=== PATIENT | female | born 1960 | race Caucasian/White ===

== ENCOUNTER 2018-10-13 16:02 | Emergency (ER) | payer BC ==
--- OUTSIDE RECORDS SUMMARY | 2018-10-13 16:06 | XMS REPORT | Continuity of Care Document ---
:1960 Author Organization Interface Problems Problem Status Onset Classification Date Comments Source Date Reported MALIGNANT NEOPLASM Active [facility] OF LEFT FEMALE [facility]19 [place] BREAST LEFT BREAST CANCER Active 018 [facility] LUNG MASS Active 018 [facility] BREAST CANCER Active 018 [facility] C50.212 Active 018 [facility] UNK Active [facility] [place]18 [place] I D, MARTINEZ Active [facility] BREAST/POSS TISSUE 018 [place] EXPANDERS RE DX: Active C50.212=MALIGNANT 018 [place] NEOPLASM OF UPPER- Malignant neoplasm 09/12/[address] 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 Medical aneurysm Group,[facility] Cerebral infarct Active Problem 09/24/2018 [facility] [place] CVA - Resolved Problem 09/24/2018 [facility] accident [facility] Group Hypothyroidism Resolved Problem 09/24/2018 Medical Group, [facility] [place] Labial cyst Active Problem 09/24/2018 [facility] Lupus Active Problem 09/24/2018 [facility] Breast cancer Resolved Problem 09/24/2018 Medical Group, [place] Memory loss Active Problem 12/25/2017 [facility] Lobular carcinoma 09/12/2018 [place] in situ of right breast 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 unspecified malignant neoplasm of axilla and upper limb lymph nodes Benign neoplasm of 09/12/[address] [facility] right breast Benign neoplasm of 09/12/[address] [facility] left breast Unspecified benign 09/12/[address] [facility] mammary dysplasia of right breast Unspecified benign 09/12/[address] [facility] mammary dysplasia of left breast Diffuse cystic 09/12/[address] [facility] mastopathy of right breast Diffuse cystic 09/12/[address] 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 Lupus Active Problem 09/12/2018 [facility] Ortiz,[facility] 272.4 Active [facility] OCL CRTD ART WO Active [facility] MALIG NEOPLASM OF [facility] QUADRANT O MALIG NEOPLASM OF Active [facility] QUADRANT O Medications Medication Details Route Status Patient Ordering Order Source Instructions Provider Date gabapentin 600 MG 600 mg=1 tab, Active Medical Oral Tablet PO, TID, 0 2018 Group Refill(s) anastrozole 1 mg, PO, Active Medical Daily, 0 2018 Group Refill(s) ceFAZolin + 1 gm, Route: No Longer Medical Sodium Chloride IVPB, ONCE, Active 2017 [facility] 0.9% IV 100 mL Start date: 03/27/18 7:30:00 CDT, Stop date: 03/27/18 7:30:00 CDTNotes: (Same As: Allan Tejada) MEDICATION WASTE Product Size: 1000 mg Product Wasted: ___ mg Ondansetron 4 MG 4 mg=1 tab, PO, Active Oral Tablet Q8H, PRN 2017 [place] [Zofran] Nausea/vomiting , # 6 tab, 0 Refill(s), Pharmacy: [facility] [id number] Minocycline 100 mg, 2 cap, Inactive Route: PO, Drug 2017 [place] form: CAP, [id number], Dosing Weight 74.091, kg, Start date: 02/23/18 13:00:00 CDT, Duration: 30 day, Stop date: 03/25/18 1:00:00 CDTNotes: (Same as:Minocin) No milk/antacids/i mike. Prednisone 10 mg, 1 tab, Inactive Route: PO, Drug 2017 [place] form: TAB, Daily, Dosing Weight 66.08, kg, Start date: 02/23/18 9:00:00 CDT, Duration: 30 day, Stop date: 03/24/18 9:00:00 CDTNotes: (Same as: PredniSONE) Take with food. duloxetine 60 mg, 2 cap, Inactive Route: PO, Drug 2017 [place] form: DRC, Daily, Dosing Weight 66.08, kg, Start date: 02/23/18 9:00:00 CDT, Duration: 30 day, Stop date: 03/24/18 9:00:00 CDTNotes: (Same as: Cymbalta) (Do Not Crush) Thyroxine 125 microgram, Inactive 1 tab, Route: 2018 [place] PO, Drug form: TAB, Daily, Dosing Weight 66.08, kg, Start date: 02/23/18 9:00:00 CDT, Duration: 30 day, Stop date: 03/24/18 9:00:00 CDTNotes: Take 1 hour before or 2 hours after meal; Enteral feeds may interefere with the absorption of this medication. (Same as:Levothroid) atorvastatin 40 mg, 1 tab, No Longer Route: PO, Drug Active 2017 [place] form: TAB, Bedtime, Dosing Weight 66.08, kg, Start date: 02/22/18 21:00:00 CDT, Duration: 30 day, Stop date: 03/23/18 21:00:00 CDTNotes: (Same as: Lipitor) Docusate Sodium 100 mg, 1 cap, No Longer 100 MG Oral Route: PO, Drug Active 2017 [place] Capsule form: CAP, BID, Dosing Weight 66.08, kg, Start date: 02/22/18 17:00:00 CDT, Duration: 30 day, Stop date: 03/24/18 9:00:00 CDTNotes: (Same as: Colace) (Do Not Crush) Naloxone 0.1 mg, 0.25 Inactive mL, Route: 2017 [place] SUB-Q, Drug form: INJ, Q6H, Dosing Weight 66.08, kg, PRN Itching, Start date: 02/22/18 12:35:00 CDT, Duration: 30 day, Stop date: 03/24/18 12:34:00 CDTNotes: Same as Narcan 72 HR Scopolamine 1 patch, Route: Inactive 0.0139 MG/HR TOP, Drug Form: 2017 [place] Transdermal Patch ERFILM, Dosing Weight 66.08, kg, ONCE, Apply behind ear. Avoid use in elderly., Start date: 02/22/18 12:35:00 CDT, Stop date: 02/22/18 12:35:00 CDTNotes: Change patch every 72 hours (Same as: Transderm-Scop) Promethazine 6.25 mg, 0.25 Inactive mL, Route: 2017 [place] IVPB, ONCE, Dosing Weight 66.08, kg, PRN Nausea & Vomiting, Start date: 02/22/18 12:35:00 CDTNotes: . (Same as: Phenergan) Ondansetron 4 mg, 2 mL, Inactive Route: IVP, 2017 [place] Drug form: INJ, ONCE, Dosing Weight 66.08, kg, PRN Nausea & Vomiting, Start date: 02/22/18 12:35:00 CDTNotes: (Same as: Zofran) MEDICATION WASTE Product Size: 4 mg Product Wasted: ___ mg Diphenhydramine 12.5 mg, 0.25 Inactive mL, Route: IVP2017 [place] Drug form: INJ, Q6H, Dosing Weight 66.08, kg, PRN Itching, Start date: 02/22/18 12:35:00 CDT, Duration: 30 day, Stop date: 03/24/18 12:34:00 CDTNotes: (Same as: Benadryl) Meperidine 12.5 mg, 0.25 Inactive mL, Route: IVP, 2017 [place] Drug form: INJ, Q30Min, Dosing Weight 66.08, kg, PRN Other -See Comment, For shivering, Start date: 02/22/18 12:35:00 CDT, Duration: 2 doses or times, Stop date: Limited # of timesNotes: (Same As: Demerol) Albuterol 0.83 2.49 mg, 3 mL, Inactive MG/ML Inhalant Route: NEB, 2017 [place] Solution Drug form: SOLN, Q20Min, Dosing Weight 66.08, kg, PRN Wheezing, Priority: STAT, Start date: 02/22/18 12:35:00 CDT, Duration: 30 day, Stop date: 03/24/18 12:34:00 CDTNotes: SEE RT DOCUMENTATION (Same as: Proventil) Fentanyl 50 microgram, Inactive Route: IVP, 2017 [place] Q5Min, Dosing Weight 66.08, kg, PRN Pain Score 7-10, Priority: Routine, Start date: 02/22/18 12:35:00 CDT, Duration: 2 doses or times, Stop date: Limited # of times Flumazenil 0.2 mg, 2 mL, Inactive Route: IVP2017 [place] Drug form: INJ, PRN, Dosing Weight 66.08, kg, PRN Benzodiazepine Reversal, Initial dose, Start date: 02/22/18 12:35:00 CDT, Duration: 30 day, Stop date: 03/24/18 12:34:00 CDTNotes: (Same as: Romazicon) Oxycodone 10 mg, 2 tab, Inactive Route: PO, Drug 2018 [place] form: TAB, Q4H, Dosing Weight 66.08, kg, PRN Pain Score 7-10, Start date: 02/22/18 12:35:00 CDT, Duration: 30 day, Stop date: 03/24/18 12:34:00 CDTNotes: (Same as: Roxicodone) Hydromorphone 0.5 mg, 0.5 mL, Inactive Route: IVP, 2017 [place] Drug form: INJ, Q5Min, Dosing Weight 66.08, kg, PRN Pain Score 7-10, Start date: 02/22/18 12:35:00 CDT, Duration: 4 doses or times, Stop date: Limited # of timesNotes: Same as: Dilaudid Acetaminophen 1,000 mg, Inactive Route: IVPB, 2017 [place] Drug form: INJ, ONCE, Dosing Weight 66.08, kg, PRN Pain Score 1-3, Start date: 02/22/18 12:35:00 CDT neostigmine Route: IV, Drug Inactive (ANES) form: INJ, 2017 [place] ONCE, Stop date: 02/22/18 12:14:00 CDT glycopyrrolate Route: IV, Drug Inactive (ANES) form: INJ, 2017 [place] ONCE, Stop date: 02/22/18 12:14:00 CDT phenylephrine Route: IV, Drug Inactive (ANES) form: INJ, 2017 [place] ONCE, Stop date: 02/22/18 9:34:00 CDT Naloxone 0.04 mg, 0.1 No Longer mL, Route: IVP, Active 2017 [place] Drug form: INJ, Q2MIN, Dosing Weight 66.08, kg, PRN Narcotic Reversal, Start date: 02/22/18 9:30:00 CDT, Duration: 30 day, Stop date: 03/24/18 9:29:00 CDTNotes: Same as Narcan Morphine 30 mg, 30 mL, No Longer Route: IV, HYDROPONICS GROWER Active 2017 [place] Dose: 1 mg, HYDROPONICS GROWER Lockout: 6 minutes, Continuous Basal Rate: 0 mg, 4 Hour Limit (In MG): 30, Drug Form: INJ, Continuous, Start date: 02/22/18 9:30:00 CDT, Duration: 30 day, Stop date: 03/24/18 9:29:00 CDTNotes: Dose: Delay: Basal rate: 4hr limit: (Same as:Sharonda) Diphenhydramine 25 mg, 1 tab, No Longer Route: PO, Drug Active 2018 [place] form: TAB, Bedtime, Dosing Weight 66.08, kg, PRN Insomnia, Start date: 02/22/18 9:30:00 CDT, Duration: 30 day, Stop date: 03/24/18 9:29:00 CDT Acetaminophen 325 1 tab, Route: No Longer MG / Hydrocodone PO, Drug Form: Active 2018 [place] Bitartrate 10 MG TAB, Dosing Oral Tablet Weight 66.08, kg, Q4H, PRN Pain Score 4-6, Start date: 02/22/18 9:30:00 CDT, Duration: 30 day, Stop date: 03/24/18 9:29:00 CDTNotes: Do not exceed 4gm/day of acetaminophen. (Same as: [place] 325/10) Acetaminophen 325 1 tab, Route: No Longer MG / Hydrocodone PO, Drug Form: Active 2018 [place] Bitartrate 5 MG TAB, Dosing Oral Tablet Weight 66.08, kg, Q4H, PRN Pain Score 4-6, Start date: 02/22/18 9:30:00 CDT, Duration: 30 day, Stop date: 03/24/18 9:29:00 CDTNotes: (Same as: [place] 325/5) Do not exceed 4gm/day of acetaminophen. Ondansetron 4 mg, 2 mL, No Longer Route: IVP, Active 2018 [place] Drug form: INJ, Q6H, Dosing Weight 66.08, kg, PRN Nausea & Vomiting, Start date: 02/22/18 9:30:00 CDT, Duration: 30 day, Stop date: 03/24/18 9:29:00 CDTNotes: (Same as: Gabriela) MEDICATION WASTE Product Size: 4 mg Product Wasted: ___ mg Acetaminophen 650 mg, 2 tab, No Longer 08/16/ MH Route: PO, Drug Active 2017 [place] form: TAB, Q4H, Dosing Weight 66.08, kg, PRN Pain 1-3/Temp > 100.4 F, Start date: 02/22/18 9:30:00 CDT, Duration: 30 day, Stop date: 03/24/18 9:29:00 CDTNotes: Do not exceed 4 gm/day. (Same as: Tylenol) Calcium Chloride 1,000 mL, Rate: No Longer 0.0014 MEQ/ML / 50 ml/hr, Active 2017 [place] Potassium Infuse over: 20 Chloride 0.004 hr, Route: IV, MEQ/ML / Sodium Dosing Weight Chloride 0.103 66.08 kg, Total MEQ/ML / Sodium Volume: 1,000, Lactate 0.028 Start date: MEQ/ML Injectable 02/22/18 Solution 9:30:00 CDT, Duration: 30 day, Stop date: 03/24/18 9:29:00 CDT, 1.71, m2 Dilaudid (ANES) Route: IV, Drug Inactive form: INJ, 2017 [place] ONCE, Stop date: 02/22/18 9:09:00 CDT metoclopramide Route: IV, Drug Inactive (ANES) form: INJ, 2017 [place] ONCE, Stop date: 02/22/18 8:59:00 CDT dexamethasone Route: IV, Drug Inactive (ANES) form: INJ, 2017 [place] ONCE, Stop date: 02/22/18 8:59:00 CDT ePHEDrine (ANES) Route: IV, Drug Inactive form: INJ, 2017 [place] ONCE, Stop date: 02/22/18 8:59:00 CDT lidocaine (ANES) Route: IV, Drug Inactive form: INJ, 2017 [place] ONCE, Stop date: 02/22/18 8:54:00 CDT ceFAZolin (ANES) Route: IV, Drug Inactive form: INJ, 2017 [place] ONCE, Stop date: 02/22/18 8:54:00 CDT propofol (ANES) Route: IV, Drug Inactive 08/16/ MH form: INJ, 2017 [place] ONCE, Stop date: 02/22/18 8:54:00 CDT ondansetron Route: IV, Drug Inactive (ANES) form: INJ, 2017 [place] ONCE, Stop date: 02/22/18 8:54:00 CDT succinylcholine Route: IV, Drug Inactive (ANES) form: INJ, 2017 [place] ONCE, Stop date: 02/22/18 8:54:00 CDT fentaNYL (ANES) Route: IV, Drug Inactive form: INJ, 2017 [place] ONCE, Stop date: 02/22/18 8:54:00 CDT rocuronium (ANES) Route: IV, Drug Inactive form: INJ, 2017 [place] ONCE, Stop date: 02/22/18 8:54:00 CDT midazolam (ANES) Route: IV, Drug Inactive form: SOLN, 2017 [place] ONCE, Stop date: 02/22/18 8:14:00 CDT Lactated Ringers Route: IV, Inactive Injection IV Total Volume: 2017 [place] (ANES) 1000 mL 1,000, Start date: 02/22/18 7:40:00 CDT, Stop date: 02/22/18 8:40:00 CDT Cefazolin 2 gm, 100 mL, No Longer Route: IVPB, Active 2017 [place] Drug form: INJ, ONCALL, Dosing Weight 66.08, kg, Start date: 02/22/18 7:00:00 CDT, Duration: 1 doses or times, ABX Indication: Surgical ProphylaxisNote s: Same as: Ancef Pepcid 20 mg, Route: Inactive IVP, ONCE, 2017 [place] Dosing Weight 66.08, kg, Start date: 02/22/18 6:54:00 CDT, Stop date: 02/22/18 6:54:00 CDT Zofran 4 mg, Route: Inactive IVP, ONCE, 2017 [place] Dosing Weight 66.08, kg, Start date: 02/22/18 6:54:00 CDT, Stop date: 02/22/18 6:54:00 CDT Calcium Chloride 1,000 mL, Rate: Inactive 0.0014 MEQ/ML / 25 ml/hr, 2017 [place] Potassium Infuse over: 40 Chloride 0.004 hr, Route: IV, MEQ/ML / Sodium Dosing Weight Chloride 0.103 66.08 kg, Total MEQ/ML / Sodium Volume: 1,000, Lactate 0.028 Start date: MEQ/ML Injectable 02/22/18 Solution 6:19:00 CDT, Duration: 30 day, Stop date: 03/24/18 6:18:00 CDT, 1.71, m2 predniSONE 10 mg 10 mg=1 tab, Active oral tablet PO, Daily, 0 2017 [place] Refill(s) Zolpidem tartrate 10 mg=1 tab, Active 10 MG Oral Tablet PO, Bedtime, 0 2017 [place] [Ambien] Refill(s) DULoxetine 60 mg 60 mg=1 cap, Active Medical oral delayed PO, Daily, # 30 2018 [facility] release capsule cap, 0 Refill(s) Omnipaque 300 100 mL, Route: Inactive IV, Drug Form: 2017 [place] SOLN, ONCE, Start date: 11/01/17 12:55:00 CDT, Stop date: 11/01/17 12:55:00 CDTNotes: (Same as:Omnipaque 300). WASTE: F/P - Black; E - Municipal Trash Bin Allergies, Adverse Reactions, Alerts Substance Category Reaction Severity Reaction Status Date Comments Source type Reported Immunizations Immunization Date Given Site Status Last Updated Comments Source Results Order Name Results Value Reference Date Interpretation Comments Source Range Chest Chest 1view Clinical Indication: Absent of breath sounds - Status post lung 05/10 1view DX - [facility] Comparison: 05/07/2014 Read by: Bipin Gunderson MD Dictated Date/time: 05/10/18 12:31 FINDINGS: Single AP view of the chest is submitted for interpretation. Electronically Signed by: Bipin Gunderson MD 12:40 FINAL REPORT Increased density throughout the right apex likely represents a small amount of pulmonary hemorrhage status post left apical lung biopsy. There is no visible pneumothorax. There is mild pulmonary vascular congestion with mild subsegmental atelectasis in the left lung base. There is no visible pneumothorax. Cardiomediastinal contours are stable. No gross bony normalities are identified. IMPRESSION: 1. Small amount of parenchymal hemorrhage in left apex status post left lung biopsy. There is no visible pneumothorax. 2. Mild pulmonary vascular congestion status post mild subsegmental atelectasis in the left lung base. SL: GABI Biopsy Biopsy Patient Name: DANIELA VENTURA 05/10 - lung/chest lung/chest - [facility] : 1960; Age: 57 years Female MR: [id number] Read by: Lamont Moreau MD Dictated Date/time: 05/10/18 14:12 Electronically Signed by: Lamont Moreau MD 05/10/18 14:22 FINAL REPORT PROCEDURE: 1. CT-guided lung biopsy of a left apical nodule 2. Moderate sedation CLINICAL INFORMATION: PET negative left apical nodule, history of breast cancer COMPARISON: PET/CT on 04/24/2018 CONSENT: The procedure, risks, benefits and alternatives were discussed with the patient and written informed consent was obtained. A "time out" was performed per protocol prior to the procedure. 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 The patient was continuously monitored by a nurse using automated blood pressure , electrocardiogram, and pulse oximetry. [facility] sedation [facility] is permanently stored in the hospital information system. The personal supervised moderate sedation time was 25 minutes. Medications administered: Versed 3 mg IV and Fentanyl 150 mcg IV. The patient was placed in a prone position on the CT table. Preprocedure CT again demonstrated the left apical 1 cm nodule. The left posterior chest wall was prepped and draped with sterile technique and the skin was anesthetized with 1% lidocaine. Under CT guidance, a 17-gauge introducer needle was advanced into the left apical nodule. Subsequently, 5 core biopsies (18-gauge, 2 cm) were obtained of this lesion using a coaxial technique. The needles were removed and sterile dressing applied. Postprocedure imaging demonstrated a small to moderate amount of postbiopsy hemorrhage surrounding the left apical nodule. No significant pneumothorax or hemothorax. Following the procedure, patient exp erienced significant hemoptysis as well as oxygen desaturation. After placing the patient on a nonrebreather and moving the patient into a sitting position, the desaturation and hemoptysis were alleviat ed. Given the degree of hemoptysis, Dr. Givens was consulted who observed the patient in the recovery room. Patient will be subsequently admitted for observation under Dr. Givens. IMPRESSION: Successful CT-guided lung biopsy of the left apical nodule. SL: [id number] PET CT PET CT Patient Name: DANIELA VENTURA 04/24 - Breast CA Breast CA /2017 - [facility] initial initial : 1960; Age: 57 years Female staging staging MR: [id number] Read by: Roger Jenkins MD Dictated Date/time: 04/25/18 11:17 Electronically Signed by: Roger Jenkins MD 04/25/18 11:51 FINAL REPORT Study: PET CT Breast CA initial staging 04/24/2018 9:15 AM CDT Clinical Indication: - C50.212 Malignant neoplasm of upper-inner quadrant of left female breast COMPARISON: CAT scan March 30, [address] TECHNIQUE: Positron emission tomography imaging is performed 45 minutes after intravenous administration of 14.3 mCi of F-18 labeled FDG, from the skull base to the mid thigh region. PET images were reviewed in th e axial, coronal and sagittal orthogonal projections. Non-contrast enhanced CT imaging was for performed for attenuation correction, localization and limited diagnostic purposes. INJECTION SITE: Right antecubital Serum glucose: 97 mg/dL. Dose: The total exam DLP is 457 mGy-cm. FINDINGS: NECK: There are no foci of abnormal metabolic activity. CHEST: Left AP window lymph node, image 62 measures SUV 3.9, 13-14 mm in short axis dimension, similar to the prior exam. There is bilateral axillary adenopathy spanning images 47 through 66. SUV measur es up to 3.8 on the right and 3.2 on the left. These vary in size differences, for example, on the right measuring up to 18 mm versus 20 mm, 15 mm versus 13 mm. On the left these measure 13 mm versus 14 mm. Left upper lobe pulmonary nodule, image 43 measures 10-11 mm, SUV 1.2 similar to the prior CAT scan. Bilateral mastectomy change with generalized uptake in both surgical sites, SUV measuring up to 4.8 on the left and 3.4 on the right. ABDOMEN: There are no foci of abnormal metabolic activity. Hepatomegaly. PELVIS: There are no foci of abnormal metabolic activity. BONES: There are no foci of abnormal metabolic activity. Physiologic F-18 labeled FDG distribution is noted in the brain, heart, liver, spleen, gastrointestinal and genitourinary tracts. IMPRESSION: 1. Bilateral axillary adenopathy with uptake as described above. Overall size comparisons appear similar as differences in size may be related to slice selection artifact. 2. Left AP window lymph node appears similar in size to the prior exam. 3. Left upper lobe nodule appears similar in size the prior exam. 4. Bilateral mastectomy change with generalized uptake likely postsurgical in nature. This can be assessed on follow-up imaging. 5. Hepatomegaly. FDG PET is known to show little to no uptake in malignant disease with low metabolic activity including bronchoalveolar carcinoma (renamed adenocarcinoma in situ, minimally invasive adenocarcinoma) or c arcinoid. There are studies showing malignant pleural mesothelioma with SUV values ranging from less than 1 to greater than 12 depending on metabolic activity of the tumor. SL: [id number] Bone scan Bone scan Clinical Indication: - Malignant neoplasm of upper- inner quadrant of left female breast. 03/30 - [facility] - [facility] Comparison: None. Read by: Jamie Aguiar MD Dictated Date/time: 03/31/18 15:54 Electronically Signed by: Jamie Aguiar MD 03/31/18 15:56 FINAL REPORT TECHNIQUE: Total body bone scan is performed using 26.94 mCi of technetium 99m-MDP, which was administered intravenously. Whole body delayed images are obtained in the anterior and posterior projections after 3 hours delay. Small field of view frontal projection images of the head and neck, chest, abdomen and pelvis were then obtained. FINDINGS: There is expected distribution of the radiotracer to the skeleton. No abnormal foci of radiotracer activity to suggest metastatic disease or fracture. Unremarkable appearing skull, spine, ribs, pelvis and visualized extremities. Normal soft tissue and renal activity is noted. Normal bladder activity is seen. IMPRESSION: 1. No abnormal foci of radiotracer activity to suggest metastatic disease. 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 Sagittal and coronal reformatted images were prepared. IV CONTRAST: 100cc Omnipaque 300 DOSE: CT imaging performed at this location utilizes radiation dose optimization techniques which include one or more of the followin) Automated exposure control; 2) Adjustment of the mA and/or kV according to patient size; 3) Use of iterative reconstruction techniques. Dose DLP: 740 mGy-cm FINDINGS: CT CHEST WITH CONTRAST: LUNGS: 1.1 cm spiculated left upper lobe nodule (series 3 image 18) round atelectasis in the left posterior lower lobe. Subsegmental atelectasis in the right lower lobe AIRWAY: Clear central tracheobronchial tree. HEART: Normal size heart. THORACIC AORTA: Normal caliber without aneurysm or dissection. Proximal left vertebral artery stent. PULMONARY ARTERIES: No evidence of central pulmonary embolus. MEDIASTINUM AND RUDY: No hilar or mediastinal lymphadenopathy. Bulky right and prominent left axillary lymph nodes, which appear increased in size compared to the July 2013 study. Correlation with biopsy can be performed, if not previously done. Nonspecific 1.3 cm left mediastinal AP window lymph node (series 3 image 43 ). SOFT TISSUES: No suspicious soft tissue lesion or abnormality. OSSEOUS STRUCTURES: No fracture, dislocation, or suspicious focal osseous lesion. CT ABDOMEN WITH CONTRAST: BOWEL: Normal nonobstructed bowel gas pattern. APPENDIX: Normal appendix without inflammatory change. STOMACH: Normal for degree of distention. PERITONEUM AND MESENTERY: Free Air: No evidence of pneumoperitoneum. Free Fluid: No evidence of significant free fluid, loculated fluid, peripherally enhancing abscess, or hemorrhage. Mesenteric and peritoneal fat: Normal without focal lesion or inflammation. LYMPH NODES: No lymphadenopathy or mass. VASCULAR: Abdominal Aorta: Normal caliber abdominal aorta without aneurysm or dissection. IVC: Normal caliber nonenhanced. ABDOMINAL ORGANS: Liver: Normal size and morphology without discrete lesion. Gallbladder: Normal appearing gallbladder without calcified gallstones, gallbladder wall thickening, or pericholecystic inflammation. Biliary Tree: Normal without dilatation. Kidneys: Normal size and morphology without discrete lesion or hydronephrosis. Adrenal Glands: Normal size and morphology without discrete lesion. Pancreas: Normal size and morphology without discrete lesion. Spleen: Normal size and morphology without discrete lesion. PELVIC ORGANS: Urinary bladder: Normal nonenhanced appropriate for degree of distention. Reproductive organs: No organomegaly or mass lesions. 1.3 cm hypodense left pelvic lesion may present an ovarian cyst (series 3 image 158) SOFT TISSUES: Postoperative changes from recent left mastectomy with subcutaneous air and a left chest wall drain in place. OSSEOUS STRUCTURES: Mild spinal degenerative change without fracture, dislocation, or focal osseous lesion. Vertebral hemangioma at L4. IMPRESSION: 1. 1.1 cm left apical nodule, new since the August 06, 2013 CT.Metastatic disease is not excluded, and follow-up is recommended. 2. Bulky right and prominent left axillary lymph nodes, which appear increased in size compared to the July 2013 study. Correlation with biopsy can be performed, if not previously done. 3. Nonspecific 1.3 cm left mediastinal AP window lymph node (series 3 image 43). 4. Subcentimeter left para-aortic lymph node is not significantly changed since prior exam, favored to be reactive. 5. Expected postoperative changes from recent left mastectomy. SL: [id number] Henlawson Henlawson . Patient Name: DANIELA VENTURA 02/21 - [facility] Node Node /2018 - [place] injection injection : 1960; Age: 57 years Female [facility] MR: [id number] Read by: Roger Jenkins MD Dictated Date/time: 02/21/18 21:42 Electronically Signed by: Roger Jenkins MD 02/22/18 07:36 FINAL REPORT Study: [place] Node injection KRYSTYNA 02/21/2018 9:37 AM CDT Clinical Indication: - LEFT breast ILC, history of vulvar carcinoma 2015. COMPARISON: None TECHNIQUE: The patient was cleaned and prepped in the usual manner. 4.95 mCi of Tc 99m filtered sulfur colloid was administered in the subareolar location of the left breast. The patient tolerated procedure well. The patient's left breast will be massaged per protocol by the nuclear unit operator prior to sending the patient for surgery. IMPRESSION: Injection performed without incident. No immediate complications. SL: [facility] CHEM PANEL eGFR 96 12/19 Result Comment: The eGFR is calculated using the CKD-EPI formula. In most young, healthy individuals the eGFR will be >90 mL/ min/1.73m2. The eGFR declines with age. An eGFR of 60-89 may be normal in mL/min/1.73 /2017 some populations, particularly the elderly, for whom the CKD-EPI formula has not been extensively validated. Use of the eGFR is not recommended in the following populations: [place] [address] Individuals with unstable creatinine concentrations, including patients and those with serious co-morbid conditions. Patients with extremes in muscle mass or diet. The data above are obtained from the National Kidney Disease Education Program (NKDEP) which additionally recommends that when the eGFR is used in patients with extremes of body mass index for purposes of drug dosing, the eGFR should be multiplied by the estimated BMI. CHEM PANEL POC 0.7 mg/dL 0.5 - 1.4 12/19 Creatinine /2017 [facility] Breast Breast w/wo Patient Name: DANIELA VENTURA 12/19 - w/wo contrast - [facility] contrast bilat MRI : 1960; Age: 57 years y/o Female bilat MRI MR: [id number] Read by: Shelly Alba MD Dictated Date/time: 12/19/17 10:43 Electronically Signed by: Shelly Alba MD 12/19/17 14:07 FINAL REPORT Study: Breast w/wo contrast bilat MRI 12/19/2017 9:51 AM CDT Ordering Physician: Suzy Coto DO Clinical Indication: 57-year-old female with known lupus, prior vulvar carcinoma and recently diagnosed left breast 10:00 invasive lobular cancer and LCIS. Preoperative evaluation.; - C50.212 Maligna nt neoplasm of upper-inner quadrant of left female breast' Comparison: No prior breast MRI; most recent mammogram with left breast ultrasound biopsy November 21, 2017, additional mammogram and ultrasounds are reviewed from November 15, 2017 through December 13, 2005 BILATERAL BREAST MAGNETIC RESONANCE IMAGING WITHOUT AND WITH CONTRAST TECHNIQUE: Bilateral breast MRI was performed on a 1.5 Gosia magnet with a dedicated breast coil. Sagittal, axial, and axial subtraction imaging of the contrast enhanced dynamic images was performed. 14 ccs of Multihance contrast was administered during the postinfusion portion of the exam. Post processing images include postcontrast subtraction, maximum intensity projection, and reconstructed multipl jarod images. Exam was performed for evaluation of the breasts only. Although the field of view includes portions of the chest, thoracic spine, and superior aspect of the abdomen, this exam is not diagno stic for those areas as it is not protocoled as such. These areas are limited by technical artifacts and cardiac motion. Times signal intensity curves were also analyzed using a [employer] workstation vers [employer] [id number]. All measurements provided below are in the anterior- posterior X width X craniocaudal format. Postmenopausal patient FINDINGS: Right breast: Moderate background enhancement is present. Numerous enhancing foci and masses are present severely limiting the exam. At approximately 5-6:00 2.5 cm deep to the nipple is an enhancing 6 m m mass (image 26 series 10). There is an additional 1.2 cm cluster of enhancing masses in the central-12:00 breast 6 cm deep to the nipple (image 54 series 10). These aforementioned masses are the most suspicious/largest in the right breast. These likely correspond with prior masses on older ultrasound exams. Numerous enlarged axillary nodes are redemonstrated most compatible with known history of lup us. This limits evaluation for potentially malignant/metastatic nodes. No internal mammary chain adenopathy. The skin and nipple-areolar complex appear unremarkable. Left breast: Moderate background enhancement is present. Numerous enhancing foci and masses are present severely limiting the exam. Corresponding with the biopsy proven malignancy is an irregular spicul ated mass with adjacent nonmasslike enhancement at 10:00 7 cm deep to the nipple measuring at least 2.6 x 1.8 x 2.7 cm (image 64 through 69, series 10). There is associated biopsy clip artifact. An guerline tional suspicious area of nonmass-like enhancement measuring at least 1.5 cm in dimension is noted in the anterior depth at 9-10:00 3 cm (image 43 through 45, series 10), deep to the nipple. This has si milar kinetics to the biopsy-proven malignancy. Several other subcentimeter indeterminate masses are present throughout the left breast which may correspond with the previously demonstrated masses on pr ior ultrasound. Numerous enlarged axillary nodes are redemonstrated most compatible with known history of lupus. This limits evaluation for potentially malignant/metastatic nodes. No internal mammary ch ain adenopathy. The skin and nipple-areolar complex appear unremarkable. IMPRESSION: Numerous enhancing foci and masses are present in both breasts which severely limits the exam. Redemonstration of the known biopsy-proven left breast invasive lobular cancer at 10:00 7 cm deep to the nipple measuring at least 2.7 cm in maximum dimension. Additional suspicious areas of enhancement in the anterior medial left breast at 9-10:00 as detailed above with similar appearance to the biopsy- proven malignancy. If breast conservation is pursued, ult rasound with possible biopsy is recommended. MRI guided biopsy may be warranted if no ultrasound correlate is identified. Additional left breast masses as detailed above. A few of these could correspond with previously demonstrated ultrasound masses. If breast conservation is desired, correlation with left breast ultrasoun d with comparison to prior exams and this MRI exam is recommended. Right breast masses as detailed above. These may correspond with prior right breast masses on older ultrasound exams. If breast conservation is desired , breast ultrasound with correlation to prior ultra sound exams and this MRI is recommended. If there is an appreciable change in size/appearance or new lesions are identified, biopsy would be warranted. Please note, with the patient's biopsy results of invasive lobular cancer/ LCIS and the numerous enhancing foci/masses in both breasts as detailed above, this limits optimal exam evaluation/sensitiv ity. This should be discussed further with the patient by her surgeon and/ or oncologist. Enlarged bilateral axillary nodes in keeping with patient's known history of chronic lupus. Above findings were discussed with the referring physician over the phone at approximately 1345 hours on the day of the exam. ACR BI-RADS CATEGORY 4 - SUSPICIOUS ABNORMALITY. Additional workup for bilateral breast masses/enhancement is recommended as detailed above, if breast conservation is desired. SL: 13 SL: [id number] Thank you for allowing [facility] to participate in the care of your patient. Breast Breast 11/21 - Mammo Diag Mammo Diag /2017 - [facility] UNI incl UNI incl CAD MA CAD MA Read by: Vivien Greenwood MD Dictated Date/time: 11/21/17 13:50 UNILATERAL LEFT DIGITAL DIAGNOSTIC MAMMOGRAM WITH CAD: 11/21/2017 Electronically Signed by: Vivien Greenwood MD 11/21/17 13 :50 FINAL REPORT CLINICAL: /Clip Pics. Current study was evaluated with a Computer Aided Detection (CAD) system. COMPARISON:Comparison is made to exams dated: 11/15/2017 mammogram, 2017 mammogram, 01/30/2015 mammogram, and 12/11/2013 mammogram - [facility]. TECHNIQUE: Mammographic views were obtained using digital acquisition. [employer] Version 1.3 was utilized for computer aided detection. FINDINGS: Post biopsy mammogram demonstrates the ribbon clip within the spiculated mass at the left 10 o'clock. IMPRESSION: POST PROCEDURE MAMMOGRAM FOR MARKER PLACEMENT RECOMMENDATION: Post biopsy clip placement as above. This exam was interpreted at [id number] for [facility]. Vivien Greenwood M.D. ap/:11/21/2017 13:50:46 Pressure Welder(s): Brii Sims, [facility] Mammogram BI-RADS: Post-procedure mammogram for marker placement Breast BX Breast BX 11/21 - Uni w Clip Uni w Clip /2017 - [facility] Primary Primary Side US Side US Read by: Vivien Greenwood MD Dictated Date/time: 11/24/17 09:30 ULTRASOUND GUIDED BIOPSY LEFT BREAST WITH MARKING DEVICE INSERTED AND POST DIGITAL MAMMOGRAPHIC IMAGIN11/21/2017 Electronically Signed by: Vivien Greenwood MD 11/24/17 09:30 FINAL REPORT CLINICAL: /Breast Mass. Correlation is made to exams dated: 11/21/2017 mammogram, 11/15/2017 ultrasound, and 11/15/2017 mammogram - [facility]. An ultrasound guided biopsy using real-time ultrasound was performed for the 1 cm irregular shaped mass located in the left breast at 10 o'clock posterior depth 6 cm from the nipple. This was desc ribed on the previous ultrasound report. The skin was prepped in the usual manner. Local anesthetic was administered to the access site. A skin marcelino was made in the breast. The abnormality was appro ached from the medial aspect. A 14 gauge biopsy needle was placed adjacent to the abnormality through an introducer device under ultrasound guidance. Once the needle was documented to be in the correc t location, three specimens were obtained using a BARD biopsy device. A ribbon clip was inserted into the biopsy cavity. A sterile dressing was applied to the access site. Post procedure digital mamm ographic imaging demonstrates the clip at the targeted area. The specimens were sent to the laboratory for pathological analysis. IMPRESSION: ULTRASOUND GUIDED BIOPSY MALIGNANT RECOMMENDATION:Ultrasound guided biopsy of the 1 cm mass in the left breast at 10 o'clock posterior depth 6 cm from the nipple was successful with no apparent post procedure complications. Pathology indicates: " - INVASIVE LOBULAR CARCINOMA, NUCLEAR GRADE 1. - LOBULAR CARCINOMA IN SITU. - Microcalcifications present." Pathology results are malignant and concordant with imaging findings. A surgical evaluation, a surgical excision, and a chemo oncology consultation are recommended. Preoperative breast MRI may also be considered due to dense breasts. A message was left with Dr. Nelson's office on 11/24/17. This exam was interpreted at [id number] for [facility]. Vivien Greenwood M.D. ap/:11/24/2017 09:30:22 Pressure Welder(s): Meka Vila, [facility] letter sent: Surgical Consult Post Bx Breast Breast 11/15 - Complete Complete /2017 - [facility] US Read by: Shelly Alba MD Dictated Date/time: 11/15/17 09:38 COMPLETE ULTRASOUND OF LEFT BREAST AND AXILLA: 11/15/2017 Electronically Signed by: Shelly Alba MD 11/15/17 09 :38 FINAL REPORT CLINICAL: /Mass abnormal mammogram, mammographic nodule/density. COMPARISON:Comparison is made to exams dated: 11/15/2017 mammogram, 2017 mammogram, 01/30/2015 mammogram, 12/11/2013 mammogram, 10/08/2010 mammogram, and 10/28/2008 ultrasound - [facility]. TECHNIQUE: Color flow and real-time ultrasound of the left breast four quadrants and axilla regions were performed. Serrano scale images of the real- time examination were reviewed. All 4 quadrants, the r etroareolar region and axilla are evaluated in this exam. FINDINGS: There is a stable small benign oval shaped hypoechoic mass with a circumscribed margin with posterior enhancement left breast at 11 o'clock that correlates with mammography (stable on mammogram ove r 2 years). There also are large benign appearing lymph nodes in the left axilla that are not significantly changed and correlate with mammography. There is a 1 cm irregular solid mass with an indistinct margin in the left breast at 10 o'clock posterior depth 6 cm from the nipple. This irregular solid mass is hypoechoic with posterior acousti c shadowing. This correlates with mammography findings. Color flow imaging demonstrates that there is no vascularity present. IMPRESSION: HIGHLY SUGGESTIVE OF MALIGNANCY The 1 cm irregular solid mass in the left breast is highly suggestive of malignancy. An ultrasound guided biopsy is recommended. Enlarged left axillary nodes most compatible with known history of lupus. This limits evaluation for potential metastatic disease. Surgical consult may be necessary depending upon the above biopsy results. The physician's office was notified. The results were reviewed with the patient. SUMMARY: The patient scheduled her procedure prior to leaving the [facility]. The physician's office was notified at 0930 hours on the day of the exam of the above findings and recommendations. An order for this procedure will need to be provided by the referring physician. As the patient is on anti-coagulation medication, this should be discontinued prior to the biopsy with the referring physician's approval. This exam was interpreted at [id number] for [facility]. Shelly Alba M.D. jt/:11/15/2017 09:38:11 Pressure Welder(s): Rosie Fine [facility] letter sent: BI-RADS 4/5 Ultrasound BI-RADS: 5 Highly suggestive of malignancy Breast Breast 11/15 - Mammo Diag Mammo Diag /2017 - [facility] UNI w ed UNI w ed incl CAD incl CAD CARLA AGUIRRE Read by: Shelly Alba MD Dictated Date/time: 11/15/17 09:38 UNILATERAL LEFT DIGITAL DIAGNOSTIC MAMMOGRAM 3D/2D WITH CAD: 11/15/2017 Electronically Signed by: Shelly Alba MD 09:38 FINAL REPORT CLINICAL: /Call Back abnormal mammogram, mammographic nodule/density. Current study was evaluated with a Computer Aided Detection (CAD) system. COMPARISON:Comparison is made to exams dated: 11/01/2017 mammogram, 2014 mammogram, 12/11/2013 mammogram, 10/08/2010 mammogram, and 10/03/2008 mammogram - [facility]. TECHNIQUE: Digital Breast Tomosynthesis was performed and utilized for Interpretation. [employer] Version 1.3 was utilized for computer aided detection. FINDINGS: The tissue of left breast is heterogeneously dense, which could obscure detection of small masses. Bilateral axillary lymphadenopathy is unchanged compatible with provided clinical history of lupus. There is a new irregular high density focal asymmetry with a spiculated margin in the left breast at 11 o'clock posterior depth. This correlates with the prior exam. No other significant masses or calcifications are seen in the breast. IMPRESSION: INCOMPLETE: NEEDS ADDITIONAL IMAGING EVALUATION RECOMMENDATION:The new irregular high density focal asymmetry in the left breast is indeterminate. An ultrasound is recommended. The results were reviewed with the patient. This exam was interpreted at [id number] for [facility]. SUMMARY: Ultrasound will be performed at this time; please see dedicated separate report. Shelly mcknight/augusto:11/15/2017 09:38:53 Pressure Welder(s): Brii Sims, [facility] Mammogram BI-RADS: 0 Indeterminate CHEM PANEL eGFR 102 11/01 Result Comment: The eGFR is calculated using the CKD-EPI formula. In most young, healthy individuals the eGFR will be >90 mL/ min/1.73m2. The eGFR declines with age. An eGFR of 60-89 may be normal in mL/min/1.73 /2017 some populations, particularly the elderly, for whom the CKD-EPI formula has not been extensively validated. Use of the eGFR is not recommended in the following populations: [place] [address] Individuals with unstable creatinine concentrations, including patients and those with serious co-morbid conditions. Patients with extremes in muscle mass or diet. The data above are obtained from the National Kidney Disease Education Program (NKDEP) which additionally recommends that when the eGFR is used in patients with extremes of body mass index for purposes of drug dosing, the eGFR should be multiplied by the estimated BMI. CHEM PANEL POC 0.6 mg/dL 0.5 - 1.4 11/01 Creatinine [facility] Breast Breast 11/01 - Mammo Scrn Mammo Scrn - [facility] MARTINEZ w ed MARTINEZ w ed incl CAD incl CAD MA MA Read by: Shelly Alba MD Dictated Date/time: 11/01/17 14:04 BILATERAL DIGITAL SCREENING MAMMOGRAM 3D/2D WITH CAD: 11/01/2017 Electronically Signed by: Shelly Alba MD 11/01/17 14 :04 FINAL REPORT CLINICAL: /Routine. Current study was evaluated with a Computer Aided Detection (CAD) system. COMPARISON:Comparison is made with mammogram(s) dated 01/30/15 - 02/23/07. TECHNIQUE: Digital Breast Tomosynthesis was performed and utilized for Interpretation. [employer] Version 1.3 was utilized for computer aided detection. FINDINGS: The tissue of both breasts is heterogeneously dense, which could obscure detection of small masses. Bilateral axillary lymphadenopathy is unchanged compatible with provided clinical history of lupus. There is a benign calcification in the right breast. There is a new irregular focal asymmetry in the left breast at 11 o'clock posterior depth. No other significant masses, calcifications, or other findings are seen in either breast. IMPRESSION: INCOMPLETE: NEEDS ADDITIONAL IMAGING EVALUATION RECOMMENDATION:The new irregular focal asymmetry in the left breast is indeterminate. Left diagnostic mammogram with ultrasound is recommended (spot compression and lateral views). This exam was interpreted at [id number] for [facility]. Shelly Alba M.D. jt/penrad:11/01/2017 14:04:20 Pressure Welder(s): Brii Sims, [facility] letter sent: BI-RADS 0 Mammogram BI-RADS: 0 Indeterminate Abdomen/Pe Abdomen/Pel Clinical Indication: R leg pain, Carcinoma in situ of vulva. 11/01 - lvis w IV vis w IV /2017 - [facility] contrast contrast CT Comparison: None. CT Read by: Jerson Rosales MD Dictated Date/time: 11/01/17 16:47 Electronically Signed by: Jerson Rosales MD 11/01/17 16:56 FINAL REPORT TECHNIQUE: Helical imaging was performed from diaphragm through the symphysis with multiplanar reformations obtained. IV CONTRAST: 100 cc Omnipaque. GI CONTRAST: YES CT Radiation Dose: QRY=676 mGy-cm FINDINGS: LOWER CHEST: There is mild bronchiectasis in this opacity in the right middle lobe. Correlate clinically for infection. Consider nonemergent chest imaging.. LIVER: There is mild hepatic steatosis. GALLBLADDER: Unremarkable. INTRAHEPATIC BILE DUCT AND EXTRAHEPATIC BILE DUCT: Unremarkable. PANCREAS: Unremarkable. SPLEEN: Unremarkable. ADRENALS: Unremarkable. KIDNEYS AND URETERS: There is a punctate left renal stone. Kidneys enhance symmetrically. No significant hydronephrosis.. STOMACH: Unremarkable. BOWEL: The small bowel loops in the abdomen and pelvis appear unremarkable. The colonic loops in the abdomen and pelvis appear unremarkable. APPENDIX: Within normal limits. PERITONEUM AND RETROPERITONEUM: No ascites or free air The aorta is calcified and atherosclerotic. LYMPH NODES: There is a nonenlarged retroperitoneal lymph node in the left periaortic regions. This lymph node is normal in size. However, there is mild surrounding stranding. While this is nonenlarged, surrounding stranding to as possible inflammation. Consider short interval follow-up. PELVIS: No pelvic mass. BLADDER: Unremarkable. OSSEOUS STRUCTURES: No acute abnormality seen. SOFT TISSUES: Unremarkable. IMPRESSION: 1. Punctate left renal stone. 2. Nonenlarged, left para-aortic lymph node. However, this lymph node has mild surrounding inflammation. This is nonspecific, and consider short-term interval follow-up to ensure stability. 3. Mild hepatic steatosis. 4. Mild bronchiectasis and airspace opacity in the right middle lobe, possibly relating to prior infection. Correlate clinically, consider nonemergent chest imaging. Given clinical history is of vulvar carcinoma, consider contrast enhanced pelvic MRI for better evaluation. SL: [id number] Digital Digital - DIGITAL MAMMO SCREENING MARTINEZ AGUIRRE 01/30 - Mammo Mammo /2014 - [facility] Screening Screening BILATERAL DIGITAL SCREENING MAMMOGRAM WITH CAD: 2014 Martinez Henriquez MA CLINICAL: Other Screening Mammogram. Read by: Shelly Alba MD Dictated Date/time: 02/02/15 08:22 Electronically Signed by: Shelly Alba MD 02/02/15 08:22 FINAL REPORT Current study was evaluated with a Computer Aided Detection (CAD) system. Comparison is made to exams dated: 12/11/2013 mammogram, 10/08/2010 mammogram , 10/03/2008 mammogram and 02/23/2007 mammogram - [facility]. The tissue of both breasts is heterogeneously dense, which could obscure detection of small masses. Bilateral axillary lymphadenopathy is unchanged compatible with provided clinical history of lupus. There are benign calcifications in both breasts. There also is a benign density in the left breast. No significant masses, calcifications, or other findings are seen in either breast. There has been no significant interval change. IMPRESSION: BENIGN There is no mammographic evidence of malignancy. A 1 year screening mammogram is recommended. Shelly mcknight/penrad:02/02/2015 08:22:07 Pressure Welder: Audrey Olivera, [facility] This exam was dictated and interpreted by [id number] for [facility]. letter sent: Normal exam Mammogram BI-RADS: 2 Benign Angiogram Angiogram PROCEDURE: DIAGNOSTIC CEREBRAL ANGIOGRAM 08/26 - [facility] /2014 - Medical artery artery This report was dictated by a [employer] Manager/ Fellow. I have personally reviewed the images as Center bilateral bilateral well as the Resident's interpretation and agree with the findings. VR VR DATE: Aug 26, 2014 08:56:16 AM Read by: [id number] -Avis, KAVITHA [id number] Resident: [id number] -KAVITHA Albarran [phone] Dictated Date/time: 08/27/14 13:27 Electronically Signed by: Javier Jimenez MD 09/01/14 16:18 FINAL REPORT HISTORY: The patient is a 54-year-old female that initially presented on with an acute basilar artery stroke. At that time she underwent a mechanical thrombectomy of the basilar artery and rig ht posterior cerebral artery. 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 She has made a very f avorable recovery since the procedure one year ago. 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 CLINICAL INDICATION: A catheter cerebral angiogram is now indicated to characterize the patency of the previously deployed stent within the left vertebral artery subclavian junction assessing for its pa tency, adequate flow to the cerebrum, and future risk of stroke with associated severe neurologic deficit or . CONSENT: The benefits and risks of the procedure were described to the patient in detail. Risks include but are not limited to the following: , stroke, renal dysfunction, radiation injury, femoral artery occlusion, femoral artery hemorrhage, and contrast allergy. The the patient understood all the risks of the procedure and gave written consent to proceed. ATTENDING PHYSICIAN: Neurosurgery attending Dr. Thad Jimenez was present throughout the procedure and was immediately available for interpretation of the radiologic images. ADDITIONAL OPERATORS: Neurosurgery fellow Dr. Rickie Alabrran. SEDATION/PAIN CONTROL: Moderate sedation with intravenous fentanyl and Versed was administered by a dedicated nurse under the direct supervision of the attending neurosurgeon with continuous monitoring of vital signs. PROCEDURES PERFORMED: 1. Right femoral artery catheterization. 2. Right internal carotid artery selective catheterization followed by 2-D and 3-D angiogram runs. 3. Right subclavian artery catheterization followed by 2-D cerebral angiogram runs. 4. Left common carotid artery selective catheterization followed by 2-D angiogram runs. 5. Left subclavian artery selective catheterization followed by 2-D and 3- D angiogram runs. PROCEDURE IN DETAIL: The patient was brought into neuro-interventional suite and placed in the supine position. The patient was then prepped and draped in sterile fashion. The right femoral artery was accessed using single wall micropuncture technique and a 5 Jordanian sheath was placed. A 5 Jordanian Vert catheter was coaxially advanced with a 0.035 Terumo Glidewire through the sheath into aorta arch to s elect the following arteries by using roadmap technique: Right internal carotid artery, right subclavian artery, left common carotid artery, a left subclavian artery. Two-dimensional and selective 3-D cerebral angiogram runs were performed. 3-D angiographic images were processed on an independent workstation, and volume-rendered three-dimensional images were produced and evaluated. After review of th e angiography data, the catheter was withdrawn. A right femoral artery angiogram was performed and the catheter was removed. The right femoral artery sheath was removed and the arteriotomy was closed us ing [address] Jordanian [address] reporter closure device. Post procedure neurological examination was at the patient's baseline. The patient was was then transferred to the interventional holding area for post procedure care. CONTRAST: Omnipaque 300 total 180 cc. RADIATION DOSE: Cumulative Air KERMA Frontal: 485.70 mGy Cumulative Air KERMA Lateral: 176.75 mGy FLUOROSCOPY TIME: 5.3 minutes COMPLICATIONS: FINDINGS: 1. Right internal carotid artery: Right internal carotid artery injection images robust opacification right internal carotid, right middle cerebral artery , and right NG tube artery distributions. There is partial desiccation the contralateral left and tissue artery dissipation through patent anterior communicating artery. 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 There is no evidence of arteriovenous malformation or arteriovenous fistula present. The Kepley phase is homogeneous with no filling deficits. The cortica l veins and dural sinuses opacify normally in the venous phase. 2. Right subclavian artery: Right axillary artery injection demonstrates robust opacification of the right subclavian artery, right thyrocervical trunk, right internal thoracic artery, and right costove rtebral trunk. 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 The right vertebral artery reconstitutes from collateral circulation from the right ascending cervical artery at the C1 le tabby. Cranial views of the right subclavian artery injection demonstrates opacification of the distal right vertebral artery and right posterior inferior cerebellar artery. There is no evidence of aneury sm, arteriovenous malformation, or arteriovenous fistula present the 3. Left common carotid artery: Cranial views of a left common carotid artery run demonstrates robust opacification of the left occipital artery, left internal maxillary, left superficial temporal artery , left internal carotid artery, left middle cerebral artery, and left anterior to artery distributions. Vessel contours are smooth without irregularities, without evidence of focal stenosis or vessel di ssection. There is no evidence of aneurysm, arteriovenous malformation, or arteriovenous fistula present. The Kepley phase is homogeneous without filling deficits. The portal veins and dural sinuses pacify normally in the venous phase. 4. Left subclavian artery: Left subclavian artery injection demonstrates robust opacification of the left subclavian artery and left vertebral artery. The stent previously deployed within the a left kailee tebral artery subclavian artery junction remains fully patent. Cranial views of the left subclavian artery injection demonstrates robust opacification left vertebral artery, left posterior inferior cere bellar artery, the basilar artery, the bilateral superior cerebellar arteries, and the bilateral posterior cerebral arteries. Vessel contours are smooth without irregularities. There is no evidence of a neurysm, arteriovenous malformation, or arteriovenous fistula present. The capillary phase is homogeneous with no filling deficits. The cortical veins and dural sinuses opacify normally in the venous ph ase. This subclavian artery just distal to the vertebral artery origin shows a stable 65% stenosis compared to previous angiogram. No significant flow delay in distal subclavian artery. IMPRESSION: 1. 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 2. The stent previously deployed in the left vertebral artery-subclavian artery junction remains fully patent with robust flow to the left vertebral artery. Left subclavian artery distal to the vertebral artery show stable 65% stenosis. Carotid Carotid EXAM: US EXTRACRANIAL ARTERIAL DOPPLER 07/18 - OPID artery - [place] Doppler Doppler bilat US bilat US DATE: 07/18/2014. Read by: Henry Wiley MD Dictated Date/time: 07/18/14 12:16 Electronically Signed by: Henry Wiley MD 07/18/14 12:20 FINAL REPORT INDICATION: Carotid stenosis. ADDITIONAL INFORMATION: History of stent placement. COMPARISON: None. TECHNIQUE: Multiplanar grayscale, color Doppler and spectral Doppler images of the carotid and vertebral arteries were obtained. FINDINGS: Clinically known carotid stents are not visualized on this examination and may be more distal in position. Moderate atheromatous plaque is seen in both carotid bulbs and proximal internal carotid arteries. There are no elevated velocities or abnormal ratios to suggest hemodynamically significant stenosis. The ICA/CCA ratio on the right is 0.7 and on the left is 1.1, which are within normal limits. Both external carotid arteries and vertebral arteries are patent with antegrade flow. IMPRESSION: 1. Moderate atheromatous plaque involving both carotid bulbs and proximal internal carotid arteries with no evidence for hemodynamically significant stenosis. 2. Clinically known carotid stents are not visualized within the field-of- view of this examination. LIPIDS LDL 117 mg/dL <=99 mg/dL 06/12 ( [facility] ) LIPIDS VLDL 19 06/12 [facility] LIPIDS Trig 93 mg/dL <=149 06/12 mg/dL [facility] LIPIDS Chol 218 mg/dL <=199 06/12 mg/dL [facility] LIPIDS HDL 82 mg/dL >=61 mg/dL 06/12 [facility] LIPIDS CHD Risk 2.66 3.90 - 06/12 5.80 /2013 [facility] Vital Signs Vital Sign Value Date Comments Source Weight 63.807 08/22/2018 [facility] Temperature Oral (F) 98.3 F 08/22/2018 [facility] Systolic (mm Hg) 136 08/22/2018 [facility] Diastolic (mm Hg) 75 08/22/2018 [facility] Heart Rate 82 08/22/2018 [facility] Weight 64.602 03/07/2018 [facility] BMI Calculated 26.91 03/07/2018 [facility] Temperature Oral (F) 97.7 F 03/07/2018 [facility] Height 154.94 cm 03/07/2018 [facility] Heart Rate 91 03/07/2018 [facility] Systolic (mm Hg) 144 03/07/2018 [facility] Diastolic (mm Hg) 69 03/07/2018 [facility] Respitory Rate 17 02/23/[address] [facility] Temperature Oral (F) 98.8 F 02/23/[address] [facility] Heart Rate 99 02/23/[address] [facility] Systolic (mm Hg) 119 02/23/[address] [facility] Diastolic (mm Hg) 67 02/23/[address] [facility] Respitory Rate 16 02/23/[address] [facility] Systolic (mm Hg) 112 02/23/[address] [facility] Diastolic (mm Hg) 67 02/23/[address] [facility] Temperature Oral (F) 97.9 F 02/23/[address] [facility] Heart Rate 93 02/23/[address] [facility] Respitory Rate 17 02/23/[address] [facility] Systolic (mm Hg) 119 02/23/[address] [facility] Diastolic (mm Hg) 70 02/23/[address] [facility] Heart Rate 94 02/23/[address] [facility] Temperature Oral (F) 98.1 F 02/23/[address] [facility] BMI Calculated 30.86 02/22/[address] [facility] Height 154.94 cm 02/22/[address] [facility] Weight 74.091 02/22/[address] [facility] BMI Calculated 27.53 02/14/[address] [facility] Weight 66.08 02/14/[address] [facility] Height 154.94 cm 02/14/[address] [facility] BMI Calculated 27.15 12/22/2017 [facility] Weight 65.17 12/22/2017 [facility] Height 154.94 cm 12/22/2017 [facility] Systolic (mm Hg) 100 12/22/2017 [facility] Diastolic (mm Hg) 69 12/22/2017 [facility] Temperature Oral (F) 98.2 F 12/22/2017 [facility] Heart Rate 84 12/22/2017 [facility] Encounters Location Location Encounter Encounter Reason Attending ADM DC Status Source Details Type Number For Provider Date Date Visit [facility] Outpatient [id number] Alexus 06/12 06/13 Angel Leija [facility] Outpt Diag [id number] Javier Jimenez 07/18 07/19 [facility] Outpatient [id number] Adam 01/30 01/31 [facility] [place] 5 Omar /2014 [facility] Outpatient [id number] SILAS KRELL 08/03 [facility] [id number] SILAS KRELL 08/15 [facility] [place] [facility] [id number] SILAS KRELL 08/31 [facility] [id number] Herb 11/01 11/02 [facility] [place] 1 Omar [facility] Outpatient [id number] Herb 11/15 11/16 [facility] 2 Omar [facility] Outpatient [id number] Herb 11/21 11/22 [facility] [place] 3 Omar [facility] Outpatient [id number] SILAS KRELL 11/30 Active [facility] Outpatient [id number] Suzy 12/19 12/20 [facility] 4 [facility] Outpatient [id number] RA 12/22 [facility] 0 [facility] Outpatient [id number] Ra 12/22 12/23 MH General 0 Medical Surgery [facility] Outpatient [id number] UMAÑA LE 02/22 Active [facility] [place] Outpatient [id number] RA 02/22 [facility] 2 [facility] Multi Outpatient [id number] Ra 02/22 02/23 MH Specialty 2 [facility] Outpatient [id number] Ra 02/22 02/23 MH General 1 Medical Surgery [facility] Observation [id number] Ra 02/22 02/23 [facility] 5 [facility] Outpatient [id number] RA 03/07 [facility] [id number] Ra 03/07 03/08 [facility] Specialty 3 Medical [facility] Outpatient [id number] RA 08/22 Active [facility] 5 Angel [facility] Outpatient [id number] Ra 08/22 08/23 General 5 Medical Surgery [facility] [place] Outpatient [id number] RA 08/31 [facility] 4 Angel [facility] Ambulatory [id number] Ra 08/31 08/31 General Pre-Reg 4 Medical Surgery [facility] Outpatient [id number] RA 02/19 Active [facility] 6 [facility] Procedures Procedure Code Date Perfomer Comments Source Bilateral [id number] 02/22/2018 Medical mastectomy Group Bilateral [id number] 02/22/2018 [place] mastectomy Cerebral [id number] 08/06/2013 [facility] angiogram Cerebral [id number] 08/06/2013 Medical angiogram Group Cerebral [id number] 08/06/[address] [facility] angiogram section [id number] [place] [employer] [id number] [facility] section [id number] Medical Group Evacuation of [id number] Medical hematoma Group Excision of skin [id number] Medical lesion Group Excision of vulva [id number] Medical [facility] section [id number] [place] Evacuation of [id number] [place] hematoma Excision of skin [id number] [place] lesion Excision of vulva [id number] [facility]
--- OUTSIDE RECORDS SUMMARY | 2018-10-13 16:07 | XMS REPORT | Summary of Care ---
:1960 Author Organization [facility] Address [address] [place], [place] [address]- Encounter HQ Rayantr_dickson(FIN) [id number] Date(s): 11/01/17 - 11/01/17 [facility] [address] [place] [address]- [phone] Discharge Disposition: Home or Self Care Attending Physician: Herb Burroughs MD Referring Physician: Herb Burroughs MD Vital Signs No data available for this section Problem List Condition Effective Dates Status Health Status Informant Memory loss(Confirmed) Active Cerebral arterial Resolved aneurysm(Confirmed) Cerebral infarct(Confirmed) Active CVA - Cerebrovascular Resolved accident(Confirmed) Disorder of carotid artery1 07/01/14 Active Hypothyroidism(Confirmed) Active Labial cyst(Confirmed) Active Lupus(Confirmed) Active 1Data migrated from [facility] on 03/03/15. Allergies, Adverse Reactions, Alerts Substance Reaction Severity Status NKDA Active Medications Omnipaque 300 100 mL, Route: IV, Drug Form: SOLN, ONCE, Start date: 11/01/17 12:55:00 CDT, Stop date: 11/01/17 12:55:00 CDT Notes: (Same as:Omnipaque 300).WASTE: F/P - Black; E - Municipal Trash Bin Start Date: 11/01/17 Stop Date: 11/01/17 Status: Completed Results CHEM PANEL Most recent to oldest [Reference Range]: 1 eGFR 102 mL/min/1.73m2 1 *NA* (11/01/17 12:22 PM) POC Creatinine [0.5-1.4 mg/dL] 0.6 mg/dL (11/01/17 12:22 PM) 1Result Comment: The eGFR is calculated using the CKD-EPI formula. In most young , healthy individualsthe eGFR will be >90 mL/min/1.73m2. The eGFR declines with age. An eGFR of 60-89 may be normal insome populations, particularly the elderly, for whom the CKD-EPI formula has not been extensively validated. Use of the eGFR is not recommended in the following populations: Individuals with unstable creatinine concentrations, including patients and those with serious co-morbid conditions. Patients with extremes in muscle mass or diet. The data above are obtained from the National Kidney Disease Education Program ( NKDEP) which additionally recommends that when the eGFR is used in patients with extremes of body mass index for purposesof drug dosing, the eGFR should be multiplied by the estimated BMI. Immunizations No data available for this section Procedures Procedure Date Related Diagnosis Body Site Status Cerebral angiogram 08/06/13 Completed section Completed section Completed Ccna Completed Social History Social History Type Response Substance Abuse Previous Treatment: None. IV drug use: No. Drug use interferes with work/home: No. Ready to change: No. Household substance abuse concerns: No. Cessation Education Provided: No. Exercise Exercise frequency: 3-4 times/week. Exercise type: Walking. Alcohol Current, Type Beer. Frequency: 3-5 times per week. Alcohol use interferes with work or home: No. Drinks more than intended: No. Others hurt by drinking: No. Ready to change: Yes. Household alcohol concerns: No. Smoking Status Former smoker; Type: Cigarettes; Exposure to Tobacco Smoke Unable to obtain; Cigarette Smoking Last 365 Days No; Reg Smoking Cessation Counseling No entered on: 08/31/17 Assessment and Plan No data available for this section
--- OUTSIDE RECORDS SUMMARY | 2018-10-13 16:07 | XMS REPORT | Summary of Care ---
:1960 Author Organization [facility] Address [address] [place], [place] [address]- Encounter HQ Rayantr_dickson(FIN) [id number] Date(s): 01/30/15 - 01/30/15 [facility] [address] [place] [address]- Discharge Disposition: Home Attending Physician: Adam Nelson MD Referring Physician: Adam Nelson MD Vital Signs No data available for this section Problem List Condition Effective Dates Status Health Status Informant CVA - Cerebrovascular Resolved accident(Confirmed) Labial cyst(Confirmed) Active Lupus(Confirmed) Active Allergies, Adverse Reactions, Alerts Substance Reaction Severity Status NKDA Active Medications No data available for this section Results No data available for this section Immunizations No data available for this section Procedures Procedure Date Related Diagnosis Body Site Cerebral angiogram 08/06/[address] Transcriber Social History Social History Type Response Substance [...] Yes. Household alcohol concerns: No. Smoking Status Current every day smoker; Type: Cigarettes; Tobacco use per day : 1; Started at age: 18.0; Previous treatment: None; Ready to change: Yes; Concerns about tobacco use in household: No; Exposed at work; Cigarette Smoking Last 365 Days Yes; Reg Smoking Cessation Counseling Yes Assessment and Plan No data available for this section
--- OUTSIDE RECORDS SUMMARY | 2018-10-13 16:07 | XMS REPORT | Summary of Care ---
:1960 Author Organization [facility] [place] Address [address] [facility] [place] [address]- Encounter HQ Sven(JESSICA) [id number] Date(s): 02/22/18 - 02/22/18 [facility] General Surgery [facility] [address] [facility], [address] [place] [address]- [phone] Discharge Disposition: Home or Self Care Attending Physician: Ra Serrano MD Vital Signs No data available for this section Problem List Condition Effective Dates Status Health Status Informant Early stage skin cancer(Confirmed) Resolved Cerebral arterial Resolved aneurysm(Confirmed) Cerebral infarct(Confirmed) Active CVA - Cerebrovascular Resolved accident(Confirmed) Disorder of carotid artery1 07/01/14 Active Hypothyroidism(Confirmed) Resolved Hypothyroidism(Confirmed) Active Labial cyst(Confirmed) Active Lupus(Confirmed) Active Breast cancer(Confirmed) Resolved 1Data migrated from [facility] on 03/03/15. Allergies, Adverse Reactions, Alerts Substance Reaction Severity Status NKDA Active Medications No data available for this section Results No data available for this section Immunizations No data available for this section Procedures Procedure Date Related Diagnosis Body Site Status Bilateral mastectomy 02/22/18 Completed Cerebral angiogram 08/06/13 Completed section Completed section Completed Evacuation of hematoma Completed Excision of skin lesion Completed Excision of vulva Completed Social History Social History Type Response Substance Abuse Use: None. Exercise Exercise frequency: 3-4 times/week.1 Employment/School Status: Employed. 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 Highest education level: High school. Operates hazardous equipment: No. Alcohol Past, Type Beer. Frequency: 3-5 times per week. Alcohol use interferes with work or home: No. Drinks more than intended: No. Others hurt by drinking: No. Ready to change: Yes. Household alcohol concerns: No. Smoking Status Former smoker; Type: Cigarettes; Ready to change: No; Concerns about tobacco use in household: No; Exposure to Tobacco Smoke Unable to obtain; Cigarette Smoking Last 365 Days No; Reg Smoking Cessation Counseling No entered on: 08/22/18 1used to be able to walk 3 miles a day. Has not been able to walk without becoming short of breath for over 6 months Assessment and Plan No data available for this section
--- OUTSIDE RECORDS SUMMARY | 2018-10-13 16:07 | XMS REPORT | Summary of Care ---
:1960 Author Encounter [place] Mach[place](JESSIAC) [id number] Date(s): 06/12/14 - 06/12/14 [facility] [address] Discharge Disposition: Home Physician Attending: Alexus Alejo MD Reason for Visit 272.4 Problem List Condition Effective Dates Status Health Status Informant CVA - Cerebrovascular Resolved accident(Confirmed) Labial cyst(Confirmed) Active Lupus(Confirmed) Active Allergies, Adverse Reactions, Alerts Substance Reaction Severity Status NKDA Active Medications No data available for this section Results LIPIDS Most recent to oldest [Reference Range]: 1 CHD Risk [3.90-5.80] 2.66 *LOW* (06/12/14 1:44 PM) Chol [<=199 mg/dL] 218 mg/dL *HI* (06/12/14 1:44 PM) Trig [<=149 mg/dL] 93 mg/dL (06/12/14 1:44 PM) HDL [>=61 mg/dL] 82 mg/dL (06/12/14 1:44 PM) LDL (Calculated) [<=99 mg/dL] 117 mg/dL *HI* (06/12/14 1:44 PM) VLDL 19 *NA* (06/12/14 1:44 PM) Medications Administered During Your Visit No data available for this section Immunizations No data available for this section Social History Social History Type Response Substance Abuse Previous treatment: None, IV drug use: No, Has drug use interfered with your work or home life? No, Ready to change: No, Concerns about substance abuse in household: No, Drug Cessation Education Provided No Exercise Times per week: 3-4 times/week, Exercise type: Walking Alcohol Use: Current, Type: Beer, Frequency: 3-5 times per week, Has alcohol use interfered with work or home life? No, Do you ever drink more than intended? No, Has anyone been hurt or at risk by your drinking? No, Ready to change: Yes, Concerns about alcohol use in household: No Smoking Status Current every day smoker, Type: Cigarettes, Previous treatment: None, Ready to change: Yes, Concerns about tobacco use in household: No, Exposed at work, Cigarette Smoking Last 365 Days Yes, Reg Smoking Cessation Counseling Yes
--- OUTSIDE RECORDS SUMMARY | 2018-10-13 16:07 | XMS REPORT | Summary of Care ---
:1960 Author Organization [facility] Address [id number] [place] [address], [address] [place] [address]- Encounter [facility] Branden_dickson(JESSICA) [id number] Date(s): 08/31/18 - 08/31/18 [facility] General Surgery [facility] [address] [facility], [address] [place] [address]- [phone] Attending Physician: Ra Serrano MD Vital Signs No data available for this section Problem List Condition Effective Dates Status Health Status Informant Early stage skin cancer(Confirmed) Resolved Cerebral arterial Resolved aneurysm(Confirmed) Cerebral infarct(Confirmed) Active CVA - Cerebrovascular Resolved accident(Confirmed) Disorder of carotid artery1 07/01/14 Active Hypothyroidism(Confirmed) Resolved Hypothyroidism(Confirmed) Active Labial cyst(Confirmed) Active Lupus(Confirmed) Active Breast cancer(Confirmed) Resolved 1Data migrated from [facility] on 03/03/15. Allergies, Adverse Reactions, Alerts Substance Reaction Severity Status NKDA Active Medications ceFAZolin + Sodium Chloride 0.9% IV 100 mL 1 gm, Route: IVPB, ONCE, Start date: 03/27/18 7:30:00 CDT, Stop date: 03/27/18 7 :30:00 CDT Notes: (Same As: Allan Tejada) MEDICATION WASTE Product Size: 1000 mgProduct Wasted: ___ mg Start Date: 03/27/18 Stop Date: 03/28/18 Status: Completed Results No data available for this section [...]
--- OUTSIDE RECORDS SUMMARY | 2018-10-13 16:07 | XMS REPORT | Summary of Care ---
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) - Benign neoplasm of right breast (Final) - Benign neoplasm of left breast (Final) - Unspecified benign mammary dysplasia of right breast (Final) - Unspecified benign mammary dysplasia of left breast (Final) - Diffuse cystic mastopathy of right breast (Final) - Diffuse cystic mastopathy of left breast (Final) - Fibroadenosis of right breast (Final) - Fibroadenosis of left breast (Final) - Discharge Disposition: Home or Self Care Attending Physician: Ra Serrano MD Admitting Physician: Ra Serrano MD Referring Physician: Ra Serrano MD Vital Signs Most recent to oldest 1 2 3 [Reference Range]: Height 154.94 cm 154.94 cm (02/22/18 3:13 PM) (02/14/18 9:39 AM) Temperature Oral [96.4-99.1 98.8 DegF 97.9 DegF 98.1 DegF DegF] (02/23/18 12:02 PM) (02/23/18 7:44 AM) (02/23/18 4:00 AM) Blood Pressure [90-140/60-90 119/67 mmHg 112/67 mmHg 119/70 mmHg mmHg] (02/23/18 12:02 PM) (02/23/18 7:44 AM) (02/23/18 4:00 AM) Respiratory Rate [14-20 17 BRMIN 16 BRMIN 17 BRMIN BRMIN] (02/23/18 12:02 PM) (02/23/18 10:39 AM) (02/23/18 7:44 AM) Peripheral Pulse Rate [60-100 99 bpm 93 bpm 94 bpm bpm] (02/23/18 12:02 PM) (02/23/18 7:44 AM) (02/23/18 4:00 AM) Weight 74.091 kg 66.08 kg (02/22/18 3:13 PM) (02/14/18 9:39 AM) Body Mass Index 30.86 m2 27.53 m2 (02/22/18 3:13 PM) (02/14/18 9:39 AM) Problem List Condition Effective Dates Status Health Status Informant Early stage skin cancer(Confirmed) Resolved Cerebral arterial Resolved aneurysm(Confirmed) Cerebral infarct(Confirmed) Active CVA - Cerebrovascular Resolved accident(Confirmed) Disorder of carotid artery1 07/01/14 Active Hypothyroidism(Confirmed) Resolved Hypothyroidism(Confirmed) Active Labial cyst(Confirmed) Active Lupus(Confirmed) Active Breast cancer(Confirmed) Resolved 1Data migrated from [facility] on 03/03/15. Allergies, Adverse Reactions, Alerts Substance Reaction Severity Status NKDA Active Medications acetaminophen 650 mg, 2 tab, Route: PO, Drug form: TAB, Q4H, Dosing Weight 66.08, kg, PRN Pain 1-3/Temp > 100.4F, Start date: 02/22/18 9:30:00 CDT, Duration: 30 day, Stop date: 03/24/18 9:29:00 CDT Notes: Do not exceed 4 gm/day. (Same as: Tylenol) Start Date: 02/22/18 Stop Date: 02/23/18 Status: Discontinuedacetaminophen-hydrocodone 325 mg-10 mg oral tablet 1 tab, Route: PO, Drug Form: TAB, Dosing Weight 66.08, kg, Q4H, PRN Pain Score 4 -6, Start date: 02/22/18 9:30:00 CDT, Duration: 30 day, Stop date: 03/24/18 9:29 :00 CDT Notes: Do not exceed 4gm/day of acetaminophen. (Same as: Henderson 325/10) Start Date: 02/22/18 Stop Date: 02/23/18 Status: Discontinuedacetaminophen-hydrocodone 325 mg-5 mg oral tablet 1 tab, Route: PO, Drug Form: TAB, Dosing Weight 66.08, kg, Q4H, PRN Pain Score 4 -6, Start date: 02/22/18 9:30:00 CDT, Duration: 30 day, Stop date: 03/24/18 9:29 :00 CDT Notes: (Same as: Henderson 325/5) Do not exceed 4gm/day of acetaminophen. Start Date: 02/22/18 Stop Date: 02/23/18 Status: DiscontinuedAmbien 10 mg oral tablet 10 mg=1 tab, PO, Bedtime, 0 Refill(s) Start Date: 02/14/18 Status: OrderedANES acetaminophen 1,000 mg, Route: IVPB, Drug form: INJ, ONCE, Dosing Weight 66.08, kg, PRN Pain Score 1-3, Start date: 02/22/18 12:35:00 CDT Start Date: 02/22/18 Stop Date: 02/22/18 Status: CompletedANES albuterol 0.083% inhalation solution 2.49 mg, 3 mL, Route: NEB, Drug form: SOLN, Q20Min, Dosing Weight 66.08, kg, PRN Wheezing, Priority:STAT, Start date: 02/22/18 12:35:00 CDT, Duration: 30 day , Stop date: 03/24/18 12:34:00 CDT Notes: SEE RT DOCUMENTATION (Same as: Proventil) Start Date: 02/22/18 Stop Date: 02/22/18 Status: DiscontinuedANES diphenhydrAMINE 12.5 mg, 0.25 mL, Route: IVP, Drug form: INJ, Q6H, Dosing Weight 66.08, kg, PRN Itching, Start date:02/22/18 12:35:00 CDT, Duration: 30 day, Stop date: 12:34:00 CDT Notes: (Same as: Benadryl) Start Date: 02/22/18 Stop Date: 02/22/18 Status: DiscontinuedANES fentaNYL 50 microgram, Route: IVP, Q5Min, Dosing Weight 66.08, kg, PRN Pain Score 7-10, Priority: Routine, Start date: 02/22/18 12:35:00 CDT, Duration: 2 doses or times , Stop date: Limited # of times Start Date: 02/22/18 Stop Date: 02/22/18 Status: CompletedANES fentaNYL 25 microgram, 0.5 mL, Route: IVP, Drug form: INJ, Q5Min, Dosing Weight 66.08, kg , PRN Pain Score 4-6, Priority: Routine, Start date: 02/22/18 12:35:00 CDT, Duration: 4 doses or times, Stop date: Limited # of times Notes: (Same as: Sublimaze) Preservative free. Start Date: 02/22/18 Stop Date: 02/22/18 Status: DiscontinuedANES flumazenil 0.2 mg, 2 mL, Route: IVP, Drug form: INJ, PRN, Dosing Weight 66.08, kg, PRN Benzodiazepine Reversal,Initial dose, Start date: 02/22/18 12:35:00 CDT, Duration: 30 day, Stop date: 03/24/18 12:34:00 CDT Notes: (Same as: Romazicon) Start Date: 02/22/18 Stop Date: 02/22/18 Status: DiscontinuedANES HYDROmorphone 0.5 mg, 0.5 mL, Route: IVP, Drug form: INJ, Q5Min, Dosing Weight 66.08, kg, PRN Pain Score 7-10, Start date: 02/22/18 12:35:00 CDT, Duration: 4 doses or times, Stop date: Limited # of times Notes: Same as: Dilaudid Start Date: 02/22/18 Stop Date: 02/22/18 Status: DiscontinuedANES meperidine 12.5 mg, 0.25 mL, Route: IVP, Drug form: INJ, Q30Min, Dosing Weight 66.08, kg, PRN Other -See Comment, For shivering, Start date: 02/22/18 12:35:00 CDT, Duration: 2 doses or times, Stop date: Limited #of times Notes: (Same As: Demerol) Start Date: 02/22/18 Stop Date: 02/22/18 Status: DiscontinuedANES naloxone 0.1 mg, 0.25 mL, Route: SUB-Q, Drug form: INJ, Q6H, Dosing Weight 66.08, kg, PRN Itching, Start date: 02/22/18 12:35:00 CDT, Duration: 30 day, Stop date: 12:34:00 CDT Notes: Same as Narcan Start Date: 02/22/18 Stop Date: 02/22/18 Status: DiscontinuedANES naloxone 0.4 mg, 1 mL, Route: IVP, Drug form: INJ, Q2MIN, Dosing Weight 66.08, kg, PRN Narcotic Reversal, Start date: 02/22/18 12:35:00 CDT, Duration: 8 doses or times , Stop date: Limited # of times Notes: Same as Narcan Start Date: 02/22/18 Stop Date: 02/22/18 Status: DiscontinuedANES ondansetron 4 mg, 2 mL, Route: IVP, Drug form: INJ, ONCE, Dosing Weight 66.08, kg, PRN Nausea & Vomiting, Start date: 02/22/18 12:35:00 CDT Notes: (Same as: Gabriela) MEDICATION WASTE Product Size: 4 mgProduct Wasted: ___ mg Start Date: 02/22/18 Stop Date: 02/22/18 Status: DiscontinuedANES oxyCODONE 10 mg, 2 tab, Route: PO, Drug form: TAB, Q4H, Dosing Weight 66.08, kg, PRN Pain Score 7-10, Start date: 02/22/18 12:35:00 CDT, Duration: 30 day, Stop date: 12:34:00 CDT Notes: (Same as: Roxicodone) Start Date: 02/22/18 Stop Date: 02/22/18 Status: DiscontinuedANES oxyCODONE 10 mg, 10 mL, Route: NG, Drug form: LIQ, Q4H, Dosing Weight 66.08, kg, PRN Pain Score 7-10, Start date: 02/22/18 12:35:00 CDT, Duration: 30 day, Stop date: 12:34:00 CDT Notes: (Same as: 'Roxicodone) Start Date: 02/22/18 Stop Date: 02/22/18 Status: DiscontinuedANES oxyCODONE 5 mg, 1 tab, Route: PO, Drug form: TAB, Q4H, Dosing Weight 66.08, kg, PRN Pain Score 4-6, Start date: 02/22/18 12:35:00 CDT, Duration: 30 day, Stop date: 03/24 12:34:00 CDT Notes: (Same as: Roxicodone) Start Date: 02/22/18 Stop Date: 02/22/18 Status: DiscontinuedANES oxyCODONE 5 mg, 5 mL, Route: NG, Drug form: LIQ, Q4H, Dosing Weight 66.08, kg, PRN Pain Score 4-6, Start date:02/22/18 12:35:00 CDT, Duration: 30 day, Stop date: 12:34:00 CDT Notes: (Same as: 'Roxicodone) Start Date: 02/22/18 Stop Date: 02/22/18 Status: DiscontinuedANES promethazine + Sodium Chloride 0.9% IV 50 mL 6.25 mg, 0.25 mL, Route: IVPB, ONCE, Dosing Weight 66.08, kg, PRN Nausea & Vomiting, Start date:02/22/18 12:35:00 CDT Notes: . (Same as: Phenergan) Start Date: 02/22/18 Stop Date: 02/22/18 Status: DiscontinuedANES scopolamine 1.5 mg transdermal film 1 patch, Route: TOP, Drug Form: ERFILM, Dosing Weight 66.08, kg, ONCE, Apply behind ear. Avoid use in elderly., Start date: 02/22/18 12:35:00 CDT, Stop date : 02/22/18 12:35:00 CDT Notes: Change patch every 72 hours (Same as: Transderm-Scop) Start Date: 02/22/18 Stop Date: 02/22/18 Status: Discontinuedatorvastatin 40 mg, 1 tab, Route: PO, Drug form: TAB, Bedtime, Dosing Weight 66.08, kg, Start date: 02/22/18 21:00:00 CDT, Duration: 30 day, Stop date: 03/23/18 21:00: 00 CDT Notes: (Same as: Lipitor) Start Date: 02/22/18 Stop Date: 02/23/18 Status: DiscontinuedceFAZolin 2 gm, 100 mL, Route: IVPB, Drug form: INJ, ONCALL, Dosing Weight 66.08, kg, Start date: 02/22/18 7:00:00 CDT, Duration: 1 doses or times, ABX Indication: Surgical Prophylaxis Notes: Same as: Ancef Start Date: 02/22/18 Stop Date: 02/23/18 Status: DiscontinuedceFAZolin (ANES) Route: IV, Drug form: INJ, ONCE, Stop date: 02/22/18 8:54:00 CDT Start Date: 02/22/18 Stop Date: 02/22/18 Status: Completeddexamethasone (ANES) Route: IV, Drug form: INJ, ONCE, Stop date: 02/22/18 8:59:00 CDT Start Date: 02/22/18 Stop Date: 02/22/18 Status: CompletedDilaudid (ANES) Route: IV, Drug form: INJ, ONCE, Stop date: 02/22/18 9:09:00 CDT Start Date: 02/22/18 Stop Date: 02/22/18 Status: CompleteddiphenhydrAMINE 25 mg, 1 tab, Route: PO, Drug form: TAB, Bedtime, Dosing Weight 66.08, kg, PRN Insomnia, Start date:02/22/18 9:30:00 CDT, Duration: 30 day, Stop date: 9:29:00 CDT Start Date: 02/22/18 Stop Date: 02/23/18 Status: Discontinueddocusate sodium 100 mg oral capsule 100 mg, 1 cap, Route: PO, Drug form: CAP, BID, Dosing Weight 66.08, kg, Start date: 02/22/18 17:00:00 CDT, Duration: 30 day, Stop date: 03/24/18 9:00:00 CDT Notes: (Same as: Colace) (Do Not Crush) Start Date: 02/22/18 Stop Date: 02/23/18 Status: DiscontinuedDULoxetine 60 mg, 2 cap, Route: PO, Drug form: DRC, Daily, Dosing Weight 66.08, kg, Start date: 02/23/18 9:00:00 CDT, Duration: 30 day, Stop date: 03/24/18 9:00:00 CDT Notes: (Same as: Cymbalta) (Do Not Crush) Start Date: 02/23/18 Stop Date: 02/23/18 Status: DiscontinuedePHEDrine (ANES) Route: IV, Drug form: INJ, ONCE, Stop date: 02/22/18 8:59:00 CDT Start Date: 02/22/18 Stop Date: 02/22/18 Status: CompletedfentaNYL (ANES) Route: IV, Drug form: INJ, ONCE, Stop date: 02/22/18 8:54:00 CDT Start Date: 02/22/18 Stop Date: 02/22/18 Status: Completedglycopyrrolate (ANES) Route: IV, Drug form: INJ, ONCE, Stop date: 02/22/18 12:14:00 CDT Start Date: 02/22/18 Stop Date: 02/22/18 Status: CompletedLactated Ringers Injection IV (ANES) 1000 mL Route: IV, Total Volume: 1,000, Start date: 02/22/18 7:40:00 CDT, Stop date: 8:40:00 CDT Start Date: 02/22/18 Stop Date: 02/22/18 Status: CompletedLactated Ringers Injection IV 1,000 mL 1,000 mL, Rate: 50 ml/hr, Infuse over: 20 hr, Route: IV, Dosing Weight 66.08 kg , Total Volume: 1,000, Start date: 02/22/18 9:30:00 CDT, Duration: 30 day, Stop date: 03/24/18 9:29:00 CDT, 1.71, m2 Start Date: 02/22/18 Stop Date: 02/23/18 Status: DiscontinuedLactated Ringers Injection IV 1,000 mL 1,000 mL, Rate: 25 ml/hr, Infuse over: 40 hr, Route: IV, Dosing Weight 66.08 kg , Total Volume: 1,000, Start date: 02/22/18 6:19:00 CDT, Duration: 30 day, Stop date: 03/24/18 6:18:00 CDT, 1.71, m2 Start Date: 02/22/18 Stop Date: 02/22/18 Status: Discontinuedlevothyroxine 125 microgram, 1 tab, Route: PO, Drug form: TAB, Daily, Dosing Weight 66.08, kg , Start date: 02/23/18 9:00:00 CDT, Duration: 30 day, Stop date: 03/24/18 9:00: 00 CDT Notes: Take 1 hour before or 2 hours after meal; Enteral feeds may interefere with the absorption ofthis medication. (Same as:Levothroid) Start Date: 02/23/18 Stop Date: 02/23/18 Status: Discontinuedlidocaine (ANES) Route: IV, Drug form: INJ, ONCE, Stop date: 02/22/18 8:54:00 CDT Start Date: 02/22/18 Stop Date: 02/22/18 Status: Completedmetoclopramide (ANES) Route: IV, Drug form: INJ, ONCE, Stop date: 02/22/18 8:59:00 CDT Start Date: 02/22/18 Stop Date: 02/22/18 Status: Completedmidazolam (ANES) Route: IV, Drug form: SOLN, ONCE, Stop date: 02/22/18 8:14:00 CDT Start Date: 02/22/18 Stop Date: 02/22/18 Status: Completedminocycline 100 mg, 2 cap, Route: PO, Drug form: CAP, [id number], Dosing Weight 74.091, kg, Start date: 02/23/18 13:00:00 CDT, Duration: 30 day, Stop date: 03/25/18 1:00: 00 CDT Notes: (Same as:Minocin) No milk/antacids/iron. Start Date: 02/23/18 Stop Date: 02/23/18 Status: Discontinuedmorphine 1 mg/ml [employer] (30 mg/30 mL) INJ Syringe 30 mg 30 mg, 30 mL, Route: IV, [employer] Dose: 1 mg, [employer] Lockout: 6 minutes, Continuous Basal Rate: 0 mg, 4 Hour Limit (In MG): 30, Drug Form: INJ, Continuous, Start date: 02/22/18 9:30:00 CDT, Duration: 30 day, Stop date: 03/24/18 9:29:00 CDT Notes: Dose: Delay: Basal rate: 4hr limit:( Same as:Cha-Ject) Start Date: 02/22/18 Stop Date: 02/23/18 Status: Discontinuednaloxone 0.04 mg, 0.1 mL, Route: IVP, Drug form: INJ, Q2MIN, Dosing Weight 66.08, kg, PRN Narcotic Reversal, Start date: 02/22/18 9:30:00 CDT, Duration: 30 day, Stop date: 03/24/18 9:29:00 CDT Notes: Same as Narcan Start Date: 02/22/18 Stop Date: 02/23/18 Status: Discontinuedneostigmine (ANES) Route: IV, Drug form: INJ, ONCE, Stop date: 02/22/18 12:14:00 CDT Start Date: 02/22/18 Stop Date: 02/22/18 Status: Completedondansetron 4 mg, 2 mL, Route: IVP, Drug form: INJ, Q6H, Dosing Weight 66.08, kg, PRN Nausea & Vomiting, Start date: 02/22/18 9:30:00 CDT, Duration: 30 day, Stop date: 03/24/18 9:29:00 CDT Notes: (Same as: Gabriela) MEDICATION WASTE Product Size: 4 mgProduct Wasted: ___ mg Start Date: 02/22/18 Stop Date: 02/23/18 Status: Discontinuedondansetron (ANES) Route: IV, Drug form: INJ, ONCE, Stop date: 02/22/18 8:54:00 CDT Start Date: 02/22/18 Stop Date: 02/22/18 Status: CompletedPepcid 20 mg, Route: IVP, ONCE, Dosing Weight 66.08, kg, Start date: 02/22/18 6:54:00 CDT, Stop date: 02/22/18 6:54:00 CDT Start Date: 02/22/18 Stop Date: 02/22/18 Status: Completedphenylephrine (ANES) Route: IV, Drug form: INJ, ONCE, Stop date: 02/22/18 9:34:00 CDT Start Date: 02/22/18 Stop Date: 02/22/18 Status: CompletedpredniSONE 10 mg, 1 tab, Route: PO, Drug form: TAB, Daily, Dosing Weight 66.08, kg, Start date: 02/23/18 9:00:00 CDT, Duration: 30 day, Stop date: 03/24/18 9:00:00 CDT Notes: (Same as: PredniSONE) Take with food. Start Date: 02/23/18 Stop Date: 02/23/18 Status: DiscontinuedpredniSONE 10 mg oral tablet 10 mg=1 tab, PO, Daily, 0 Refill(s) Start Date: 02/14/18 Status: Orderedpropofol (ANES) Route: IV, Drug form: INJ, ONCE, Stop date: 02/22/18 8:54:00 CDT Start Date: 02/22/18 Stop Date: 02/22/18 Status: Completedrocuronium (ANES) Route: IV, Drug form: INJ, ONCE, Stop date: 02/22/18 8:54:00 CDT Start Date: 02/22/18 Stop Date: 02/22/18 Status: Completedsuccinylcholine (ANES) Route: IV, Drug form: INJ, ONCE, Stop date: 02/22/18 8:54:00 CDT Start Date: 02/22/18 Stop Date: 02/22/18 Status: CompletedZofran 4 mg, Route: IVP, ONCE, Dosing Weight 66.08, kg, Start date: 02/22/18 6:54:00 CDT, Stop date: 02/22/18 6:54:00 CDT Start Date: 02/22/18 Stop Date: 02/22/18 Status: CompletedZofran 4 mg oral tablet 4 mg=1 tab, PO, Q8H, PRN Nausea/vomiting, # 6 tab, 0 Refill(s), Pharmacy: [facility] [id number] Start Date: 02/23/18 Stop Date: 02/28/18 Status: Ordered Results No data available for this section [...] for over 6 months Assessment and Plan Extracted from: Title: Clinical Document Author: Ra Serrano MD Date: 02/23/18 Gen Surg PN pt doing OK. pain seems well-controlled. rosette diet. no n/v. no f/c. on exam: nad dssg c/d/i GIULIA bulbs with small volume ss fluid Vitals and Temp: Vitals Tmp(F) Pulse BP RR SpO2 FIO2 02/23 12:02 98.8 99 119/67 17 93 --- 02/23 10:39 ---- --- ----- 16 96 21% 02/23 10:33 ---- --- ----- -- 92 21% 02/23 09:12 ---- --- ----- -- 96 28% 02/23 07:44 97.9 93 112/67 17 98 --- 24 Hr Tmax: 98.9F (37.17c) at 02/22 13:59 Vital Signs are the last 5 in the past 48 hours. Plan: d/c home today f/u with Plastics as directed f/u with me in 1-2 weeks to review surg path Extracted from: Title: Clinical Document Author: Ghanshyam Hermosillo MD Date: 02/22/18 OPERATIVE REPORT PATIENT: Bri Alvarenga MEDICAL RECORD: [id number] HOSPITAL: [facility] DATE OF PROCEDURE: 02/22/2018 PREOPERATIVE DIAGNOSIS: Left breast cancer. Acquired absence of bilateral breasts and nipples. POSTOPERATIVE DIAGNOSIS: Same TITLE OF THE OPERATION: 1) Immediate reconstruction of left breast with placement of tissue customer service representative teller 2) Implantation of biologic mesh for support in breast reconstruction, left 3) Immediate reconstruction of right breast with placement of tissue customer service representative teller 4) Implantation of biologic mesh for support in breast reconstruction, right 5) Spy Angiography of mastectomy flaps to assess for perfusion / viability of skin envelope SURGEON: Gahnshyam Hermosillo MD LUNCHROOM MONITOR: JUAN Queen ANESTHESIA: General EBL: <100 mL DRAINS: 15F GIULIA x4 SPECIMEN: None IMPLANTS: Dermacell 8x16, thin, microperforated Sientra AlloX2 FH15E expanders. Fpbrs=553ov. Pbzu=512wt COMPLICATIONS: None DISPOSITION: PACU INDICATIONS: 57 year old woman with left breast cancer planning left mastectomy with SLNB as well as right CPM. She has significant history of CVA 4 years ago without residual deficits, as well as chronic Lupus on steroid therapy. She also has PMH of smoking, which she has quit since her CVA. I discussed breast reconstruction options with her, but recommended staged customer service representative teller-implant reconstruction given her con siderable comorbidities. We discussed the risks/benefits/alternatives and pt expressed understanding. DETAILS OF PROCEDURE: I identified and marked the patient in the preoperative holding area. She then proceeded to surgery for the bilateral mastectomy. Preoperative antibiotics were given and redosed appropriately. SCDs and lu catheter were in place. I began after the general surgery team completed the mastectomies. I performed the same techiniques for both breasts. I painted the skin and wound edges with a lap sponge soaked in betadine and plac ed fresh drapes around the surgical site. We had separate instruments and changed out our bovie pencil and suction. I then began by examining the wound and ensuring hemostasis. The mastectomy flaps a ppeared to have consistent thickness, and no evidence of thermal law or holes. I identified the lateral border of the pectoralis major and incised the fascia laterally. I then identified the areolar plane between the pec major and minor. A pocket was then created with bovie diss ection, extending superiorly to the level of the clavicle and medially to the level of the sternal origins. Anomalous costal origins were disinserted, but the sternal origins were not dissected. Next I secured the lateral border of the breast back to the lateral chest with 2-0 PDS sutures. After this I tacked down the IMF back into place with 2-0 PDS. The inferior border of the Dermacell mesh was sutured in placed along the IMF. I ensured hemostasis and irrigated the pocket with triple antibiotic solution. Next I inserted two 15F drains into each breast above the pectoralis/ADM. The tissue expanders were prepared in standard fashion. The package was opened just prior to using the implant, and the implant was soaked in the antibiotic solution. I accessed the port and evacuated the air from the customer service representative teller. I filled it with 100mL of saline and then removed any residual air. The customer service representative teller was then inserted into the pocket, ensuring it was seated as medially and inferiorly as pos sible. It was then secured at its medial and lateral tabs with interrupted 2- 0 PDS suture. I then closed the superior border of the ADM over the customer service representative teller, suturing it to the free edge of the pectoralis major. The skin-sparing incision was then closed in a horizontal, linear fashion with 3-0 vicryl interrupted, buried sutures in the deep dermis. The skin was closed with 4-0 monocryl running subcuticular sutu re, and then dressed with dermabond. I accessed the port percutaneously and then filled the right customer service representative teller to a total of 400cc and the left to 450cc. This took out some of the slack in the skin envelope without placing excessive pressure. I utilized the Spy Phi for intra-operative angio assessment of the mastectomy flaps. This was performed in usual fashion with indocyanine green intra- vascular injection with immediate interpretation by myself. I performed the Spy technique once before customer service representative teller placement and again after inflating the customer service representative teller. The right mastectomy flaps demonstrated excellent perfusion in both examinations. The lef t mastectomy flap had an area cephalad that was ~3x1cm of questionable viability. This was debrided sharply prior to skin closure noted above. After inflating the customer service representative teller I confirmed that the skin edge remained perfused. We then placed fluffed kerlix over the breast and wrapped her chest circumferentially with a 6" africa wrap. I performed the same technique on both breasts. All counts were correct. The patient tolerated the procedure well. She was extubated and transferred to PACU in stable condition. I was present and scrubbed in for my entire portion of the procedure. Extracted from: Title: PreOp H&P Update Author: Ra Serrano MD Date: 02/22/18 Chief Complaint Consult for left breast cancer History of Present Illness Patient presents my office today with a biopsy-proven cancer of the left breast. This was found on routine screening mammography . She has not been compliant with annual screening mammograms; her last mammogram was probably 2014, which was reported to be normal. She did not have any palpable masses or lesions. No skin changes. No nipple discharge. She has no history of abnormal mammograms. No history of breast biopsies. No history of breast surgeries. She has never had chest radiation and has never been on hormone replacement t herapy. She has had 2 children, at the ages of 28 and 29. She is a non-smoker. She is a personal history of vulvar cancer which was treated with surgery alone back in 2013 or 2014 as well as basal cell skin cancer of the anterior chest. She has a family history of a mother with pancreas cancer at a late age, father with liver cancer, and a brother who smoked who had throat cancer. No diabetes. She has a personal history of a blood clot that caused a stroke which was treated with clot removal and stenting. She is on Plavix but tells me she has stopped it in the past for surgeries or procedures. She h as lupus and takes chronic prednisone which fluctuates between 5 mg and 10 mg a day. This condition also causes diffuse lymphadenopathy and has for some time. Review of Systems Constitutional Symptoms: no fever, no weight loss, no weight gain, no fatigue, no malaise, no insomnia Eyes: no blurred vision, no loss of vision Ears, Nose, Mouth, Throat: no dysphagia, no sore throat, no rhinorrhea Cardiovascular: no chest pain, no SOB, exercise tolerated, no palpitations, no leg swelling Respiratory: no cough, no sputum, no SOB Gastrointestinal: no nausea, no vomitting, no constipation, no diarrhea, no GI bleeding, no abdominal pain, no reflux Genitourinary: no dysuria, no frequency, no urgency, no incontinence Musculoskeletal: no arthralgia, no myalgia Integumentary: no rash, no new lesions Neurological: no weakness, no headache, no seizure, no numbness Psychiatric: no anxiety, no depression Endocrine: no polyuria, no polydipsia, no cold or heat intolerance, no palpitations Hematologic/Lymphatic: no bleeding, no bruising, + diffuse lymphadenopathy Physical Exam Vitals & Measurements HT: 154.94 cm HT Collection: Stated WT: 65.17 kg WT Collection: Measured BP: 100/69 HR(Peripheral): 84 bpm T(O): 98.2 DegF BP Site: Left arm BP Collection: Electronic BP Collection Position: Sitting BP Cuff Size: regular Activity When BP Taken: Quiet BMI: 27.15 m2 BSA: 1.6748 m2 General Appearance: Well appearing, well developed , well nourished, well hydrated, good color, and in no acute distress Head: Normocephalic atraumatic Eyes: no scleral icterus, extraocular movements intact, no erythema Ears: Normal external shape, normal position Nose: Nares patent and no discharge Mouth: Clear, moist mucous membranes Breasts: Both breasts are roughly symmetric. Homogenous fatty consistency throughout. Overlying the sternum there is a scar from the patient's previous basal cell skin cancer excision. Right -normal ove rlying skin, no nipple discharge, no obvious discrete palpable masses or lesions, there is noted prominent of multiple right axillary lymph nodes which is likely a consequence of lupus. Left -no normal overlying skin, no nipple discharge, no obvious discrete palpable masses or lesions, core needle biopsy wound is seen in the upper inner quadrant, multiple prominent left axillary lymph nodes as on the right likely secondary to lupus with no severely enlarged, fixed, or matted nodes. Lungs: symmetric chest expansion, non-labored Heart: Regular rate and regular rhythm Abdomen: Flat, non-distended Musculoskeletal: Moves all 4 extremities, stable gait. Extremities: Symmetric, full range of movement, warm, no cyanosis/clubbing/ edema Neurologic: Alert/appropriate, normal strength, clear speech, aao x 3. Skin: No obvious lesions no rash. No jaundice. Psych: Mood congruent affect, responds appropriately to questions. Assessment/ Plan 1. Malignant neoplasm of upper-inner quadrant of left female breast, multifocal clinical Stage IB: T2 N0 M0 Left breast, Lobular carcinoma with LCIS, G1, 3 cm, multifocal, ER/MA pos, Her2 neg I had a long discussion with the patient regarding multidisciplinary treatment of breast cancer. I also discussed the results of her recent MRI, and I am the first provider to review these results with her since the study was done. I provided some reassurance to the patient that she appears at present to have a relatively low stage cancer that is hormone receptor positive and will therefore be very tr eatable and should result in a very good long-term outcome. However there are some complications to her surgical care demonstrated on the MRI. First I told her that the concerning malignant mass is quit e a bit larger on the MRI than initially it initially appeared on mammogram and ultrasound. Second and now appears as though her disease is multifocal with another area highly suspicious for malignancy that is separate but within the same quadrant. I discussed breast conserving therapy versus mastectomy. I told her that I was concerned that breast conserving therapy is possibly not the best option for her. An adequate resection for the purposes of negative margins would involve removal of a very large segment of breast tissue to get both of these lesions, which given her breast volume is almost cert ain to result in cosmetic deformity. I told her I would therefore leaning towards mastectomy. I discussed breast reconstruction, both immediate and delayed. I do not think her chronic use of low-dose st eroids would be a contraindication to plastic surgical reconstruction, and the patient does not have any other obvious contraindications. I also discussed contralateral prophylactic mastectomy on the [facility]. The patient has a number of MRI abnormalities on that side as well, it is noted in the report these would seem to correspond to prior right breast masses on older ultrasound exams, so they may be l ikely to be benign. I told her that CPM is acceptable management strategy for the right breast, and that if she elected not to undergo CPM she would need to continue careful surveillance screening and m onitoring of the right breast. The patient expressed disappointment and the extent of surgery that was being recommended. She seemed to me extremely hesitant to consent to CPM. In the end however I prov ided her with the names of a few nearby plastic surgeons for her seen in consultation prior to scheduling mastectomy and sentinel lymph node biopsy. Ordered: Clinic Referral - External, 12/22/17 9:53:00 CDT Plastic Surgery, Malignant neoplasm of upper-inner quadrant of left female breast, multifocal [id number] Office/Outpatient Visit New, 12/22/17 9:53:00 CDT, 24 hr Problem List/Past Medical History Cerebral infarct Disorder of carotid artery Hypothyroidism Labial cyst Lupus Memory loss Historical Cerebral arterial aneurysm CVA - Cerebrovascular accident Vulvar cancer, s/p surgical excision Basal cell skin cancer, anterior chest, s/p excision Procedure/Surgical History Cerebral angiogram: 08/06/13 section section Evacuation of hematoma Medications aspirin 81 mg tablet, enteric coated, 81 mg, 1 tab, PO, Daily, 3 refills, Not taking atorvastatin 40 mg oral tablet, 40 mg, 1 tab, PO, Bedtime Benlysta 120 mg intravenous injection, IV, q4wk DULoxetine 60 mg oral delayed release capsule, 60 mg, 1 cap, PO, Daily levothyroxine 125 mcg (0.125 mg) oral tablet, 1 tab, PO, Daily Plaquenil Sulfate 200 mg oral tablet, 400 mg, 2 tab, PO, Daily, Not taking Plavix 75 mg oral tablet, 75 mg, 1 tab, PO, Daily zolpidem 10 mg oral tablet, 10 mg, 1 tab, PO, Bedtime, PRN Allergies NKDA Social History Alcohol Current, Type Beer. Frequency: 3-5 times per week. Alcohol use interferes with work or home: No. Drinks more than intended: No. Others hurt by drinking: No. Ready to change: Yes. Household alcohol concerns: No. Exercise Exercise frequency: 3-4 times/week. Exercise type: Walking. Substance Abuse Use: None. Previous Treatment: None. IV drug use: No. Drug use interferes with work/home: No. Ready to change: No. Household substance abuse concerns: No. Cessation Education Provided: No. Tobacco Use: Former smoker. Tobacco smoke exposure: None. Did the Patient Smoke Cigarettes Anytime During the Last 365 Days? No. Cessation Counseling Provided? No. Use: Former smoker. Type: Cigarettes. Tobacco smoke exposure: Unable to obtain. Did the Patient Smoke Cigarettes Anytime During the Last 365 Days? No. Cessation Counseling Provided? No. Family History A lcoholism..: Father. Liver cancer.: Father. Pancreatic cancer: Mother. Throat cancer.: Brother. Lab Results [facility] eGFR: 96 mL/min/1.73m2 (12/19/17 CDT) POC Creatinine: 0.7 mg/dL (12/19/17 CDT) Diagnosis Left breast at 10:00, needle core biopsy: - INVASIVE LOBULAR CARCINOMA, NUCLEAR GRADE 1. - LOBULAR CARCINOMA IN SITU. - Microcalcifications present. - Estrogen receptor positive, progesterone receptor positive, HER2 negative by paraffin section immunohistochemistry (see predictive markers and biomarker reporting template). Diagnostic Results Radiology Report Patient Name: BRI ALVARENGA : 1960; Age: 57 years y/o Female MR: [id number] Study: Breast w/wo contrast bilat MRI 12/19/2017 9:51 AM CDT Ordering Physician: Suzy Coto DO Clinical Indication: 57-year-old female with known lupus, prior vulvar carcinoma and recently diagnosed left breast 10:00 invasive lobular cancer and LCIS. Preoperative evaluation.; - C50.212 Malignant neoplasm of upper-inner quadrant [...] intensity curves were also analyzed using a Room[employer] workstation vers InterValve [id number]. All measurements provided below are in the [...] at 9-10:00 3 cm (image 43 through 45 , series 10), deep to the nipple. This [...] detailed above with similar appearance to the biopsy-proven malignancy. If breast conservation is pursued, ult [...] older ultrasound exams. If breast conservation is desired, breast ultrasound with correlation to prior ultra sound exams and this MRI is recommended. If there is an appreciable change in size/appearance or new lesions are identified, biopsy would be warranted. Please note, with the patient's biopsy results of invasive lobular cancer/LCIS and the numerous enhancing foci/masses in both breasts as detailed above, this limits optimal exam evaluation/sensitivity. This should be discussed further with the patient by her surgeon and/or oncologist. Enlarged bilateral axillary nodes in keeping with patient's known history of chronic lupus. Above findings were discussed with the referring physician over the phone at approximately 1345 hours on the day of the exam. ACR BI-RADS CATEGORY 4 - SUSPICIOUS ABNORMALITY. Additional workup for bilateral breast masses/enhancement is recommended as detailed above, if breast conservation is desired. Breast Mammo Scrn SHRUTHI w de incl CAD MA BILATERAL DIGITAL SCREENING MAMMOGRAM 3D/2D WITH CAD: 11/01/2017 CLINICAL: /Routine. Current study was evaluated with a Computer Aided Detection (CAD) system. COMPARISON:Comparison is made with mammogram(s) dated 01/30/15 - 02/23/07. TECHNIQUE: Digital Breast Tomosynthesis was performed and utilized for Interpretation. [employer] Version 1.3 was utilized for computer aided [...] lateral views). This exam was interpreted at [id number] for [facility]. Breast Complete Uni US/L COMPLETE ULTRASOUND OF LEFT BREAST AND AXILLA: 11/15/2017 CLINICAL: /Mass abnormal mammogram, mammographic nodule/density. COMPARISON:Comparison is made to exams dated: 11/15/2017 mammogram, 11/01/2017 mammogram, 01/30/2015 mammogram, 12/11/2013 mammogram, 10/08/2010 mammogram, and 10/28 ultrasound - [facility]. TECHNIQUE: Color flow and real-time ultrasound of the left breast four quadrants and axilla regions were performed. Serrano scale images of the real-time examination were reviewed. All 4 quadrants, the ret roareolar region and axilla are evaluated in this exam. FINDINGS: There is a stable small benign oval shaped hypoechoic mass with a circumscribed margin with posterior enhancement left breast at 11 o'clock that correlates with mammography (stable on mammogram over 2 y ears). There also are large benign appearing lymph nodes in the left axilla that are not significantly changed and correlate with mammography. There is a 1 cm irregular solid mass with an indistinct margin in the left breast at 10 o'clock posterior depth 6 cm from the nipple. This irregular solid mass is hypoechoic with posterior acoustic shad owing. This correlates with mammography findings. Color flow [...] scheduled [facility] The physician's office was notified at 0930 hours on the day of the exam of the above findings and latrice mmendations. An order for this procedure will need to be provided by the referring physician. As the patient is on anti-coagulation medication, this should be discontinued prior to the biopsy with the referring physician's approval. This exam was interpreted at [id number] for [facility]. Shelly mcknight/:11/15/2017 09:38:11 Test Rack Operator(s): Rosie Fine, [facility] letter sent: BI-RADS 4/5 Ultrasound BI-RADS: 5 Highly suggestive of malignancy
--- OUTSIDE RECORDS SUMMARY | 2018-10-13 16:07 | XMS REPORT | Summary of Care ---
:[address] [facility] Address [address] [place] [address]- Encounter HQ Branden_dickson(FIN) [id number] Date(s): 02/22/18 - 02/22/18 [facility] [address] [address]- [phone] Discharge Disposition: Home or Self Care Attending [...] Active Breast cancer(Confirmed) Resolved 1Data migrated from [employer] on 03/03/15. Allergies, Adverse Reactions, Alerts Substance [...]
--- OUTSIDE RECORDS SUMMARY | 2018-10-13 16:07 | XMS REPORT | Summary of Care ---
:1960 Author Encounter [place] Machuca(JESSICA) [id number] Date(s): 07/18/14 - 07/18/[address] [facility] Outpatient Imaging [address] Discharge Disposition: Home Physician Attending: Javier Jimenez MD Reason for Visit 433.10 - OCL CRTD ART WO Problem List Condition Effective Dates Status Health Status Informant CVA - Cerebrovascular Resolved accident(Confirmed) Labial cyst(Confirmed) Active Lupus(Confirmed) Active Allergies, Adverse Reactions, Alerts Substance Reaction Severity Status NKDA Active Medications No data available for this section Medications Administered During Your Visit No data [...]
--- OUTSIDE RECORDS SUMMARY | 2018-10-13 16:08 | XMS REPORT | Summary of Care ---
:1960 [address] [facility] Address [address] [place], [place] [address]- Encounter HQ Branden_dickson(FIN) [id number] Date(s): 11/21/17 - 11/21/[address] [facility] [address] [place] [address]- [phone] Discharge Disposition: Home or Self Care Attending [...] cyst(Confirmed) Active Lupus(Confirmed) Active 1Data migrated from [facility] on 03/03/15. 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
--- OUTSIDE RECORDS SUMMARY | 2018-10-13 16:08 | XMS REPORT | Summary of Care ---
:1960 Author Organization [facility] Address [address] [place], [place] [address]- Encounter HQ Sven(JESSICA) [id number] Date(s): 12/19/17 - 12/19/17 [facility] [address] [place] [address]- [phone] Discharge Disposition: Home or Self Care Attending Physician: Suzy Coto DO Referring Physician: Suzy Coto DO Vital Signs No data available for this section Problem List Condition Effective Dates Status Health Status Informant Memory loss(Confirmed) Active Cerebral arterial Resolved aneurysm(Confirmed) Cerebral infarct(Confirmed) Active CVA - Cerebrovascular Resolved accident(Confirmed) Disorder of carotid artery1 07/01/14 Active Hypothyroidism(Confirmed) Active Labial cyst(Confirmed) Active Lupus(Confirmed) Active 1Data migrated from [employer] on 03/03/15. 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
--- OUTSIDE RECORDS SUMMARY | 2018-10-13 16:08 | XMS REPORT | Summary of Care ---
:1960 Author Organization [facility] [place] Address [address] [place], [place] [address]- Encounter HQ Encntr_alieboni(FIN) [id number] Date(s): 11/15/17 - 11/15/17 [facility] [place] [address] [place] [address]- [phone] Discharge Disposition: Home or Self Care Attending [...] cyst(Confirmed) Active Lupus(Confirmed) Active 1Data migrated from [facility] on 03/03/15. 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
--- OUTSIDE RECORDS SUMMARY | 2018-10-13 16:08 | XMS REPORT | Summary of Care ---
:1960 Author Organization [facility] General Surgery [place] Address [address] [place] [address]- Encounter HQ Sven(JESSICA) [id number] Date(s): 08/22/18 - 08/22/18 [facility] General Surgery [place] [address] [place] [address]- [phone] Discharge Disposition: Home or Self Care Attending Physician: Ra Serrano MD Vital Signs Most recent to oldest [Reference Range]: 1 Temperature Oral [96.4-99.1 DegF] 98.3 DegF (08/22/18 1:28 PM) Blood Pressure [90-140/60-90 mmHg] 136/75 mmHg (08/22/18 1:28 PM) Peripheral Pulse Rate [60-100 bpm] 82 bpm (08/22/18 1:28 PM) Weight 63.807 kg (08/22/18 1:28 PM) Problem List Condition Effective Dates Status Health Status Informant Early stage skin cancer(Confirmed) Resolved Cerebral arterial Resolved aneurysm(Confirmed) Cerebral infarct(Confirmed) Active CVA - Cerebrovascular Resolved accident(Confirmed) Disorder of carotid artery1 07/01/14 Active Hypothyroidism(Confirmed) Resolved Hypothyroidism(Confirmed) Active Labial cyst(Confirmed) Active Lupus(Confirmed) Active Breast cancer(Confirmed) Resolved 1Data migrated from [employer] on 03/03/15. Allergies, Adverse Reactions, Alerts Substance Reaction Severity Status NKDA Active Medications anastrozole 1 mg, PO, Daily, 0 Refill(s) Start Date: 08/22/18 Status: Orderedgabapentin 600 mg oral tablet 600 mg=1 tab, PO, TID, 0 Refill(s) Start Date: 08/22/18 Status: Ordered Results No data available for [...]
--- OUTSIDE RECORDS SUMMARY | 2018-10-13 16:08 | XMS REPORT | Summary of Care ---
:1960 Author Organization [facility] Address [address] [place] [address]- Encounter HQ Branden_dickson(FIN) [id number] Date(s): 03/07/18 - 03/07/18 [facility] [address] [place] [address]- [phone] Discharge Disposition: Home or Self Care Attending Physician: Ra Serrano MD Vital Signs Most recent to oldest [Reference Range]: 1 Height 154.94 cm (03/07/18 3:27 PM) Temperature Oral [96.4-99.1 DegF] 97.7 DegF (03/07/18 3:27 PM) Blood Pressure [90-140/60-90 mmHg] 144/69 mmHg *HI* (03/07/18 3:27 PM) Peripheral Pulse Rate [60-100 bpm] 91 bpm (03/07/18 3:27 PM) Weight 64.602 kg (03/07/18 3:27 PM) Body Mass Index 26.91 m2 (03/07/18 3:27 PM) Problem List Condition Effective Dates Status Health Status Informant Early stage skin cancer(Confirmed) Resolved Cerebral arterial Resolved aneurysm(Confirmed) Cerebral infarct(Confirmed) Active CVA - Cerebrovascular Resolved accident(Confirmed) Disorder of carotid artery1 07/01/14 Active Hypothyroidism(Confirmed) Resolved Hypothyroidism(Confirmed) Active Labial cyst(Confirmed) Active Lupus(Confirmed) Active Breast cancer(Confirmed) Resolved 1Data migrated from [employer] on 03/03/15. Allergies, Adverse Reactions, Alerts Substance Reaction Severity Status NKDA Active Medications No Known Medications Results No data available for this section [...]
--- OUTSIDE RECORDS SUMMARY | 2018-10-13 16:08 | XMS REPORT | Summary of Care ---
:1960 Author Organization [facility] Address [address] [place], [place] [address]- Encounter HQ Encntr_alieboni(FIN) [id number] Date(s): 11/15/17 - 11/15/17 [facility] [address] [place] [address]- Discharge Disposition: Home or Self Care Attending [...] Active Lupus(Confirmed) Active 1Data migrated from [facility] on 03/03/15. 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
--- OUTSIDE RECORDS SUMMARY | 2018-10-13 16:08 | XMS REPORT | Summary of Care ---
:1960 Author Organization [facility] General Surgery [facility] Address [address] [place] [address], [facility] [address] [place] [address]- Encounter HQ Sven(JESSICA) [id number] Date(s): 12/22/17 - 12/22/17 [facility] General Surgery [facility] [address] [place] [address], [address] [address] [phone] Discharge Disposition: Home or Self Care Attending Physician: Ra Serrano MD Vital Signs Most recent to oldest [Reference Range]: 1 Height 154.94 cm (12/22/17 9:00 AM) Temperature Oral [96.4-99.1 DegF] 98.2 DegF (12/22/17 9:00 AM) Blood Pressure [90-140/60-90 mmHg] 100/69 mmHg (12/22/17 9:00 AM) Peripheral Pulse Rate [60-100 bpm] 84 bpm (12/22/17 9:00 AM) Weight 65.17 kg (12/22/17 9:00 AM) Body Mass Index 27.15 m2 (12/22/17 9:00 AM) Problem List Condition Effective Dates Status Health Status Informant Memory loss(Confirmed) Active Cerebral arterial Resolved aneurysm(Confirmed) Cerebral infarct(Confirmed) Active CVA - Cerebrovascular Resolved accident(Confirmed) Disorder of carotid artery1 07/01/14 Active Hypothyroidism(Confirmed) Active Labial cyst(Confirmed) Active Lupus(Confirmed) Active 1Data migrated from [facility] on 03/03/15. Allergies, Adverse Reactions, Alerts Substance Reaction Severity Status NKDA Active Medications DULoxetine 60 mg oral delayed release capsule 60 mg=1 cap, PO, Daily, # 30 cap, 0 Refill(s) Start Date: 12/22/17 Status: Ordered Results No data available for this section Immunizations No data available for this section Procedures Procedure Date Related Diagnosis Body Site Status Cerebral angiogram 08/06/13 Completed section Completed section Completed Evacuation of hematoma Completed Social History Social History Type Response Substance Abuse Use: None. Exercise Exercise frequency: 3-4 times/week. Exercise type: Walking. Alcohol Current, Type Beer. Frequency: 3-5 times per week. Alcohol use interferes with work or home: No. Drinks more than intended: No. Others hurt by drinking: No. Ready to change: Yes. Household alcohol concerns: No. Smoking Status Former smoker; Exposure to Tobacco Smoke None; Cigarette Smoking Last 365 Days No; Reg Smoking Cessation Counseling No1 entered on: 12/22/17 1Quit smoking 2014 Assessment and Plan No data available for this section
--- NOTE | 2018-10-13 16:23 | RAD REPORT ---
EXAM DESCRIPTION: CT - Ct Stroke Brain Wo Cont - 10/13/2018 4:15 pm CLINICAL HISTORY: Stroke-like symptoms, dizziness, history of CVA CLINICAL HISTORY: None. TECHNIQUE: Axial 5 millimeter thick images of the head were obtained without IV contrast. All CT scans are performed using dose optimization technique as appropriate and may include automated exposure control or mA/KV adjustment according to patient size. FINDINGS: No intracranial hemorrhage, mass, or cerebral edema. No acute infarction identifiable. No extra-axial fluid collections. Serrano matter-white matter differentiation is preserved. Ventricles are normal. There are some scattered areas of minimal chronic ischemic change. Subtle diminished attenua tion in the posterior limb left internal capsule is seen possibly old CVA sequela. Acute infarction i n this region would not be suspected without right extremity focal deficits. Visualized portions of the mastoid air cells, paranasal sinuses, and orbits are unremarkable. Findings telephoned to the referring clinician 1619 hours IMPRESSION: No intracranial hemorrhage or mass. No acute cortical based infarction. Minimal scattered diminished attenuation in the white matter and the posterior limb left internal cap manuel. Left internal capsule nonhemorrhagic CVA would not be suspected without focal right extremity d eficits. Chronic ischemic changes can mask nonhemorrhagic acute infarction. MR brain followup can be obtained if there is ongoing concern for acute ischemia.
[2018-10-13 16:32] LABS: Absolute Lymphocytes (CBC) 0.4 K/uL (0.7-4.9); Absolute Monocytes 0.3 K/uL (0.1-1.3); Absolute Neutrophil 1.5 K/uL (1.8-8.0); Basophils % 0.4 % (0-1.3); Eosinophils % 0.6 % (0-4.4); Hematocrit 30.5 % (36.0-45.0); Lymphocytes % 18.7 % (15.3-44.8); MPV 8.5 fL (7.6-11.3); Monocytes % 13.4 % (3.3-12.3); RBC Red Blood Cell Count 3.27 M/uL (3.86-4.86)
[2018-10-13 16:34] LABS: Protime INR 0.91
[2018-10-13 16:44] LABS: Potassium 3.8 mmol/L (3.5-5.1)
--- NOTE | 2018-10-13 17:46 | RAD REPORT ---
EXAM DESCRIPTION: RAD - Chest Single View - 10/13/2018 5:08 pm CLINICAL HISTORY: Weakness, dizziness, shortness of breath COMPARISON: None. TECHNIQUE: AP portable chest image was obtained 1647 hours . FINDINGS: No focal lung parenchymal process. Interstitial markings are mildly prominent. This is fav ored to be baseline. Heart and vasculature are normal. No measurable pleural effusion and no pneumoth orax. No acute bony abnormality seen. No acute aortic findings suspected. IMPRESSION: No acute cardiopulmonary process.
[2018-10-13 18:29] LABS: Blood Morphology Comment NOT SEEN (NOT SEEN); Platelet Estimate ADEQ
--- NOTE | 2018-10-13 18:30 | ER ---
Nurse's Notes [facility] Name: Bri Alvarenga Age: 58 yrs Sex: Female : 1960 Arrival Date: 10/13/2018 Time: 16:03 Bed 5 Private MD: Diagnosis: Dizziness and giddiness Presentation: 10/13 16:11 Presenting complaint: states: Was sitting in passenger seat in car driving and la1 suddenly stated to "Oh my god, the car is spinning, something is wrong" and has been shaking since then, onset of symptoms was 1555. Transition of care: patient was not received from another setting of care. Onset of symptoms was October 13, 2018 at 15:55. Risk Assessment: Do you want to hurt yourself or someone else? Patient reports no desire to harm self or others. Initial Sepsis Screen: Does the patient meet any 2 criteria? No. Patient's initial sepsis screen is negative. Does the patient have a suspected source of infection? No. Patient's initial sepsis screen is negative. Care prior to arrival: None. 16:11 Method Of Arrival: Wheelchair la1 16:11 Acuity: HANNAH 2 la1 Historical: - Allergies: 16:13 No Known Allergies; la1 - Home Meds: 16:30 Plavix 75 mg Oral tab 1 tab once daily [Active]; prednisone 10 mg Oral tab once daily sv [Active]; levothyroxine 100 mcg tab 1 tab once daily [Active]; atorvastatin 40 mg oral tab nightly [Active]; anastrozole 1 mg oral tab 1 tab once daily [Active]; gabapentin 600 mg oral tab nightly [Active]; Ambien 10 mg Oral tab nightly [Active]; duloxetine 60 mg oral cpDR 1 cap twice a day [Active]; - PMHx: 16:13 Lupus; CVA; la1 - PSHx: 16:30 double mastectomy; sv - Immunization history:: Adult Immunizations up to date. - Social history:: Smoking status: Patient/guardian denies using tobacco. - Ebola Screening: : No symptoms or risks identified at this time. Screenin:10 VAN Screening: Arm Drift: Patient shows no arm weakness. Patient is VAN negative. la1 16:27 Abuse screen: Denies threats or abuse. Denies injuries from another. Nutritional sv screening: No deficits noted. Tuberculosis screening: No symptoms or risk factors identified. Fall Risk None identified. 16:48 Patient has been NPO before screening. The patient is alert, able to follow commands. sv The patient does not exhibit slurred or garbled speech The patient is not exhibiting difficulty speaking. The patient does not exhibit difficulty understanding words. The patient is able to swallow own secretions with no drooling or need for suction. Patient tolerated one teaspoon of water. No drooling, immediate coughing, gurgling, or clearing of the throat was noted. The patient tolerated 90mL of water. No drooling, immediate coughing, gurgling, or clearing of the throat was noted. The patient passed the bedside swallow screening. Oral medications may be given as ordered. Contact Physician for further diet orders. Provider notified of bedside swallow screening results: Christiano Dickinson ROLL OVER PRESS OPERATOR. Assessment: 16:10 Reassessment: Pt in CT with RN at this time. la1 16:17 Reassessment: Pt back in exam room, ERP at bedside performing assessment. la1 16:17 General: Appears in no apparent distress. uncomfortable, well groomed, well developed, sv Behavior is cooperative, appropriate for age, anxious. Pain: Denies pain. Neuro: Level of Consciousness is awake, alert, obeys commands, Oriented to person, place, time, situation, Railroad Detective are equal bilaterally Moves all extremities. Speech is normal, Facial symmetry appears normal, Facial symmetry: tongue is midline, Denies dizziness, Stated it started to get better once they pulled into the ER.. Cardiovascular: Patient's skin is warm and dry. Pulses are 3+ in right radial artery and left radial artery Rhythm is sinus rhythm Chest pain is denied. Respiratory: Airway is patent Respiratory effort is even, unlabored, Respiratory pattern is regular, symmetrical. Derm: Skin is pink, warm \\T\\ dry. 18:10 Reassessment: Patient appears in no apparent distress at this time. No changes from sv previously documented assessment. Patient and/or family updated on plan of care and expected duration. Pain level reassessed. Patient is alert, oriented x 3, equal unlabored respirations, skin warm/dry/pink. Vital Signs: 16:18 BP 172 / 88; Pulse 101; Resp 18; Pulse Ox 98% on R/A; Weight 63.5 kg; Height 5 ft. 7 la1 in. (170.18 cm); 16:27 BP 144 / 71; Pulse 86; Resp 24; Pulse Ox 99% on R/A; sv 16:48 BP 138 / 73; Pulse 86 MON; Resp 22; Pulse Ox 95% on R/A; sv 17:38 BP 134 / 78; Pulse 88; Resp 20; Pulse Ox 97% ; sv 18:10 BP 140 / 72; Pulse 87; Resp 17; Pulse Ox 98% ; sv 19:10 BP 147 / 79; Pulse 84; Resp 16; Pulse Ox 100% on R/A; Pain 0/10; ak1 16:18 Body Mass Index 21.93 (63.50 kg, 170.18 cm) la1 16:48 Sinus Rhythm sv NIH Stroke Scale Scores: 16:22 NIHSS Score: 0 sv 16:30 NIHSS Score: 0 pm1 ED Course: 16:03 Patient arrived in ED. as 16:11 Christiano Dickinson NP is PHCP. pm1 16:11 Renny Baker MD is Attending Physician. pm1 16:12 Triage completed. la1 16:15 CT Stroke Brain w/o Contrast In Process Unspecified. EDMS 16:17 Patient has correct armband on for positive identification. Bed in low position. Call sv light in reach. Side rails up X2. Adult w/ patient. staffing rn on. Pulse ox on. NIBP on. Door closed. Warm blanket given. Head of bed elevated. 16:19 Arm band placed on left wrist. la1 16:20 Initial lab(s) drawn, by de, sent to lab. Inserted saline lock: 20 gauge in right sv antecubital area, using aseptic technique. Blood collected. Flushed right antecubital with 5 ml normal saline. 16:26 Audrey Brown, RN is Primary Nurse. sv 16:33 Awaiting lab results, Awaiting radiology results. sv 16:48 EKG done, by ED staff, reviewed by Christiano Dickinson NP. sv 17:08 Stroke CXR 1 View In Process Unspecified. EDMS 19:10 No provider procedures requiring assistance completed. IV discontinued, intact, ak1 bleeding controlled, No redness/swelling at site. Pressure dressing applied. Administered Medications: No medications were administered Point of Care Testing: Blood Glucose: 16:21 Blood Glucose: 80 mg/dL; sv Ranges: Outcome: 18:29 Discharge ordered by MD. pm1 19:10 Discharged to home ambulatory, with family. ak1 19:10 Condition: good 19:10 Discharge instructions given to patient, family, Instructed on discharge instructions, follow up and referral plans. Demonstrated understanding of instructions, follow-up care. 19:13 Patient left the ED. ak1 NIH Stroke Scale - NIH Stroke Score Date: 10/13/2018 Time: 16:22 Total Score = 0 1a. Level of Consciousness (LOC) - 0(Alert) 1b. Level of Consciousness (LOC) (Year \\T\\ Age) - 0(Both) 1c. LOC Commands (Open \\T\\ Closes Eyes/Slater Apprentice) - 0(Both) 2. Best Gaze (Lateral Gaze Paresis) - 0(Normal) 3. Visual Field Loss - 0(No visual loss) 4. Facial Palsy - 0(Normal) 5a. Left Arm: Motor (10-second hold) - 0(No drift) 5b. Right Arm: Motor (10-second hold) - 0(No drift) 6a. Left Leg: Motor (5-second hold - always test supine) - 0(No drift) 6b. Right Leg: Motor (5-second hold - always test supine) - 0(No drift) 7. Limb Ataxia (finger/nose \\T\\ heel/dangelo - test with eyes open) - 0(Absent) 8. Sensory Loss (pinprick arms/legs/face) - 0(Normal) 9. Best Language: Aphasia (description/naming/reading) - 0(No aphasia) 10. Dysarthria (speech clarity - read or repeat words) - 0(Normal) 11. Extinction and Inattention (visual/tactile/auditory/spatial/personal) - 0(No abnormality) Initials: sv NIH Stroke Scale - NIH Stroke Score Date: 10/13/2018 Time: 16:30 Total Score = 0 1a. Level of Consciousness (LOC) - 0(Alert) 1b. Level of Consciousness (LOC) (Year \\T\\ Age) - 0(Both) 1c. LOC Commands (Open \\T\\ Closes Eyes/Slater Apprentice) - 0(Both) 2. Best Gaze (Lateral Gaze Paresis) - 0(Normal) 3. Visual Field Loss - 0(No visual loss) 4. Facial Palsy - 0(Normal) 5a. Left Arm: Motor (10-second hold) - 0(No drift) 5b. Right Arm: Motor (10-second hold) - 0(No drift) 6a. Left Leg: Motor (5-second hold - always test supine) - 0(No drift) 6b. Right Leg: Motor (5-second hold - always test supine) - 0(No drift) 7. Limb Ataxia (finger/nose \\T\\ heel/dangelo - test with eyes open) - 0(Absent) 8. Sensory Loss (pinprick arms/legs/face) - 0(Normal) 9. Best Language: Aphasia (description/naming/reading) - 0(No aphasia) 10. Dysarthria (speech clarity - read or repeat words) - 0(Normal) 11. Extinction and Inattention (visual/tactile/auditory/spatial/personal) - 0(No abnormality) Initials: pm1 Signatures: Dispatcher [employer] EDMS Audrey Brown RN RN sv Martinez, Amelia as Attema, Lee, RN RN la1 Katie Bingham RN RN ak1 Christiano Dickinson, ROLL OVER PRESS OPERATOR ROLL OVER PRESS OPERATOR pm1 Corrections: (The following items were deleted from the chart) 16:30 16:13 PSHx: Mastectomy; la1 sv 18:32 16:49 CBC Smear Scan drawn and sent. EDMS
--- NOTE | 2018-10-13 18:30 | EDPHYS ---
Physician Documentation [facility] Name: Bri Alvarenga Age: 58 yrs Sex: Female : 1960 Arrival Date: 10/13/2018 Time: 16:03 Bed 5 Private MD: ED Physician Renny Baker HPI: 10/13 16:30 This 58 yrs old Female presents to ER via Wheelchair with complaints of pm1 Dizziness. 16:30 The patient presents with sense of spinning. Onset: The symptoms/episode began/occurred pm1 at 15:50. Context: occurred in car while texting on phone, just prior to the episode the patient experienced no apparent symptoms. Modifying factors: The symptoms are alleviated by nothing, the symptoms are aggravated by nothing. Associated signs and symptoms: Pertinent negatives: abdominal pain, blurred vision, chest pain, confusion, diaphoresis, focal weakness, headache, nausea, near-syncope, numbness, palpitations, seizure, shortness of breath, tingling, vomiting. Severity of symptoms: in the emergency department the symptoms have resolved during triage. Patient's baseline: Neuro: alert and fully oriented, Motor: no deficits, Ambulation: walks without assistance, Speech: normal, The patient has a previous history of CVA, 3 years ago. The patient has not experienced similar symptoms in the past. The patient has not recently seen a physician. Historical: - Allergies: 16:13 No Known Allergies; la1 - Home Meds: 16:30 Plavix 75 mg Oral tab 1 tab once daily [Active]; prednisone 10 mg Oral tab once daily sv [Active]; levothyroxine 100 mcg tab 1 tab once daily [Active]; atorvastatin 40 mg oral tab nightly [Active]; anastrozole 1 mg oral tab 1 tab once daily [Active]; gabapentin 600 mg oral tab nightly [Active]; Ambien 10 mg Oral tab nightly [Active]; duloxetine 60 mg oral cpDR 1 cap twice a day [Active]; - PMHx: 16:13 Lupus; CVA; la1 - PSHx: 16:30 double mastectomy; sv - Immunization history:: Adult Immunizations up to date. - Social history:: Smoking status: Patient/guardian denies using tobacco. - Ebola Screening: : No symptoms or risks identified at this time. ROS: 16:30 Constitutional: Negative for fever, chills, and weight loss, Eyes: Negative for injury, pm1 pain, redness, and discharge, ENT: Negative for injury, pain, and discharge, Neck: Negative for injury, pain, and swelling, Cardiovascular: Negative for chest pain, palpitations, and edema, Respiratory: Negative for shortness of breath, cough, wheezing, and pleuritic chest pain, Abdomen/GI: Negative for abdominal pain, nausea, vomiting, diarrhea, and constipation, Back: Negative for injury and pain, : Negative for injury, bleeding, discharge, and swelling, MS/Extremity: Negative for injury and deformity, Skin: Negative for injury, rash, and discoloration. 16:30 Neuro: Positive for dizziness, Negative for altered mental status, gait disturbance, headache, numbness, seizure activity, speech changes, tingling, weakness. Exam: 16:30 Constitutional: This is a well developed, well nourished patient who is awake, alert, pm1 and in no acute distress. Head/Face: Normocephalic, atraumatic. Eyes: Pupils equal round and reactive to light, extra-ocular motions intact. Lids and lashes normal. Conjunctiva and sclera are non-icteric and not injected. Cornea within normal limits. Periorbital areas with no swelling, redness, or edema. ENT: Nares patent. No nasal discharge, no septal abnormalities noted. Tympanic membranes are normal and external auditory canals are clear. Oropharynx with no redness, swelling, or masses, exudates, or evidence of obstruction, uvula midline. Mucous membranes moist. Neck: Trachea midline, no thyromegaly or masses palpated, and no cervical lymphadenopathy. Supple, full range of motion without nuchal rigidity, or vertebral point tenderness. No Meningismus. Chest/axilla: Normal chest wall appearance and motion. Nontender with no deformity. No lesions are appreciated. Cardiovascular: Regular rate and rhythm with a normal S1 and S2. No gallops, murmurs, or rubs. Normal PMI, no JVD. No pulse deficits. Respiratory: Lungs have equal breath sounds bilaterally, clear to auscultation and percussion. No rales, rhonchi or wheezes noted. No increased work of breathing, no retractions or nasal flaring. Abdomen/GI: Soft, non-tender, with normal bowel sounds. No distension or tympany. No guarding or rebound. No evidence of tenderness throughout. Back: No spinal tenderness. No costovertebral tenderness. Full range of motion. Skin: Warm, dry with normal turgor. Normal color with no rashes, no lesions, and no evidence of cellulitis. MS/ Extremity: Pulses equal, no cyanosis. Neurovascular intact. Full, normal range of motion. 16:30 Neuro: Orientation: is normal, Mentation: is normal, Cranial nerves: CN II- XII are normal as tested, Cerebellar function: normal finger to nose testing, Motor: is normal, moves all fours, strength is normal, strength is 5/5 in all extremities, Sensation: is normal, no obvious gross deficits. Vital Signs: 16:18 BP 172 / 88; Pulse 101; Resp 18; Pulse Ox 98% on R/A; Weight 63.5 kg; Height 5 ft. 7 la1 in. (170.18 cm); 16:27 BP 144 / 71; Pulse 86; Resp 24; Pulse Ox 99% on R/A; sv 16:48 BP 138 / 73; Pulse 86 MON; Resp 22; Pulse Ox 95% on R/A; sv 17:38 BP 134 / 78; Pulse 88; Resp 20; Pulse Ox 97% ; sv 18:10 BP 140 / 72; Pulse 87; Resp 17; Pulse Ox 98% ; sv 19:10 BP 147 / 79; Pulse 84; Resp 16; Pulse Ox 100% on R/A; Pain 0/10; ak1 16:18 Body Mass Index 21.93 (63.50 kg, 170.18 cm) la1 16:48 Sinus Rhythm sv NIH Stroke Scale Scores: 16:22 NIHSS Score: 0 sv 16:30 NIHSS Score: 0 pm1 MDM: 16:11 Patient medically screened. pm1 18:21 Data reviewed: vital signs. Data interpreted: Pulse oximetry: on room air is 98 %. pm1 Interpretation: normal. 18:22 Counseling: I had a detailed discussion with the patient and/or guardian regarding: the pm1 historical points, exam findings, and any diagnostic results supporting the discharge/admit diagnosis, lab results, radiology results. 10/13 16:15 Order name: Basic Metabolic Panel; Complete Time: 16:47 pm1 10/13 16:15 Order name: CBC with Diff; Complete Time: 18:34 pm1 10/13 16:15 Order name: Protime (+inr); Complete Time: 16:43 pm1 10/13 16:15 Order name: Ptt, Activated; Complete Time: 16:43 pm1 10/13 18:32 Order name: Manual Differential; Complete Time: 18:34 EDMS 10/13 16:11 Order name: CT Stroke Brain w/o Contrast; Complete Time: 16:29 la1 10/13 16:15 Order name: Stroke CXR 1 View; Complete Time: 17:57 pm1 10/13 16:15 Order name: EKG; Complete Time: 16:15 pm1 10/13 16:15 Order name: Accucheck; Complete Time: 16:33 pm1 10/13 16:15 Order name: Cardiac monitoring; Complete Time: 16:34 pm1 10/13 16:15 Order name: EKG - Nurse/Tech; Complete Time: 16:49 pm1 10/13 16:15 Order name: IV Saline Lock; Complete Time: 16:34 pm1 10/13 18:55 Order name: Glucose, Ancillary Testing; Complete Time: 22:26 EDMS 10/13 16:15 Order name: Labs collected and sent; Complete Time: 16:34 pm1 10/13 16:15 Order name: NPO; Complete Time: 16:34 pm1 10/13 16:15 Order name: O2 Per Protocol; Complete Time: 16:34 pm1 10/13 16:15 Order name: O2 Sat Monitoring; Complete Time: 16:34 pm1 10/13 16:15 Order name: Stroke Swallow Screen; Complete Time: 16:49 pm1 Administered Medications: No medications were administered Point of Care Testing: Blood Glucose: 16:21 Blood Glucose: 80 mg/dL; sv Ranges: Critical Glucose Levels:Adult <50 mg/dl or >400 mg/dl <40 mg/dl or >180 mg/dl Disposition: 10/13/18 18:29 Discharged to Home. Impression: Dizziness and giddiness. - Condition is Stable. - Discharge Instructions: Dizziness. - Medication Reconciliation Form, Thank You Letter, Antibiotic Education, Prescription Opioid Use form. - Follow up: Emergency Department; When: As needed; Reason: Worsening of condition. Follow up: Private Physician; When: 2 - 3 days; Reason: Recheck today's complaints, Continuance of care, Re-evaluation by your physician. - Problem is new. - Symptoms have improved. NIH Stroke Scale - NIH Stroke Score Date: 10/13/2018 Time: 16:22 Total Score = 0 1a. Level of Consciousness (LOC) - 0(Alert) 1b. Level of Consciousness (LOC) (Year \T\ Age) - 0(Both) 1c. LOC Commands (Open \T\ Closes Eyes/Jewelry Sales Associate) - 0(Both) 2. Best Gaze (Lateral Gaze Paresis) - 0(Normal) 3. Visual Field Loss - 0(No visual loss) 4. Facial Palsy - 0(Normal) 5a. Left Arm: Motor (10-second hold) - 0(No drift) 5b. Right Arm: Motor (10-second hold) - 0(No drift) 6a. Left Leg: Motor (5-second hold - always test supine) - 0(No drift) 6b. Right Leg: Motor (5-second hold - always test supine) - 0(No drift) 7. Limb Ataxia (finger/nose \T\ heel/dangelo - test with eyes open) - 0(Absent) 8. Sensory Loss (pinprick arms/legs/face) - 0(Normal) 9. Best Language: Aphasia (description/naming/reading) - 0(No aphasia) 10. Dysarthria (speech clarity - read or repeat words) - 0(Normal) 11. Extinction and Inattention (visual/tactile/auditory/spatial/personal) - 0(No abnormality) Initials: NIH Stroke Scale - NIH Stroke Score Date: 10/13/2018 Time: 16:30 Total Score = 0 1a. Level of Consciousness (LOC) - 0(Alert) 1b. Level of Consciousness (LOC) (Year \T\ Age) - 0(Both) 1c. LOC Commands (Open \T\ Closes Eyes/Jewelry Sales Associate) - 0(Both) 2. Best Gaze (Lateral Gaze Paresis) - 0(Normal) 3. Visual Field Loss - 0(No visual loss) 4. Facial Palsy - 0(Normal) 5a. Left Arm: Motor (10-second hold) - 0(No drift) 5b. Right Arm: Motor (10-second hold) - 0(No drift) 6a. Left Leg: Motor (5-second hold - always test supine) - 0(No drift) 6b. Right Leg: Motor (5-second hold - always test supine) - 0(No drift) 7. Limb Ataxia (finger/nose \T\ heel/dangelo - test with eyes open) - 0(Absent) 8. Sensory Loss (pinprick arms/legs/face) - 0(Normal) 9. Best Language: Aphasia (description/naming/reading) - 0(No aphasia) 10. Dysarthria (speech clarity - read or repeat words) - 0(Normal) 11. Extinction and Inattention (visual/tactile/auditory/spatial/personal) - 0(No abnormality) Initials: pm1 Addendum: 10/15/2018 07:48 Co-signature as Attending Physician, Renny Baker MD I agree with the [facility] assessment and plan of care. Signatures: Dispatcher [employer] EDCO Audrey Brown, RN Renny Mckee MD MD cha Attema, Lee RN RN la1 Katie Bingham RN RN ak1 Christiano Dickinson, RICHMOND TALENT ACQUISITION DIRECTOR pm1 Corrections: (The following items were deleted from the chart) 10/13 16:30 16:13 PSHx: Mastectomy; la1 sv 18:32 16:36 CBC Smear Scan ordered. EDCO EDCO 19:13 18:29 10/13/2018 18:29 Discharged to Home. Impression: Dizziness and giddiness. ak1 Condition is Stable. Forms are Medication Reconciliation Form, Thank You Letter, Antibiotic Education, Prescription Opioid Use. Follow up: Emergency Department; When: As needed; Reason: Worsening of condition. Follow up: Private Physician; When: 2 - 3 days; Reason: Recheck today's complaints, Continuance of care, Re-evaluation by your physician. Problem is new. Symptoms have improved. pm1
--- NOTE | 2018-10-16 11:31 | EKG ---
Test Date: 2018-10-13 Test Time: 16:42:53 Movie Operator: SWG MEASUREMENT RESULTS: Intervals: Rate: 83 OH: 128 QRSD: 118 QT: 398 QTc: 467 Kinsey: P: 47 OH: 128 QRS: 16 T: 22 INTERPRETIVE STATEMENTS: Normal sinus rhythm Possible Left atrial enlargement Right bundle branch block Abnormal ECG No previous ECG available for comparison Electronically Signed On 10-14-18 10:49:22 CDT by Jamie Santiago
== END 2018-10-13 19:13 | disposition home or self-care (01) ==
LOC: ER 16:02
DX: R42 Dizziness and giddiness (principal); Z86.73 Personal history of transient ischemic attack (TIA), and cerebral infarction without residual deficits; Z79.01 Long term (current) use of anticoagulants
CPT/HCPCS: 36415; 70450; 71045; 80048; 82962; 85025; 85610; 85730; 93005; 99284

== ENCOUNTER 2019-01-29 08:30 | Emergency (ER) | payer BC ==
--- OUTSIDE RECORDS SUMMARY | 2019-01-29 08:38 | XMS REPORT | Continuity of Care Document ---
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/18/19 [facility] VERTREBRA ARTERY [address] [place] [address] STROKE, [place] STROKE Active 07/18/[address] [facility] CVA - Resolved Problem 02/02/2015 BREANNA Cerebrovascular Angel, accident [place] Labial cyst Active Problem 02/02/2015 BRYSON Ortiz,[facility] Lupus Active Problem 02/02/2015 BRYSON Ortiz,[facility] OCL CRTD ART WO Active [facility] 272.4 Active [facility] Medications No Data Provided for This Section Allergies, Adverse Reactions, Alerts No Known Medication Allergies Immunizations No Data Provided for This Section Results Order Results Value Reference Date Interpretation Comments Source Name Range LIPIDS LDL 117 <=99 mg/dL (Calculate 014 [place] d) LIPIDS VLDL [address] LIPIDS Trig 93 <=149 mg/dL [address] LIPIDS Chol 218 <=199 mg/dL [address] LIPIDS HDL 82 >=61 mg/dL [address] LIPIDS CHD Risk 2.66 3.90 - 5.[address] Pathology Reports No Data Provided for This Section Diagnostic Reports Report Value Date Source Digital Mammo - DIGITAL MAMMO SCREENING SHRUTHI MA 01/30/2015 [facility] Screening Shruthi MA BILATERAL DIGITAL SCREENING MAMMOGRAM WITH CAD: 01/30/2015 CLINICAL: Other Screening Mammogram. Current study was evaluated with a Computer Aided Detection (CAD) system. Comparison is made to exams dated: 12/11/2013 mammogram, 10/08/2010 mammogram, mammogram and 02/23/2007 mammogram - [facility]. The tissue of both breasts is heterogeneously [...] 1 year screening mammogram is recommended. Shelly mcknight/augusto:02/02/2015 08:22:07 Organ Builder: Audrey Olivera, [facility] This exam was dictated and interpreted by [id number] for [facility] Breast [place]. 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 At [...] images. ADDITIONAL OPERATORS: Neurosurgery fellow Dr. Rickie Albarran. SEDATION/PAIN CONTROL: Moderate sedation with intravenous fentanyl [...] followed by 2-D and 3-D angiogram runs. PROCEDURE IN DETAIL: The patient was brought into neuro-interventional suite and placed in the supine position. The patient was then prepped and draped in sterile fashion. The right femoral artery was accessed using single wall micropuncture technique and a 5 [place] sheath was placed. A 5 [place] Vert catheter was coaxially advanced with a [...] were produced and evaluated. After review of e angiography data, the catheter was withdrawn. A right femoral artery angiogram was performed and the catheter was removed. The right femoral artery sheath was removed and the arteriotomy was closed us ing 5 [place] Mynx law reporter closure device. Post procedure neurological examination [...] the basilar artery, the bilateral superior cerebellar arteries , and the bilateral posterior cerebral arteries. Vessel [...] vertebral artery show stable 65% stenosis. Carotid artery EXAM: US EXTRACRANIAL ARTERIAL DOPPLER 07/18/2014 BRYSON Ortiz Doppler bilat DATE: 07/18/2014. INDICATION: Carotid stenosis. ADDITIONAL INFORMATION: History of [...] within the field-of- view of this examination. Consultation Notes No Data Provided for This Section Discharge Summaries No Data Provided for This Section History and Physicals No Data Provided for This Section Vital Signs No Data Provided for This Section Encounters Location Location Encounter Encounter Reason Attending ADM DC Status Source Details Type Number For Provider Date Date Visit [facility] Outpatient [id number] Alexus 06/12 06/13 [facility] 8 [facility] Outpt Diag [id number] Javier Jimenez 07/18 07/19 [facility] [place] [facility] Outpatient [id number] Adam 01/30 01/31 [facility] 5 [facility] Outpatient [id number] SILAS KRELL 08/03 [facility] Outpatient [id number] SILAS KRELL 08/15 [facility] [place] [facility] Outpatient [id number] SILAS KRELL 08/31 [facility] [place] Outpatient [id number] SILAS KRELL 11/30 [facility] [place] [facility] Procedures Procedure Code Date Perfomer Comments Source Cerebral [id number] 08/06/2013 [facility] angiogram section [id number] [facility] [employer] [id number] [facility] Assessment and Plan No Data Provided for This Section Plan of Care No Data Provided for This Section Social History Social History Date Source Social History TypeResponse 08/09/2013 [facility] Substance Abuse Previous Treatment: None. IV drug use: No. Drug use interferes with work/home : No. Ready to change: No. Household substance abuse concerns: No. Cessation Education Provided: No. Exercise Exercise frequency: 3-4 times/week. Exercise type: Walking. Alcohol Current, Type Beer. Frequency: 3-5 times per week. Alcohol use interferes with work or home: No. Drinks more than intended: No. Others hurt by drinking : No. Ready to change: Yes. Household alcohol concerns: No. Smoking Status Current every day smoker; Type: Cigarettes; Tobacco use per day: 1; Started at age: 18.0; Previous treatment: None; Ready to change: Yes; Concerns about tobacco use in household: No; Exposed at work; Ci garette Smoking Last 365 Days Yes; Reg Smoking Cessation Counseling Yes Social History TypeResponse 08/09/2013 BRYSON Ortiz Substance Abuse Previous treatment: None, IV drug [...] Do you ever drink more than intended? No , Has anyone been hurt or at risk by your drinking ? No, Ready to change: Yes, Concerns about alcohol use in household: No Smoking Status Current every day smoker, Type: Cigarettes, Previous treatment: None, Ready to change: Yes, Concerns about tobacco use in household: No, Exposed at work, Cigarette Smoking Last 365 Days Yes, Reg Smoking Cessation Counseling Yes Family History No Data Provided for This Section Advance Directives No Data Provided for This Section Functional Status No Data Provided for This Section
[2019-01-29 09:13] LABS: Absolute Lymphocytes (CBC) 0.2 K/uL (0.7-4.9); Basophils % 0.4 % (0-1.3); Hematocrit 32.9 % (36.0-45.0); Lymphocytes % 2.7 % (15.3-44.8); MPV 8.1 fL (7.6-11.3); RBC Red Blood Cell Count 3.46 M/uL (3.86-4.86)
[2019-01-29] MEDS ORDERED: METOPROLOL TARTRATE 5 MG/5 ML INJ IV ONE (09:14)
[2019-01-29] MEDS ORDERED: NA CHLORIDE 0.9% 1,000 ML ONE (09:14)
[2019-01-29 09:26] LABS: Protime INR 0.83
[2019-01-29 09:50] LABS: Magnesium 1.8 mg/dL (1.8-2.4); Potassium 3.6 mmol/L (3.5-5.1); Troponin (Emerg Dept Use Only) 0.04 ng/mL (0.0-0.045)
--- NOTE | 2019-01-29 10:04 | RAD REPORT ---
EXAM DESCRIPTION: RAD - Chest Pa And Lat (2 Views) - 01/29/2019 9:51 am CLINICAL HISTORY: HTN Chest pain. COMPARISON: Chest Single View dated 10/13/2018 FINDINGS: The lungs are clear. The heart is mildly to moderately enlarged in size. No displaced frac tures.
[2019-01-29 10:19] LABS: Blood Morphology Comment NOT SEEN (NOT SEEN); Platelet Estimate ADEQ
--- NOTE | 2019-01-29 10:30 | RAD REPORT ---
EXAM DESCRIPTION: US - Extrem Venous W Compress Martinez - 01/29/2019 10:19 am CLINICAL HISTORY: SWELLING Bilateral leg edema and swelling. COMPARISON: No comparisons TECHNIQUE: Real-time sonographic interrogation of the left and right lower extremity deep venous sys tems was performed. FINDINGS: Normal compressibility, flow augmentation, phasic flow and spontaneous flow is identified in both the left and right lower extremity deep venous systems. IMPRESSION: No sonographic evidence of left or right lower extremity deep venous thrombosis.
[2019-01-29] MEDS ORDERED: LISINOPRIL 10 MG TAB ONE (11:06)
[2019-01-29 11:07] LABS: Thyroid Stimulating Hormone 5.95 uIU/mL (0.360-3.740)
--- NOTE | 2019-01-29 11:35 | ER ---
Nurse's Notes [facility] Name: Bri Alvarenga Age: 58 yrs Sex: Female : 1960 Arrival Date: 01/29/2019 Time: 08:32 Bed 19 Private MD: Rickie Erickson T Diagnosis: Essential (primary) hypertension Presentation: 01/29 08:46 Presenting complaint: Patient states: Went to PCP this morning, was told that her blood ss pressure was high, 210/115 and that the physician would not be in for another hour, therefore was directed to come be seen in the ER. Transition of care: patient was not received from another setting of care. Onset of symptoms is unknown. Risk Assessment: Do you want to hurt yourself or someone else? Patient reports no desire to harm self or others. Initial Sepsis Screen: Does the patient meet any 2 criteria? HR > 90 bpm. Does the patient have a suspected source of infection? No. Patient's initial sepsis screen is negative. Care prior to arrival: None. 08:46 Method Of Arrival: Ambulatory ss 08:46 Acuity: HANNAH 3 ss Historical: - Allergies: 08:50 No Known Allergies; ss - Home Meds: 08:50 duloxetine 60 mg Oral cpDR 1 cap twice a day [Active]; gabapentin 600 mg Oral tab ss nightly [Active]; prednisone 10 mg Oral tab once daily [Active]; zolpidem 10 mg Oral tab 1 tab once at bedtime [Active]; - PMHx: 08:50 CVA; Lupus; vaginal CA; ss - PSHx: 08:50 double mastectomy; ss - Immunization history:: Adult Immunizations unknown. - Social history:: Smoking status: Patient/guardian denies using tobacco. - Ebola Screening: : Patient denies exposure to infectious person Patient denies travel to an Ebola-affected area in the 21 days before illness onset. Screenin:51 Abuse screen: Denies threats or abuse. Denies injuries from another. Nutritional ss screening: No deficits noted. Tuberculosis screening: Never had TB. Fall Risk None identified. Assessment: 08:51 General: Appears comfortable, Behavior is cooperative, quiet, Denies fever, feeling ss ill, fatigue, chills. Pain: Complains of pain in headache in entire Pain currently is 5 out of 10 on a pain scale. Quality of pain is described as aching, Pain began " a few months ago" Is intermittent. Neuro: Level of Consciousness is awake, alert, obeys commands, Oriented to person, place, time, situation, Gait is steady, Speech is normal, Pupils are PERRLA. Cardiovascular: Capillary refill < 3 seconds is brisk in bilateral fingers. Respiratory: Airway is patent Respiratory effort is even, unlabored, Respiratory pattern is regular, symmetrical. Respiratory: Breath sounds are clear bilaterally. Denies shortness of breath pain with respiration, pain with cough, pain with movement, Parent/caregiver reports the patient having Family member reports that patient has had a cough lately, "like a cold.". GI: Abdomen is non-distended, Patient currently denies abdominal pain, diarrhea, nausea, vomiting. : No signs and/or symptoms were reported regarding the genitourinary system. Denies burning with urination, urinary frequency. EENT: Oral mucosa is moist. Throat is clear. Derm: Skin is intact, is healthy with good turgor, Skin is dry, Skin is pink, warm \\T\\ dry. normal. Musculoskeletal: Circulation, motion, and sensation intact. Range of motion: intact in all extremities, Swelling absent. 11:36 Reassessment: Patient appears in no apparent distress at this time. Pain: Complains of ae4 pain in head and back of head. Vital Signs: 08:45 BP 200 / 93; Pulse 96; Resp 16; Temp 98.4(TE); Pulse Ox 97% on R/A; Weight 63.5 kg; ss Height 5 ft. 0 in. (152.40 cm); Pain 5/10; 08:54 BP 201 / 107; Pulse 95; Pulse Ox 96% on R/A; ss 09:12 BP 197 / 101; Pulse 79; mh5 09:20 BP 200 / 96; Pulse 76; mh5 09:27 BP 191 / 98; Pulse 72; mh5 10:16 BP 190 / 96; Pulse 73; Resp 24; Pulse Ox 96% on R/A; ae4 11:07 BP 196 / 111; Pulse 68; Resp 22; Temp 98.5(TE); Pulse Ox 97% on R/A; mh5 11:36 BP 203 / 104; Pulse 73; Resp 17; Pulse Ox 97% on R/A; ae4 08:45 Body Mass Index 27.34 (63.50 kg, 152.40 cm) Demarcus Coma Score: 09:02 Eye Response: spontaneous(4). Verbal Response: oriented(5). Motor Response: obeys snw commands(6). Total: 15. NIH Stroke Scale Scores: 09:02 NIHSS Score: 0 snw ED Course: 08:32 Patient arrived in ED. dl4 08:32 Rickie Erickson MD is Private Physician. dl4 08:40 Cj Mclaughlin FNP-C is [facility]. snw 08:40 Henrique Garza MD is Attending Physician. snw 08:45 Verna Marti, YORDY is Primary Nurse. ss 08:45 Arm band placed on right wrist. ss 08:48 Triage completed. ss 08:51 Patient has correct armband on for positive identification. Bed in low position. Call ss light in reach. Side rails up X 1. Adult w/ patient. panel monitor on. Pulse ox on. NIBP on. 08:59 Initial lab(s) drawn, by me, sent to lab. Inserted saline lock: 20 gauge in right [facility] antecubital area, using aseptic technique. Blood collected. 08:59 Ptt, Activated Sent. 5 08:59 PT-INR Sent. 5 08:59 BNP Sent. 5 08:59 Troponin (emerg Dept Use Only) Sent. 5 08:59 Magnesium Sent. 5 09:00 Chem 7 Sent. 5 09:00 CBC with Diff Sent. 5 09:05 Radiology exam delayed due to NEED HTN MED[place]IT[place] BEFORE CXR PER CJ. mh1 09:51 X-ray completed. Patient tolerated procedure well. Patient moved to radiology via [facility] stretcher. Patient taken to ultrasound. via stretcher. 09:53 Chest Pa And Lat (2 Views) XRAY In Process Unspecified. EDMS 10:17 Patient moved back from ultrasound. ae4 10:23 US Extremity Venous W Compression Martinez In Process Unspecified. EDMS 11:34 Rickie Erickson MD is Referral Physician. snw 11:49 Echocardiogram with doppler done by nuclear reactor technician. tc 11:55 No provider procedures requiring assistance completed. IV discontinued, intact, ae4 bleeding controlled, No redness/swelling at site. Pressure dressing applied. Administered Medications: 09:07 Drug: NS 0.9% 1000 ml Route: IV; Rate: 75 ml/hr; Site: right antecubital; ss 11:58 Follow up: IV Status: Order to discontinue infusion ae4 09:08 Drug: Metoprolol 5 mg Route: IVP; Site: right antecubital; ss 09:14 Drug: Metoprolol 5 mg Route: IVP; Site: right antecubital; ss 09:22 Drug: Metoprolol 5 mg Route: IVP; Site: right antecubital; ss 10:17 Follow up: Response: Blood pressure is lowered; 190/96 ae4 10:52 Drug: Lisinopril 10 mg Route: PO; ae4 11:57 Follow up: Response: Blood pressure is unchanged ae4 Intake: Outcome: 11:34 Discharge ordered by MD. snw 11:55 Discharged to home ambulatory, with significant other. ae4 11:55 Condition: stable 11:55 Discharge instructions given to patient, significant other, Instructed on discharge instructions, follow up and referral plans. medication usage, Demonstrated understanding of instructions, follow-up care, Prescriptions given X 1. 11:56 Patient left the ED. ae4 NIH Stroke Scale - NIH Stroke Score Date: 01/29/2019 Time: 09:02 Total Score = 0 1a. Level of Consciousness (LOC) - 0(Alert) 1b. Level of Consciousness (LOC) (Year \\T\\ Age) - 0(Both) 1c. LOC Commands (Open \\T\\ Closes Eyes/Wood Heel Cementer) - 0(Both) 2. Best Gaze (Lateral Gaze Paresis) - 0(Normal) 3. Visual Field Loss - 0(No visual loss) 4. Facial Palsy - 0(Normal) 5a. Left Arm: Motor (10-second hold) - 0(No drift) 5b. Right Arm: Motor (10-second hold) - 0(No drift) 6a. Left Leg: Motor (5-second hold - always test supine) - 0(No drift) 6b. Right Leg: Motor (5-second hold - always test supine) - 0(No drift) 7. Limb Ataxia (finger/nose \\T\\ heel/dangelo - test with eyes open) - 0(Absent) 8. Sensory Loss (pinprick arms/legs/face) - 0(Normal) 9. Best Language: Aphasia (description/naming/reading) - 0(No aphasia) 10. Dysarthria (speech clarity - read or repeat words) - 0(Normal) 11. Extinction and Inattention (visual/tactile/auditory/spatial/personal) - 0(No abnormality) Initials: snw Signatures: Dispatcher [employer] EDMS Cj Mclaughlin, SALT PLANT OPERATOR-C SALT PLANT OPERATOR-Csnw Breann Mason mh1 Verna Marti, RN RN ss Barbara Lin, sewer pipe layer EKG [facility] Latonia Jeong 5 Rickie Rdz 4 Stephon James RN RN ae4 Corrections: (The following items were deleted from the chart) 11:10 11:07 BP 196 / 111; Pulse 68bpm; Resp 22bpm; Pulse Ox 97% RA; 5 5
--- NOTE | 2019-01-29 11:35 | EDPHYS ---
Physician Documentation [facility] Name: Bri Alvarenga Age: 58 yrs Sex: Female : 1960 Arrival Date: 01/29/2019 Time: 08:32 Bed 19 Private MD: Rickie Erickson T ED Physician Henrique Garza HPI: 01/29 09:05 This 58 yrs old Female presents to ER via Ambulatory with complaints of High snw Blood Pressure. 09:05 The patient has elevated blood pressure and discovered this at home, with a home snw device. Onset: The symptoms/episode began/occurred 1 week(s) ago, and became persistent. Associated signs and symptoms: Pertinent positives: headache, lightheadedness. Severity of symptoms: At its worst the blood pressure was 201 mm Hg. The patient has not experienced similar symptoms in the past. The patient has been recently seen by a physician: the patient's primary care provider, Dr. 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 Supervisor Lump Room just had pt on steroids treating Lupus flare up. Historical: - Allergies: 08:50 No Known Allergies; ss - Home Meds: 08:50 duloxetine 60 mg Oral cpDR 1 cap twice a day [Active]; gabapentin 600 mg Oral tab ss nightly [Active]; prednisone 10 mg Oral tab once daily [Active]; zolpidem 10 mg Oral tab 1 tab once at bedtime [Active]; - PMHx: 08:50 CVA; Lupus; vaginal CA; ss - PSHx: 08:50 double mastectomy; ss - Immunization history:: Adult Immunizations unknown. - Social history:: Smoking status: Patient/guardian denies using tobacco. - Ebola Screening: : Patient denies exposure to infectious person Patient denies travel to an Ebola-affected area in the 21 days before illness onset. ROS: 09:05 Constitutional: Negative for fever, chills, and weight loss, Eyes: Negative for injury, snw pain, redness, and discharge, ENT: Negative for injury, pain, and discharge, Neck: Negative for injury, pain, and swelling, Cardiovascular: Negative for chest pain, palpitations, and edema, Respiratory: Negative for shortness of breath, cough, wheezing, and pleuritic chest pain, Abdomen/GI: Negative for abdominal pain, nausea, vomiting, diarrhea, and constipation, Back: Negative for injury and pain, : Negative for injury, bleeding, discharge, and swelling, MS/Extremity: Negative for injury and deformity, Skin: Negative for injury, rash, and discoloration. 09:05 Neuro: Positive for headache, of the scalp. Exam: 09:02 Head/Face: Normocephalic, atraumatic. Eyes: Pupils equal round and reactive to light, snw extra-ocular motions intact. Lids and lashes normal. Conjunctiva and sclera are non-icteric and not injected. Cornea within normal limits. Periorbital areas with no swelling, redness, or edema. ENT: Nares patent. No nasal discharge, no septal abnormalities noted. Tympanic membranes are normal and external auditory canals are clear. Oropharynx with no redness, swelling, or masses, exudates, or evidence of obstruction, uvula midline. Mucous membranes moist. Neck: Trachea midline, no thyromegaly or masses palpated, and no cervical lymphadenopathy. Supple, full range of motion without nuchal rigidity, or vertebral point tenderness. No Meningismus. Chest/axilla: Normal chest wall appearance and motion. Nontender with no deformity. No lesions are appreciated. 09:02 Back: No spinal tenderness. No costovertebral tenderness. Full range of motion. Skin: Warm, dry with normal turgor. Normal color with no rashes, no lesions, and no evidence of cellulitis. MS/ Extremity: Pulses equal, no cyanosis. Neurovascular intact. Full, normal range of motion. 09:02 Constitutional: The patient appears alert, anxious, uncomfortable. 09:02 Cardiovascular: Rate: tachycardic, Rhythm: regular, Pulses: no pulse deficits are appreciated, Heart sounds: normal, Edema: pt and family state bilateral lower ext edema last week. 09:02 Respiratory: Exam negative for 09:02 Abdomen/GI: Exam negative for 09:02 Neuro: Orientation: is normal, Mentation: is normal, Memory: is normal, hard of hearing. 09:02 Psych: Behavior/mood is anxious. Vital Signs: 08:45 BP 200 / 93; Pulse 96; Resp 16; Temp 98.4(TE); Pulse Ox 97% on R/A; Weight 63.5 kg; ss Height 5 ft. 0 in. (152.40 cm); Pain 5/10; 08:54 BP 201 / 107; Pulse 95; Pulse Ox 96% on R/A; ss 09:12 BP 197 / 101; Pulse 79; mh5 09:20 BP 200 / 96; Pulse 76; mh5 09:27 BP 191 / 98; Pulse 72; mh5 10:16 BP 190 / 96; Pulse 73; Resp 24; Pulse Ox 96% on R/A; ae4 11:07 BP 196 / 111; Pulse 68; Resp 22; Temp 98.5(TE); Pulse Ox 97% on R/A; mh5 11:36 BP 203 / 104; Pulse 73; Resp 17; Pulse Ox 97% on R/A; ae4 08:45 Body Mass Index 27.34 (63.50 kg, 152.40 cm) ss NIH Stroke Scale Scores: 09:02 NIHSS Score: 0 snw Demarcus Coma Score: 09:02 Eye Response: spontaneous(4). Verbal Response: oriented(5). Motor Response: obeys snw commands(6). Total: 15. MDM: 08:54 Patient medically screened. snw 11:40 Data reviewed: vital signs, nurses notes. Data interpreted: Pulse oximetry: on room air snw is 97 %. Interpretation: normal. Counseling: I had a detailed discussion with the patient and/or guardian regarding: the historical points, exam findings, and any diagnostic results supporting the discharge/admit diagnosis, the presence of at least one elevated blood pressure reading (>120/80) during this emergency department visit, lab results, radiology results, the need for outpatient follow up, to return to the emergency department if symptoms worsen or persist or if there are any questions or concerns that arise at home. Special discussion: I have referred the patient to see his PCP for further evaluation of high blood pressure. Based on the history and exam findings, there is no indication for further emergent testing or inpatient evaluation. I discussed with the patient/guardian the need to see the primary care provider for further evaluation of the symptoms. 01/29 08:50 Order name: CBC with Diff; Complete Time: 10:23 snw 01/29 08:50 Order name: Chem 7; Complete Time: 11:30 snw 01/29 08:50 Order name: Magnesium; Complete Time: 11:30 snw 01/29 08:50 Order name: Troponin (emerg Dept Use Only); Complete Time: 11:30 snw 01/29 08:50 Order name: BNP; Complete Time: 11:30 snw 01/29 08:50 Order name: PT-INR; Complete Time: 09:41 snw 01/29 08:50 Order name: Chest Pa And Lat (2 Views) XRAY; Complete Time: 10:07 snw 01/29 08:50 Order name: Ptt, Activated; Complete Time: 09:41 snw 01/29 10:21 Order name: Manual Differential; Complete Time: 10:23 EDMS 01/29 10:38 Order name: Urine Microscopic Only snw 01/29 10:42 Order name: Add On-Lab 01/29 10:45 Order name: Thyroid Stimulating Hormone; Complete Time: 11:30 EDMS 01/29 11:11 Order name: T4 Free; Complete Time: 11:30 EDMS 01/29 11:34 Order name: Urine Dipstick--Ancillary (enter results) 01/29 08:50 Order name: US Extremity Venous W Compression Martinez; Complete Time: 10:33 snw 01/29 09:57 Order name: Echo w/ Doppler [facility] 01/29 10:16 Order name: EKG; Complete Time: 10:17 snw 01/29 10:16 Order name: EKG - Nurse/Tech; Complete Time: 10:39 snw 01/29 10:38 Order name: Urine Dipstick-Ancillary (obtain specimen); Complete Time: 11:12 snw Administered Medications: 09:07 Drug: NS 0.9% 1000 ml Route: IV; Rate: 75 ml/hr; Site: right antecubital; ss 11:58 Follow up: IV Status: Order to discontinue infusion ae4 09:08 Drug: Metoprolol 5 mg Route: IVP; Site: right antecubital; ss 09:14 Drug: Metoprolol 5 mg Route: IVP; Site: right antecubital; ss 09:22 Drug: Metoprolol 5 mg Route: IVP; Site: right antecubital; ss 10:17 Follow up: Response: Blood pressure is lowered; 190/96 ae4 10:52 Drug: Lisinopril 10 mg Route: PO; ae4 11:57 Follow up: Response: Blood pressure is unchanged ae4 Disposition: 13:19 Co-signature as Attending Physician, Henrique Garza MD I agree with the assessment and kdr plan of care. Disposition: 01/29/19 11:34 Discharged to Home. Impression: Essential (primary) hypertension. - Condition is Stable. - Discharge Instructions: Hypertension, Hypothyroidism, Proteinuria, How to Take Your Blood Pressure, [id number], DASH Eating Plan, Rehydration, Adult, Managing Your Hypertension, Form - Blood Pressure Record Sheet. - Prescriptions for Lisinopril 10 mg Oral Tablet - take 1 tablet by ORAL route once daily; 20 tablet. - Medication Reconciliation Form, Thank You Letter, Antibiotic Education, Prescription Opioid Use form. - Follow up: Rickie Erickson MD; When: 2 - 3 days; Reason: Recheck today's complaints, Continuance of care, Re-evaluation by your physician. Follow up: Emergency Department; When: As needed; Reason: Worsening of condition. NIH Stroke Scale - NIH Stroke Score Date: 01/29/2019 Time: 09:02 Total Score = 0 1a. Level of Consciousness (LOC) - 0(Alert) 1b. Level of Consciousness (LOC) (Year \T\ Age) - 0(Both) 1c. LOC Commands (Open \T\ Closes Eyes/Strategic Partnership Representative) - 0(Both) 2. Best Gaze (Lateral Gaze Paresis) - 0(Normal) 3. Visual Field Loss - 0(No visual loss) 4. Facial Palsy - 0(Normal) 5a. Left Arm: Motor (10-second hold) - 0(No drift) 5b. Right Arm: Motor (10-second hold) - 0(No drift) 6a. Left Leg: Motor (5-second hold - always test supine) - 0(No drift) 6b. Right Leg: Motor (5-second hold - always test supine) - 0(No drift) 7. Limb Ataxia (finger/nose \T\ heel/dangelo - test with eyes open) - 0(Absent) 8. Sensory Loss (pinprick arms/legs/face) - 0(Normal) 9. Best Language: Aphasia (description/naming/reading) - 0(No aphasia) 10. Dysarthria (speech clarity - read or repeat words) - 0(Normal) 11. Extinction and Inattention (visual/tactile/auditory/spatial/personal) - 0(No abnormality) Initials: snw Signatures: Dispatcher [employer] EDMS Henrique Garza MD MD [facility] Stephanie Mclaughlin, BOOK REVIEWER-C BOOK REVIEWER-Csnw Verna Marti, YORDY RN ss Stephon James RN RN ae4 Corrections: (The following items were deleted from the chart) 11:56 11:34 01/29/2019 11:34 Discharged to Home. Impression: Essential (primary) ae4 hypertension. Condition is Stable. Forms are Medication Reconciliation Form, Thank You Letter, Antibiotic Education, Prescription Opioid Use. Follow up: Rickie Erickson; When: 2 - 3 days; Reason: Recheck today's complaints, Continuance of care, Re-evaluation by your physician. Follow up: Emergency Department; When: As needed; Reason: Worsening of condition. snw
--- NOTE | 2019-01-29 11:36 | ECHO ---
HEIGHT: 5 ft 0 in WEIGHT: 140 lb oz DATE OF STUDY: 01/29/[address]: Stephanie Mclaughlin CAGE CLERK-BC 2-DIMENSIONAL: YES M.MODE: YES DOPPLER: YES COLOR FLOW: YES TDS: NO PORTABLE: YES DEFINITY: NO BUBBLE STUDY: NO DIAGNOSIS: HYPERTENSION, TACHYCARDIA CARDIAC HISTORY: CATHERIZATION: NO SURGERY: NO PROSTHETIC VALVE: NO PACEMAKER: NO MEASUREMENTS (cm) DIASTOLIC (NORMALS) SYSTOLIC (NORMALS) IVSd 1.4 (0.6-1.2) LA Diam 3.5 (1.9-4.0) LVEF 78% LVIDd 4.1 (3.5-5.7) LVIDs 2.2 (2.0-3.5) %FS 47% LVPWd 1.4 (0.6-1.2) Ao Diam 3.0 (2.0-3.7) 2 DIMENSIONAL ASSESSMENT: RIGHT ATRIUM: NORMAL LEFT ATRIUM: NORMAL RIGHT VENTRICLE: NORMAL LEFT VENTRICLE: NORMAL TRICUSPID VALVE: NORMAL MITRAL VALVE: NORMAL PULMONIC VALVE: NORMAL AORTIC VALVE: NORMAL PERICARDIAL EFFUSION: NONE AORTIC ROOT: NORMAL LEFT VENTRICULAR WALL MOTION: NORMAL DOPPLER/COLOR FLOW: MILD TRICUSPID REGURGITATION. TRACE MITRAL REGURGITATION. COMMENTS: NORMAL LEFT VENTRICULAR SIZE AND FUNCTION. MILD TRICUSPID REGURGITATION. TRACE MITRAL REGURGITATION. NO WALL MOTION ABNORMALITY. NO MITRAL VALVE PROLAPSE. NO EFFUSION. TECHNOLOGIST: Ada BARBOSA
[2019-01-29 12:16] LABS: Urine Bacteria <20 /HPF (<20); Urine Culture Reflex Order NOT NEEDED
[2019-01-29 12:16] LABS: Urine Blood 2+ (NEG); Urine Glucose NEGATIVE (NEG); Urine Protein 3+ (NEG); Urine Specific Gravity 1.025 (1.005-1.030)
[2019-01-29 12:22] VITALS: TEMP 98.5; O2SAT 97
[2019-01-29 12:24] VITALS: BP 203/104
--- NOTE | 2019-01-30 10:42 | EKG ---
Test Date: 2019-01-29 Test Time: 10:33:00 [employer] Technician: LINDY MEASUREMENT RESULTS: Intervals: Rate: 76 MN: 120 QRSD: 114 QT: 420 QTc: 472 [place]: P: 41 MN: 120 QRS: 14 T: 14 INTERPRETIVE STATEMENTS: Normal sinus rhythm Possible Left atrial enlargement Incomplete right bundle branch block Borderline ECG Compared to ECG 10/13/2018 16:42:53 Incomplete right bundle-branch block now present Right bundle-branch block no longer present Electronically Signed On 01-30-19 10:41:37 CDT by Jamie Santiago
== END 2019-01-29 11:56 | disposition home or self-care (01) ==
LOC: ER 08:30
DX: I10 Essential (primary) hypertension (principal); Z85.89 Personal history of malignant neoplasm of other organs and systems; Z86.73 Personal history of transient ischemic attack (TIA), and cerebral infarction without residual deficits; Z90.13 Acquired absence of bilateral breasts and nipples
CPT/HCPCS: 36415; 71046; 80048; 81003; 81015; 83735; 83880; 84439; 84443; 84484; 85025; 85610; 85730; 93005; 93306; 93970; 96361; 96374; 99285; J7030

== ENCOUNTER 2019-01-29 18:10 | Observation (INO) | payer BC ==
--- OUTSIDE RECORDS SUMMARY | 2019-01-29 18:13 | XMS REPORT | Continuity of Care Document ---
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/19 [facility] VERTREBRA ARTERY [address] [place] [address] STROKE, [place] STROKE Active 07/18/[address] [facility] CVA - Resolved Problem 02/02/2015 [facility] Cerebrovascular Angel, accident [facility] Labial cyst Active Problem [facility]/02[facility] Problem 02/02/2015 [facility] OCL CRTD ART WO Active [facility] 272.4 Active [facility] Medications No Data Provided for This Section Allergies, Adverse Reactions, Alerts No Known Medication Allergies Immunizations No Data Provided for This Section Results Order Results Value Reference Date Interpretation Comments Source Name Range LIPIDS LDL 117 <=99 mg/dL (Calculate 014 [facility] d) LIPIDS VLDL [address] LIPIDS Trig 93 <=149 mg/dL [address] LIPIDS Chol 218 <=199 mg/dL [address] LIPIDS HDL 82 >=61 mg/dL [address] LIPIDS CHD Risk 2.66 3.90 - 5.[address] Pathology Reports No Data Provided for This Section Diagnostic Reports Report Value Date Source Digital Mammo - DIGITAL MAMMO SCREENING SHRUTHI MA 01/30/2015 [facility] Screening Shruthi MA BILATERAL DIGITAL SCREENING MAMMOGRAM WITH CAD: 01/30/2015 CLINICAL: Other Screening Mammogram. Current study was evaluated with a Computer Aided Detection (CAD) system. Comparison is made to exams dated: 12/11/2013 mammogram, 10/08/2010 mammogram, mammogram and 02/23/2007 mammogram - [facility]. The tissue of both breasts is [...] screening mammogram is recommended. Shelly mcknight/augusto:02/02/2015 08:22:07 Acid Operator: Audrey Olivera, [facility] This exam was dictated and interpreted by [id number] for [facility] Breast [place]. letter sent: Normal exam Mammogram BI-RADS: 2 Benign Angiogram cervical PROCEDURE: DIAGNOSTIC CEREBRAL ANGIOGRAM 08/26/2014 [facility] DATE: Aug 26, 2014 08:56:16 AM [...] single wall micropuncture technique and a 5 Bruneian sheath was placed. A 5 Bruneian Vert catheter was coaxially advanced with a [...] the arteriotomy was closed us ing 5 Bruneian Mynx lap grinder closure device. Post procedure neurological examination was [...] ARTERIAL DOPPLER 07/18/2014 [facility] Ortiz Doppler bilat US DATE: 07/18/2014. INDICATION: Carotid stenosis. ADDITIONAL INFORMATION: [...] Type Number For Provider Date Date Visit [facility]patient [id number] Alexus 06/12 06/13 [facility] 8 [facility] Outpt Diag [id number] Javier Jimenez 07/18 07/19 [facility] Outpatient [id number] Adam 01/30 01/31 [facility] 5 Omar [facility] Outpatient [id number] SILAS KRELL 08/03 [facility] Outpatient [id number] SILAS KRELL 08/15 [facility] Outpatient [id number] SILAS KRELL 08/31 [facility] Outpatient [id number] SILAS KRELL 11/30 [facility] Procedures Procedure Code Date Perfomer Comments Source Cerebral [id number] 08/06/2013 [facility] angiogram section [id number] [facility] Credit Reporting Clerk [id number] [facility] Assessment and Plan No Data Provided for This Section Plan of Care No Data Provided for This Section Social History Social History Date Source Social History TypeResponse 08/09/2013 [facility] Substance Abuse Previous Treatment: None. IV [...]
--- NOTE | 2019-01-29 19:38 | RAD REPORT ---
EXAM DESCRIPTION: CT - Head Brain Wo Cont - 01/29/2019 7:28 pm CLINICAL HISTORY: Headache, weakness, dizziness, hypertension, history of CVA COMPARISON: CT head October 2018 TECHNIQUE: Axial 5 mm thick images of the head were obtained without IV contrast. All CT scans are performed using dose optimization technique as appropriate and may include automated exposure control or mA/KV adjustment according to patient size. FINDINGS: No intracranial hemorrhage, mass, edema or shift of mid-line structures. No acute infarcti on changes seen. No abnormal extra-axial fluid collections. Ventricles are normal. Mastoid air cells and visualized portions of the paranasal sinuses are clear. No acute bony findings. No significant change comparison. IMPRESSION: Negative non-contrast CT head examination.
[2019-01-29] MEDS ORDERED: MORPHINE 2 MG/ML SYR ONE (19:51)
[2019-01-29] MEDS ORDERED: ONDANSETRON 4 MG/2 ML VIAL ONE (19:52)
[2019-01-29 19:55] LABS: Absolute Lymphocytes (CBC) 0.6 K/uL (0.7-4.9); Basophils % 0.5 % (0-1.3); Hematocrit 36.2 % (36.0-45.0); Lymphocytes % 8.5 % (15.3-44.8); MPV 8.4 fL (7.6-11.3); RBC Red Blood Cell Count 3.78 M/uL (3.86-4.86)
[2019-01-29 19:59] LABS: Protime INR 0.86
[2019-01-29] MEDS ORDERED: LABETALOL HCL 100 MG/20 ML ONE (20:17)
[2019-01-29] MEDS ORDERED: NA CHLORIDE 0.9% 100 ML IV ONE ×2 (20:18→20:38)
[2019-01-29 20:24] LABS: Blood Morphology Comment NOT SEEN (NOT SEEN); Platelet Estimate ADEQ; Urine White Blood Cell Casts OK
[2019-01-29 20:25] LABS: ALT/SGPT 18 U/L (12-78); AST/SGOT 25 U/L (15-37); Albumin 2.2 g/dL (3.4-5.0); Alkaline Phosphatase 70 U/L (45-117); BUN Blood Urea Nitrogen 24 mg/dL (7-18); Bicarbonate 29 mmol/L (21-32); Bilirubin Direct < 0.1 mg/dL (0-0.2); Bilirubin Total 0.2 mg/dL (0.2-1.0); Glucose Level 91 mg/dL (74-106); Magnesium 1.9 mg/dL (1.8-2.4); NT PRO-BNP 8890 pg/mL (<125); Protein, Total 6.8 g/dL (6.4-8.2); Sodium Level 143 mmol/L (136-145); Troponin (Emerg Dept Use Only) 0.02 ng/mL (0.0-0.045)
[2019-01-29] MEDS ORDERED: LABETALOL HCL 100 MG TAB ONE (20:39)
[2019-01-29] MEDS ORDERED: LABETALOL 20 MG/4ML SYRINGE IV ONE (20:40)
[2019-01-29 21:05] LABS: Urine Blood 2+ (NEG); Urine Glucose NEGATIVE (NEG); Urine Protein 3+ (NEG); Urine Specific Gravity 1.025 (1.005-1.030)
--- NOTE | 2019-01-29 21:36 | ER ---
Nurse's Notes [facility] Name: Bri Alvarenga Age: 58 yrs Sex: Female : 1960 Arrival Date: 01/29/2019 Time: 18:13 Bed 26 Private MD: Diagnosis: Essential (primary) hypertension;Headache;Lupus erythematosus;Weakness;Proteinuria Presentation: 01/29 18:46 Presenting complaint: Patient states: High blood pressure that has not improved since aj visit to this ER this morning. Patient appear anxious in triage. Transition of care: patient was not received from another setting of care. Onset of symptoms was January 29, 2019. Risk Assessment: Do you want to hurt yourself or someone else? Patient reports no desire to harm self or others. Initial Sepsis Screen: Does the patient meet any 2 criteria? No. Patient's initial sepsis screen is negative. Does the patient have a suspected source of infection? No. Patient's initial sepsis screen is negative. Care prior to arrival: None. 18:46 Method Of Arrival: Ambulatory 18:46 Acuity: HANNAH 2 Triage Assessment: 18:48 General: Appears in no apparent distress. uncomfortable, Behavior is calm, cooperative, aj appropriate for age. Pain: Complains of pain in face and scalp. Neuro: Level of Consciousness is awake, alert, obeys commands, Oriented to person, place, time, situation, Appropriate for age. Neuro: Reports headache. Respiratory: Airway is patent Respiratory effort is even, unlabored, Respiratory pattern is regular, symmetrical. Derm: Skin is intact, is healthy with good turgor, Skin is pink, warm \T\ dry. normal. Historical: - Allergies: 18:48 No Known Allergies; aj - Home Meds: 18:48 Ambien 10 mg Oral tab nightly [Active]; anastrozole 1 mg Oral tab 1 tab once daily aj [Active]; atorvastatin 40 mg Oral tab nightly [Active]; duloxetine 60 mg Oral cpDR 1 cap twice a day [Active]; gabapentin 600 mg Oral tab nightly [Active]; levothyroxine 100 mcg tab 1 tab once daily [Active]; Plavix 75 mg Oral tab 1 tab once daily [Active]; prednisone 20 mg oral tab [Active]; 21:46 zolpidem 10 mg Oral tab 1 tab once at bedtime [Active]; mg2 - PMHx: 18:48 CVA; Lupus; vaginal CA; aj - PSHx: 18:48 double mastectomy; aj - Immunization history:: Adult Immunizations up to date. - Social history:: Smoking status: Patient/guardian denies using tobacco. - Ebola Screening: : Patient negative for fever greater than or equal to 101.5 degrees Fahrenheit, and additional compatible Ebola Virus Disease symptoms Patient denies exposure to infectious person Patient denies travel to an Ebola-affected area in the 21 days before illness onset No symptoms or risks identified at this time. Screenin:39 Abuse screen: Denies threats or abuse. Denies injuries from another. Nutritional mg2 screening: No deficits noted. Tuberculosis screening: No symptoms or risk factors identified. Fall Risk IV access (20 points). Vital Signs: 18:48 BP 217 / 100; Pulse 81; Resp 17; Temp 98.6; Pulse Ox 97% on R/A; Weight 63.5 kg; Height aj 5 ft. 0 in. (152.40 cm); 20:39 Pulse 76; Resp 18; Pulse Ox 98% on R/A; mg2 21:39 BP 184 / 88; Pulse 82; Resp 18; Pulse Ox 98% on R/A; mg2 22:00 BP 193 / 86; Pulse 76; Resp 17; Pulse Ox 97% on R/A; rv 22:30 BP 177 / 77; Pulse 77; Resp 17; Temp 98.3; Pulse Ox 98% on R/A; rv 18:48 Body Mass Index 27.34 (63.50 kg, 152.40 cm) ED Course: 18:13 Patient arrived in ED. as 18:47 Triage completed. aj 18:48 Arm band placed on left wrist. Patient placed in an exam room. aj 18:54 Dilip Bruno, YORDY is Primary Nurse. rv 18:56 Renny Baker MD is Attending Physician. gladys 19:[address] via wheelchair. nj 19:28 CT completed. Patient tolerated procedure well. Patient moved back from CT. nj 19:31 CT Head Brain wo Cont In Process Unspecified. EDMS 20:40 Patient has correct armband on for positive identification. mg2 20:40 No provider procedures requiring assistance completed. Inserted saline lock: 22 gauge mg2 in left antecubital area, using aseptic technique. Blood collected. 21:31 Prezas, Job, DO is Hospitalizing Provider. gladys 22:27 Basic Metabolic Panel Sent. rv 22:31 Patient admitted, IV remains in place. rv Administered Medications: 19:45 Drug: NS 0.9% 1000 ml Route: IV; Rate: 125 ml/hr; Site: left antecubital; rv 22:30 Follow up: IV Status: Completed infusion rv 19:45 Drug: morphine 2 mg Route: IVP; Site: left antecubital; rv 22:29 Follow up: Response: No adverse reaction; Marked relief of symptoms; Pain is decreased rv 19:45 Drug: Zofran 4 mg Route: IVP; Site: left antecubital; rv 22:28 Follow up: Response: No adverse reaction; Nausea is decreased rv 19:55 Drug: Trandate 10 mg Route: IVP; Site: left antecubital; rv 22:29 Follow up: Response: Blood pressure is lowered rv 20:15 Drug: Trandate 10 mg Route: IVP; Site: left antecubital; rv 22:29 Follow up: Response: Blood pressure is lowered rv 20:15 Drug: Trandate 100 mg Route: PO; rv 22:29 Follow up: Response: Blood sugar is lowered rv 22:27 Not Given (Patient Refused): morphine 2 mg IVP once rv Outcome: 21:35 Decision to Hospitalize by Provider. gladys 22:31 Admitted to Tele accompanied by tech, via wheelchair, room 428, with chart, Report rv called to nikki cheung 22:31 Condition: stable 22:31 Instructed on the need for transfer. 22:58 Patient left the ED. rv Signatures: Dispatcher [employer] Kenyatta Govea RN Renny Nicholson MD MD cha Martinez, Amelia as Jordan, Nathan nj Gardose, Michele, RN RN mg2 Vicente, Ronaldo RN RN rv
--- NOTE | 2019-01-29 21:36 | EDPHYS ---
Physician Documentation [facility] Name: Bri Alvarenga Age: 58 yrs Sex: Female : 1960 Arrival Date: 01/29/2019 Time: 18:13 Bed 26 Private MD: LISA Physician Renny Baker HPI: 01/29 19:17 This 58 yrs old Female presents to ER via Ambulatory with complaints of High gladys Blood Pressure. 19:17 The patient has elevated blood pressure and discovered this at home, with a home gladys device, at hospital. Onset: The symptoms/episode began/occurred 2 day(s) ago. Modifying factors: The symptoms are aggravated by activity. Associated signs and symptoms: The patient has no apparent associated signs or symptoms. Severity of symptoms: At its worst the blood pressure was moderate, in the emergency department the blood pressure is unchanged. The patient has experienced similar episodes in the past, a few times. Historical: - Allergies: 18:48 No Known Allergies; aj - Home Meds: 18:48 Ambien 10 mg Oral tab nightly [Active]; anastrozole 1 mg Oral tab 1 tab once daily aj [Active]; atorvastatin 40 mg Oral tab nightly [Active]; duloxetine 60 mg Oral cpDR 1 cap twice a day [Active]; gabapentin 600 mg Oral tab nightly [Active]; levothyroxine 100 mcg tab 1 tab once daily [Active]; Plavix 75 mg Oral tab 1 tab once daily [Active]; prednisone 20 mg oral tab [Active]; 21:46 zolpidem 10 mg Oral tab 1 tab once at bedtime [Active]; mg2 - PMHx: 18:48 CVA; Lupus; vaginal CA; aj - PSHx: 18:48 double mastectomy; aj - Immunization history:: Adult Immunizations up to date. - Social history:: Smoking status: Patient/guardian denies using tobacco. - Ebola Screening: : Patient negative for fever greater than or equal to 101.5 degrees Fahrenheit, and additional compatible Ebola Virus Disease symptoms Patient denies exposure to infectious person Patient denies travel to an Ebola-affected area in the 21 days before illness onset No symptoms or risks identified at this time. ROS: 19:17 Constitutional: Negative for fever, chills, and weight loss, Eyes: Negative for injury, gladys pain, redness, and discharge, ENT: Negative for injury, pain, and discharge, Neck: Negative for injury, pain, and swelling, Cardiovascular: Negative for chest pain, palpitations, and edema, Respiratory: Negative for shortness of breath, cough, wheezing, and pleuritic chest pain, Abdomen/GI: Negative for abdominal pain, nausea, vomiting, diarrhea, and constipation, Back: Negative for injury and pain, : Negative for injury, bleeding, discharge, and swelling, MS/Extremity: Negative for injury and deformity, Skin: Negative for injury, rash, and discoloration, Psych: Negative for depression, anxiety, suicide ideation, homicidal ideation, and hallucinations, Allergy/Immunology: Negative for hives, rash, and allergies, Endocrine: Negative for neck swelling, polydipsia, polyuria, polyphagia, and marked weight changes, Hematologic/Lymphatic: Negative for swollen nodes, abnormal bleeding, and unusual bruising. 19:17 Neuro: Positive for headache. Exam: 19:17 Constitutional: This is a well developed, well nourished patient who is awake, alert, gladys and in no acute distress. Head/Face: Normocephalic, atraumatic. Eyes: Pupils equal round and reactive to light, extra-ocular motions intact. Lids and lashes normal. Conjunctiva and sclera are non-icteric and not injected. Cornea within normal limits. Periorbital areas with no swelling, redness, or edema. Neck: Trachea midline, no thyromegaly or masses palpated, and no cervical lymphadenopathy. Supple, full range of motion without nuchal rigidity, or vertebral point tenderness. No Meningismus. Chest/axilla: Normal chest wall appearance and motion. Nontender with no deformity. No lesions are appreciated. Cardiovascular: Regular rate and rhythm with a normal S1 and S2. No gallops, murmurs, or rubs. Normal PMI, no JVD. No pulse deficits. Respiratory: Lungs have equal breath sounds bilaterally, clear to auscultation and percussion. No rales, rhonchi or wheezes noted. No increased work of breathing, no retractions or nasal flaring. Abdomen/GI: Soft, non-tender, with normal bowel sounds. No distension or tympany. No guarding or rebound. No evidence of tenderness throughout. Back: No spinal tenderness. No costovertebral tenderness. Full range of motion. Female : Normal external genitalia. Skin: Warm, dry with normal turgor. Normal color with no rashes, no lesions, and no evidence of cellulitis. MS/ Extremity: Pulses equal, no cyanosis. Neurovascular intact. Full, normal range of motion. Neuro: Awake and alert, GCS 15, oriented to person, place, time, and situation. Cranial nerves II-XII grossly intact. Motor strength 5/5 in all extremities. Sensory grossly intact. Cerebellar exam normal. Normal gait. Psych: Awake, alert, with orientation to person, place and time. Behavior, mood, and affect are within normal limits. 19:17 ENT: TM's: erythema, that is mild, fluid levels, on the right, loss of bony landmarks, that is mild, that is moderate, on the right. Vital Signs: 18:48 BP 217 / 100; Pulse 81; Resp 17; Temp 98.6; Pulse Ox 97% on R/A; Weight 63.5 kg; Height aj 5 ft. 0 in. (152.40 cm); 20:39 Pulse 76; Resp 18; Pulse Ox 98% on R/A; mg2 21:39 BP 184 / 88; Pulse 82; Resp 18; Pulse Ox 98% on R/A; mg2 22:00 BP 193 / 86; Pulse 76; Resp 17; Pulse Ox 97% on R/A; rv 22:30 BP 177 / 77; Pulse 77; Resp 17; Temp 98.3; Pulse Ox 98% on R/A; rv 18:48 Body Mass Index 27.34 (63.50 kg, 152.40 cm) aj MDM: 18:56 Patient medically screened. [facility] 19:17 Data reviewed: vital signs, nurses notes, lab test result(s), EKG, radiologic studies, [facility] CT scan, plain films. 01/29 19:15 Order name: Basic Metabolic Panel [facility] 01/29 19:15 Order name: CBC with Diff; Complete Time: 20:38 [facility] 01/29 19:15 Order name: LFT's; Complete Time: 21:16 [facility] 01/29 19:15 Order name: Magnesium; Complete Time: 21:16 [facility] 01/29 19:15 Order name: NT PRO-BNP; Complete Time: 21:16 [facility] 01/29 19:15 Order name: PT-INR; Complete Time: 20:09 [facility] 01/29 19:15 Order name: Troponin (emerg Dept Use Only); Complete Time: 21:16 [facility] 01/29 19:15 Order name: TSH; Complete Time: 21:16 [facility] 01/29 19:16 Order name: CT Head Brain wo Cont; Complete Time: 20:09 [facility] 01/29 19:16 Order name: Basic Metabolic Panel; Complete Time: 21:16 [facility] 01/29 19:59 Order name: CBC Smear Scan; Complete Time: 20:38 [facility] 01/29 20:28 Order name: T4 Free; Complete Time: 21:16 [facility] 01/29 20:35 Order name: Urine Dipstick--Ancillary (enter results); Complete Time: 21:16 [facility] 01/29 19:15 Order name: EKG; Complete Time: 19:17 [facility] 01/29 19:15 Order name: Cardiac monitoring; Complete Time: 20:36 [facility] 01/29 19:15 Order name: EKG - Nurse/Tech; Complete Time: 21:37 [facility] 01/29 19:15 Order name: IV Saline Lock; Complete Time: 20:36 [facility] 01/29 19:15 Order name: Labs collected and sent; Complete Time: 20:36 [facility] 01/29 19:15 Order name: O2 Per Protocol; Complete Time: 20:37 [facility] 01/29 19:15 Order name: O2 Sat Monitoring; Complete Time: 20:37 [facility] 01/29 19:15 Order name: Urine Dipstick-Ancillary (obtain specimen); Complete Time: 22:26 [facility] Administered Medications: 19:45 Drug: NS 0.9% 1000 ml Route: IV; Rate: 125 ml/hr; Site: left antecubital; rv 22:30 Follow up: IV Status: Completed infusion rv 19:45 Drug: morphine 2 mg Route: IVP; Site: left antecubital; rv 22:29 Follow up: Response: No adverse reaction; Marked relief of symptoms; Pain is decreased rv 19:45 Drug: Zofran 4 mg Route: IVP; Site: left antecubital; rv 22:28 Follow up: Response: No adverse reaction; Nausea is decreased rv 19:55 Drug: Trandate 10 mg Route: IVP; Site: left antecubital; rv 22:29 Follow up: Response: Blood pressure is lowered rv 20:15 Drug: Trandate 10 mg Route: IVP; Site: left antecubital; rv 22:29 Follow up: Response: Blood pressure is lowered rv 20:15 Drug: Trandate 100 mg Route: PO; rv 22:29 Follow up: Response: Blood sugar is lowered rv 22:27 Not Given (Patient Refused): morphine 2 mg IVP once rv Disposition: 01/29/19 21:35 Hospitalization ordered by Job Duarte for Observation. Preliminary diagnosis are Essential (primary) hypertension, Headache, Lupus erythematosus, Weakness, Proteinuria. - Bed requested for Telemetry/MedSurg (observation). - Status is Observation. rv - Condition is Fair. - Problem is new. - Symptoms have improved. UTI on Admission? No Signatures: Dispatcher [employer] EDMS Kenyatta Bo RN RN aj Anderson, Corey, MD MD cha Gardose, Michele, RN RN mg2 Vicente, Ronaldo, RN RN rv Corrections: (The following items were deleted from the chart) 19:51 19:17 Chest Single View+RAD.RAD.BRZ ordered. [facility] 21:36 21:35 Hospitalization Ordered by Job Duarte DO for Observation. Preliminary gladys diagnosis is Essential (primary) hypertension; Headache. Bed requested for Telemetry/MedSurg (observation). Status is Observation. Condition is Fair. Problem is new. Symptoms have improved. UTI on Admission? No. gladys 21:43 21:36 01/29/2019 21:35 Hospitalization Ordered by Job Duarte DO for Observation. gladys Preliminary diagnosis is Essential (primary) hypertension; Headache; Lupus erythematosus; Weakness; Proteinuria. Bed requested for Telemetry/MedSurg (observation). Status is Observation. Condition is Fair. Problem is new. Symptoms have improved. UTI on Admission? No. gladys 22:58 21:43 01/29/2019 21:35 Hospitalization Ordered by Job Duarte DO for Observation. rv Preliminary diagnosis is Essential (primary) hypertension; Headache; Lupus erythematosus; Weakness; Proteinuria. Bed requested for Telemetry/MedSurg (observation). Status is Observation. Condition is Fair. Problem is new. Symptoms have improved. UTI on Admission? No. gladys
--- NOTE | 2019-01-29 22:58 | P.HP ---
Certification for Inpatient Patient admitted to: Observation With expected LOS: <2 Midnights Patient will require the following post-hospital care: None Practitioner: I am a practitioner with admitting privileges, knowledge of patient current condition, hospital course, and medical plan of care. Services: Services provided to patient in accordance with Admission requirements found in Title 42 Section 412.3 of the Code of Federal Regulations Patient History Date of Service: 01/29/19 Primary Care Provider: Dr. Erickson Reason for admission: Elevated blood pressure, headache History of Present Illness: 58-year-old female with multiple medical problems including lupus, prior CVA, hyperlipidemia, breast cancer history, hypothyroidism. Patient reported increasing headaches over the last week. She also reports elevated blood pressure. She was seen by her primary care physician. Due to elevation in her blood pressure the patient was sent to the ER for further evaluation. Blood pressure systolic was around 200. Patient denies any chest pain, shortness of breath. Blood pressures have been slightly elevated over the past several months. Patient is taking chronic steroids for lupus. She is seen by Rheumatology and being worked up by ENT for chronic dizziness/headache. In the ER patient was found to have elevated blood pressure. She was given IV labetalol. Slight improvement noted. CT head unremarkable. CBC shows hemoglobin 11.6. White count 6.5, sodium 143, potassium 4.0. BUN of 24, creatinine 1.9 with a GFR 52. Troponin 0.02. BNP slightly elevated. Patient was admitted for observation. When I saw the patient ER, headache had improved. Patient appears stable at this time. She reports blood pressures have been elevated with prior doctor visits. She had not been given any medication for blood pressure until today. Home medications list reviewed: Yes - Past Medical/Surgical History Diabetic: No -: Lupus -: History of CVA -: History breast cancer -: Hyperlipidemia -: Hypothyroidism -: Chronic pain -: History of vaginal cancer -: Bilateral breast mastectomy with lymph node removal -: Vaginal surgery due to cancer Psychosocial/ Personal History: Patient is - Family History Father -: Cancer (Liver cancer) Brother -: Cancer (Throat cancer) Mother -: Cancer (Pancreatic cancer) - Social History Smoking Status: Former smoker Alcohol use: No CD- Drugs: No Caffeine use: Yes Place of Residence: Home Review of Systems General: As per HPI Eyes: Unremarkable ENT: Unremarkable Respiratory: Unremarkable Cardiovascular: Light Headedness, As per HPI Gastrointestinal: Unremarkable Genitourinary: Unremarkable Musculoskeletal: Unremarkable Integumentary: Unremarkable Neurological: As per HPI Lymphatics: Unremarkable Physical Examination - Physical Exam General: Alert, In no apparent distress, Oriented x3, Cooperative HEENT: Atraumatic, Normocephalic, PERRLA, Other (Dry mucous membranes) Neck: Supple, No Thyromegaly Respiratory: Clear to auscultation bilaterally, Normal air movement Cardiovascular: Normal pulses, Regular rate/rhythm Gastrointestinal: Normal bowel sounds, Soft and benign, Non-distended, No tenderness, No masses, No rebound, No guarding Musculoskeletal: No erythema, No tenderness, No warmth Integumentary: No tenderness/swelling, No erythema, No warmth, No cyanosis Neurological: Normal speech, Normal strength at 5/5 x4 extr, Normal tone, Normal affect - Studies Laboratory Data (last 24 hrs) 01/29/19 19:45: PT 10.2, INR 0.86 01/29/19 19:45: WBC 6.5 D, Hgb 11.6 L, Hct 36.2, Plt Count 226 01/29/19 19:45: Sodium 143, Potassium 4.0, BUN 24 H, Creatinine 1.09, Glucose 91 , Magnesium 1.9, Total Bilirubin 0.2, AST 25, ALT 18, Alkaline Phosphatase 70 Assessment and Plan - Plan Impression: Headache/dizziness secondary to new and uncontrolled hypertension Lupus on chronic steroids Hyperlipidemia History of CVA Hypothyroidism Chronic pain Plan: Headache/dizziness secondary to new and uncontrolled hypertension: Patient will be admitted for observation. Will start lisinopril. Will provide medication for elevated blood pressure. Will try to maintain blood pressure around 160-180 systolic. Patient will likely require lisinopril at discharge. Will check stroke protocol MRI, echocardiogram and carotid Doppler to further evaluate. Patient with prior history of CVA. Will check lipid panel is well. Will continue with her prior medications including Plavix and Lipitor. Will provide DVT prophylaxis-Lovenox. Patient appears slightly dry. Will provide low-dose IV fluids. Will reassess tomorrow. Anticipate discharge tomorrow if workup unremarkable. As mentioned above patient will require medication for blood pressure control. Lupus on chronic steroids: Will continue with her prednisone 20 mg daily. Patient being followed up by Rheumatology. Patient also being evaluated by ENT for her dizziness and headaches. Patient to follow up with ENT in [place] due to abnormality seen in her inner ear. Hyperlipidemia: Will check lipid panel. Continue with Lipitor. History of CVA: Continue with Plavix. Continue with above workup. Hypothyroidism: Will continue with levothyroxine. Chronic pain: Will continue with gabapentin and Cymbalta. Discharge Plan: Home Plan to discharge in: 24 Hours - Advance Directives Does patient have a Living Will: No Does patient have a Durable POA for Healthcare: No - Code Status/Comfort Care Code Status Assessed: Yes (Patient is full code) Time Spent Managing Pts Care (In Minutes): 55
[2019-01-29] MEDS ORDERED: HYDRALAZINE HCL 20 MG/ML VIAL IV PRN (23:05)
[2019-01-29] MEDS ORDERED: NA CHLORIDE 0.9% 1,000 ML IV SCH (23:05)
[2019-01-29] MEDS ORDERED: ONDANSETRON 4 MG/2 ML VIAL IV PRN (23:05)
[2019-01-29] MEDS ORDERED: ZOLPIDEM TARTRATE 10 MG TABLET PO PRN (23:05)
[2019-01-29 23:12] VITALS: BMI 28.2
[2019-01-29] MEDS ORDERED: LISINOPRIL 10 MG TAB PO ONE (23:46)
[2019-01-30] MEDS ORDERED: HYDRALAZINE HCL 25 MG TABLET PO SCH (00:19)
[2019-01-30] MEDS: ACETAMINOPHEN 500 MG TAB PO PRN ×2 (00:52→13:39)
[2019-01-30] MEDS: DULOXETINE 30 MG CAP PO SCH ×2 (00:52→21:55)
[2019-01-30 02:58] LABS: Urine Appearance CLEAR; Urine Bilirubin NEGATIVE (NEG); Urine Blood 1+ (NEG); Urine Color YELLOW; Urine Glucose NEGATIVE (NEG); Urine Microscopic Reflex ORDER UMIC; Urine Protein 3+ (NEG); Urine Urobilinogen 0.2 mg/dL (0.2-1.0); Urine pH 6.5 (5.0-7.0)
[2019-01-30 03:46] LABS: Urine Bacteria <20 /HPF (<20)
[2019-01-30 03:47] LABS: Urine Culture Reflex Order NOT NEEDED
[2019-01-30 04:42] LABS: Absolute Lymphocytes (CBC) 0.5 K/uL (0.7-4.9); Basophils % 0.5 % (0-1.3); Hematocrit 28.2 % (36.0-45.0); Lymphocytes % 11.1 % (15.3-44.8); MPV 8.4 fL (7.6-11.3); RBC Red Blood Cell Count 2.99 M/uL (3.86-4.86)
[2019-01-30 04:55] LABS: Magnesium 1.8 mg/dL (1.8-2.4); Potassium 3.4 mmol/L (3.5-5.1)
[2019-01-30 05:05] LABS: Troponin I 0.04 ng/mL (0.0-0.045)
[2019-01-30] MEDS ORDERED: POTASSIUM CL SA 10 MEQ TAB PO ONE (06:09)
[2019-01-30] MEDS: LEVOTHYROXINE SOD 0.1 MG TAB PO SCH (06:48)
[2019-01-30] MEDS ORDERED: LISINOPRIL 20 MG TAB PO SCH (09:00)
--- NOTE | 2019-01-30 09:13 | RAD REPORT ---
EXAM DESCRIPTION: MRI - MRA Head Wo Cont - 01/30/2019 8:44 am CLINICAL HISTORY: Headache, uncontrolled hypertension COMPARISON: CT head January 29 TECHNIQUE: Axial and coronal 3D [id number] image acquisition was performed. 3D rotational images were generated with source and reconstruction images reviewed. Horizontal and vertical axis rotation al views generated using MIP protocol. FINDINGS: The right middle cerebral artery M1 -M2 junction there is a 3 millimeter aneurysm. No othe r aneurysm or vascular malformation identifiable. No dissection changes seen. Left vertebral artery i s dominant with a very small distal right vertebral artery. No basilar abnormality seen. Mild atherosclerotic change and luminal narrowing present in the proximal P1 segment of the right pos terior cerebral artery. There is significant atherosclerotic change and luminal narrowing in the A1 s egment of the right anterior cerebral artery. Atherosclerotic changes are evident with luminal narrow ing in multiple bilateral M2 branches of the middle cerebral arteries. These changes do not appear to be significant luminal narrowing changes. 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 No other aneurysm or vascular malformation identifiable. Significant luminal narrowing atherosclerotic changes are present in the P1 segment right posterior c erebral artery and the A1 segment of the right anterior cerebral artery. Bilateral M2 branch middle cerebral artery atherosclerotic changes are present without significant solis senait narrowing.
--- NOTE | 2019-01-30 09:32 | RAD REPORT ---
EXAM DESCRIPTION: MRI - Brain W/Wo Cont - 01/30/2019 8:44 am CLINICAL HISTORY: Headache, uncontrolled hypertension COMPARISON: CT head January 29 TECHNIQUE: Sagittal and axial T1-weighted images were obtained. Axial PD/heavily T2-weighted and T2- FLAIR images were obtained along with axial DWI/ADC mapping sequences. Coronal heavily T2 weighted s equence obtained. Axial and coronal post-contrast T1-weighted images were also obtained. A 15 ml Mul tihance contrast following utilized. FINDINGS: No intracranial hemorrhage, mass or acute infarction. There is no edema or shift of midli ne structures. No extra-axial fluid collections. Serrano-matter/white matter junction is preserved. Sig nal voids are seen as a normal finding in the major intracranial vessels. Small flow void is seen in the right sylvian fissure. This is the correlate to the small aneurysm detailed on the separate MRA r eport. A few areas of white matter hyperintensity seen in the cerebral hemispheres. This is most like ly chronic ischemic change. Vasculitis or migraine headache etiologies are possible. Demyelinization is possible but unlikely. This would need supportive any clinical presentation. Post-contrast images show normal enhancement. No dural thickening. Mastoid air cells and paranasal sinuses are clear. No globe or orbital content abnormality. No sella or supra sella abnormality. IMPRESSION: No infarction or acute intracranial finding. Small aneurysm is seen in the right sylvian fissure. This is detailed on the separate MRA head report . Scattered cerebral hemisphere white matter hyperintensities. These are most likely chronic ischemic c hange. Migraine headache etiologies are possible. Vasculitis or demyelinization or unlikely but would need supportive clinical findings.
[2019-01-30] MEDS: ENOXAPARIN 40 MG/0.4 ML SQ SCH (09:42)
[2019-01-30] MEDS: predniSONE 20 MG TAB PO SCH (09:43)
[2019-01-30] MEDS: CLOPIDOGREL 75 MG TABLET PO SCH (09:43)
[2019-01-30] MEDS: ANASTROZOLE 1 MG TAB PO SCH (09:47)
[2019-01-30] MEDS ORDERED: MAGNESIUM SULFATE 1 gm IVPB 1 GM/100 ML BAG IV ONE (10:03)
--- NOTE | 2019-01-30 10:34 | RAD REPORT ---
EXAM DESCRIPTION: MRI - MRA Neck W/Wo Cont - 01/30/2019 8:43 am CLINICAL HISTORY: Headache, uncontrolled hypertension COMPARISON: CT head same date TECHNIQUE: MR angiography of the cervical vasculature performed. Coronal imaging plane acquisition u tilized. A 15 MultiHance contrast volume was utilized. Coronal reformatted images were generated and reviewed. Vertical axis 3D rotational projections obtained using maximum intensity projection protoco l. FINDINGS: Aortic arch is 3 vessel configuration. The innominate and left common carotid artery show no origins stenosis. There is flow void in the proximal left subclavian artery prior to the vertebral artery origin. There is also significant narrowing at the origin of the left vertebral artery which is the dominant vertebral artery. Ultrasound of the same day appears to show antegrade left vertebral artery flow. No common carotid artery stenosis or dissection. No significant degree of lumen narrowing in either c arotid bulb or either internal carotid artery. No internal carotid dissection. Left vertebral artery is the dominant vessel. The right vertebral artery is very small. This is belie rickey to be anatomic variant and not a right vertebral artery dissection. IMPRESSION: Occlusion or significant luminal narrowing in the proximal portion of the left subclavia n artery proximal to the vertebral artery origin. Significant left vertebral artery origins stenosis. No significant atherosclerotic change in either of the carotid vasculature. Dominant left vertebral artery with a very small right vertebral artery as a normal variant. Separate ultrasound appears to show antegrade left vertebral artery flow which would not be expected given the apparent left subclavian artery flow restriction. CT angiography of the aorta could be performed to evaluate the proximal left subclavian artery and pr oximal left vertebral artery.
--- NOTE | 2019-01-30 10:36 | EKG ---
Test Date: 2019-01-29 Test Time: 20:43:07 Form Maker: RV MEASUREMENT RESULTS: Intervals: Rate: 73 SD: 118 QRSD: 108 QT: 432 QTc: 475 [place]: P: 46 SD: 118 QRS: 32 T: 29 INTERPRETIVE STATEMENTS: Normal sinus rhythm Possible Left atrial enlargement Incomplete right bundle branch block Borderline ECG Compared to ECG 01/29/2019 10:33:00 No significant changes Electronically Signed On 01-30-19 10:35:04 CDT by Jamie Santiago
--- NOTE | 2019-01-30 10:39 | RAD REPORT ---
EXAM DESCRIPTION: US - CP - 01/30/2019 9:39 am CLINICAL HISTORY: Uncontrolled hypertension, headache. History CVA Headache, drowsiness. COMPARISON: MRA Neck W/Wo Cont dated 01/30/2019 TECHNIQUE: Real-time sonographic evaluation of both carotid systems was performed. Doppler interroga tion was performed with waveform tracing bilaterally. FINDINGS: Normal high resistance waveforms are noted in both external carotid arteries. The common c arotid arteries and internal carotid arteries show normal low resistance waveforms. Moderate hard plaquing is present in both carotid bulbs. Peak systolic and end diastolic velocity yuli ues and the ICA/CCA ratios are in the non-hemodynamically significant range. Antegrade flow seen in both vertebral arteries. IMPRESSION: Moderate hard plaquing is present in both carotid bulbs. No evidence of a hemodynamically significant stenosis.
[2019-01-30 12:33] LABS: CKMB Creatine Kinase MB < 1.0 ng/mL (0.3-3.6); Creatine Phosphokinase 38 U/L (26-192); Troponin I 0.03 ng/mL (0.0-0.045)
--- NOTE | 2019-01-30 13:12 | P.PN ---
Subjective Date of Service: 01/30/19 Primary Care Provider: Dr. Erickson Chief Complaint: Elevated blood pressure, headache Patient seen and examined at bedside with RN. Chart reviewed. Case discussed with neurology Dr. Anaya here and Dr. Billings at [facility]. Patient this morning states that she has no complaints to offer headache is better than before. Review of Systems 10-point ROS is otherwise unremarkable Physical Examination - Vital Signs Temperature: 98.9 F Blood Pressure: 137/58 Pulse: 71 Respirations: 15 Pulse Ox (%): 98 - Physical Exam General: Alert, In no apparent distress HEENT: Atraumatic, PERRLA, EOMI Neck: Supple, JVD not distended Respiratory: Clear to auscultation bilaterally, Normal air movement Cardiovascular: Regular rate/rhythm, Normal S1 S2 Gastrointestinal: Normal bowel sounds, No tenderness Musculoskeletal: No tenderness Integumentary: No rashes Neurological: Normal speech, Normal tone, Normal affect Lymphatics: No axilla or inguinal lymphadenopathy - Studies Laboratory Data (last 24 hrs) 01/29/19 19:45: PT 10.2, INR 0.86 01/29/19 19:45: WBC 6.5 D, Hgb 11.6 L, Hct 36.2, Plt Count 226 01/29/19 19:45: Sodium 143, Potassium 4.0, BUN 24 H, Creatinine 1.09, Glucose 91 , Magnesium 1.9, Total Bilirubin 0.2, AST 25, ALT 18, Alkaline Phosphatase 70 Medications List Reviewed: Yes Assessment And Plan - Current Problems (Diagnosis) (1) Hypertension Current Visit: Yes Status: Acute Plan: Uncontrolled high blood pressure at this time -started on home medication with goal blood pressure of less than 140/80 -will monitor patient's blood pressure here in the hospital for next 24-48 hr Qualifiers: Hypertension type: essential hypertension Qualified Code(s): I10 - Essential (primary) hypertension (2) Brain aneurysm Current Visit: Yes Status: Acute Plan: Patient with small 3 mm brain aneurysm at the right middle cerebral artery -detailed discussion with Dr. Anaya here in the hospital who recommended the patient be transferred to [facility] for angiography -call placed to [facility] spoke with the neural ICU attending doctor shalini discuss the case further and Dr. loya reviewed the imaging studies and noted that the patient's 3 mm brain aneurysm. Recommended no surgical management at this time stated patient needs to be counseled on no smoking and blood pressure controlled at this time and have a follow up appointment in about 6-1 year to repeat another brain MRI. If patient's headache continues to get worse patient can have earlier follow up appointment with them however this time it does not recommend transfer and states that no intervention is required at this time. (3) Atherosclerotic cerebrovascular disease Current Visit: Yes Status: Chronic Plan: Patient with also sclerotic cerebral vascular disease -currently on aspirin and Plavix along with Lipitor will continue that here in the hospital -brain MRA neck MRA and carotid Doppler all with arthrosclerotic disease with no significant stenosis Discharge Plan: Home Plan to discharge in: Greater than 2 days - Code Status/Comfort Care Code Status Assessed: Yes Critical Care: No
[2019-01-30] MEDS: LISINOPRIL 20 MG TAB PO SCH ×2 (14:09→21:55)
[2019-01-30] MEDS ORDERED: POTASSIUM 25 MEQ EFFERV TAB PO ONE (16:00)
[2019-01-30] MEDS ORDERED: AMLODIPINE 10 MG TAB PO ONE (16:00)
[2019-01-30] MEDS: HYDRALAZINE HCL 25 MG TABLET PO PRN (17:05)
[2019-01-30] MEDS ORDERED: GABAPENTIN 300 MG CAP PO SCH (21:00)
[2019-01-30] MEDS ORDERED: ATORVASTATIN 40 MG TAB PO SCH (21:00)
[2019-01-31] MEDS: HYDRALAZINE HCL 25 MG TABLET PO PRN (00:10)
[2019-01-31] MEDS: LEVOTHYROXINE SOD 0.1 MG TAB PO SCH (06:31)
[2019-01-31] MEDS: ACETAMINOPHEN 500 MG TAB PO PRN (06:31)
[2019-01-31 06:34] LABS: Potassium 4.1 mmol/L (3.5-5.1)
[2019-01-31] MEDS: predniSONE 20 MG TAB PO SCH (08:51)
[2019-01-31] MEDS: LISINOPRIL 20 MG TAB PO SCH (08:51)
[2019-01-31] MEDS: CLOPIDOGREL 75 MG TABLET PO SCH (08:51)
[2019-01-31] MEDS: ANASTROZOLE 1 MG TAB PO SCH (08:52)
[2019-01-31] MEDS: ENOXAPARIN 40 MG/0.4 ML SQ SCH (08:53)
[2019-01-31] MEDS ORDERED: MAGNESIUM SULFATE 1 gm IVPB 1 GM/100 ML BAG IV ONE (09:00)
[2019-01-31 09:52] VITALS: O2SAT 97
[2019-01-31 12:50] VITALS: BP 156/71; TEMP 98.2
[2019-01-31] MEDS ORDERED: AMLODIPINE 10 MG TAB PO ONE (15:42)
--- NOTE | 2019-01-31 18:20 | P.SSS ---
Patient History Date of Service: 01/31/19 Primary Care Provider: Dr. Erickson Reason for admission: Elevated blood pressure, headache History of Present Illness: 58-year-old female with multiple medical problems including lupus, prior CVA, hyperlipidemia, breast cancer history, hypothyroidism. Patient reported increasing headaches over the last week. She also reports elevated blood pressure. She was seen by her primary care physician. Due to elevation in her blood pressure the patient was sent to the ER for further evaluation. Blood pressure systolic was around 200. Patient denies any chest pain, shortness of breath. Blood pressures have been slightly elevated over the past several months. Patient is taking chronic steroids for lupus. She is seen by Rheumatology and being worked up by ENT for chronic dizziness/headache. In the ER patient was found to have elevated blood pressure. She was given IV labetalol. Slight improvement noted. CT head unremarkable. CBC shows hemoglobin 11.6. White count 6.5, sodium 143, potassium 4.0. BUN of 24, creatinine 1.9 with a GFR 52. Troponin 0.02. BNP slightly elevated. Patient was admitted for observation. When I saw the patient ER, headache had improved. Patient appears stable at this time. She reports blood pressures have been elevated with prior doctor visits. She had not been given any medication for blood pressure until today. Allergies No Known Allergies Allergy (Verified 01/30/19 04:56) Home Medications: Anastrozole [Arimidex*] 1 tab PO DAILY 01/30/19 Atorvastatin Calcium [Lipitor] 1 tab PO DAILY 01/30/19 Clopidogrel Bisulfate [Plavix*] 1 tab PO DAILY 01/30/19 Duloxetine HCl 1 tab PO BEDTIME 01/30/19 Gabapentin 1 tab PO DAILY 01/30/19 Levothyroxine Sodium 1 tab PO DAILY 01/30/19 Zolpidem Tartrate [Ambien*] 1 tab PO BEDTIME 01/30/19 predniSONE [Prednisone*] 1 tab PO DAILY 01/30/19 Hydralazine [Apresoline*] 25 mg PO TID PRN #60 tab 01/31/19 Lisinopril [Prinivil*] 20 mg PO BID #60 tab 01/31/19 - Past Medical/Surgical History Has patient received pneumonia vaccine in the past: No Diabetic: No -: Lupus -: History of CVA -: History breast cancer -: Hyperlipidemia -: Hypothyroidism -: Chronic pain -: History of vaginal cancer -: Bilateral breast mastectomy with lymph node removal -: Vaginal surgery due to cancer Psychosocial/ Personal History: Patient is - Family History Father -: Cancer Brother -: Cancer Mother -: Stroke, Cancer - Social History Smoking Status: Former smoker Alcohol use: No CD- Drugs: No Caffeine use: Yes Place of Residence: Home Review of Systems 10-point ROS is otherwise unremarkable Physical Examination - Vital Signs Temperature: 98.2 F Blood Pressure: 156/71 Pulse: 95 Respirations: 24 Pulse Ox (%): 96 - Physical Exam General: Alert, In no apparent distress, Oriented x3 HEENT: Atraumatic, PERRLA, Mucous membr. moist/pink, EOMI, Sclerae nonicteric Neck: Supple, 2+ carotid pulse no bruit, No LAD, Without JVD or thyroid abnormality Respiratory: Clear to auscultation bilaterally, Normal air movement Cardiovascular: Regular rate/rhythm, Normal S1 S2 Gastrointestinal: Normal bowel sounds, No tenderness Musculoskeletal: No tenderness Integumentary: No rashes Neurological: Normal gait, Normal speech, Normal strength at 5/5 x4 extr, Normal tone, Normal affect Lymphatics: No axilla or inguinal lymphadenopathy Treatment Summary: Patient was admitted. Her blood pressures were controlled at the time of admission. She was started on her home medications with goal blood pressure of less than 140/82. Her blood pressure medications at discharge included: Hydralazine 25 mg 3 times a day, lisinopril 20 mg 2 times a day. Brain MRA, neck MRI and carotid Doppler all with atherosclerotic disease with no significant stenosis. She was continued on her home aspirin and Plavix along with Lipitor. She was found to have a small 3 mm brain aneurysm at the right middle cerebral artery. A detailed discussion with Dr. Anaya here in the hospital who recommended the patient be transferred to [facility] for angiography. A call placed to [facility], spoke with the neuro ICU attending doctor Saman, discussed the case further and Dr. Davison reviewed the imaging studies and noted that the patient's 3 mm brain aneurysm. Recommended no surgical management at this time stated patient needs to be counseled on no smoking and blood pressure controlled at this time and have a follow up appointment in about 6-1 year to repeat another brain MRI. If patient's headache continues to get worse patient can have earlier follow up appointment with them however this time it does not recommend transfer and states that no intervention is required at this time. Prior to discharge, patient's headache resolved. Blood pressure was under better control. stated that he can get a primary care physician appointment the afternoon of discharge, 01/31/2019. She was otherwise hemodynamically stable. Her diagnoses and treatment plan explained to her, all questions were answered and they verbalized understanding. She was then discharged home a safe and stable manner with instructions to follow up with primary care physician this afternoon. She was also recommended to follow up with neurology earlier than April (she has appointment scheduled) if headaches returned or continued to get worse. - Disposition Disposition: ROUTINE DISCHARGE Condition: GOOD Patient Discharge Instructions: (1) Hypertension: Discharge medications include lisinopril 40 mg twice a day. Hydralazine 25 mg three times a day. As discussed , make sure to keep blood pressure logs when checking Blood pressure at home. Follow up with your primary care phsyciain for further management and changes to the blood pressure medications. (2) Brain aneurysm: small 3 mm brain aneurysm at the right middle cerebral artery. Recommend following up with a neurolosgist (Pt already has an appointment with neurologist). (3) Atherosclerotic cerebrovascular diseas: -brain MRA neck MRA and carotid Doppler all with arthrosclerotic disease with no significant stenosis. Please follow up with the primary care physician this afternoon/tomorrow morning. Please return to the emergency room for worsening symptoms. Diet: AHA Activity: Ad timbo Time Spent Managing Pts Care (In Minutes): 55
== END 2019-01-31 12:56 | disposition home or self-care (01) ==
LOC: ER 18:10 → 4TH 22:29
PROVIDERS: ADMIT Family Medicine; ATTEND Family Medicine
DX: I10 Essential (primary) hypertension (principal); I67.1 Cerebral aneurysm, nonruptured; I67.2 Cerebral atherosclerosis; M32.9 Systemic lupus erythematosus, unspecified; E78.5 Hyperlipidemia, unspecified; E03.9 Hypothyroidism, unspecified; I45.10 Unspecified right bundle-branch block; I65.23 Occlusion and stenosis of bilateral carotid arteries; G89.29 Other chronic pain; Z79.02 Long term (current) use of antithrombotics/antiplatelets; Z79.52 Long term (current) use of systemic steroids; Z79.899 Other long term (current) drug therapy; Z86.73 Personal history of transient ischemic attack (TIA), and cerebral infarction without residual deficits; Z85.3 Personal history of malignant neoplasm of breast; Z85.89 Personal history of malignant neoplasm of other organs and systems; Z87.891 Personal history of nicotine dependence
CPT/HCPCS: 36415; 70450; 70544; 70549; 70553; 80048; 80061; 80076; 81003; 81015; 82550; 82553; 83735; 83880; 84132; 84439; 84443; 84484; 85025; 85610; 93005; 93880; 96361; 96374; 96375; 99285; A9577; G0378; J1650; J2270; J2405; J3475; J7512

== ENCOUNTER 2019-08-20 06:25 | Observation (INO) | payer BC ==
[2019-08-20 08:28] LABS: Absolute Lymphocytes (CBC) 0.9 K/uL (0.7-4.9); Basophils % 0.3 % (0-1.3); Hematocrit 22.4 % (36.0-45.0); Lymphocytes % 7.1 % (15.3-44.8); MPV 8.1 fL (7.6-11.3); RBC Red Blood Cell Count 2.67 M/uL (3.86-4.86)
[2019-08-20 08:29] LABS: Protime INR 1.02
[2019-08-20] MEDS ORDERED: PIPER/TAZO/NS 3.375gm 3.375 GM/100 ML BAG ONE (08:29)
[2019-08-20] MEDS ORDERED: FAMOTIDINE 20 MG/2 ML VIAL IV ONE (08:29)
--- NOTE | 2019-08-20 08:45 | EKG ---
Test Date: 2019-08-20 Test Time: 08:28:01 [place]: [place] MEASUREMENT RESULTS: Intervals: Rate: 107 HI: 118 QRSD: 116 QT: 356 QTc: 475 [place]: P: 45 HI: 118 QRS: 45 T: 11 INTERPRETIVE STATEMENTS: Sinus tachycardia Possible Left atrial enlargement Right bundle branch block Abnormal ECG Compared to ECG 01/29/2019 20:43:07 Right bundle-branch block now present Sinus rhythm no longer present Incomplete right bundle-branch block no longer present Electronically Signed On 08-20-19 08:44:42 BULB WEEDER by Jamie Santiago
[2019-08-20 08:52] LABS: Albumin 2.3 g/dL (3.4-5.0); Bilirubin Direct 0.1 mg/dL (0-0.2); Bilirubin Total 0.4 mg/dL (0.2-1.0); Magnesium 1.9 mg/dL (1.8-2.4); Potassium 3.5 mmol/L (3.5-5.1); Protein, Total 6.7 g/dL (6.4-8.2); Troponin (Emerg Dept Use Only) 0.07 ng/mL (0.0-0.045)
--- NOTE | 2019-08-20 09:07 | EDPHYS ---
Physician Documentation [facility] Name: Bri Alvarenga Age: 59 yrs Sex: Female : 1960 Arrival Date: 08/20/2019 Time: 06:27 Bed 20 Private MD: Renny Russ HPI: 08/20 07:45 This 59 yrs old Female presents to ER via Ambulatory with complaints of gladys Breathing Difficulty. 07:45 The patient has shortness of breath at rest. gladys 07:45 Onset: The symptoms/episode began/occurred this morning. Duration: The symptoms are gladys continuous, and are steadily getting worse. The patient's shortness of breath is aggravated by coughing. The patient or guardian reports chest pain that is located primarily in the substernal area. Onset: 2 hour(s) ago. The patient or guardian reports cough. Modifying factors: The symptoms are alleviated by nothing. the symptoms are aggravated by nothing. Historical: - Allergies: 07:32 No Known Allergies; fc - Home Meds: 07:32 Ambien 10 mg Oral tab 1 tab nightly [Active]; [place] 7.5-325 mg Oral tab 1 tab qid prn fc [Active]; Acthar H.P. 80 unit/mL injection gel 2 times a week [Active]; hydrochlorothiazide 25 mg Oral tab 1 tab once daily [Active]; hydralazine 25 mg Oral tab 1 tab tid prn [Active]; anastrozole 1 mg Oral tab 1 tab once daily [Active]; levothyroxine 100 mcg tab 1 tab once daily [Active]; atorvastatin 40 mg Oral tab 1 tab nightly [Active]; Coreg 6.25 mg Oral tab 1 tab 2 times per day [Active]; lisinopril 20 mg Oral tab 1 tab twice a day [Active]; prednisone 20 mg Oral tab 1 tab once daily [Active]; gabapentin 600 mg Oral tab 0.5 tab nightly [Active]; duloxetine 60 mg Oral cpDR 1 cap once daily [Active]; Plavix 75 mg Oral tab 1 tab once daily [Active]; - PMHx: 07:32 CVA; Lupus; vaginal CA; Cancer, Breast; Anemia; chronic back pain; Hypertension; High fc Cholesterol; Hypothyroidism; - PSHx: 07:32 double mastectomy; fc - Immunization history:: Adult Immunizations up to date. - Coronavirus screen:: The patient has NOT traveled to [place], [place], or [place] in the past 14 days. Proceed with normal triage process as indicated. The patient has NOT had contact with known/suspected case of Coronavirus? Proceed with normal triage procedures. - Family history:: not pertinent. - Social history:: Smoking status: Patient denies any tobacco usage or history of. - Ebola Screening: : Patient negative for fever greater than or equal to 101.5 degrees Fahrenheit, and additional compatible Ebola Virus Disease symptoms Patient denies exposure to infectious person Patient denies travel to an Ebola-affected area in the 21 days before illness onset. ROS: 07:45 Constitutional: Negative for fever, chills, and weight loss, Eyes: Negative for injury, gladys pain, redness, and discharge, ENT: Negative for injury, pain, and discharge, Neck: Negative for injury, pain, and swelling, Abdomen/GI: Negative for abdominal pain, nausea, vomiting, diarrhea, and constipation, Back: Negative for injury and pain, : Negative for injury, bleeding, discharge, and swelling, MS/Extremity: Negative for injury and deformity, Skin: Negative for injury, rash, and discoloration, Neuro: Negative for headache, weakness, numbness, tingling, and seizure, Psych: Negative for depression, anxiety, suicide ideation, homicidal ideation, and hallucinations, Allergy/Immunology: Negative for hives, rash, and allergies, Endocrine: Negative for neck swelling, polydipsia, polyuria, polyphagia, and marked weight changes, Hematologic/Lymphatic: Negative for swollen nodes, abnormal bleeding, and unusual bruising. 07:45 Cardiovascular: Positive for chest pain, palpitations. 07:45 Respiratory: Positive for cough, shortness of breath, at rest. Exam: 07:45 Constitutional: This is a well developed, well nourished patient who is awake, alert, gladys and in no acute distress. Head/Face: Normocephalic, atraumatic. Eyes: Pupils equal round and reactive to light, extra-ocular motions intact. Lids and lashes normal. Conjunctiva and sclera are non-icteric and not injected. Cornea within normal limits. Periorbital areas with no swelling, redness, or edema. ENT: Nares patent. No nasal discharge, no septal abnormalities noted. Tympanic membranes are normal and external auditory canals are clear. Oropharynx with no redness, swelling, or masses, exudates, or evidence of obstruction, uvula midline. Mucous membranes moist. Neck: Trachea midline, no thyromegaly or masses palpated, and no cervical lymphadenopathy. Supple, full range of motion without nuchal rigidity, or vertebral point tenderness. No Meningismus. Chest/axilla: Normal chest wall appearance and motion. Nontender with no deformity. No lesions are appreciated. Abdomen/GI: Soft, non-tender, with normal bowel sounds. No distension or tympany. No guarding or rebound. No evidence of tenderness throughout. Back: No spinal tenderness. No costovertebral tenderness. Full range of motion. Female : Normal external genitalia. Skin: Warm, dry with normal turgor. Normal color with no rashes, no lesions, and no evidence of cellulitis. MS/ Extremity: Pulses equal, no cyanosis. Neurovascular intact. Full, normal range of motion. Neuro: Awake and alert, GCS 15, oriented to person, place, time, and situation. Cranial nerves II-XII grossly intact. Motor strength 5/5 in all extremities. Sensory grossly intact. Cerebellar exam normal. Normal gait. Psych: Awake, alert, with orientation to person, place and time. Behavior, mood, and affect are within normal limits. 07:45 Cardiovascular: Rate: tachycardic, Rhythm: regular, Pulses: Pulses are 4+ in bilateral radial, brachial, femoral, popliteal, posterior tibial and and dorsalis pedis arteries.. Heart sounds: normal, Edema: is not appreciated, JVD: is not appreciated. 09:07 Abdomen/GI: Inspection: abdomen appears normal, Bowel sounds: normal, Palpation: gladys abdomen is soft and non-tender, Rectal exam: is unremarkable, rectal tone normal, Stool: guaiac negative, hemorrhoid(s), are not appreciated, mass, is not appreciated, swelling, is not appreciated, tenderness, is not appreciated. Vital Signs: 06:50 BP 185 / 95; Pulse 118; Resp 30; Temp 99.2(O); Pulse Ox 95% on R/A; Weight 65.77 kg fc (R); Height 5 ft. 0 in. (152.40 cm) (R); Pain 3/10; 07:34 BP 174 / 85; Pulse 110; Resp 31; Pulse Ox 92% ; bp 08:34 BP 185 / 84; Pulse 104; Resp 32; Pulse Ox 93% ; bp 09:30 BP 177 / 86; Pulse 109; Resp 22; Pulse Ox 100% ; bp 10:30 BP 173 / 78; Pulse 103; Resp 23; Pulse Ox 100% ; bp 12:00 BP 164 / 80; Pulse 101; Resp 26; Temp 99; Pulse Ox 100% on 2 lpm NC; bp 06:50 Body Mass Index 28.32 (65.77 kg, 152.40 cm) fc MDM: 07:08 Patient medically screened. [facility] 07:47 Data reviewed: vital signs, nurses notes, lab test result(s), EKG, radiologic studies, [facility] CT scan, plain films. 08/20 07:44 Order name: Basic Metabolic Panel [facility] 08/20 07:44 Order name: CBC with Diff [facility] 08/20 07:44 Order name: LFT's [facility] 08/20 07:44 Order name: Magnesium [facility] 08/20 07:44 Order name: NT PRO-BNP [facility] 08/20 07:44 Order name: PT-INR [facility] 08/20 07:44 Order name: Troponin (emerg Dept Use Only) [facility] 08/20 07:44 Order name: Lipase [facility] 08/20 07:44 Order name: Lactate [facility] 08/20 07:44 Order name: Procalcitonin [facility] 08/20 07:44 Order name: Blood Culture Adult (2) [facility] 08/20 07:44 Order name: Urine Culture [facility] 08/20 07:44 Order name: Influenza Screen (a \T\ B) [facility] 08/20 08:32 Order name: Protime (+INR); Complete Time: 08:46 EDFL 08/20 08:41 Order name: CBC with Automated Diff; Complete Time: 11:38 EDFL 08/20 08:41 Order name: Influenza Screen (A ; Complete Time: 08:46 EDFL 08/20 08:42 Order name: Type And Screen [facility] 08/20 08:42 Order name: Retic Count [facility] 08/20 08:42 Order name: Folic Acid,Serum (folate) [facility] 08/20 08:42 Order name: B12 [facility] 08/20 08:42 Order name: Ferritin [facility] 08/20 08:42 Order name: Iron Level [facility] 08/20 08:42 Order name: TIBC [facility] 08/20 08:42 Order name: Lactate; Complete Time: 08:46 EDFL 08/20 08:46 Order name: Bb Add On 08/20 08:53 Order name: Basic Metabolic Panel; Complete Time: 08:53 [facility] 08/20 08:53 Order name: Liver (Hepatic) Function; Complete Time: 08:53 [facility] 08/20 08:53 Order name: Troponin (Emerg Dept Use Only); Complete Time: 08:53 EDFL 08/20 08:53 Order name: NT PRO-BNP; Complete Time: 08:53 EDFL 08/20 08:53 Order name: Magnesium; Complete Time: 08:53 EDFL 08/20 07:44 Order name: XRAY Chest (1 view) [facility] 08/20 07:44 Order name: EKG; Complete Time: 07:50 [facility] 08/20 07:44 Order name: Cardiac monitoring; Complete Time: 07:48 [facility] 08/20 07:44 Order name: EKG - Nurse/Tech; Complete Time: 09:31 [facility] 08/20 07:44 Order name: IV Saline Lock; Complete Time: 08:14 [facility] 08/20 07:44 Order name: Labs collected and sent; Complete Time: 08:14 [facility] 08/20 07:44 Order name: O2 Per Protocol; Complete Time: 07:49 [facility] 08/20 07:44 Order name: O2 Sat Monitoring; Complete Time: 07:49 [facility] 08/20 07:44 Order name: Urine Dipstick-Ancillary (obtain specimen); Complete Time: 10:03 [facility] 08/20 07:44 Order name: CT Chest For PE Angio [facility] 08/20 08:49 Order name: Echo w/ Doppler [facility] 08/20 08:53 Order name: Lipase; Complete Time: 08:53 [facility] 08/20 09:10 Order name: RAD; Complete Time: 11:38 [facility] 08/20 09:21 Order name: Procalcitonin; Complete Time: 11:38 [facility] 08/20 09:54 Order name: Retic Count; Complete Time: 11:38 [facility] 08/20 10:00 Order name: Urine Dipstick--Ancillary (enter results) 08/20 10:01 Order name: Manual Differential; Complete Time: 11:38 [facility] 08/20 10:05 Order name: CT; Complete Time: 11:38 [facility] 08/20 10:05 Order name: Transferrin Sat/Iron Binding; Complete Time: 11:38 EDMS 08/20 10:05 Order name: Ferritin; Complete Time: 11:38 EDMS 08/20 10:05 Order name: Folic Acid, (Folate); Complete Time: 11:38 EDMS 08/20 10:05 Order name: Vitamin B12 Level; Complete Time: 11:38 EDMS 08/20 10:06 Order name: Urine Dipstick-Ancillary; Complete Time: 11:38 EDMS 08/20 10:17 Order name: Type and Screen Tube method EDMS 08/20 12:10 Order name: Thyroid Stimulating Hormone EDMS Administered Medications: 08:00 Drug: Pepcid 20 mg Route: IVP; Site: right hand; bp 10:32 Follow up: Response: No adverse reaction bp 08:30 Drug: Zosyn 3.375 grams Route: IVPB; Infused Over: 60 mins; Site: right hand; bp 10:03 Follow up: IV Status: Completed infusion bp 09:15 Drug: Lasix 20 mg Route: IVP; Site: right hand; bp 10:32 Follow up: Response: No adverse reaction bp 09:15 Drug: Lasix 20 mg Route: IVP; Site: right hand; bp 10:31 Follow up: Response: No adverse reaction bp 09:59 Drug: Zithromax 500 mg Route: IVPB; Infused Over: 1 hrs; Site: right hand; bp 11:37 Follow up: IV Status: Completed infusion; IV Intake: 250ml bp Disposition: 08/20/19 09:05 Hospitalization ordered by Lucy Todd for Inpatient Admission. Preliminary diagnosis are Dyspnea, Anemia, unspecified, Hemoptysis, Unspecified diastolic (congestive) heart failure, Cardiomegaly, Elevated white blood cell count. - Bed requested for Telemetry/MedSurg (Inpatient). - Status is Inpatient Admission. bp - Condition is Fair. - Problem is new. - Symptoms have improved. Signatures: Dispatcher [employer] [facility] Vesta Oneil Corey, MD MD cha Chretien, Felicia, RN RN Bhupendra aSunders RN RN bp Corrections: (The following items were deleted from the chart) 11:32 09:05 Hospitalization Ordered by Lucy Todd MD for Inpatient Admission. Preliminary bd diagnosis is Dyspnea; Anemia, unspecified; Hemoptysis; Unspecified diastolic (congestive) heart failure; Cardiomegaly; Elevated white blood cell count. Bed requested for Telemetry/MedSurg (Inpatient). Status is Inpatient Admission. Condition is Fair. Problem is new. Symptoms have improved. gladys 12:25 11:32 08/20/2019 09:05 Hospitalization Ordered by Lucy Todd MD for Inpatient Admission. bp Preliminary diagnosis is Dyspnea; Anemia, unspecified; Hemoptysis; Unspecified diastolic (congestive) heart failure; Cardiomegaly; Elevated white blood cell count. Bed requested for Telemetry/MedSurg (Inpatient). Status is Inpatient Admission. Condition is Fair. Problem is new. Symptoms have improved. bd
--- NOTE | 2019-08-20 09:07 | ER ---
Nurse's Notes [facility] Name: Bri Alvarenga Age: 59 yrs Sex: Female : 1960 Arrival Date: 08/20/2019 Time: 06:27 Bed 20 Private MD: Diagnosis: Dyspnea;Anemia, unspecified;Hemoptysis;Unspecified diastolic (congestive) heart failure;Cardiomegaly;Elevated white blood cell count Presentation: 08/20 06:50 Presenting complaint: Patient states: that she has become weaker over that past few fc months and it has become worse. She had labs done 2 weeks ago and was told her Hgb was 7.2. Also 2 weeks ago she started to cough up blood. Last night at 0200 she started having severe SOB. 07:21 Transition of care: patient was not received from another setting of care. Onset of fc symptoms was July 2019. Risk Assessment: Do you want to hurt yourself or someone else? Patient reports no desire to harm self or others. Initial Sepsis Screen: Does the patient meet any 2 criteria? RR > 20 per min. HR > 90 bpm. Yes Does the patient have a suspected source of infection? No. Patient's initial sepsis screen is negative. Care prior to arrival: None. 07:21 Method Of Arrival: Ambulatory fc 07:21 Acuity: HANNAH 3 fc Triage Assessment: 07:00 General: Appears in no apparent distress. comfortable, Behavior is cooperative, bp appropriate for age, anxious. Pain: Denies pain. EENT: No deficits noted. Neuro: No deficits noted. Cardiovascular: No deficits noted. Respiratory: Reports shortness of breath on exertion Onset: The symptoms/episode began/occurred at an unknown time. the patient has mild shortness of breath. GI: No signs and/or symptoms were reported involving the gastrointestinal system. : No signs and/or symptoms were reported regarding the genitourinary system. Derm: Skin is pale. Musculoskeletal: No deficits noted. Historical: - Allergies: :32 No Known Allergies; fc - Home Meds: :32 Ambien 10 mg Oral tab 1 tab nightly [Active]; [place] 7.5-325 mg Oral tab 1 tab qid prn fc [Active]; Acthar H.P. 80 unit/mL injection gel 2 times a week [Active]; hydrochlorothiazide 25 mg Oral tab 1 tab once daily [Active]; hydralazine 25 mg Oral tab 1 tab tid prn [Active]; anastrozole 1 mg Oral tab 1 tab once daily [Active]; levothyroxine 100 mcg tab 1 tab once daily [Active]; atorvastatin 40 mg Oral tab 1 tab nightly [Active]; Coreg 6.25 mg Oral tab 1 tab 2 times per day [Active]; lisinopril 20 mg Oral tab 1 tab twice a day [Active]; prednisone 20 mg Oral tab 1 tab once daily [Active]; gabapentin 600 mg Oral tab 0.5 tab nightly [Active]; duloxetine 60 mg Oral cpDR 1 cap once daily [Active]; Plavix 75 mg Oral tab 1 tab once daily [Active]; - PMHx: 07:32 CVA; Lupus; vaginal CA; Cancer, Breast; Anemia; chronic back pain; Hypertension; High fc Cholesterol; Hypothyroidism; - PSHx: 07:32 double mastectomy; fc - Immunization history:: Adult Immunizations up to date. - Coronavirus screen:: The patient has NOT traveled to [place], [place], or [place] in the past 14 days. Proceed with normal triage process as indicated. The patient has NOT had contact with known/suspected case of Coronavirus? Proceed with normal triage procedures. - Family history:: not pertinent. - Social history:: Smoking status: Patient denies any tobacco usage or history of. - Ebola Screening: : Patient negative for fever greater than or equal to 101.5 degrees Fahrenheit, and additional compatible Ebola Virus Disease symptoms Patient denies exposure to infectious person Patient denies travel to an Ebola-affected area in the 21 days before illness onset. Screenin:14 Abuse screen: Denies threats or abuse. Denies injuries from another. Nutritional bp screening: No deficits noted. Tuberculosis screening: No symptoms or risk factors identified. Fall Risk None identified. Assessment: 07:14 General: SEE TRIAGE NOTE. Pain: Complains of pain in chest. Cardiovascular: Rhythm is bp sinus tachycardia. Respiratory: Airway is patent Respiratory effort is even, Breath sounds with wheezes. 08:34 Reassessment: ABX INFUSING AFTER BLOOD CX x2. RESULTS PENDING. bp 09:11 Reassessment: PT TO CT. ADMIT INITIATED. GUIAC NEGATIVE. bp 09:31 Reassessment: CONSENT FOR PRBC SIGNED AND WITNESSED. bp 09:59 Reassessment: ADMIT MD AT B/S. bp 10:30 Reassessment: B/S ECHO COMPLETED, ADMIT IN PROCESS. bp 12:02 Reassessment: ADMIT COMPLETE. PT ADELAIDA WITH PCT. bp Vital Signs: 06:50 BP 185 / 95; Pulse 118; Resp 30; Temp 99.2(O); Pulse Ox 95% on R/A; Weight 65.77 kg fc (R); Height 5 ft. 0 in. (152.40 cm) (R); Pain 3/10; 07:34 BP 174 / 85; Pulse 110; Resp 31; Pulse Ox 92% ; bp 08:34 BP 185 / 84; Pulse 104; Resp 32; Pulse Ox 93% ; bp 09:30 BP 177 / 86; Pulse 109; Resp 22; Pulse Ox 100% ; bp 10:30 BP 173 / 78; Pulse 103; Resp 23; Pulse Ox 100% ; bp 12:00 BP 164 / 80; Pulse 101; Resp 26; Temp 99; Pulse Ox 100% on 2 lpm NC; bp 06:50 Body Mass Index 28.32 (65.77 kg, 152.40 cm) ED Course: 06:27 Patient arrived in ED. cl3 06:50 Arm band placed on Patient placed in an exam room, on a stretcher. fc 07:00 Bhupendra Cox, YORDY is Primary Nurse. bp 07:08 Renny Baker MD is Attending Physician. gladys 07:14 Patient has correct armband on for positive identification. Bed in low position. Call bp light in reach. Side rails up X2. 07:25 Triage completed. fc 08:05 Inserted saline lock: 20 gauge in right hand, using aseptic technique. Blood collected. bp 08:31 Influenza Screen (a \T\ B) Sent. bp 08:33 EKG done, by equipment service technician. reviewed by Renny Baker MD. at1 09:00 Inserted saline lock: 20 gauge in right forearm, using aseptic technique. Blood bp collected. 09:03 Lucy Todd MD is Hospitalizing Provider. gladys 09:32 big data developer on. Pulse ox on. NIBP on. bp 09:33 Oxygen administration via nasal cannula \T\ 3L/min. bp 12:02 No provider procedures requiring assistance completed. Patient admitted, IV remains in bp place. Administered Medications: 08:00 Drug: Pepcid 20 mg Route: IVP; Site: right hand; bp 10:32 Follow up: Response: No adverse reaction bp 08:30 Drug: Zosyn 3.375 grams Route: IVPB; Infused Over: 60 mins; Site: right hand; bp 10:03 Follow up: IV Status: Completed infusion bp 09:15 Drug: Lasix 20 mg Route: IVP; Site: right hand; bp 10:32 Follow up: Response: No adverse reaction bp 09:15 Drug: Lasix 20 mg Route: IVP; Site: right hand; bp 10:31 Follow up: Response: No adverse reaction bp 09:59 Drug: Zithromax 500 mg Route: IVPB; Infused Over: 1 hrs; Site: right hand; bp 11:37 Follow up: IV Status: Completed infusion; IV Intake: 250ml bp Intake: 11:37 IV: 250ml; Total: 250ml. bp Outcome: 09:05 Decision to Hospitalize by Provider. gladys 12:01 Admitted to Tele accompanied by elian, family with patient, via wheelchair, room 423, bp with chart, Report called to GARRICK SCALES 12:01 Condition: stable 12:01 Instructed on the need for admit. 12:25 Patient left the ED. bp Signatures: Renny Baker MD MD cha Chretien, Felicia, RN RN Kenyatta Hobson, sewer line repairer EKG Tat1 Bhupendra Cox RN RN Roseann Ambriz cl3 Corrections: (The following items were deleted from the chart) 07:25 07:21 Presenting complaint: Patient states: that she has become weaker over that past fc few months and it has become worse. She had labs done 2 weeks ago and was told her Hgb was 7.2. Also 2 weeks ago she started to cough up blood. Last night at 0200 she started having severe SOB. fc
--- NOTE | 2019-08-20 09:09 | RAD REPORT ---
EXAM DESCRIPTION: RAD - Chest Single View - 08/20/2019 8:19 am CLINICAL HISTORY: Cough;Hemoptysis Chest pain. COMPARISON: Chest Pa And Lat (2 Views) dated 01/29/2019; Chest Single View dated 10/13/2018 FINDINGS: Portable technique limits examination quality. [id number] bilateral interstitial lung opacities are present which may represent interstitial p ulmonary edema or pneumonia. The heart is moderately enlarged in size. No displaced fractures.
[2019-08-20] MEDS ORDERED: FUROSEMIDE 40 MG/4 ML VIAL ONE (09:21)
[2019-08-20] MEDS ORDERED: AZITHROMYCIN IV 500 MG in NA CHLORIDE 0.9% 250 ML IVPB ONE (09:30)
[2019-08-20 09:49] LABS: RBC Red Blood Cell Count 2.69 M/uL (3.86-4.86)
--- NOTE | 2019-08-20 09:57 | RAD REPORT ---
EXAM DESCRIPTION: CT - Chest For Pe Angio - 08/20/2019 9:17 am CLINICAL HISTORY: Chest pain. Chest pain;Dyspnea;Hemoptysis;Pain;PE COMPARISON: No comparisons TECHNIQUE: CT angiogram of the pulmonary arteries was performed with MIP. All CT scans are performed using dose optimization technique as appropriate and may include automated exposure control or mA/KV adjustment according to patient size. FINDINGS: No evidence of pulmonary thromboembolism. No acute aortic finding demonstrated. Heavy atherosclerotic changes seen involving the origin left sabillon bclavian artery. Adenopathy is present in both axillary regions, greater on the right measuring 3.0 x 2.0 cm. Adenopat hy is also seen in the mediastinum and hilar regions including the AP window measuring 2.6 x 2.2 cm a nd pretracheal space measuring 3.2 x 2.0 cm. Adenopathy in the sub- carinal region measures 2.7 x 2.2 cm Moderate prominent interstitial markings are present with multiple noncalcified small pulmonary nodul es evident throughout the lungs. Slightly dense pleural based mass is present in the right lower lobe laterally measuring 21 x 16 mm. Trace pleural fluid is present bilaterally. Area of sclerosis is noted involving the left aspect of the T4 vertebral body with compression deform ity present. Pathologic fracture is suspected. IMPRESSION: No evidence of pulmonary thromboembolism. Multiple pulmonary nodules are present likely representing metastatic disease. The largest lung lesio n is seen in the right lung base laterally measuring 21 x 16 mm and abutting the pleural surface. Bul ky adenopathy seen in the mediastinum and axillary regions suspicious for metastatic lymphadenopathy. Sclerosis is seen involving the T4 vertebral body with compression deformity present likely represen ting pathologic fracture.
[2019-08-20 10:00] LABS: Anisocytosis 2+; Blood Morphology Comment NOTED (NOT SEEN); Hypochromasia 2+; Platelet Estimate ADEQ; Polychromasia 1+
[2019-08-20 10:03] LABS: Transferrin 128 mg/dL (200-360)
[2019-08-20 10:04] LABS: Folic Acid, (Folate) > 20.0 ng/mL (3.1-17.5)
[2019-08-20 10:05] LABS: Urine Blood TRACE (NEG); Urine Glucose NEGATIVE (NEG); Urine Protein 2+ (NEG)
[2019-08-20] MEDS ORDERED: ONDANSETRON 4 MG/2 ML VIAL IV PRN (10:48)
[2019-08-20] MEDS ORDERED: ALPRAZOLAM 0.25 MG TABLET PO PRN (10:48)
[2019-08-20] MEDS ORDERED: MAGNESIUM HYDROXIDE 8% 30 ML PO PRN (10:48)
[2019-08-20] MEDS ORDERED: ACETAMINOPHEN 500 MG TAB PO PRN (10:48)
[2019-08-20] MEDS ORDERED: HYDRALAZINE HCL 20 MG/ML VIAL IV PRN (11:38)
--- NOTE | 2019-08-20 11:52 | ECHO ---
HEIGHT: ft in WEIGHT: lb oz DATE OF STUDY: 08/20/[address]: Renny Baker MD 2-DIMENSIONAL: YES M.MODE: YES DOPPLER: YES COLOR FLOW: YES TDS: NO PORTABLE: NO DEFINITY: NO BUBBLE STUDY: NO DIAGNOSIS: CONGESTIVE HEART FAILURE CARDIAC HISTORY: CATHERIZATION: NO SURGERY: NO PROSTHETIC VALVE: NO PACEMAKER: NO MEASUREMENTS (cm) DIASTOLIC (NORMALS) SYSTOLIC (NORMALS) IVSd 1.1 (0.6-1.2) LA Diam 3.7 (1.9-4.0) LVEF 68% LVIDd 5.1 (3.5-5.7) LVIDs 3.2 (2.0-3.5) %FS 38% LVPWd 1.1 (0.6-1.2) Ao Diam 2.4 (2.0-3.7) 2 DIMENSIONAL ASSESSMENT: RIGHT ATRIUM: NORMAL LEFT ATRIUM: NORMAL RIGHT VENTRICLE: NORMAL LEFT VENTRICLE: NORMAL TRICUSPID VALVE: NORMAL MITRAL VALVE: NORMAL PULMONIC VALVE: NORMAL AORTIC VALVE: NORMAL PERICARDIAL EFFUSION: NONE AORTIC ROOT: NORMAL LEFT VENTRICULAR WALL MOTION: NORMAL DOPPLER/COLOR FLOW: MILD MITRAL AND TRICUSPID REGURGITATION. NORMAL RIGHT VENTRICULAR SYSTOLIC PRESSURE. COMMENTS: NORMAL 2D ECHOCARDIOGRAM. MILD MITRAL AND TRICUSPID REGURGITATION. TECHNOLOGIST: Bassem LARIOS
[2019-08-20] MEDS ORDERED: Levofloxacin500mg IV 500 MG/100 ML BAG IV SCH (12:00)
[2019-08-20 13:36] LABS: Urine Appearance CLEAR; Urine Bilirubin NEGATIVE (NEG); Urine Blood NEGATIVE (NEG); Urine Color YELLOW; Urine Glucose NEGATIVE (NEG); Urine Protein TRACE (NEG); Urine Specific Gravity 1.015 (1.005-1.030); Urine Urobilinogen 0.2 mg/dL (0.2-1.0)
[2019-08-20 13:38] LABS: Urine Microscopic Reflex ORDER UMIC
[2019-08-20 13:48] LABS: Urine Bacteria NONE SEEN /HPF (<20); Urine Culture Reflex Order NOT NEEDED; Urine RBC <5 /HPF (NONE SEEN)
[2019-08-20] MEDS: ALBUTEROL 2.5 MG/3 ML NEB SOL NEB SCH ×2 (14:25→19:10)
[2019-08-20] MEDS: IPRATROPIUM BROM 0.5MG/2.5ML NEB SCH ×2 (14:25→19:10)
--- NOTE | 2019-08-20 14:59 | CON ---
Reason For Consult: Congestive heart failure. History Of Present Illness: Ms. Alvarenga was well until this morning about 2 a.m. when she awakene d with dyspnea. She came to the emergency room. There was mild interstitial edema. She was found t o be profoundly anemic, hemoglobin 6.2 and is receiving a blood transfusion. Her echocardiogram show s the ejection fraction is normal. There was mild mitral and tricuspid regurgitation. No evidence o f pulmonary hypertension. No evidence of diastolic dysfunction. Her electrocardiogram does not show any signs of infarction, injury, or ischemia. There is a right bundle-branch block. We have no old EKGs to know if that is old or new. A CT angio of the chest is negative for PE and dissection. The re were numerous lymph nodes, masses, nodules throughout both axillae and mediastinum. The patient h as a history of vaginal cancer, breast cancer, systemic lupus, hypertension, chronic anemia. She sees an oncologist at [facility]. They are aware of multiple lymphadenopathy and there a re comparing things to a year ago. Outpatient Medications: Duloxetine, clopidogrel, prednisone, gabapentin, lisinopril, carvedilol, long rvastatin, levothyroxine, anastrozole, hydrochlorothiazide, hydralazine, zolpidem, hydrocodone, and c orticotropin. Allergies: SHE HAS NO ALLERGIES. Social History: She smoked, but quit in 2013. Physical Examination: General: She is 5 feet tall, 145 pounds, overweight, alert, oriented, pleasant, mild exophthalmos. Lungs: Clear. Heart: Exam within normal limits. Abdomen: Soft. Extremities: Within normal limits. Impression: The patient has all of her symptoms due to her profound anemia and a blood transfusion w ill probably help things get a lot better. It is not really a microcytosis, so there is probably a p rimary bone marrow problem, not acute blood loss causing this. She has had a bone marrow biopsy in t he past and is under the care of a coordinator integrated marketing oncologist at [facility], but to answer the c ardiology question, she has probably high cardiac output failure from the anemia and does not have wh at we would call classic congestive heart failure either systolic or diastolic. Once her hemoglobin is closer to 10, I think she will feel very much normal investigating the lupus, the multiple cancers , the lymphadenopathy will probably require consultation with her oncologist and letting them look at the pictures we had just taken to see if it is advanced from before or not. Thank you very much for your kind referral of Ms. Alvarenga. I will follow her with you. NAM Voice ID: [id number] Report ID: [id number]
[2019-08-20] MEDS ORDERED: NA CHLORIDE 0.9% 250 ML ONE ×2 (15:17→19:13)
[2019-08-20] MEDS ORDERED: HYDRALAZINE HCL 25 MG TABLET PO PRN (16:26)
[2019-08-20] MEDS ORDERED: HYDROCODONE/APAP 7.5/325 MG TAB PO PRN (16:26)
[2019-08-20] MEDS ORDERED: POTASSIUM 25 MEQ EFFERV TAB PO ONE (17:00)
[2019-08-20] MEDS: carvediloL 6.25 MG TAB PO SCH (20:04)
[2019-08-20] MEDS: lisinopriL 20 MG TAB PO SCH (20:04)
[2019-08-20] MEDS: ZOLPIDEM TARTRATE 10 MG TABLET PO SCH ×2 (20:04→23:08)
[2019-08-20] MEDS ORDERED: HOME MED 1 EA UNK (Gabapentin [Gabapentin] 1 TAB) PO SCH (21:00)
[2019-08-20] MEDS ORDERED: GABAPENTIN 300 MG CAP PO SCH (21:00)
[2019-08-20] MEDS ORDERED: ATORVASTATIN 40 MG TAB PO SCH (21:00)
--- NOTE | 2019-08-20 22:10 | HP ---
Date of Admission: 08/20/2019 Chief Complaint: Dyspnea. History Of Present Illness: This patient is a 59-year-old lady, who presented for dyspnea. She has a complicated history of lupus; CVA; breast cancer, status post bilateral mastectomy; vaginal cancer; hypothyroidism; hyperlipidemia ; and lung mass. This patient was diagnosed vaginal cancer in 2012, for which she underwent resection by OBG. She was diagnosed breast cancer in 2018, for which she underwent bilateral mastectomy. She has been following oncologist for that. Patient was noted to have lung mass recently. She said this is giant cell mass per her oncologist. She has been following gut carrier for lupus. Blood test demonstrated hemoglobin 7.3 two weeks ago. Patient has been feeling weak and tired for a few months. This is associated with exertional dyspnea. She was found to be pale. Her dyspnea has been getting worse gradually. Last night, she felt extremely short of breath. This patient has been coughing. She reported blood mixed with sputum. No reported fever or chills. No chest pain. No nausea or vomiting. She said she could not lie down due to shortness of breath. She had to elevate her head for sleep. Patient presented to emergency room for worsening shortness of breath. Past Medical History: 1. SLE. 2. History of CVA. 3. Breast cancer. 4. Vaginal cancer. 5. Hyperlipidemia. 6. Hypothyroidism. Surgical History: 1. Bilateral mastectomy. 2. Vaginal resection. Review of Systems: No dizziness or lightheaded. No vision or hearing change. No nasal congestion or sore throat. No nausea, vomiting. No abdominal pain. No edema. No skin rashes. For the rest of the review of systems, please see HPI. Family History: Noncontributory. Home Medications: Please see home medication list. Allergies: NO KNOWN ALLERGIES. Social History: Patient has been living with her . No smoking. No alcohol abuse.Physical Examination: Vital Signs: In the ED, her blood pressure was a higher side, which was 185/95 and pulse 110. Temperature 99 and oxygen saturation 95% on room air. General: Patient is awake, alert, in mild distress. HEENT: Atraumatic, normocephalic. PERRLA. Pale conjunctivae. Neck: Supple. No JVD. Chest: Decreased bilateral breath sounds. No respiratory distress. Heart: Normal S1, S2. Tachycardia. No murmur. Abdomen: Soft, mildly distended, nontender. Extremities: Trace edema. No cyanosis. Skin: No rashes or eczema. Neuro: Patient is awake, alert, oriented x3. Nonfocal. Laboratory Data: WBC 12.8, hemoglobin 6.8, MCV 18.3, MCH 25.3, MCHC 30.2. Sodium 144, potassium 3.5, creatinine 0.81. Magnesium 1.9, iron 18, TIBC 179, transferrin 128, vitamin B12 of 1225, folate more than 20, procalcitonin 1.79. Chest x-ray, mild to moderate bilateral interstitial opacities. Chest CTA does not demonstrate evidence of PE, but demonstrated multiple pulmonary nodules. Assessment And Plan: This patient presented for dyspnea, likely secondary to severe anemia. However, she reported hemoptysis and chest CTA demonstrated multiple nodules. Patient reported previous workup on pulmonary nodule demonstrated giant cell. We will give transfusion. 1. Severe anemia, hemoglobin 6.8. Stool occult test negative. This is likely due to chronic disease status including lupus and history of cancer. ED physician ordered 2 units of RBC. Her iron level is low and we will transfuse Venofer. She has been following Heme/Onc outside. 2. Hemoptysis. CTA demonstrated multiple pulmonary nodules, malignancy, metastasis is a concern. However, this patient said recent workup on pulmonary nodule does not demonstrate giant cells. I started DuoNeb nebulization. I will give Levaquin empirically. Sales Account Executive will be consulted. 3. Possible congestive heart failure. X-ray demonstrated cardiomegaly. Echo last year demonstrated normal ejection fraction. Her proBNP is elevated. I did not see evidence of the fluid retention. This patient may have diastolic congestive heart failure. We will consult bar gauger and lubricator tender. 4. Uncontrolled hypertension. Her blood pressure was high. We will give IV hydralazine as needed. We will resume home medication. Cardiology was consulted. 5. History of systemic lupus erythematosus. She has been following mid wife. On steroid. 6. History of multiple cancers including breast cancer and vaginal cancer. She has been following oncologist at outside. 7. History of cerebrovascular accident. 8. Deep venous thrombosis prophylaxis, contraindicated for heparin and Lovenox. Put her on compression device. Further plans will be based on patient's condition. QT/MODL Voice ID: [id number] [facility]
[2019-08-21 00:51] LABS: Hematocrit 29.7 % (36.0-45.0)
[2019-08-21] MEDS: ALBUTEROL 2.5 MG/3 ML NEB SOL NEB SCH ×3 (01:25→14:15)
[2019-08-21] MEDS: IPRATROPIUM BROM 0.5MG/2.5ML NEB SCH ×3 (01:25→14:15)
[2019-08-21 02:57] VITALS: O2SAT 95
[2019-08-21 04:37] LABS: Absolute Lymphocytes (CBC) 0.4 K/uL (0.7-4.9); Basophils % 0.2 % (0-1.3); Hematocrit 29.9 % (36.0-45.0); Lymphocytes % 5.1 % (15.3-44.8); MPV 8.2 fL (7.6-11.3); RBC Red Blood Cell Count 3.54 M/uL (3.86-4.86)
[2019-08-21 04:53] LABS: Albumin 1.9 g/dL (3.4-5.0); Bilirubin Total 0.5 mg/dL (0.2-1.0); Magnesium 1.9 mg/dL (1.8-2.4); Phosphorus 2.9 mg/dL (2.5-4.9); Potassium 3.7 mmol/L (3.5-5.1); Protein, Total 5.8 g/dL (6.4-8.2)
[2019-08-21 05:07] VITALS: BMI 4026.8
[2019-08-21] MEDS ORDERED: POTASSIUM CL SA 10 MEQ TAB PO ONE (05:15)
[2019-08-21] MEDS ORDERED: LEVOTHYROXINE SOD 0.1 MG TAB PO SCH (06:00)
[2019-08-21] MEDS: lisinopriL 20 MG TAB PO SCH (08:04)
[2019-08-21] MEDS: carvediloL 6.25 MG TAB PO SCH (08:05)
[2019-08-21] MEDS ORDERED: DULOXETINE 30 MG CAP PO SCH (09:00)
[2019-08-21] MEDS ORDERED: predniSONE 20 MG TAB PO SCH (09:00)
[2019-08-21] MEDS ORDERED: ANASTROZOLE 1 MG TAB PO SCH (09:00)
[2019-08-21] MEDS ORDERED: HOME MED 1 EA UNK (Duloxetine Hcl [Cymbalta] 60 MG) PO SCH (09:00)
[2019-08-21] MEDS ORDERED: hydroCHLOROthiazide 25 MG TAB PO SCH (09:00)
--- NOTE | 2019-08-21 11:52 | P.CNS ---
Date of Consult: 08/21/19 Reason for Consult: Abnormal CT scan shortness of her Chief Complaint: Shortness of breath History of Present Illness: Patient is 59 years of age admitted with progressive dyspnea for the past 1-1/2 years she has also been having some hemoptysis for the past week weeks with the group are in sputum patient is a former smoker he quit 3 4 years ago after her stroke was also evaluated by a electric motor fitter in [place] were diagnosed with giant cell patient had a biopsy done. Apparently there is no history of COPD pulmonary Function Test were also done patient admitted to the hospital and was found to have mediastinal axillary adenopathy + lesion in the lungs she is doing much better now patient is on steroids on a tapering dose for lupus history of breast cancer Allergies No Known Allergies Allergy (Verified 01/30/19 04:56) Home Medications: Anastrozole 1 mg PO DAILY 08/20/19 Atorvastatin Calcium [Lipitor] 40 mg PO BEDTIME 08/20/19 Clopidogrel Bisulfate [Plavix*] 75 mg PO DAILY 08/20/19 Corticotropin [Acthar] 80 units SQ SEECOM 08/20/19 Duloxetine HCl [Cymbalta] 60 mg PO DAILY 08/20/19 Gabapentin 1 tab PO BEDTIME 08/20/19 Hydralazine [Apresoline*] 25 mg PO TIDP PRN 08/20/19 Hydrocodone/Acetaminophen [Hydrocodone-Acetamin 7.5-325] 1 tab PO QIDP PRN 08/20 Levothyroxine [Synthroid*] 1 tab PO [id number] 08/20/19 Zolpidem Tartrate [Ambien*] 10 mg PO BEDTIME 08/20/19 carvediloL [Coreg*] 6.25 mg PO BID 08/20/19 hydroCHLOROthiazide [Hydrochlorothiazide] 25 g PO DAILY 08/20/19 lisinopriL [Lisinopril] 20 mg PO BID 08/20/19 predniSONE [Prednisone] 20 mg PO DAILY 08/20/19 - Past Medical/Surgical History Diabetic: No -: Lupus -: History of CVA -: History breast cancer -: Hyperlipidemia -: Hypothyroidism -: Chronic pain -: History of vaginal cancer -: Bilateral breast mastectomy with lymph node removal -: Vaginal surgery due to cancer Psychosocial/ Personal History: Patient is - Family History Father Medical History: Cancer Brother Medical History: Cancer Mother Medical History: Stroke, Cancer - Social History Alcohol use: No CD- Drugs: No Caffeine use: Yes Place of Residence: Home Review of Systems 10-point ROS is otherwise unremarkable Physical Examination Temp Pulse Resp BP Pulse Ox 98.3 F 98 H 20 180/80 H 95 08/21/19 08:00 08/21/19 08:05 08/21/19 08:00 08/21/19 08:05 08/21/19 08:00 General: Alert, Oriented x3 HEENT: Atraumatic Neck: Supple Cardiovascular: No edema, Regular rate/rhythm, Normal S1 S2 Gastrointestinal: Normal bowel sounds, Soft and benign Musculoskeletal: No clubbing, No swelling Integumentary: No rashes, No breakdown - Problems (1) Shortness of breath Current Visit: Yes Status: Acute Plan: Patient is 59 years of age admitted with progressive dyspnea for the past 1-1/2 years former heavy smoker quit about for 5 years ago after her stroke the found to have a right lower lung zone opacity with mediastinal and axillary adenopathy apparently she had a CT scan done at [facility] was also seen by a electric motor fitter in [place] 2 years ago and had a biopsy done also pulmonary function tests were done probably has underlying COPD patient is on a tapering dose of prednisone can be discharged home on an inhaler patient to stop by my office and orange picker machine operator a sample and will also sign to obtain release a medical records and follow up with me in a week she will also need some antibiotic patient was anemic was also transfused 2 units of packed red blood cells no history of GI or urinary tract bleeding retake count is high is probably going to need a bronchoscopy as an outpatient is no evidence of pulmonary embolism she is interstitial changes mediastinal adenopathy axillary adenopathy on the CT scan No evidence of pulmonary thromboembolism. Multiple pulmonary nodules are present likely representing metastatic disease. The largest lung lesion is seen in the right lung base laterally measuring 21 x 16 mm and abutting the pleural surface. Bulky adenopathy seen in the mediastinum and axillary regions suspicious for metastatic lymphadenopathy. Sclerosis is seen involving the T4 vertebral body with compression deformity present likely representing pathologic fracture.
[2019-08-21] MEDS ORDERED: levoFLOXacin 500 MG TAB PO SCH (12:30)
[2019-08-21 16:18] VITALS: BP 176/86; TEMP 97.6
--- NOTE | 2019-08-22 00:54 | DS ---
Date of Discharge: 08/21/2019 Hospital Course: This patient is a 59-year-old female who presented for dyspnea. She has a complicated history including SLE, CVA, breast cancer status post bilateral mastectomy, vaginal cancer status post surgical resection , hypothyroidism, hyperlipidemia, and lung mass. 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 She did not take iron pill due to intolerance. Patient has been suffering from exertional dyspnea for a few weeks. Shortness of breath became worse for the last few days. She then presented to the emergency room. In the ED, WBC 12.8, hemoglobin 6.8, sodium 144, potassium 3.5. Chest CTA did not demonstrate PE, but showed multiple pulmonary nodules. The patient was admitted and treated with nebulization and IV antibiotics, Levaquin. Her echo demonstrated an ejection fraction of 68%. Garment Cutter was consulted and they thought that SOB is due to severe anemia. Diffuser Operator was consulted for hemoptysis. He agreed with IV Levaquin and DuoNeb. He recommended outpatient bronchoscope. The patient received 2 units of blood and her hemoglobin is improved to 9.3. Her iron level is 18 and TIBC 179. I gave her 1 dose of IV iron. Patient is feeling much better regarding to her breathing. The blood in sputum is improved. Diffuser Operator recommended discharge patient. The patient is eager to go home. Her vitals are stable. She was instructed to follow protective officer and oncologist as outpatient. Physical Examination: Vital Signs: On discharge vitals, temperature 97.8, pulse 90, respiratory rate 18, blood pressure 155/74, oxygen saturation 93% on room air. HEENT: Normocephalic, atraumatic. PERRLA. EOMI. Chest: Decreased breath sounds, very few crackles. No respiratory distress. Heart: Normal S1, S2. Regular rhythm and rate. Abdomen: Soft, nontender. Extremities: No edema. No cyanosis. No warmness. No redness. Neuro: Patient awake, alert, and oriented x3. Nonfocal. Laboratory Data: On discharge, WBC 8.5, hemoglobin 9.3, platelet 244. Sodium 143, potassium 3.7, chloride 107, bicarb 30, creatinine 1. Discharge Diagnoses: 1. Severe anemia. 2. Hemoptysis. 3. Hypertension. 4. Systemic lupus erythematosus. 5. History of breast cancer. 6. History of vagina cancer. 7. Multiple pulmonary nodules. 8. Hypothyroidism. Discharge Medications: Levaquin 500 mg daily for 7 days. For the rest, please see discharge medication list. Discharge Instructions: 1. Please follow protective officer in 1 week for possible bronchoscopy. 2. Please follow oncologist in 1 month. 3. Please follow PCP in 1 week. 4. Please call emergency room if having shortness of breath or other concerns. Discharge Activity: As tolerated. Discharge Diet: Healthy heart diet. I spent at least 30 minutes to discharge patient including reviewing the chart, education, prescription, and discharge summary. QT/MODL Voice ID: [id number] Report ID: [id number] COLIN
[2019-08-22] MEDS ORDERED: SOD FERRIC GLUC COMPLX/SUCROSE 250 MG in NA CHLORIDE 0.9% 250 ML IV SCH (09:00)
== END 2019-08-21 16:42 | disposition home or self-care (01) ==
LOC: ER 06:25 → ERHOLD 10:49 → INTOOBSV 10:49 → 4TH 12:02
PROVIDERS: ADMIT Internal Medicine; ATTEND Internal Medicine
DX: D64.9 Anemia, unspecified (principal); R04.2 Hemoptysis; I10 Essential (primary) hypertension; M32.9 Systemic lupus erythematosus, unspecified; R91.8 Other nonspecific abnormal finding of lung field; E03.9 Hypothyroidism, unspecified; E78.5 Hyperlipidemia, unspecified; Z85.3 Personal history of malignant neoplasm of breast; Z86.73 Personal history of transient ischemic attack (TIA), and cerebral infarction without residual deficits; Z85.89 Personal history of malignant neoplasm of other organs and systems
CPT/HCPCS: 96365; 36430; 93005; 93306; 87040 ×2; 87088; 87070; 85025 ×2; 87086; 80048; 36415 ×2; 86900; 83735 ×2; 86850; 87205; 84100; 85610; 85044; 86901; 80076; 83605; 84443; 85018; 85014; 84484; 82728; 82746; 82607; 83690; 83540; 80053; 84145; 86922 ×2; 83880; 84466; 87804 ×2; 71275; 71045; 97116; 97161; 94640 ×5; 94760 ×4; 96375; 99285; 96366; Q9967; J0360; J1940; J0456; J2543; P9016 ×2; J7030 ×3; G0378 ×3; 81003; 81015; J7512

== ENCOUNTER 2019-09-05 06:22 | Inpatient (IN) | payer BC ==
[2019-09-05] MEDS ORDERED: Magnesium Sulfate 2gm IVPB 2 G/50 ML BAG IV ONE (06:32)
[2019-09-05] MEDS ORDERED: METHYLPREDNISOLONE 125 MG INJ ONE (06:33)
[2019-09-05] MEDS ORDERED: NA CHLORIDE 0.9% 1,000 ML ONE ×2 (06:44→07:30)
[2019-09-05] MEDS ORDERED: CEFTRIAXONE/SWI 1gm 1 GM/10 ML SYR ONE (06:44)
[2019-09-05 07:03] LABS: Basophils % 0.6 % (0-1.3); Hematocrit 31.9 % (36.0-45.0); Lymphocytes % 10.7 % (15.3-44.8); MPV 8.4 fL (7.6-11.3)
[2019-09-05 07:07] LABS: Protime INR 0.99
[2019-09-05 07:19] LABS: Albumin 2.1 g/dL (3.4-5.0); Bilirubin Direct 0.1 mg/dL (0-0.2); Bilirubin Total 0.4 mg/dL (0.2-1.0); Magnesium 1.9 mg/dL (1.8-2.4); Potassium 4.7 mmol/L (3.5-5.1); Troponin (Emerg Dept Use Only) 0.12 ng/mL (0.0-0.045)
[2019-09-05] MEDS ORDERED: ASPIRIN 81 MG CHEWABLE TABLET ONE (08:00)
[2019-09-05] MEDS ORDERED: PIPER/TAZO/NS 3.375gm 0 GM/0 ML BAG ONE (08:00)
[2019-09-05] MEDS ORDERED: Levofloxacin 750mg IV 750 MG/150 ML BAG IV ONE (08:00)
--- NOTE | 2019-09-05 08:05 | RAD REPORT ---
EXAM DESCRIPTION: Oli Single View09/05/2019 6:50 am CLINICAL HISTORY: Shortness of breath COMPARISON: August 20 FINDINGS: Moderate bilateral interstitial lung opacities Heart remains enlarged IMPRESSION: Moderate bilateral interstitial lung opacities may represent interstitial pulmonary jian a or pneumonia
[2019-09-05] MEDS ORDERED: VANCOMYCIN/NS 1 gm 1 GM/250 ML BAG IV ONE (08:15)
--- NOTE | 2019-09-05 08:42 | ER ---
Nurse's Notes [facility] Name: Bri Alvarenga Age: 59 yrs Sex: Female : 1960 Arrival Date: 09/05/2019 Time: 06:27 Bed 4 Private MD: Diagnosis: Pneumonia;Hypoxia;Sepsis Presentation: 09/05 06:25 Chief complaint: Spouse and/or significant other states: she complaints of started rr5 2 weeks ago but it gets worse today morning. we were here 2 weeks ago with the same complaint. 06:25 Coronavirus screen: The patient has NOT traveled to [place] in the past 14 days. Proceed rr5 with normal triage procedures. Ebola Screen: Patient negative for fever greater than or equal to 101.5 degrees Fahrenheit, and additional compatible Ebola Virus Disease symptoms Patient denies exposure to infectious person. Patient denies travel to an Ebola-affected area in the 21 days before illness onset. Initial Sepsis Screen: Does the patient meet any 2 criteria? RR > 20 per min. HR > 90 bpm. Yes Does the patient have a suspected source of infection? Yes: Productive cough/pneumonia If YES to both, name of provider notified: Jordon WANG. Risk Assessment: Do you want to hurt yourself or someone else? Patient reports no desire to harm self or others. 06:25 Method Of Arrival: Wheelchair rr5 06:25 Acuity: HANNAH 2 rr5 06:25 Onset of symptoms was August 20, 2019. rr5 Triage Assessment: 06:25 Respiratory: Reports shortness of breath Onset: The symptoms/episode began/occurred rr5 gradually, 06:25 General: Appears uncomfortable, ill. rr5 Historical: - Allergies: 06:25 No Known Allergies; rr5 - Home Meds: 06:25 Acthar H.P. 80 unit/mL injection gel 2 times a week [Active]; Ambien 10 mg Oral tab 1 rr5 tab nightly [Active]; anastrozole 1 mg Oral tab 1 tab once daily [Active]; atorvastatin 40 mg Oral tab 1 tab nightly [Active]; Coreg 6.25 mg Oral tab 1 tab 2 times per day [Active]; duloxetine 60 mg Oral cpDR 1 cap once daily [Active]; hydralazine 25 mg Oral tab 1 tab TID prn [Active]; gabapentin 600 mg Oral tab 0.5 tab nightly [Active]; hydrochlorothiazide 25 mg Oral tab 1 tab once daily [Active]; levothyroxine 100 mcg tab 1 tab once daily [Active]; lisinopril 20 mg Oral tab 1 tab twice a day [Active]; [place] 7.5-325 mg Oral tab 1 tab QID PRN [Active]; Plavix 75 mg Oral tab 1 tab once daily [Active]; prednisone 20 mg Oral tab 1 tab once daily [Active]; - PMHx: 06:25 Anemia; Cancer, Breast; chronic back pain; CVA; High Cholesterol; Hypertension; rr5 Hypothyroidism; Lupus; vaginal CA; - PSHx: 06:25 Mastectomy; rr5 - Immunization history:: Adult Immunizations unknown. - Social history:: Smoking status: Patient/guardian denies using tobacco, the patient reports quitting approximately 5 years ago, Patient/guardian denies using alcohol, street drugs. Screenin:25 Abuse screen: Denies threats or abuse. Denies injuries from another. Nutritional rr5 screening: No deficits noted. Tuberculosis screening: No symptoms or risk factors identified. Fall Risk Secondary diagnosis (15 points) . IV access (20 points). Gait- Weak (10 pts.). Total Izaguirre Fall Scale indicates High Risk Score (45 or more points). Fall prevention measures have been instituted. Side Rails Up X 2 Placed Close to Nursing Station Frequent Obs/Assessments Occuring Family Present and informed to notify staff if the need to leave the bedside As available patient and family educated on Fall Prevention Program and Strategies. Assessment: 06:25 General: Appears distressed, uncomfortable, ill, Behavior is cooperative. Pain:. Neuro: rr5 Level of Consciousness is awake, alert, obeys commands, Oriented to person, place, time, situation. Cardiovascular: Capillary refill is > 3 seconds Patient's skin is warm and dry. Rhythm is. Respiratory: Airway is patent Respiratory effort is labored, Respiratory pattern is regular, symmetrical, tachypnea Breath sounds with wheezes. GI: No signs and/or symptoms were reported involving the gastrointestinal system. : No signs and/or symptoms were reported regarding the genitourinary system. EENT: No signs and/or symptoms were reported regarding the EENT system. Derm: Skin is fragile, is thin, Skin is mottled, pale, Skin temperature is cool. Musculoskeletal: Circulation, motion, and sensation intact. 07:00 Reassessment: RECD REPORT FROM MARCIO SCALES. 59YO WF P/W SOB, SEPSIS ACTIVATION ON bp PREVIOUS SHIFT. BLOOD CX IN PROCESS, ABX HELD. 07:26 Reassessment: Dr. Kelly and FELIPE Woods notified of critical lab value. LACTATE ss 7.6. 08:00 Reassessment: RT AT B/S. PT C/O CONGESTION 2/2 BIPAP, RT EQUIPPING HUMIDIFICATION TO bp BIPAP. VANC REQUESTED FROM PHARMACY. ADMIT PENDING. 08:19 Reassessment: DR DUARTE AT B/S. bp 09:30 Reassessment: F/U LACTATE SENT. ADMIT IN PROCESS, RESP STATUS IMPROVED 2/2 BIPAP. bp 10:35 Reassessment: NO ICU BEDS AVAILABLE. PT ON ER HOLD. SEE [employer] FOR FURTHER CHARTING. bp Vital Signs: 06:25 BP 168 / 149; Pulse 128; Resp 49; Temp 99.8; Pulse Ox 78% on R/A; Weight 65.77 kg; rr5 Height 5 ft. 0 in. (152.40 cm); 06:59 BP 193 / 104; Pulse 127; Resp 32; Pulse Ox 100% on 85% BiPAP; rr5 07:10 BP 188 / 115; Pulse 125; Resp 32; Pulse Ox 100% ; bp 07:20 BP 197 / 114; Pulse 127; Resp 35; Pulse Ox 100% ; bp 07:54 BP 179 / 87; Pulse 118; Resp 21; Pulse Ox 100% on BiPAP; sv 09:30 BP 155 / 86; Pulse 103; Resp 24; Pulse Ox 100% ; bp 10:15 BP 156 / 87; Pulse 101; Resp 19; Pulse Ox 100% ; bp 06:25 Body Mass Index 28.32 (65.77 kg, 152.40 cm) rr5 ED Course: 06:25 Arm band placed on. rr5 06:25 Patient has correct armband on for positive identification. Placed in gown. Bed in low rr5 position. Call light in reach. Side rails up X2. 06:25 delinquency counselor on. Pulse ox on. NIBP on. rr5 06:27 Patient arrived in ED. aa1 06:30 Inserted saline lock: 18 gauge in right forearm, using aseptic technique. Blood rr5 collected. 06:30 First set of blood cultures drawn by me. rr5 06:37 Jordon Masters PA is PHCP. jmm 06:37 David Valdovinos MD is Attending Physician. jmm 06:48 Marcio Barrios, RN is Primary Nurse. rr5 06:50 XRAY Chest (1 view) In Process Unspecified. EDMS 06:53 Triage completed. rr5 06:58 EKG done, by ED staff, reviewed by David Valdovinos MD. ds4 06:59 Second set of blood cultures drawn by lab staff. rr5 07:54 Primary Nurse role handed off by Marcio Barrios, RN sv 07:54 Bhupendra Cox, YORDY is Primary Nurse. sv 08:30 Wilson cath inserted, using sterile technique, 16 Fr., returned clear yellow urine. dh3 Patient tolerated well. 08:30 Urine collected: Wilson catheter specimen, clear. 3 08:40 Job Duarte DO is Hospitalizing Provider. [facility] 10:36 No provider procedures requiring assistance completed. Patient admitted, IV remains in bp place. Administered Medications: 06:35 Drug: NS 0.9% (30 ml/kg) 30 ml/kg Route: IV; Rate: bolus; Site: right forearm; rr5 08:30 Follow up: IV Status: Completed infusion; IV Intake: 2000ml bp 06:39 Drug: SOLU-Medrol 125 mg Route: IVP; Site: right antecubital; ea 07:23 Follow up: Response: No adverse reaction bp 06:39 Drug: Magnesium Sulfate 2 grams Route: IVPB; Infused Over: 2 hrs; Site: right ea antecubital; 07:20 Drug: Rocephin 1 grams Route: IV; Rate: 1 calculated rate; Site: right forearm; bp 07:55 Drug: LevaQUIN 750 mg Volume: 150 ml; Route: IVPB; Infused Over: 90 mins; Site: right bp forearm; 09:00 Follow up: IV Status: Completed infusion; IV Intake: 100ml bp 07:55 Drug: Aspirin Chewable Tablet 324 mg Route: PO; bp 09:07 Follow up: Response: No adverse reaction bp 08:17 Not Given (Physician Discretion): Zosyn 3.375 grams IVPB once over 60 mins; (mix in NS bp 100 mL) 09:05 Drug: Cefepime 1 grams Route: IVPB; Rate: 200 ml/hr; Infused Over: 30 mins; Site: right bp forearm; 09:46 Follow up: IV Status: Completed infusion; IV Intake: 100ml bp 09:47 Drug: vancoMYCIN 1 grams Route: IVPB; Infused Over: 2 hrs; Site: right forearm; bp Intake: 08:30 IV: 2000ml; Total: 2000ml. bp 09:00 IV: 100ml; Total: 2100ml. bp 09:46 IV: 100ml; Total: 2200ml. bp Outcome: 08:41 Decision to Hospitalize by Provider. m 10:36 Admitted to ER Hold. Please see [facility] for further documentation. bp 11:30 Condition: stable bp 14:47 Patient left the ED. bp Signatures: Dispatcher [employer] EDAudrey Rosenberg, RN Cris Kaufman RN RN aa1 Jordon Masters PA PA [facility] Verna Marti, RN RN Jeff Epstein ds4 Kaylan Croft dh3 Karo Castro RN Bhupendra High ea, RN RN bp Roque, Raymond RN RN rr5 Corrections: (The following items were deleted from the chart) 07:07 06:25 Respiratory: Airway is patent Respiratory effort is labored, Respiratory pattern rr5 is regular, symmetrical, tachypnea rr5
--- NOTE | 2019-09-05 08:42 | EDPHYS ---
Physician Documentation [facility] Name: Bri Alvarenga Age: 59 yrs Sex: Female : 1960 Arrival Date: 09/05/2019 Time: 06:27 Bed 4 Private MD: ED Physician David Valdovinos HPI: 09/05 06:40 This 59 yrs old Female presents to ER via Unassigned with complaints of jmm Breathing Difficulty. 06:40 The patient has shortness of breath at rest, with light activity. Onset: The jmm symptoms/episode began/occurred. Duration: The symptoms are chronic. The patient's shortness of breath is aggravated by nothing. Associated signs and symptoms: Pertinent negatives: fever. This is a 59 year old female with a hsitory of SLE, cancer, that presents to the ED with complaints of worsening shortness of breath this morning. states the patient is normally short of breath everyday but it normally improves. SOB has worsened since waking up. Patient was recently admitted for similar symptoms. patient was anemic with hemoptysis. . Historical: - Allergies: 06:25 No Known Allergies; rr5 - Home Meds: 06:25 Acthar H.P. 80 unit/mL injection gel 2 times a week [Active]; Ambien 10 mg Oral tab 1 rr5 tab nightly [Active]; anastrozole 1 mg Oral tab 1 tab once daily [Active]; atorvastatin 40 mg Oral tab 1 tab nightly [Active]; Coreg 6.25 mg Oral tab 1 tab 2 times per day [Active]; duloxetine 60 mg Oral cpDR 1 cap once daily [Active]; hydralazine 25 mg Oral tab 1 tab TID prn [Active]; gabapentin 600 mg Oral tab 0.5 tab nightly [Active]; hydrochlorothiazide 25 mg Oral tab 1 tab once daily [Active]; levothyroxine 100 mcg tab 1 tab once daily [Active]; lisinopril 20 mg Oral tab 1 tab twice a day [Active]; [place] 7.5-325 mg Oral tab 1 tab QID PRN [Active]; Plavix 75 mg Oral tab 1 tab once daily [Active]; prednisone 20 mg Oral tab 1 tab once daily [Active]; - PMHx: 06:25 Anemia; Cancer, Breast; chronic back pain; CVA; High Cholesterol; Hypertension; rr5 Hypothyroidism; Lupus; vaginal CA; - PSHx: 06:25 Mastectomy; rr5 - Immunization history:: Adult Immunizations unknown. - Social history:: Smoking status: Patient/guardian denies using tobacco, the patient reports quitting approximately 5 years ago, Patient/guardian denies using alcohol, street drugs. ROS: 06:51 Constitutional: Negative for fever, chills, and weight loss. jmm 06:51 Abdomen/GI: Negative for abdominal pain, nausea, vomiting, diarrhea, and constipation, Back: Negative for injury and pain, Neuro: Negative for headache, weakness, numbness, tingling, and seizure. 06:51 Respiratory: Positive for cough, orthopnea, shortness of breath. 06:51 All other systems are negative. Exam: 06:51 Head/Face: atraumatic. Eyes: EOMI, no conjunctival erythema appreciated ENT: Moist jm Mucus Membranes Neck: Trachea midline, Supple Chest/axilla: Normal chest wall appearance and motion. 06:51 Abdomen/GI: Non distended, soft Back: Normal ROM Skin: General appearance color normal MS/ Extremity: Moves all extremities, no obvious deformities appreciated, no edema noted to the lower extremities Neuro: Awake and alert, normal gait Psych: Behavior is normal, Mood is normal, Patient is cooperative and pleasant 06:51 Constitutional: The patient appears alert, awake, anxious, in obvious distress. 06:51 Cardiovascular: Rate: tachycardic, Rhythm: regular. 06:51 Respiratory: moderate respiratory distress is noted, Respirations: labored breathing, that is moderate, Breath sounds: wheezing: that is moderate, is scattered. Vital Signs: 06:25 BP 168 / 149; Pulse 128; Resp 49; Temp 99.8; Pulse Ox 78% on R/A; Weight 65.77 kg; rr5 Height 5 ft. 0 in. (152.40 cm); 06:59 BP 193 / 104; Pulse 127; Resp 32; Pulse Ox 100% on 85% BiPAP; rr5 07:10 BP 188 / 115; Pulse 125; Resp 32; Pulse Ox 100% ; bp 07:20 BP 197 / 114; Pulse 127; Resp 35; Pulse Ox 100% ; bp 07:54 BP 179 / 87; Pulse 118; Resp 21; Pulse Ox 100% on BiPAP; sv 09:30 BP 155 / 86; Pulse 103; Resp 24; Pulse Ox 100% ; bp 10:15 BP 156 / 87; Pulse 101; Resp 19; Pulse Ox 100% ; bp 06:25 Body Mass Index 28.32 (65.77 kg, 152.40 cm) rr5 MDM: 06:37 Patient medically screened. [facility] 07:34 Data reviewed: vital signs, nurses notes. Counseling: I had a detailed discussion with [facility] the patient and/or guardian regarding: the historical points, exam findings, and any diagnostic results supporting the discharge/admit diagnosis, lab results, radiology results, the need for further work-up and treatment in the hospital. ED course: I discussed the patient with Dr. Duarte. . 08:40 Data reviewed: lab test result(s), radiologic studies, plain films. [facility] 09/05 06:37 Order name: Amylase, Serum 09/05 06:37 Order name: Basic Metabolic Panel 09/05 06:37 Order name: Blood Culture Adult (2) 09/05 06:37 Order name: Lactate; Complete Time: 07:29 09/05 06:37 Order name: Protime (+inr); Complete Time: 07:14 09/05 06:37 Order name: Ptt, Activated; Complete Time: 07:14 09/05 06:37 Order name: Urine Microscopic Only; Complete Time: 11:07 09/05 06:38 Order name: Basic Metabolic Panel; Complete Time: 07:26 [facility] 09/05 06:38 Order name: CBC with Diff; Complete Time: 07:14 [facility] 09/05 06:38 Order name: LFT's; Complete Time: 07:26 [facility] 09/05 06:38 Order name: Magnesium; Complete Time: 07:26 [facility] 09/05 06:38 Order name: NT PRO-BNP; Complete Time: 07:26 [facility] 09/05 06:38 Order name: Troponin (emerg Dept Use Only); Complete Time: 07:26 [facility] 09/05 06:38 Order name: Procalcitonin; Complete Time: 08:10 [facility] 09/05 06:38 Order name: Blood Culture Adult (2) [facility] 09/05 08:41 Order name: Urine Dipstick--Ancillary (enter results); Complete Time: 11:07 09/05 09:18 Order name: Glucose, Ancillary Testing; Complete Time: 11:07 [facility] 09/05 10:11 Order name: Lactate Sepsis 2 HR Follow-up; Complete Time: 11:07 [facility] 09/05 06:37 Order name: Accucheck; Complete Time: 06:59 09/05 06:37 Order name: Cardiac monitoring; Complete Time: 06:59 09/05 06:37 Order name: EKG - Nurse/Tech; Complete Time: 06:59 09/05 06:37 Order name: IV Saline Lock - Large Bore; Complete Time: 07:00 09/05 06:37 Order name: Labs collected and sent; Complete Time: 07:00 09/05 06:37 Order name: O2 Per Protocol; Complete Time: 07:00 09/05 06:37 Order name: O2 Sat Monitoring; Complete Time: 07:00 09/05 06:37 Order name: Urine Dipstick-Ancillary (obtain specimen); Complete Time: 08:41 09/05 06:38 Order name: XRAY Chest (1 view); Complete Time: 08:07 [facility] 09/05 06:38 Order name: EKG; Complete Time: 06:39 [facility] 09/05 06:38 Order name: O2 Per Protocol; Complete Time: 07:00 [facility] 09/05 06:38 Order name: O2 Sat Monitoring; Complete Time: 07:00 [facility] 09/05 10:56 Order name: Blood Culture [facility] 09/05 11:27 Order name: CT; Complete Time: 11:31 [facility] 09/05 13:13 Order name: Creatine Phosphokinase; Complete Time: 13:14 [facility] 09/05 13:13 Order name: CKMB Creatine Kinase MB; Complete Time: 13:14 [facility] 09/05 13:13 Order name: Troponin I; Complete Time: 13:14 [facility] 09/05 13:23 Order name: ABG Arterial Blood Gas; Complete Time: 13:32 EDMS Administered Medications: 06:35 Drug: NS 0.9% (30 ml/kg) 30 ml/kg Route: IV; Rate: bolus; Site: right forearm; rr5 08:30 Follow up: IV Status: Completed infusion; IV Intake: 2000ml bp 06:39 Drug: SOLU-Medrol 125 mg Route: IVP; Site: right antecubital; ea 07:23 Follow up: Response: No adverse reaction bp 06:39 Drug: Magnesium Sulfate 2 grams Route: IVPB; Infused Over: 2 hrs; Site: right ea antecubital; 07:20 Drug: Rocephin 1 grams Route: IV; Rate: 1 calculated rate; Site: right forearm; bp 07:55 Drug: LevaQUIN 750 mg Volume: 150 ml; Route: IVPB; Infused Over: 90 mins; Site: right bp forearm; 09:00 Follow up: IV Status: Completed infusion; IV Intake: 100ml bp 07:55 Drug: Aspirin Chewable Tablet 324 mg Route: PO; bp 09:07 Follow up: Response: No adverse reaction bp 08:17 Not Given (Physician Discretion): Zosyn 3.375 grams IVPB once over 60 mins; (mix in NS bp 100 mL) 09:05 Drug: Cefepime 1 grams Route: IVPB; Rate: 200 ml/hr; Infused Over: 30 mins; Site: right bp forearm; 09:46 Follow up: IV Status: Completed infusion; IV Intake: 100ml bp 09:47 Drug: vancoMYCIN 1 grams Route: IVPB; Infused Over: 2 hrs; Site: right forearm; bp Disposition: 09/05/19 08:41 Hospitalization ordered by Job Duarte for Inpatient Admission. Preliminary diagnosis are Pneumonia, Hypoxia, Sepsis. - Bed requested for Telemetry/MedSurg (Inpatient). - Status is Inpatient Admission. bp - Condition is Stable. - Problem is an acute exacerbation. - Symptoms have improved. Addendum: 09/10/2019 03:19 Co-signature as Attending Physician, David Valdovinos MD. r n Signatures: Dispatcher [employer] EDGA Grace Florez RN RN dw Mickail, Joel, PA PA jmm Nieto, Roman, MD MD rn Antunez, Elena, RN RN ea Peltier, Brian RN RN Trena Lundy Raymond RN RN rr5 Corrections: (The following items were deleted from the chart) 09/05 06:44 06:39 Chest Single View+RAD.RAD.BRZ ordered. EDMS EDMS 06:49 06:38 CBC+H.LAB.BRZ ordered. EDGA EDMS 07:05 06:38 Cardiac monitoring ordered. [facility] rr5 07:05 06:38 EKG - Nurse/Tech ordered. [facility] rr5 07:05 06:38 IV Saline Lock ordered. [facility] rr5 07:06 06:38 Labs collected and sent ordered. [facility] rr5 08:02 06:38 Amylase Level ordered. [facility] EDMS 08:02 06:38 Basic Metabolic Panel ordered. [facility] EDMS 08:02 06:38 CKMB+C.LAB.BRZ ordered. [facility] EDMS 08:02 06:38 CREATINE PHOSPHOKINASE+C.LAB.BRZ ordered. EDGA EDMS 08:02 06:39 HEPATIC FUNCTION+C.LAB.BRZ ordered. [facility] EDMS 08:02 06:39 LIPASE+C.LAB.BRZ ordered. [facility] EDMS 08:02 06:39 Procalcitonin+C.LAB.BRZ ordered. [facility] EDMS 08:02 06:39 TROPONIN (EMERG DEPT USE ONLY)+C.LAB.BRZ ordered. [facility] EDMS 08:02 06:39 PROTIME (+INR)+COAG.LAB.BRZ ordered. [facility] EDGA 08:02 06:39 LACTATE+C.LAB.BRZ ordered. [facility] EDMS 08:32 06:38 Blood Culture ordered. [facility] EDGA 08:46 08:41 Hospitalization Ordered by Job Duarte DO for Inpatient Admission. Preliminary eb diagnosis is Pneumonia; Hypoxia; Sepsis. Bed requested for Intensive Care Unit. Status is Inpatient Admission. Condition is Stable. Problem is an acute exacerbation. Symptoms have improved. [facility] 10:24 08:46 09/05/2019 08:41 Hospitalization Ordered by Job Duarte DO for Inpatient eb Admission. Preliminary diagnosis is Pneumonia; Hypoxia; Sepsis. Bed requested for Intensive Care Unit. Status is Inpatient Admission. Condition is Stable. Problem is an acute exacerbation. Symptoms have improved. eb 13:37 10:24 09/05/2019 08:41 Hospitalization Ordered by Job Duarte DO for Inpatient eb Admission. Preliminary diagnosis is Pneumonia; Hypoxia; Sepsis. Bed requested for [facility] ER HOLD. Status is Inpatient Admission. Condition is Stable. Problem is an acute exacerbation. Symptoms have improved. 14:02 13:37 09/05/2019 08:41 Hospitalization Ordered by Job Duarte DO for Inpatient dw Admission. Preliminary diagnosis is Pneumonia; Hypoxia; Sepsis. Bed requested for Telemetry/MedSurg (Inpatient). Status is Inpatient Admission. Condition is Stable. Problem is an acute exacerbation. Symptoms have improved. eb 14:47 14:02 09/05/2019 08:41 Hospitalization Ordered by Job Duarte DO for Inpatient bp Admission. Preliminary diagnosis is Pneumonia; Hypoxia; Sepsis. Bed requested for Telemetry/MedSurg (Inpatient). Status is Inpatient Admission. Condition is Stable. Problem is an acute exacerbation. Symptoms have improved. dw
--- NOTE | 2019-09-05 09:02 | P.HP ---
Certification for Inpatient Patient admitted to: Inpatient With expected LOS: >2 Midnights Patient will require the following post-hospital care: None Practitioner: I am a practitioner with admitting privileges, knowledge of patient current condition, hospital course, and medical plan of care. Services: Services provided to patient in accordance with Admission requirements found in Title 42 Section 412.3 of the Code of Federal Regulations Patient History Date of Service: 09/05/19 Primary Care Provider: Dr. Erickson; Pulmonary-Dr. Linda; Rheum-Dr. Mcmahon; Onc- Dr. Subramanian Reason for admission: Shortness of breath History of Present Illness: 59-year-old female with history of lupus, hypothyroidism, anemia, chronic steroid use. Patient recently hospitalized for shortness of breath. At the time CT scan showed multiple pulmonary nodules that was suspicious for metastatic disease patient was treated for pneumonia. She was sent home on Levaquin. Since that time patient has done fairly well. She has noticed increasing shortness of breath over the past several days. Today she reported severe shortness of breath. Patient with tachypnea. She denies any fever, chills. She does report cough with congestion. Some sputum production noted with tinged blood. Patient has history of lupus and is on disease modifying medication. She recently started a new infusion this past . Since then she reports increasing shortness of breath. Patient is on chronic steroids. In the ER patient was evaluated. Patient was tachypneic and short of breath. Patient required BiPAP. Chest x-ray shows bilateral opacities suspicious for pneumonia. White count 8.9, hemoglobin 9.6. Lactic acid elevated at 7.6. Pro calcitonin 2.27. Troponin 0.12 with a BNP of 7500. Sodium 142, potassium 4.2, BUN of 22, creatinine 1.04 with a GFR 54. Patient remains on BiPAP. Sepsis protocol initiated. Patient to get vancomycin and cefepime. Patient also given Solu-Medrol. I was asked to admit the patient for further evaluation. When I saw the patient ER, she was on BiPAP. Patient still slightly tachypneic. at bedside. On prior hospitalization patient required transfusion of blood. She was to follow up with pulmonology for outpatient bronchoscopy. Patient reports history of breast cancer with double mastectomy in 2018. Patient sees Rheumatology and Oncology at [facility]. Patient does not require home oxygen. Patient will be admitted to ICU. Allergies No Known Allergies Allergy (Verified 01/30/19 04:56) Home medications list reviewed: Yes Home Medications: Anastrozole 1 mg PO DAILY 08/20/19 Atorvastatin Calcium [Lipitor] 40 mg PO BEDTIME 08/20/19 Clopidogrel Bisulfate [Plavix*] 75 mg PO DAILY 08/20/19 Corticotropin [Acthar] 80 units SQ SEECOM 08/20/19 Duloxetine HCl [Cymbalta] 60 mg PO DAILY 08/20/19 Gabapentin 1 tab PO BEDTIME 08/20/19 Hydralazine [Apresoline*] 25 mg PO TIDP PRN 08/20/19 Hydrocodone/Acetaminophen [Hydrocodone-Acetamin 7.5-325] 1 tab PO QIDP PRN 08/20 Levothyroxine [Synthroid*] 1 tab PO [id number] 08/20/19 Zolpidem Tartrate [Ambien*] 10 mg PO BEDTIME 08/20/19 carvediloL [Coreg*] 6.25 mg PO BID 08/20/19 hydroCHLOROthiazide [Hydrochlorothiazide] 25 g PO DAILY 08/20/19 lisinopriL [Lisinopril] 20 mg PO BID 08/20/19 predniSONE [Prednisone] 20 mg PO DAILY 08/20/19 levoFLOXacin [Levaquin*] 500 mg PO DAILY #7 tab 08/21/19 - Past Medical/Surgical History Diabetic: No -: Lupus, on disease modifying medication -: History of CVA -: History of breast cancer with bilateral mastectomy -: Hyperlipidemia -: Hypothyroidism -: Chronic pain -: History of vaginal cancer -: Anemia likely of chronic disease -: Bilateral breast mastectomy with lymph node removal -: Vaginal surgery due to cancer Psychosocial/ Personal History: Patient is - Family History Father -: Cancer Brother -: Cancer Mother -: Stroke, Cancer - Social History Smoking Status: Never smoker Alcohol use: No CD- Drugs: No Caffeine use: Yes Place of Residence: Home Review of Systems General: Chills, Weakness, As per HPI Eyes: Unremarkable ENT: Nose Congestion, As per HPI Respiratory: Cough, Shortness of Breath, Hemoptysis, SOB with Excertion, As per HPI Cardiovascular: As per HPI Gastrointestinal: Unremarkable Genitourinary: Unremarkable Musculoskeletal: Unremarkable Integumentary: Unremarkable Neurological: Unremarkable Lymphatics: Unremarkable Physical Examination - Physical Exam General: Alert, Oriented x3, Mild distress, Other (Currently on BiPAP) HEENT: Atraumatic, Normocephalic, Other (Dried mucous membranes) Neck: Supple Respiratory: Crackles/rales (Crackles to the right base) Cardiovascular: Normal pulses, Regular rate/rhythm Gastrointestinal: Normal bowel sounds, Soft and benign, Non-distended, No tenderness, No masses, No rebound, No guarding Musculoskeletal: No erythema, No tenderness, No warmth Integumentary: No tenderness/swelling, No erythema, No warmth, No cyanosis Neurological: Normal speech, Normal strength at 5/5 x4 extr, Normal tone, Normal affect - Studies Laboratory Data (last 24 hrs) 09/05/19 06:37: PT Cancelled, INR Cancelled 09/05/19 06:37: WBC 8.9, Hgb 9.6 L, Hct 31.9 L, Plt Count 308 09/05/19 06:37: Sodium 142, Potassium 4.7, BUN 22 H, Creatinine 1.04, Glucose 173 H, Magnesium 1.9, Total Bilirubin 0.4, AST 25, ALT 19, Alkaline Phosphatase 122 H 09/05/19 06:37: PT 11.7, INR 0.99, APTT 22.9 L 09/05/19 06:37: WBC Cancelled, Hgb Cancelled, Hct Cancelled, Plt Count Cancelled 09/05/19 06:37: Sodium Cancelled, Potassium Cancelled, BUN Cancelled, Creatinine Cancelled, Glucose Cancelled, Total Bilirubin Cancelled, AST Cancelled, ALT Cancelled, Alkaline Phosphatase Cancelled, Amylase Cancelled, Lipase Cancelled Assessment and Plan - Plan Impression: Acute on chronic respiratory failure suspect bilateral pneumonia with possible sepsis complicated with recent hospitalization showing bilateral pulmonary nodules suspicious for metastatic disease Lupus on disease modifying medication and chronic steroids Acute renal injury likely dehydration Elevated troponin likely ischemic demand Hypothyroidism Anemia likely of chronic disease History CVA History of breast cancer with prior bilateral mastectomy and vaginal cancer Plan: Acute on chronic respiratory failure suspect bilateral pneumonia with possible sepsis complicated with recent hospitalization showing bilateral pulmonary nodules suspicious for metastatic disease: Patient will be admitted to ICU. Patient remains on BiPAP. Case discussed with pulmonology. Will continue with steroid treatment, IV antibiotic therapy-vancomycin and cefepime. Blood, sputum and urine cultures obtained. Pharmacy to monitor and adjust medication. Patient given IV fluid bolus per sepsis protocol. Patient does not appear severely septic. Will monitor this closely. Will reassess later. Will obtain CT scan without contrast of the chest to evaluate and compare from recent CT scan. Will provide medication for cough, congestion DVT prophylaxis initiated. Will continue to reassess. Patient may require bronchoscopy during this hospitalization to further evaluate. Await further recommendations from pulmonology. Lupus on disease modifying medication and chronic steroids: Will continue with steroid medication. Will hold her disease modifying medication. Patient seen by Rheumatology Acute renal injury likely dehydration: Sepsis IV hydration initiated. Will monitor this closely. Elevated troponin likely ischemic demand: Recent echocardiogram shows normal ejection fraction. This is likely ischemic demand. Will monitor cardiac enzymes. Cardiology consulted for further recommendation. Will continue with aspirin and DVT prophylaxis. If blood pressure remains elevated may need to consider blood pressure medication. Hypothyroidism: Will obtain and restart home medication. Anemia likely of chronic disease: Will monitor this closely. Patient on recent hospitalization require transfusion. History CVA: Continue aspirin and DVT prophylaxis. History of breast cancer with prior bilateral mastectomy and vaginal cancer: Patient is seen by oncology. Discharge Plan: Home Plan to discharge in: Greater than 2 days - Advance Directives Does patient have a Living Will: No Does patient have a Durable POA for Healthcare: No - Code Status/Comfort Care Code Status Assessed: Yes (Patient is full code) Time Spent Managing Pts Care (In Minutes): 55
[2019-09-05 09:18] LABS: Urine Blood TRACE (NEG); Urine Glucose NEGATIVE (NEG); Urine Protein 3+ (NEG); Urine pH 5.5 (5.0-7.0)
[2019-09-05 09:29] LABS: Urine Bacteria <20 /HPF (<20); Urine Culture Reflex Order NOT NEEDED; Urine Mucus 1+ /HPF (NONE SEEN)
[2019-09-05 10:38] VITALS: BMI 28.3
[2019-09-05] MEDS ORDERED: ALBUTEROL 2.5 MG/3 ML NEB SOL NEB PRN ×2 (10:43→17:00)
[2019-09-05] MEDS ORDERED: predniSONE 20 MG TAB PO SCH (10:43)
[2019-09-05] MEDS: ENOXAPARIN 40 MG/0.4 ML SQ SCH (10:43)
[2019-09-05] MEDS: GUAIFENESIN 600 MG SA TAB PO SCH ×2 (10:43→20:20)
[2019-09-05] MEDS ORDERED: BENZONATATE 100 MG CAP PO PRN (10:43)
[2019-09-05] MEDS ORDERED: ASPIRIN EC 81 MG TAB PO SCH (10:43)
[2019-09-05] MEDS ORDERED: ONDANSETRON 4 MG/2 ML VIAL IV PRN (10:43)
[2019-09-05] MEDS ORDERED: CEFEPIME 1 GM/VIAL IV SCH (10:43)
[2019-09-05] MEDS ORDERED: IPRATROPIUM BROM 0.5MG/2.5ML NEB PRN ×2 (10:43→17:00)
[2019-09-05] MEDS ORDERED: NACHLORIDE 0.45% 1,000 ML IV SCH (10:43)
[2019-09-05] MEDS ORDERED: VANCOMYCIN 1 GM in NA CHLORIDE 0.9% 500 ML IVPB SCH (10:43)
[2019-09-05] MEDS ORDERED: ACETAMINOPHEN 500 MG TAB PO PRN (10:43)
[2019-09-05] MEDS: FAMOTIDINE 20 MG TAB PO SCH ×2 (10:43→20:21)
[2019-09-05] MEDS ORDERED: CEFEPIME 1 GM in NA CHLORIDE 0.9% 50 ML IV ONE (11:00)
--- NOTE | 2019-09-05 11:26 | RAD REPORT ---
EXAM DESCRIPTION: CT - Thorax Wo Con - 09/05/2019 11:05 am CLINICAL HISTORY: Acute and chronic respiratory failure COMPARISON: August 20, 2019 TECHNIQUE: Computed axial tomography of the chest was obtained. Contrast was not requested. All CT scans are performed using dose optimization technique as appropriate and may include automated exposure control or mA/KV adjustment according to patient size. FINDINGS: The evaluation of mediastinum, joe and vessels is limited secondary to lack of IV contras t administration. Bilateral pulmonary nodules are unchanged. [id number] patchy opacities within the right middle lobe, lingula and lower lobes. The axillary mediastinal lymphadenopathy unchanged Small bilateral pleural effusions Small gallstones. Areas of sclerosis are present within the right humeral head, thoracic and lumbar spine. Pathologic c ompression fracture T4 unchanged IMPRESSION: No change in bilateral pulmonary nodules and axillary/mediastinal lymphadenopathy. No ch lalitha in sclerotic bony lesions. All of these likely represents metastatic disease [id number] bilateral patchy lung opacities may represent pneumonia
[2019-09-05] MEDS: METHYLPREDNISOLONE 40 MG INJ IV SCH ×2 (11:59→16:14)
[2019-09-05] MEDS ORDERED: ENOXAPARIN 40 MG/0.4 ML SQ ONE (12:05)
[2019-09-05] MEDS ORDERED: NACHLORIDE 0.45% 1,000 ML IV ONE (12:05)
[2019-09-05] MEDS ORDERED: FAMOTIDINE 20 MG TAB ONE (12:05)
[2019-09-05] MEDS ORDERED: predniSONE 20 MG TAB ONE (12:05)
[2019-09-05] MEDS: FUROSEMIDE 20 MG/ 2ML VIAL IV SCH ×2 (12:08→16:14)
--- NOTE | 2019-09-05 12:09 | P.CNS ---
Date of Consult: 09/05/19 Primary Care Provider: Dr. Erickson; Pulmonary-Dr. Linda; Rheum-Dr. Mcmahon; Onc- Dr. Subramanian Chief Complaint: Shortness of breath History of Present Illness: Patient is 59 years of age was recently discharged from the hospital admitted yet again she has been has progressive dyspnea since July and also hemoptysis former smoker or CT scan is very abnormal multiple reticular nodular disease with mediastinal adenopathy possible metastatic disease has some right- sided pleural effusion denies any fever chills no evidence of hemoptysis no relief with inhalers denies any chest pain patient is on Plavix Allergies No Known Allergies Allergy (Verified 01/30/19 04:56) Home Medications: Anastrozole 1 mg PO DAILY 08/20/19 Atorvastatin Calcium [Lipitor] 40 mg PO BEDTIME 08/20/19 Clopidogrel Bisulfate [Plavix*] 75 mg PO DAILY 08/20/19 Corticotropin [Acthar] 80 units SQ SEECOM 08/20/19 Duloxetine HCl [Cymbalta] 60 mg PO DAILY 08/20/19 Gabapentin 1 tab PO BEDTIME 08/20/19 Hydralazine [Apresoline*] 25 mg PO TIDP PRN 08/20/19 Hydrocodone/Acetaminophen [Hydrocodone-Acetamin 7.5-325] 1 tab PO QIDP PRN 08/20 Levothyroxine [Synthroid*] 1 tab PO [id number] 08/20/19 Zolpidem Tartrate [Ambien*] 10 mg PO BEDTIME 08/20/19 carvediloL [Coreg*] 6.25 mg PO BID 08/20/19 hydroCHLOROthiazide [Hydrochlorothiazide] 25 g PO DAILY 08/20/19 lisinopriL [Lisinopril] 20 mg PO BID 08/20/19 predniSONE [Prednisone] 20 mg PO DAILY 08/20/19 levoFLOXacin [Levaquin*] 500 mg PO DAILY #7 tab 08/21/19 - Past Medical/Surgical History Diabetic: No -: Lupus, on disease modifying medication -: History of CVA -: History of breast cancer with bilateral mastectomy -: Hyperlipidemia -: Hypothyroidism -: Chronic pain -: History of vaginal cancer -: Anemia likely of chronic disease -: Bilateral breast mastectomy with lymph node removal -: Vaginal surgery due to cancer Psychosocial/ Personal History: Patient is - Family History Father Medical History: Cancer Brother Medical History: Cancer Mother Medical History: Stroke, Cancer - Social History Alcohol use: No CD- Drugs: No Caffeine use: Yes Place of Residence: Home Review of Systems 10-point ROS is otherwise unremarkable General: Weakness Respiratory: Cough, Shortness of Breath, Hemoptysis Physical Examination Temp Pulse Resp BP Pulse Ox 98.9 F 100 H 25 H 158/82 H 100 09/05/19 11:02 09/05/19 11:02 09/05/19 11:02 09/05/19 11:02 09/05/19 11:02 General: Alert, Oriented x3, Moderate distress Respiratory: Clear to auscultation bilaterally, Diminished Cardiovascular: No edema, Regular rate/rhythm, Normal S1 S2 Gastrointestinal: Normal bowel sounds, Soft and benign Musculoskeletal: No clubbing, No swelling Integumentary: No rashes Laboratory Data (last 24 hrs) 09/05/19 06:37: PT Cancelled, INR Cancelled 09/05/19 06:37: WBC 8.9, Hgb 9.6 L, Hct 31.9 L, Plt Count 308 09/05/19 06:37: Sodium 142, Potassium 4.7, BUN 22 H, Creatinine 1.04, Glucose 173 H, Magnesium 1.9, Total Bilirubin 0.4, AST 25, ALT 19, Alkaline Phosphatase 122 H 09/05/19 06:37: PT 11.7, INR 0.99, APTT 22.9 L 09/05/19 06:37: WBC Cancelled, Hgb Cancelled, Hct Cancelled, Plt Count Cancelled 09/05/19 06:37: Sodium Cancelled, Potassium Cancelled, BUN Cancelled, Creatinine Cancelled, Glucose Cancelled, Total Bilirubin Cancelled, AST Cancelled, ALT Cancelled, Alkaline Phosphatase Cancelled, Amylase Cancelled, Lipase Cancelled - Problems (1) Abnormal chest x-ray Current Visit: Yes Status: Acute Plan: Patient is 59 years of age admitted with progressive dyspnea she has significant interstitial disease with nodule in addition to mediastinal and axillary adenopathy possible mets to the bone former smoker has had hemoptysis since july patient is also taking Plavix mildly anemic no new changes compared to a recent CT scan she has significant disease in the right lower lobe start patient on IV steroids bronchodilators continue with antibiotics until cultures are available and plan for bronchoscopy on Monday to stop the Plavix for now Dc IV fluids trial of some Lasix
[2019-09-05] MEDS ORDERED: FUROSEMIDE 40 MG/4 ML VIAL ONE (12:26)
[2019-09-05] MEDS ORDERED: METHYLPREDNISOLONE 40 MG INJ ONE (12:26)
[2019-09-05 13:13] LABS: Troponin I 0.47 ng/mL (0.0-0.045)
--- NOTE | 2019-09-05 13:17 | EKG ---
Test Date: 2019-09-05 Test Time: 06:33:12 Transportation Security Screener: DIMA MEASUREMENT RESULTS: Intervals: Rate: 130 SC: 112 QRSD: 110 QT: 320 QTc: 470 [place]: P: 52 SC: 112 QRS: 70 T: 11 INTERPRETIVE STATEMENTS: Sinus tachycardia Possible Left atrial enlargement Right bundle branch block Abnormal ECG Compared to ECG 08/20/2019 08:28:01 No significant changes Electronically Signed On 09-05-19 13:16:14 POLYGRAPH TECHNICIAN by Kamran Chung
[2019-09-05 13:22] LABS: Arterial Blood Carboxyhemoglob 1.4 % (0-1.5); Blood Gas Oxyhemoglobin 93.7 % (94-97); Blood O2 Saturation 95.8 % (92-98.5)
--- NOTE | 2019-09-05 13:26 | P.INFCA ---
Sepsis Focused Assessment - Focused Assessment Complete? Sepsis Focused Assessment Completed?: Yes - Sepsis Screen Result Severe Sepsis: Negative Septic Shock: Negative - Evaluation Current stage of sepsis: Ruled out Reason for ruling out sepsis: no sepsis, responded to steroids and meds - Vital Signs Reviewed: Yes Temperature: 98.3 F Heart rate: 90 Blood Pressure: 174/95 Respiratory Rate: 21 O2 Sat by Pulse Oximetry: 98 - Examination Date exam was performed: 09/05/19 Time exam was performed: 13:25 Heart: Regular rate/rhythm Lungs: Wheezes Peripheral pulses: 3+ Normal Peripheral pulse location: Radial Capillary refill: >2 Seconds Skin examination: Normal turgor
[2019-09-05] MEDS: ARFORMOTEROL TARTRATE 15 MCG/2 ML VIAL.NEB NEB SCH (20:10)
[2019-09-05] MEDS: carvediloL 6.25 MG TAB PO SCH (20:20)
[2019-09-05] MEDS: lisinopriL 20 MG TAB PO SCH (20:20)
[2019-09-05] MEDS ORDERED: CEFEPIME/SWI 1gm 10 ML IV SCH (21:00)
[2019-09-05 21:41] LABS: CKMB Creatine Kinase MB 2.5 ng/mL (0.3-3.6); Troponin I 0.2 ng/mL (0.0-0.045)
[2019-09-05] MEDS ORDERED: ZOLPIDEM TARTRATE 10 MG TABLET PO PRN (22:39)
[2019-09-06] MEDS: METHYLPREDNISOLONE 40 MG INJ IV SCH ×2 (00:21→09:07)
[2019-09-06 05:32] LABS: Absolute Lymphocytes (CBC) 0.6 K/uL (0.7-4.9); Basophils % 0.1 % (0-1.3); Hematocrit 26.9 % (36.0-45.0); Lymphocytes % 6.5 % (15.3-44.8); MPV 8.3 fL (7.6-11.3); RBC Red Blood Cell Count 3.16 M/uL (3.86-4.86)
[2019-09-06 05:42] LABS: Magnesium 2.1 mg/dL (1.8-2.4); Potassium 3.9 mmol/L (3.5-5.1)
[2019-09-06] MEDS ORDERED: POTASSIUM CL SA 10 MEQ TAB PO ONE (05:53)
[2019-09-06] MEDS ORDERED: LEVOTHYROXINE SOD 0.1 MG TAB PO SCH (06:00)
[2019-09-06] MEDS ORDERED: VANCOMYCIN 1.25 GM in NA CHLORIDE 0.9% 250 ML IVPB SCH (06:00)
[2019-09-06] MEDS ORDERED: levoFLOXacin 750 MG TAB PO SCH ×2 (09:00→21:00)
[2019-09-06] MEDS ORDERED: ASPIRIN EC 81 MG TAB PO SCH (09:00)
[2019-09-06] MEDS: carvediloL 6.25 MG TAB PO SCH (09:06)
[2019-09-06] MEDS: GUAIFENESIN 600 MG SA TAB PO SCH (09:06)
[2019-09-06] MEDS: lisinopriL 20 MG TAB PO SCH (09:06)
[2019-09-06] MEDS: FAMOTIDINE 20 MG TAB PO SCH (09:06)
[2019-09-06] MEDS: FUROSEMIDE 20 MG/ 2ML VIAL IV SCH (09:07)
[2019-09-06] MEDS: ENOXAPARIN 40 MG/0.4 ML SQ SCH (09:07)
[2019-09-06] MEDS: ARFORMOTEROL TARTRATE 15 MCG/2 ML VIAL.NEB NEB SCH (09:20)
[2019-09-06 09:30] LABS: Anisocytosis 2+; Blood Morphology Comment NOTED (NOT SEEN); Platelet Estimate ADEQ; Poikilocytosis 1+; Polychromasia 1+; Urine White Blood Cell Casts OK
--- NOTE | 2019-09-06 09:48 | P.PN ---
Subjective Date of Service: 09/06/19 Primary Care Provider: Dr. Erickson; Pulmonary-Dr. Linda; Rheum-Dr. Mcmahon; Onc- Dr. Subramanian Chief Complaint: Shortness of breath Subjective: Improving, Doing well Physical Examination - Vital Signs Temperature: 97.6 F Blood Pressure: 150/80 Pulse: 72 Respirations: 17 Pulse Ox (%): 97 - Physical Exam General: Alert, In no apparent distress, Oriented x3, Cooperative HEENT: Atraumatic Neck: Supple Respiratory: Clear to auscultation bilaterally, Normal air movement Cardiovascular: Normal pulses, Regular rate/rhythm Gastrointestinal: Normal bowel sounds, Soft and benign, Non-distended Musculoskeletal: No erythema, No tenderness, No warmth Integumentary: No erythema, No warmth, No cyanosis Neurological: Normal speech, Normal strength at 5/5 x4 extr, Normal tone, Normal affect - Studies Medications List Reviewed: Yes Assessment & Plan Discharge Plan: Home Plan to discharge in: 24 Hours Physician Review Additional Text: Impression: Acute on chronic respiratory failure suspect bilateral pneumonia complicated with recent hospitalization showing bilateral pulmonary nodules suspicious for metastatic disease Lupus on disease modifying medication and chronic steroids Acute renal injury likely dehydration Elevated troponin likely ischemic demand Hypothyroidism Anemia likely of chronic disease History CVA History of breast cancer with prior bilateral mastectomy and vaginal cancer Plan: Acute on chronic respiratory failure suspect bilateral pneumonia complicated with recent hospitalization showing bilateral pulmonary nodules suspicious for metastatic disease: No sepsis identified. Patient still satting 88% on room air. Will need to wean off oxygen. Case discussed with pulmonology. Pulmonary nodules suspicious for metastatic disease. Patient will require bronchoscopy. Will need to hold Plavix for at least 5-7 days. IV antibiotics adjusted yesterday. Will transition to oral steroids today if okay with pulmonology. Need to obtain home medications including her infusions for lupus. Anticipate discharge likely tomorrow. Lupus on disease modifying medication and chronic steroids: Will continue with steroid medication. Will hold her disease modifying medication. Will need to clarify what she is taking at home. Patient seen by Rheumatology Acute renal injury likely dehydration: IV fluids discontinued yesterday. Overall stable. Elevated troponin likely ischemic demand: Recent echocardiogram shows normal ejection fraction. This is likely ischemic demand. Will monitor cardiac enzymes. Cardiology consulted for further recommendation. Will continue with aspirin and DVT prophylaxis. If blood pressure remains elevated may need to consider blood pressure medication. Hypothyroidism: Restart home medication. Anemia likely of chronic disease: Will monitor this closely. Patient on recent hospitalization require transfusion. History CVA: Continue aspirin and DVT prophylaxis. History of breast cancer with prior bilateral mastectomy and vaginal cancer: Patient is seen by oncology. Time Spent Managing Pts Care (In Minutes): 55
--- NOTE | 2019-09-06 10:30 | P.PN ---
Subjective Date of Service: 09/06/19 Primary Care Provider: Dr. Erickson; Pulmonary-Dr. Linda; Rheum-Dr. Mcmahon; Onc- Dr. Subramanian Chief Complaint: Interstitial lung disease No change patient is apprehensive still short of breath denies any fever chills has chronic hemoptysis no evidence of sepsis Review of Systems General: Weakness Respiratory: Cough, Shortness of Breath, Hemoptysis Physical Examination - Vital Signs Temperature: 97.6 F Blood Pressure: 150/80 Pulse: 72 Respirations: 17 Pulse Ox (%): 97 - Physical Exam General: Alert, Oriented x3, Mild distress Respiratory: Crackles/rales, Expiratory wheezes Cardiovascular: No edema, Regular rate/rhythm, Normal S1 S2 - Studies Medications List Reviewed: Yes Assessment & Plan - Problems (Diagnosis) (1) Pulmonary fibrosis Current Visit: Yes Status: Acute Plan: Patient is 59 years of age admitted with interstitial lung disease and reticular nodular disease pulmonary fibrosis no change from CT scan appearance reticular nodular disease is suggestive of lymphangitic spread of discuss with the patient she will need an outpatient bronchoscopy will need to hold the Plavix for 7 days in addition patient also has chronic hemoptysis no evidence of sepsis and be discharged home on prednisone 20 mg twice a day she does take 20 mg daily no antibiotics needed cultures are negative blood pressure mildly elevated patient need to stay off Plavix for at least 7 days will schedule for an outpatient bronchoscopy on when is day discuss with the patient the risks and benefit include bleeding infection and lung collapse there is no eosinophilia I doubt if this is the hypersensitivity reaction to cosyntropin subcutaneous that the patient is been prescribed for her lupus. Evaluate for home O2
--- NOTE | 2019-09-06 10:57 | P.DS ---
Admission Date: 09/05/19 Discharge Date: 09/06/19 Primary Care Provider: Dr. Erickson; Pulmonary-Dr. Linda; Rheum-Dr. Mcmahon; Onc- Dr. Subramanian Disposition: ROUTINE DISCHARGE Discharge Condition: GOOD Reason for Admission: Interstitial lung disease Consultations: Pulmonary-Dr. Linda Cardiology-Dr. Chung Procedures: CT Chest: FINDINGS: The evaluation of mediastinum, joe and vessels is limited secondary to lack of IV contrast administration. Bilateral pulmonary nodules are unchanged. [id number] patchy opacities within the right middle lobe, lingula and lower lobes. The axillary mediastinal lymphadenopathy unchanged Small bilateral pleural effusions Small gallstones. Areas of sclerosis are present within the right humeral head, thoracic and lumbar spine. Pathologic compression fracture T4 unchanged IMPRESSION: No change in bilateral pulmonary nodules and axillary/mediastinal lymphadenopathy. No change in sclerotic bony lesions. All of these likely represents metastatic disease [id number] bilateral patchy lung opacities may represent pneumonia ECHO: Medical Problem List: Acute on chronic respiratory failure likely related to exacerbation of interstitial lung disease with CT findings of bilateral pulmonary nodules suspicious for metastatic disease Lupus on disease modifying medication and chronic steroids Acute renal injury likely dehydration Elevated troponin likely ischemic demand Hypothyroidism Anemia likely of chronic disease History CVA History of breast cancer with prior bilateral mastectomy and vaginal cancer Hyperlipidemia Hypertension Chronic pain Brief History of Present Illness: 59-year-old female with history of lupus, hypothyroidism, anemia, chronic steroid use. Patient recently hospitalized for shortness of breath. At the time CT scan showed multiple pulmonary nodules that was suspicious for metastatic disease patient was treated for pneumonia. She was sent home on Levaquin. Since that time patient has done fairly well. She has noticed increasing shortness of breath over the past several days. Today she reported severe shortness of breath. Patient with tachypnea. She denies any fever, chills. She does report cough with congestion. Some sputum production noted with tinged blood. Patient has history of lupus and is on disease modifying medication. She recently started a new infusion this past . Since then she reports increasing shortness of breath. Patient is on chronic steroids. In the ER patient was evaluated. Patient was tachypneic and short of breath. Patient required BiPAP. Chest x-ray shows bilateral opacities suspicious for pneumonia. White count 8.9, hemoglobin 9.6. Lactic acid elevated at 7.6. Pro calcitonin 2.27. Troponin 0.12 with a BNP of 7500. Sodium 142, potassium 4.2, BUN of 22, creatinine 1.04 with a GFR 54. Patient remains on BiPAP. Sepsis protocol initiated. Patient to get vancomycin and cefepime. Patient also given Solu-Medrol. I was asked to admit the patient for further evaluation. When I saw the patient ER, she was on BiPAP. Patient still slightly tachypneic. at bedside. On prior hospitalization patient required transfusion of blood. She was to follow up with pulmonology for outpatient bronchoscopy. Patient reports history of breast cancer with double mastectomy in 2018. Patient sees Rheumatology and Oncology at [facility]. Patient does not require home oxygen. Patient will be admitted to ICU. Hospital Course: Patient presented with shortness of breath secondary to acute on chronic respiratory failure likely related to exacerbation of interstitial lung disease Patient required BiPAP but improved quickly with steroid treatment. Patient seen and evaluated by pulmonology. Patient had CT scan showing bilateral pulmonary nodules suspicious for metastatic disease. Patient with underlying history of breast cancer. Pulmonology suspects interstitial lung disease versus lymphangitic spread of breast cancer. Pulmonology does not suspect pneumonia. No need for antibiotics. Pulmonology recommends bronchoscopy. This will be arranged as an outpatient. At discharge will arrange for home oxygen to maintain sats above 93%. At discharge she will continue with prednisone 20 mg 1 pill twice daily for 5 days then continue with her maintenance dose of prednisone 20 mg daily. Pulmonology will make arrangements for bronchoscopy for next Monday. She is to hold her Plavix in preparation for this. Patient will be provided Pro air 2 puffs 3 times a day as needed for shortness of breath. Patient had elevated troponin. Recent echocardiogram unremarkable. Repeat echocardiogram performed. Case discussed with cardiology. Elevated troponin likely related to cardiac demand. No intervention required at this time. Patient with hypertension. At discharge she may continue with her medication of carvedilol 12.5 mg 1 pill twice daily, lisinopril 20 mg 1 pill twice daily, hydrochlorothiazide as directed, and hydralazine 25 mg 3 times a day if systolic blood pressure greater than 160. Further adjustment can be done by her PCP. Patient with hypothyroidism. At discharge she will continue with levothyroxine 100 mcg daily. Patient with anemia likely of chronic disease. Recommend multi vitamin with iron daily. Recommend to recheck CBC in 1-2 weeks to monitor her progress. Patient with history of CVA. Patient previously on Plavix. Will hold Plavix at this time in preparation for bronchoscopy. Patient may use aspirin 81 mg daily. Patient with history of breast cancer with bilateral mastectomy and history of vaginal cancer. Continue with above recommendations. Patient with chronic pain. At discharge she will continue with Cymbalta 60 mg daily and gabapentin 600 mg at bedtime. Further adjustment can be done by her PCP. Patient with hyperlipidemia. At discharge she will continue with Lipitor 40 mg daily. Patient with history of lupus. Patient takes 2 medications that are infusions. Patient plans to continue with 1 but will discontinue the other(Acthar) as she has noted potential side effects since starting it in June. Will recommend patient to follow up with her helpdesk administrator to further address. Patient on chronic steroids. She will continue with above recommendations on steroids. Vital Signs/Physical Exam: Temp Pulse Resp BP Pulse Ox 97.6 F 72 17 150/80 H 97 09/06/19 10:32 09/06/19 10:32 09/06/19 10:32 09/06/19 10:32 09/06/19 10:32 General: Alert, In no apparent distress, Oriented x3, Cooperative HEENT: Atraumatic Neck: Supple Respiratory: Clear to auscultation bilaterally, Normal air movement Cardiovascular: Normal pulses, Regular rate/rhythm Gastrointestinal: Normal bowel sounds, Soft and benign, Non-distended, No masses , No rebound, No guarding Musculoskeletal: No erythema, No tenderness, No warmth Integumentary: No tenderness/swelling, No erythema, No warmth, No cyanosis Neurological: Normal speech, Normal strength at 5/5 x4 extr, Normal tone, Normal affect Laboratory Data at Discharge: WBC 9.8 K/uL (4.3-10.9) 09/06/19 05:16 Hgb 8.3 g/dL (12.0-15.0) L 09/06/19 05:16 Hct 26.9 % (36.0-45.0) L D 09/06/19 05:16 Plt Count 312 K/uL (152-406) 09/06/19 05:16 PT 11.7 SECONDS (9.5-12.5) 09/05/19 06:37 INR 0.99 09/05/19 06:37 APTT 22.9 SECONDS (24.3-36.9) L 09/05/19 06:37 Sodium 144 mmol/L (136-145) 09/06/19 05:16 Potassium 3.9 mmol/L (3.5-5.1) 09/06/19 05:16 BUN 33 mg/dL (7-18) H 09/06/19 05:16 Creatinine 1.05 mg/dL (0.55-1.3) 09/06/19 05:16 Glucose 143 mg/dL (74-106) H 09/06/19 05:16 Magnesium 2.1 mg/dL (1.8-2.4) 09/06/19 05:16 Total Bilirubin 0.4 mg/dL (0.2-1.0) 09/05/19 06:37 AST 25 U/L (15-37) 09/05/19 06:37 ALT 19 U/L (12-78) 09/05/19 06:37 Alkaline Phosphatase 122 U/L (45-117) H 09/05/19 06:37 Troponin I 0.20 ng/mL (0.0-0.045) H 09/05/19 21:11 Amylase Cancelled 09/05/19 06:37 Lipase Cancelled 09/05/19 06:37 Home Medications: Anastrozole 1 mg PO DAILY 08/20/19 Atorvastatin Calcium [Lipitor] 40 mg PO BEDTIME 08/20/19 Clopidogrel Bisulfate [Plavix*] 75 mg PO DAILY 08/20/19 Duloxetine HCl [Cymbalta] 60 mg PO DAILY 08/20/19 Gabapentin 300 mg PO BEDTIME 08/20/19 Hydralazine [Apresoline*] 25 mg PO TIDP PRN 08/20/19 Hydrocodone/Acetaminophen [Hydrocodone-Acetamin 7.5-325] 1 tab PO QIDP PRN 08/20 Levothyroxine [Synthroid*] 1 tab PO [id number] 08/20/19 Zolpidem Tartrate [Ambien*] 10 mg PO BEDTIME 08/20/19 carvediloL [Coreg*] 12.5 mg PO BID 08/20/19 hydroCHLOROthiazide [Hydrochlorothiazide] 25 mg PO SEECOM 08/20/19 lisinopriL [Lisinopril] 20 mg PO BID 08/20/19 predniSONE [Prednisone] 10 mg PO DAILY 08/20/19 Albuterol Sulfate [Proair Hfa] 2 puff IH TID PRN #1 hfa.aer.ad 09/06/19 Aspirin [Aspirin EC 81 MG] 81 mg PO DAILY #90 tablet. 09/06/19 Multivitamin with Iron [Daily Vitamin + Iron] 1 each PO DAILY #90 tablet predniSONE [Prednisone*] 20 mg PO SEECOM #15 tab 09/06/19 New Medications: Albuterol Sulfate [Proair Hfa] 2 puff IH TID PRN #1 hfa.aer.ad PRN Reason: Shortness Of Breath Aspirin [Aspirin EC 81 MG] 81 mg PO DAILY #90 tablet. Multivitamin with Iron [Daily Vitamin + Iron] 1 each PO DAILY #90 tablet predniSONE [Prednisone*] 20 mg PO SEECOM #15 tab Patient Discharge Instructions: 1. Patient will follow up with a PCP in 1 week to follow up this hospitalization. 2. Patient presented with shortness of breath secondary to acute on chronic respiratory failure likely related to exacerbation of interstitial lung disease. Patient required BiPAP but improved quickly with steroid treatment. Patient seen and evaluated by pulmonology. Patient had CT scan showing bilateral pulmonary nodules suspicious for metastatic disease. Patient with underlying history of breast cancer. Pulmonology suspects interstitial lung disease versus lymphangitic spread of breast cancer. Pulmonology does not suspect pneumonia. No need for antibiotics. Pulmonology recommends bronchoscopy. This will be arranged as an outpatient. At discharge will arrange for home oxygen to maintain sats above 93 %. At discharge she will continue with prednisone 20 mg 1 pill twice daily for 5 days then continue with her maintenance dose of prednisone 20 mg daily. Pulmonology will make arrangements for bronchoscopy for next Monday. She is to hold her Plavix in preparation for this. Patient will be provided Pro air 2 puffs 3 times a day as needed for shortness of breath. 3. Patient had elevated troponin. Recent echocardiogram unremarkable. Repeat echocardiogram performed. Case discussed with cardiology. Elevated troponin likely related to cardiac demand. No intervention required at this time. 4. Patient with hypertension. At discharge she may continue with her medication of carvedilol 12.5 mg 1 pill twice daily, lisinopril 20 mg 1 pill twice daily, hydrochlorothiazide as directed, and hydralazine 25 mg 3 times a day if systolic blood pressure greater than 160. Further adjustment can be done by her PCP. 5. Patient with hypothyroidism. At discharge she will continue with levothyroxine 100 mcg daily. 6. Patient with anemia likely of chronic disease. Recommend multi vitamin with iron daily. Recommend to recheck CBC in 1 -2 weeks to monitor her progress. 7. Patient with history of CVA. Patient previously on Plavix. Will hold Plavix at this time in preparation for bronchoscopy. Patient may use aspirin 81 mg daily. 8. Patient with history of breast cancer with bilateral mastectomy and history of vaginal cancer. Continue with above recommendations. 9. Patient with chronic pain. At discharge she will continue with Cymbalta 60 mg daily and gabapentin 600 mg at bedtime. Further adjustment can be done by her PCP. 10. Patient with hyperlipidemia. At discharge she will continue with Lipitor 40 mg daily. 11. Patient with history of lupus on chronic steroids. Patient takes 2 medications that are infusions. Patient plans to continue with 1 but will discontinue the other(Acthar) as she has noted potential side effects since starting it in June. Will recommend patient to follow up with her helpdesk administrator to further address. Patient on chronic steroids. She will continue with above recommendations on steroids. Diet: AHA Activity: Ad timbo Time spent managing pt's care (in minutes): 55
[2019-09-06 12:01] LABS: Arterial Blood Carboxyhemoglob 1.6 % (0-1.5); Blood Gas Oxyhemoglobin 90.8 % (94-97); Blood O2 Saturation 93.1 % (92-98.5)
[2019-09-06 12:26] VITALS: TEMP 97.5
[2019-09-06] MEDS ORDERED: carvediloL 3.125 MG TAB PO ONE (16:34)
[2019-09-06 16:48] VITALS: BP 168/86
[2019-09-06 17:37] VITALS: O2SAT 99
[2019-09-06] MEDS ORDERED: predniSONE 20 MG TAB PO SCH (21:00)
--- NOTE | 2019-09-06 21:05 | CON ---
Reason For Consultation: Admitted on 09/05/[address] Duarte' service because of respiratory failur e. I saw the patient because of respiratory failure and elevated troponin. History Of Present Illness: Patient is a 59-year-old white woman has a rather complicated past medic al history. She has a history of anemia. She has a history of breast cancer in the past, CVA, hyper tension, dyslipidemia, lupus, and hypothyroidism. She sees a bouffant curtain machine tender in [place] and they have placed her on 2 drugs for her lupus, one of them is a new drug. She seems to have had more difficul ties since she started these medication according to her. She came in with shortness of breath. Monique st x-ray showed pneumonia versus congestive heart failure. She has a chronic right bundle-branch blo ck. Her chest CT shows lymphadenopathy in the hilar region that may be consistent with metastatic di sease from her breast cancer. Echocardiogram that was done before I saw her was perfectly normal. S he denied any chest pain. Her troponin was slightly elevated. Has had dyspnea on exertion. No PND, orthopnea, or pedal edema. Denied any palpitation or syncope. Allergies: NONE. Review of Systems: Negative. Social History: Negative. Family History: Noncontributory. Medications: At home include Lasix, Plavix, Cymbalta, Lipitor, Neurontin, hydralazine, Synthroid, Co reg, hydrochlorothiazide, lisinopril, and prednisone. Physical Examination: Vital Signs: Her blood pressure is 174/95. She was in sinus rhythm. HEENT: Negative. Neck: Supple without any bruit. Chest: Revealed some rales at both bases. Cardiac: Revealed a regular rhythm and rate. No murmurs, gallops, or rubs. Abdomen: Benign. Extremities: Revealed no clubbing, cyanosis. She had trace edema. Diagnostic Data: Glucose was 146. Troponin was 0.47. Hemoglobin of 9.1. Lactic acid was 7.6. BNP was 7534. EKG was nonspecific. Chest x-ray and CT scan were as stated earlier. Echocardiogram was normal. Impression And Plan: 1.Elevated troponin secondary to respiratory failure. Echocardiogram is normal. No wall motion abn ormalities. No effusion. No chest pain reported. I do not recommend any further cardiac workup at this point. I agree with the use of steroids, antibiotics, Lasix. Continue her home medication. 2.Abnormal chest x-ray and CT scan and I will leave that up to Dr. Linda and Dr. Duarte regarding further workup for possible metastatic disease. 3.Lupus that is severe, on IV immunotherapy by her bouffant curtain machine tender. 4.Anemia. 5.Dyslipidemia. 6.History of cerebrovascular accident. 7.Hypertension, poorly controlled. 8.Hypothyroidism. Certainly, increasing the dose of lisinopril or Coreg or hydralazine may be reaso nable as far as her blood pressure is concerned. I will sign off her case. She can go home whenever it is okay with Dr. Duarte. RUBY/FELISHA Voice ID: [id number] Report ID: [id number]
== END 2019-09-06 17:21 | disposition home or self-care (01) | DRG 189 ==
LOC: ER 06:22 → ERHOLD 08:45 → 4TH 14:24
PROVIDERS: ADMIT Family Medicine; ATTEND Family Medicine
PROC: 5A09457 Assistance with Respiratory Ventilation, 24-96 Consecutive Hours, Continuous Positive Airway Pressure (ICD-10-PCS; principal; 2019-09-05)
DX: J96.20 Acute and chronic respiratory failure, unspecified whether with hypoxia or hypercapnia (principal); J84.9 Interstitial pulmonary disease, unspecified; N17.9 Acute kidney failure, unspecified; I24.8 Other forms of acute ischemic heart disease; R04.2 Hemoptysis; C78.02 Secondary malignant neoplasm of left lung; C78.01 Secondary malignant neoplasm of right lung; J84.10 Pulmonary fibrosis, unspecified; E86.0 Dehydration; M32.9 Systemic lupus erythematosus, unspecified; I10 Essential (primary) hypertension; E78.5 Hyperlipidemia, unspecified; D63.8 Anemia in other chronic diseases classified elsewhere; E03.9 Hypothyroidism, unspecified; R91.8 Other nonspecific abnormal finding of lung field; Z86.73 Personal history of transient ischemic attack (TIA), and cerebral infarction without residual deficits; Z85.3 Personal history of malignant neoplasm of breast; Z85.40 Personal history of malignant neoplasm of unspecified female genital organ; Z90.13 Acquired absence of bilateral breasts and nipples; Z79.52 Long term (current) use of systemic steroids
CPT/HCPCS: 36415; 51702; 71045; 71250; 80048; 80076; 81003; 81015; 82550; 82553; 82805; 82947; 83605; 83735; 83880; 84145; 84484; 85025; 85610; 85730; 87040; 87070; 87081; 87205; 87804; 93005; 94640; 94660; 94760; 96361; 96365; 96367; 96375; 99285; J0692; J0696; J1650; J1940; J2543; J2920; J2930; J3370; J3475; J7030; J7512; J7605

== ENCOUNTER 2019-09-12 06:53 | Inpatient (IN) | payer BC ==
--- OUTSIDE RECORDS SUMMARY | 2019-09-12 06:54 | XMS REPORT ---
:1960 [facility] Address [address] [place] [address] Dr. Michele [address] [place] [id number] Care Team Providers Name Role Phone Unavailable Unavailable Unavailable Problems This patient has no known problems. Allergies, Adverse Reactions, Alerts This patient has no known allergies or adverse reactions. Medications This patient has no known medications.
--- OUTSIDE RECORDS SUMMARY | 2019-09-12 06:55 | XMS REPORT | Summary of Care ---
:1960 Author Organization [facility] Address [address] [place] [address] Care Team Providers Name Role Phone Pcp, Patient Does Not Have A Primary Care Provider Reason for Visit Reason Comments GLAUCOMA SUSPECT Encounter Details Date Type Department Care Team Description 02/20/2019 Office Visit [facility] Partha Cisneros, Glaucoma suspect of both eyes (Primary Dx); [place] [place] Pigment dispersion syndrome of both eyes; [facility], [address] [place] [address] Retinoschisis, bilateral; [address] [place] [address] Senile nuclear sclerosis, bilateral; [place], [place] [phone] Other systemic lupus erythematosus with other organ involvement; [phone] Choroidal nevus, right eye [phone] Allergies No Known Allergiesdocumented as of this encounter (statuses as of 02/20/2019) Medications Medication Sig Dispensed Refills Start Date End Date Status hydroxychloroquine Take 200 mg by 0 Active (PLAQUENIL) 200 mg tablet mouth 2 (two) times daily. clopidogrel (PLAVIX) 75 mg Take 75 mg by 0 Active tablet mouth daily. zolpidem (AMBIEN) 10 mg Take 10 mg by 0 Active tablet mouth at bedtime as needed for Insomnia. DULOXETINE HCL (CYMBALTA Take 1 Tab by 0 Active ORAL) mouth daily. atorvastatin (LIPITOR) 80 Take 80 mg by 0 Active mg tablet mouth at bedtime. hydrALAZINE 25 mg tablet 25 mg. 0 01/31/2019 Active predniSONE 10 mg tablet 20 mg. 0 01/14/2019 Active lisinopril 20 mg tablet 20 mg. 0 01/31/2019 Active carvedilol 6.25 mg tablet 6.25 mg. 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 documented as of this encounter Last Filed Vital Signs Not on filedocumented in this encounter Patient Instructions Patient InstructionsPartha Cisneros MD - 02/20/2019 2:45 PM CDTPt to call the office and/or check in the ED if decreased vision, pain or other vision related symptoms arise. Otherwise pt to return in 4 weeks documented in this encounter Progress Notes Partha Cisneros MD - 02/20/2019 2:45 PM CDT Cc: GLAUCOMA SUSPECT Bri Alvarenga is a 58 year old female. Presents for glaucoma suspect evaluation as a referral from Dr. Tyler Phelps. Patient reports no acute change in symptoms since last evaluation. Denies being on any topical drops. PMH pertinent for Lupus with use of oral prednisone for past year with recent increase in dose 4 months ago due to concern for flare with lupus headaches( increased to 30mg x3 months andrecently titrated down to 20mg 1 month ago); reports she was previously on 10mg qd for the past year. Concerned about IOP and glaucoma both eyes. Brother had it. States vision is foggy at times for pastyear with right eye worse. It just comes and goes. Associated with some foreign body sensation at times and dull ache HPI Past Medical History: Diagnosis Date Hyperlipidemia Lupus 1992 Stroke 2013 Review of Systems Reviewed ROS done by the traffic survey technician during this encounter and there are no changes. Assessment ICD-10-CM ICD-9-CM 1. Glaucoma suspect of both eyes H40.003 365.00 2. Senile nuclear sclerosis, bilateral H25.13 366.16 Plan Bri was seen today for glaucoma suspect. 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 Discussed options to lower IOP both eyes. Options include start with glaucoma medication or SLT both eyes. Pt wants to think about it and will return for another IOP check. - OU SPECTRALIS OCT OPTIC NERVE, BOTH EYES - OU GONIOSCOPY, BOTH EYES - OU CORNEAL PACHYMETRY, BOTH EYES -IOP upper limit of normal OU, thicker pachy OCT is WNL both eyes. [facility] confirms PDS with healthy rim and RNFL both eyes. -Family Hx of glaucoma in Brother -PMH of lupus with chronic use of systemic steroids -OCT RNFL WNL OU Review in 4 weeks for IOP check both eyes Senile nuclear sclerosis, bilateral -NVS, Monitor Dry eye AT's After discussion with Dr. Melara on 02/20/2019, I examined this patient. I agree with resident's noteas written. Meggan osuna - 02/20/2019 2:45 PM CDTOCT/Disc-OU done Meggan Holcomb 02/20/2019 3:06 PM documented in this encounter Plan of Treatment Date Type Specialty Care Team Description 03/20/2019 Office Visit Ophthalmology Partha Cisneros MD [address] [place] [address] Health Maintenance Due Date Last Done Comments HEPATITIS C (HCV) SCREEN 1960 DTaP,Tdap,and Td Vaccines (1 - 1979 Tdap) PAP SMEAR 1981 MAMMOGRAM 2000 COLONOSCOPY 2010 Zoster Recombinant Vaccine 2010 (SHINGRIX) (1 of 2) LUNG CANCER SCREEN: Recommended 2015 for age 55-80 with 30 + pack year history INFLUENZA VACCINE 03/10/2019 PNEUMOCOCCAL 0-64 YEARS COMBINED Aged Out No longer eligible based on SERIES patient's age to complete this topic documented as of this encounter Procedures Procedure Name Priority Date/Time Associated Diagnosis Comments OU SPECTRALIS OCT Routine 02/20/2019 Glaucoma suspect of Results for this OPTIC NERVE, BOTH EYES both eyes procedure are in the results section. OU GONIOSCOPY, BOTH Routine 02/20/2019 Glaucoma suspect of Results for this EYES both eyes procedure are in the results section. OU CORNEAL PACHYMETRY, Routine 02/20/2019 Glaucoma suspect of Results for this BOTH EYES both eyes procedure are in the results section. documented in this encounter Results OU CORNEAL PACHYMETRY, BOTH EYES (02/20/2019) Impressions Performed At -[facility] (02/20/19) - Above Average thickness OD: .561,.562,.561 OS: 556,556,555 Glaucoma suspect, baseline OU GONIOSCOPY, BOTH EYES (02/20/2019) Impressions Performed At -[facility] (02/20/19) - Open angle OU OD: Blanquita grade: D30R 2+ PTM OS: Blanquita grade: D30R 2+ PTM OU SPECTRALIS OCT OPTIC NERVE, BOTH EYES (02/20/2019) Impressions Performed At OCT RNFL Hx: 02/20/19 OD:Global 91; WNL OS: Global 86; WNL Glaucoma suspect, BASELINE documented in this encounter Visit Diagnoses Diagnosis Glaucoma suspect of both eyes - Primary Preglaucoma, unspecified 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
--- OUTSIDE RECORDS SUMMARY | 2019-09-12 06:55 | XMS REPORT | Summary of Care ---
:1960 Author Organization [facility] Address [address] [place] [address] Care Team Providers Name Role Phone Pcp, Patient Does Not Have A Primary Care Provider Reason for Visit Reason Comments GLAUCOMA SUSPECT Encounter Details Date Type Department Care Team Description 02/20/2019 Office Visit [facility] Eye Partha Cisneros, Glaucoma suspect of both eyes (Primary Dx); [place] Pigment dispersion syndrome of both eyes; [facility], [address] [place] [address] Retinoschisis, bilateral; [address] [place] [address] Senile nuclear sclerosis, bilateral; [place], [place] [phone] Other systemic lupus erythematosus with other organ involvement; [id number] Choroidal nevus, right eye [phone] Allergies No Known Allergiesdocumented as of this [...] of Systems Reviewed ROS done by the loom technician during this encounter and there are [...] 03/20/2019 Office Visit Ophthalmology Partha Cisneros MD [address] [place] [address] Health Maintenance Due Date Last Done [...] Address Type / Group BCBS [facility] [id number] 2011-[place]anu [phone] [address] PPO/POS [place] - OUT OF t 7 [id number] [place] [address] (Work) documented as of this encounter
--- OUTSIDE RECORDS SUMMARY | 2019-09-12 06:55 | XMS REPORT | Summary of Care ---
:1960 Author Organization [facility] Address [address] [place] [address] Care Team Providers Name Role Phone Pcp, Patient Does Not Have A Primary Care Provider Reason for Visit Reason Comments GLAUCOMA SUSPECT Encounter Details Date Type Department Care Team Description 02/20/2019 Office Visit [facility] Eye Partha Cisneros, Glaucoma suspect of both eyes (Primary Dx); [place] Pigment dispersion syndrome of both eyes; [address] [facility], [address] [place] [address] Retinoschisis, bilateral; [address] [place] [address] Senile nuclear sclerosis, bilateral; [place], [place] [phone] Other systemic lupus erythematosus with other organ involvement; [phone] Choroidal nevus, right eye [phone] Allergies No Known Allergiesdocumented as of this [...] of Systems Reviewed ROS done by the civil drafting technician during this encounter and there are [...] 03/20/2019 Office Visit Ophthalmology Partha Cisneros MD [address] [place] [address] Health Maintenance Due Date Last Done [...] Dates Phone Address Type / Group BCBS [facility] [id number] 2011-Kanu [phone] [address] PPO/POS [place] - OUT OF t 7 [id number] [place] [address] (Work) documented as of this encounter
--- OUTSIDE RECORDS SUMMARY | 2019-09-12 06:55 | XMS REPORT | Summary of Care ---
:1960 Author Organization [facility] Address [address] [place] [address] Care Team Providers Name Role Phone Pcp, Patient Does Not Have A Primary Care Provider Encounter Details Date Type Department Care Team Description 02/20/2019 Orders Only [facility] Doctor Unassigned, No [address] [facility] [place] [address] [address] [place] [address] Allergies No Known Allergiesdocumented as of this [...] Signs Not on filedocumented in this encounter Plan of Treatment Date Type Specialty Care Team Description 03/20/2019 Office Visit Ophthalmology Partha Cisneros MD [address] [place] [address] Health Maintenance Due Date Last Done [...] Procedure Name Priority Date/Time Associated Diagnosis Comments OPHTHALMOLOGY DIAGNOSTIC Routine 02/20/2019 12:01 AM TEST CDT documented in this encounter Results Not on filedocumented in this encounter Insurance Payer Benefit Plan Subscriber ID Effective Dates Phone Address Type / Group BCBS OF BCBS [facility] [id number] 2011-Kanu [phone] [address] PPO/POS [place] - OUT OF t 7 [id number] [place] [address] documented as of this encounter
--- OUTSIDE RECORDS SUMMARY | 2019-09-12 06:55 | XMS REPORT | Summary of Care ---
:1960 Author Name Miya Styles M.A. Address Unavailable Unavailable , Care Team Providers Name Role Phone BARBARA SCANLON M.D. Unavailable Unavailable DAVIN CARRILLO, LAUREN CALLAHAN Unavailable Unavailable BARBARA SCANLON MD Unavailable Unavailable Unavailable Unavailable Unavailable Functional Status Name Dates Details Functional status health issues are not documented Status: Name Dates Details Cognitive status health issues are not documented Status: Problems Name Dates Details Seeing double (368.2, H53.2) Status: Active Embolic stroke (434.11, I63.9) Status: Active Axillary mass (782.2, R22.30) Status: Active Subclavian arterial stenosis (447.1, I77.1) Status: Active Lupus (systemic lupus erythematosus) (710.0, M32.9) Status: Active Visit for screening mammogram (V76.12, Z12.31) Status: Active 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, 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) Status: Active Hyperlipidemia (272.4, E78.5) Status: Active Insomnia (780.52, G47.00) Status: Active 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, 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, 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 Urinary frequency (788.41, R35.0) Status: Active Shortness of breath on exertion (786.05, R06.02) Status: Active Breast cancer screening (V76.10, Z12.39) Status: Active Acute pain of both shoulders (719.41, M25.511) Status: Active Generalized pain (780.96, R52) Status: Active Encounter for gynecological examination with Papanicolaou smear of cervix ( V72.31, Z01.419) Status: Active Lower extremity edema (782.3, R60.0) Status: Active Dysuria (788.1, R30.0) Status: Active Cervical cancer screening (V76.2, Z12.4) Status: Active Stroke syndrome Status: Active Medications Name Dates Details CellCept 500 MG Oral Tablet TAKE 6 TABLET DAILY Refills: 0 Start : 13-Apr-2015 Active amLODIPine Besylate 5 MG Oral Tablet Refills: 0 Start : 29-Apr-2019 Active Lisinopril 20 MG Oral Tablet Refills: 0 Start : 29-Apr-2019 Active 30 Tablet Pack Carvedilol 6.25 MG Oral Tablet Refills: 0 Start : 29-Apr-2019 Active hydroCHLOROthiazide 25 MG Oral Tablet Refills: 0 Start : 29-Apr-2019 Active hydrALAZINE HCl - 25 MG Oral Tablet Refills: 0 Start : 29-Apr-2019 Active Allergies and Adverse Reactions Name Dates Details No Known Drug Allergies (Allergy) Status: Active Past Medical History Name Dates Details History of Basilar Artery Occlusion - With Cerebral Infarction (433.01) Status: Resolved History of Subclavian arterial stenosis (447.1, I77.1) Status: Resolved History of systemic lupus erythematosus (SLE) (710.0, M32.9) Status: Resolved History of Vertebral artery stenosis with cerebral infarction (433.21, I63.219 ) Status: Resolved Procedures Procedure Dates Details History of Section Completed Immunization Name Dates Details Immunizations not documented Family History Name Dates Details Family history of Stroke Syndrome (V17.1) Comments: Family History Status: Active Family history of Liver Cancer Comments: Family History Status: Active Family history of Hypertension (V17.49) Comments: Family History Status: Active Name Dates Details Family history of pancreatic cancer (V16.0, Z80.0) Status: Active Name Dates Details No pertinent family history (V49.89, Z78.9) Status: Active Name Dates Details Family history of throat cancer (V16.0, Z80.0) Status: Active Social History Name Dates Details - Status: Name Dates Details Former smoker Vital Signs Date Test Result Details [id number] BP Systolic 128 mm[Hg] Status: Comments: Location: RUE; Position: Sitting BP Diastolic 68 mm[Hg] Status: Comments: Location: E; Position: Sitting Height 155 cm Status: Weight 64.4 kg Status: Body Mass Index Calculated 26.81 kg/m2 Status: Body Surface Area Calculated 1.63 m2 Status: Temperature 98.8 f Status: Comments: Method: Oral Heart Rate 87 /min Status: Respiration Rate 18 /min Status: Results Date Description Value Details Results not documented Plan of Care Name Dates Details Planned Observations Planned Goals not documented Instructions Name Dates Details Instructions not documented Encounters Appointment; BARBARA SCANLON M.D. On: 11-Sep-2017 10:40 Encounter Diagnosis: Problem not documented Appointment; BARBARA SCANLON M.D. On: 18-Dec-2017 8:00 Encounter Diagnosis: Problem not documented Appointment; BARBARA SCANLON M.D. On: 15-Jan-2018 9:20 Encounter Diagnosis: Problem not documented Appointment; BARBARA SCANLON M.D. On: 29-Apr-2019 11:20 Encounter Diagnosis: Problem not documented
[2019-09-12] MEDS ORDERED: Phenylephrine HCl 10 MG/ML 1 ML VIAL ONE ×2 (07:25→08:43)
[2019-09-12] MEDS ORDERED: Ringers Lactate 1,000 ML IV ONE (07:25)
[2019-09-12] MEDS ORDERED: GLYCOPYRROLATE 0.2 MG/ML SYR ONE (07:25)
[2019-09-12] MEDS ORDERED: LIDOCAINE VISCOUS 2% SOLN 15 ML UDC ONE (07:31)
[2019-09-12] MEDS ORDERED: LIDOCAINE 1% MPF 30 ML VIAL ONE (07:31)
[2019-09-12] MEDS ORDERED: FENTANYL CITR 100 MCG/2 ML ONE ×2 (07:32→16:08)
[2019-09-12] MEDS ORDERED: LIDOCAINE 1% MPF 5 ML VIAL ONE (07:32)
[2019-09-12] MEDS ORDERED: propofoL 200 MG/20 ML VIAL IV ONE (07:32)
[2019-09-12] MEDS ORDERED: SUCCINYLCHOLINE 20 MG/ML (10 ML) IV ONE (08:33)
[2019-09-12] MEDS ORDERED: EPINEPHRINE/PF 1 MG/ML AMP ONE (08:38)
[2019-09-12] MEDS ORDERED: NA CHLORIDE 0.9% 250 ML IV PRN (08:41)
[2019-09-12] MEDS ORDERED: EPHEDRINE SULF 50 MG/ML VIAL ONE (08:43)
--- NOTE | 2019-09-12 09:04 | RAD REPORT ---
EXAM DESCRIPTION: FRANCISCOConnert Single View09/12/2019 8:58 am CLINICAL HISTORY: Shortness of breath COMPARISON: August 2019 FINDINGS: Endotracheal tube has been inserted with its tip well above the naa Diffuse bilateral pulmonary nodules and interstitial lung opacities unchanged Heart remains enlarged Mediastinal and hilar lymphadenopathy noted Small pleural effusions IMPRESSION: Endotracheal tube with its tip well above the naa
--- NOTE | 2019-09-12 09:41 | P.HP ---
Certification for Inpatient Patient admitted to: Inpatient With expected LOS: >2 Midnights Patient will require the following post-hospital care: None Practitioner: I am a practitioner with admitting privileges, knowledge of patient current condition, hospital course, and medical plan of care. Services: Services provided to patient in accordance with Admission requirements found in Title 42 Section 412.3 of the Code of Federal Regulations Patient History Date of Service: 09/12/19 Primary Care Provider: Dr. Erickson; Pulm-Dr. Linda; Rheum-Dr. Mcmahon; Onc-Dr. Subramanian Reason for admission: Acute respiratory failure post bronchoscopy History of Present Illness: 59-year-old female recently admitted for acute on chronic respiratory failure related to interstitial lung disease with CT findings of bilateral pulmonary nodules suspicious for metastatic disease. Patient was discharged on 09/06. Patient held her Plavix in preparation for bronchoscopy today. Pulmonology took the patient to bronchoscopy as an outpatient today. Following biopsies patient began to have some bleeding. Patient further had acute respiratory failure. A code blue was called in the endoscopy area. Patient was stabilized. Patient was eventually intubated. Patient now is being transitioned and admitted to ICU. Case discussed with pulmonology who performed bronchoscopy. Patient apparently bled during the procedure. This was suctioned. Patient to get 2 units of packed red blood cells. Patient will be transition to ICU for further management. I have discussed the case with her . Await further recommendations from pulmonology. Patient also has underlying lupus on disease modifying medication and chronic steroids, hypothyroidism, anemia of chronic disease, history of CVA, history of breast cancer and vaginal cancer, history of bilateral mastectomy, hyperlipidemia, hypertension and chronic pain. Allergies No Known Allergies Allergy (Verified 09/12/19 12:12) Home medications list reviewed: Yes Home Medications: Anastrozole 1 mg PO DAILY 08/20/19 Atorvastatin Calcium [Lipitor] 40 mg PO BEDTIME 08/20/19 Clopidogrel Bisulfate [Plavix*] 75 mg PO BEDTIME 08/20/19 Duloxetine HCl [Cymbalta] 60 mg PO DAILY 08/20/19 Gabapentin 300 mg PO BEDTIME 08/20/19 Hydralazine [Apresoline*] 25 mg PO TIDP PRN 08/20/19 Levothyroxine [Synthroid*] 1 tab PO [id number] 08/20/19 Zolpidem Tartrate [Ambien*] 10 mg PO BEDTIME 08/20/19 carvediloL [Coreg*] 12.5 mg PO BID 08/20/19 hydroCHLOROthiazide [Hydrochlorothiazide] 25 mg PO SEECOM 08/20/19 lisinopriL [Lisinopril] 20 mg PO BID 08/20/19 Albuterol Sulfate [Proair Hfa] 2 puff IH TID PRN #1 hfa.aer.ad 09/06/19 Aspirin [Aspirin EC 81 MG] 81 mg PO DAILY #90 tablet. 09/06/19 Multivitamin with Iron [Daily Vitamin + Iron] 1 each PO DAILY #90 tablet Hydrocodone Bit/Acetaminophen [Hydrocodon-Acetaminoph 7.5-325] 1 tab PO QID PRN 09/12/19 predniSONE [Prednisone*] 30 mg PO DAILY 09/12/19 - Past Medical/Surgical History Diabetic: No -: Lupus, on disease modifying medication, chronic steroid -: History of CVA -: History of breast cancer with bilateral mastectomy -: Hyperlipidemia -: Hypothyroidism -: Chronic pain -: History of vaginal cancer -: Anemia likely of chronic disease -: Interstitial lung disease suspect metastatic disease -: Bilateral breast mastectomy with lymph node removal -: Vaginal surgery due to cancer Psychosocial/ Personal History: Patient is - Family History Father -: Cancer Brother -: Cancer Mother -: Stroke, Cancer - Social History Smoking Status: Unknown if ever smoked Alcohol use: No CD- Drugs: No Caffeine use: Yes Place of Residence: Home Review of Systems is unable to be obtained Physical Examination - Vital Signs Temperature: 97.5 F Blood Pressure: 137/63 Pulse: 92 Respirations: 18 - Physical Exam General: Other (Patient is currently in to bed and sedated.) HEENT: Atraumatic Neck: Supple Respiratory: Clear to auscultation bilaterally, Normal air movement Cardiovascular: Normal pulses, Regular rate/rhythm Gastrointestinal: Normal bowel sounds Musculoskeletal: No warmth Integumentary: No warmth, No cyanosis Neurological: Other (Patient intubated) Assessment and Plan - Plan Impression: Acute on chronic respiratory failure, status post bronchoscopy with bleeding after biopsy complicated with history of interstitial lung disease with CT finding of bilateral pulmonary nodule suspicious for metastatic disease Acute anemia on chronic anemia related to biopsies Hypothyroidism History of CVA History of breast cancer with prior bilateral mastectomy and vaginal cancer Hyperlipidemia Hypertension Chronic pain Plan: Acute on chronic respiratory failure, status post bronchoscopy with bleeding after biopsy complicated with history of interstitial lung disease with CT finding of bilateral pulmonary nodule suspicious for metastatic disease: Patient will be admitted to ICU. Case discussed with pulmonology. Patient will receive 2 units of packed red blood cells. Patient will remain on the ventilator. Pulmonology to wean off over the next 24 hr. Will monitor hemoglobin closely. Maintain hemoglobin above 7.0. Patient will continue with IV steroids. Will continue to follow along. Acute anemia on chronic anemia related to biopsies: Patient will get 2 units of packed red blood cells. Will monitor hemoglobin closely. Maintain hemoglobin above 7.0. Hypothyroidism: Will obtain and restart home medication History of CVA: Overall stable. Plavix has been held for the last week in preparation for bronchoscopy. Provide SCD for DVT prophylaxis. History of breast cancer with prior bilateral mastectomy and vaginal cancer: Overall stable. Patient seen by oncology as an outpatient. Hyperlipidemia: Will review and restart home medication. Hypertension: Will review and restart home medication. Chronic pain: Will provide medication as needed. Discharge Plan: Home Plan to discharge in: 72 Hours - Advance Directives Does patient have a Living Will: No Does patient have a Durable POA for Healthcare: No Time Spent Managing Pts Care (In Minutes): 60
[2019-09-12] MEDS: LORazepam 2 MG/ML VIAL IV PRN ×4 (09:45→19:40)
[2019-09-12] MEDS: METHYLPREDNISOLONE 40 MG INJ IV SCH ×2 (09:46→17:57)
[2019-09-12] MEDS: FAMOTIDINE 20 MG/2 ML VIAL IV SCH ×2 (09:46→19:58)
[2019-09-12] MEDS: Ringers Lactate 1,000 ML IV SCH ×4 (09:46→19:47)
[2019-09-12 09:52] LABS: Hematocrit 22.2 % (36.0-45.0); MPV 8.7 fL (7.6-11.3)
[2019-09-12 10:00] LABS: Albumin 1.5 g/dL (3.4-5.0); Bilirubin Total 0.2 mg/dL (0.2-1.0); Potassium 4.8 mmol/L (3.5-5.1); Protein, Total 4.8 g/dL (6.4-8.2)
[2019-09-12] MEDS ORDERED: EPINEPHrine 1 MG/10 ML SYR ONE (10:00)
--- NOTE | 2019-09-12 11:19 | RAD REPORT ---
EXAM DESCRIPTION: RAD - FLUORO-GUIDE FOR BRONCH UPT1HR - 09/12/2019 10:57 am FINDINGS: Fluoro time was 3.2 minutes. There were 8 images submitted from a fluoroscopic assisted br onchoscopy. No suspicious or unexpected finding.
[2019-09-12 12:11] LABS: Hematocrit 22.5 % (36.0-45.0); MPV 8.1 fL (7.6-11.3); RBC Red Blood Cell Count 2.54 M/uL (3.86-4.86)
[2019-09-12 12:11] LABS: Arterial Blood Carboxyhemoglob 1.6 % (0-1.5); Blood Gas Oxyhemoglobin 97.2 % (94-97); Blood O2 Saturation 99.9 % (92-98.5)
--- NOTE | 2019-09-12 12:45 | RAD REPORT ---
EXAM DESCRIPTION: RAD - Chest Single View - 09/12/2019 12:34 pm CLINICAL HISTORY: Resp Failure COMPARISON: Chest Single View dated 09/12/2019; FLUORO-GUIDE FOR BRONCH UPT1HR dated 09/12/2019 TECHNIQUE: AP portable chest image was obtained 09/12/2019 12:34 pm . FINDINGS: No post bronchoscopy pneumothorax. Right lung base opacification is still present similar to the earlier study. Hazy left base opacification may be atelectasis and can be monitored. NG tube i s in place in the stomach. Endotracheal tube in good position. Heart size is normal. Vasculature is m ildly prominent. No large pleural effusion. No acute aortic findings suspected. IMPRESSION: No post bronchoscopy pneumothorax. ET tube and NG tube in good position. No change the right base opacification. Hazy left base opacification may be atelectasis rather than i nfiltrate and can be monitored on subsequent imaging.
[2019-09-12] MEDS: ALBUTEROL 2.5 MG/3 ML NEB SOL NEB SCH ×3 (13:10→20:00)
[2019-09-12] MEDS ORDERED: HALOPERIDOL LACT 5 MG/ML INJ IV ONE (13:34)
--- NOTE | 2019-09-12 13:44 | P.OP ---
Date of Service: 09/12/19 (Bronchoscopy with right lower lobe transbronchial biopsies BAL) Findings and Operative Technique Patient is 59 years of age evaluated by me for interstitial lung disease possible lymphangitis the scheduled for a bronchoscopy patient was instructed to stop her Plavix and was confirmed prior to the procedure After obtaining informed consent from the patient she was premedicated by anesthesia finding normal vocal cords normal trachea normal naa normal right and left-sided bronchial anatomy no endobronchial lesions visible Multiple biopsies were obtained from the right lower lobe in addition to BAL however she patient developed significant bleeding and required to be intubated by anesthesia shortly after intubation bleeding did stop patient was given some endotracheal epinephrine which helped experience momentary hypotension that resolved with the fluid bolus post intubation chest x-ray did not show any evidence of pneumothorax for hemoglobin however D declined to 6.5 patient was intubated by anesthesia and transferred to the ICU discussed with the in detail I took 5 biopsies in addition to performing a BAL
--- NOTE | 2019-09-12 13:47 | P.CNS ---
Date of Consult: 09/12/19 Primary Care Provider: Dr. Erickson; Pulm-Dr. Linda; Rheum-Dr. Mcmahon; Onc-Dr. Subramanian Chief Complaint: Acute respiratory failure post bronchoscopy History of Present Illness: Patient is 59 years of age admitted for bronchoscopy developed severe bleeding after the 5th biopsy and required to be intubated. Patient was then transferred to the ICU the bleeding had stopped hemoglobin dropped to 6.5 chest x-ray no evidence of pneumothorax awaiting blood transfusion currently on IV fluids bronchodilators and steroids as awake and responsive Allergies No Known Allergies Allergy (Verified 09/12/19 12:12) Home Medications: Anastrozole 1 mg PO DAILY 08/20/19 Atorvastatin Calcium [Lipitor] 40 mg PO BEDTIME 08/20/19 Clopidogrel Bisulfate [Plavix*] 75 mg PO BEDTIME 08/20/19 Duloxetine HCl [Cymbalta] 60 mg PO DAILY 08/20/19 Gabapentin 300 mg PO BEDTIME 08/20/19 Hydralazine [Apresoline*] 25 mg PO TIDP PRN 08/20/19 Levothyroxine [Synthroid*] 1 tab PO [id number] 08/20/19 Zolpidem Tartrate [Ambien*] 10 mg PO BEDTIME 08/20/19 carvediloL [Coreg*] 12.5 mg PO BID 08/20/19 hydroCHLOROthiazide [Hydrochlorothiazide] 25 mg PO SEECOM 08/20/19 lisinopriL [Lisinopril] 20 mg PO BID 08/20/19 Albuterol Sulfate [Proair Hfa] 2 puff IH TID PRN #1 hfa.aer.ad 09/06/19 Aspirin [Aspirin EC 81 MG] 81 mg PO DAILY #90 tablet. 09/06/19 Multivitamin with Iron [Daily Vitamin + Iron] 1 each PO DAILY #90 tablet Hydrocodone Bit/Acetaminophen [Hydrocodon-Acetaminoph 7.5-325] 1 tab PO QID PRN 09/12/19 predniSONE [Prednisone*] 30 mg PO DAILY 09/12/19 - Past Medical/Surgical History Diabetic: No -: Lupus, on disease modifying medication, chronic steroid -: History of CVA 2013 -: History of breast cancer with bilateral mastectomy 2017 -: Hyperlipidemia -: Hypothyroidism -: Chronic pain -: History of vaginal cancer 2012 -: Anemia likely of chronic disease -: Interstitial lung disease suspect metastatic disease -: home o2 3L nc -: Bilateral breast mastectomy with left lymph node removal 2017 -: Vaginal surgery due to cancer 2012 Psychosocial/ Personal History: Patient is - Family History Father Medical History: Cancer Notes: liver ca Brother Medical History: Cancer Notes: throat ca Mother Medical History: Stroke, Cancer Notes: pancreatic ca - Social History Alcohol use: No CD- Drugs: No Caffeine use: Yes Place of Residence: Home Review of Systems is unable to be obtained Physical Examination Temp Pulse Resp BP Pulse Ox 98.6 F 91 H 20 156/78 H 100 09/12/19 12:00 09/12/19 13:00 09/12/19 13:00 09/12/19 13:00 09/12/19 13:00 General: Unresponsive Respiratory: Expiratory wheezes Cardiovascular: No edema, Normal pulses Gastrointestinal: Normal bowel sounds, Soft and benign Laboratory Data (last 24 hrs) 09/12/19 11:57: WBC 14.5 H D, Hgb 6.7 L*, Hct 22.5 L, Plt Count 234 09/12/19 09:33: Sodium 143, Potassium 4.8, BUN 30 H, Creatinine 0.98, Glucose 181 H, Total Bilirubin 0.2, AST 20, ALT 18, Alkaline Phosphatase 78 09/12/19 09:33: WBC 18.5 H D, Hgb 6.5 L*, Hct 22.2 L D, Plt Count 285 - Problems (1) Pulmonary hemorrhage Current Visit: Yes Status: Acute Plan: Patient is 59 years of age admitted for bronchoscopy and biopsies developed significant pulmonary hemorrhage patient is intubated hemodynamically stable continue with IV fluids bleeding has stopped repeat chest x-ray minimal changes on the right side patient is mildly acidotic with hypercapnia continue with bronchodilators steroids probably be able to extubate the patient once she has had 2 units of blood transfusion no need for any antibiotics for now
[2019-09-12] MEDS ORDERED: MIDAZOLAM HCL 2 MG/2 ML INJ IV PRN (16:06)
[2019-09-12] MEDS ORDERED: FENTANYL CITR 100 MCG/2 ML IV PRN (16:06)
[2019-09-12 16:21] LABS: Hematocrit 23.2 % (36.0-45.0); MPV 8.6 fL (7.6-11.3); RBC Red Blood Cell Count 2.67 M/uL (3.86-4.86)
[2019-09-12] MEDS ORDERED: ZIPRASIDONE MESYLA 20 MG/VIAL IM PRN (18:08)
[2019-09-12] MEDS ORDERED: WATER FOR INJ,STERILE 10 ML IM PRN (18:08)
[2019-09-12] MEDS ORDERED: HALOPERIDOL LACT 5 MG/ML INJ IV PRN (18:08)
[2019-09-12] MEDS: propofoL 1,000 MG/100 ML VIAL IV PRN (19:54)
[2019-09-13] MEDS: ALBUTEROL 2.5 MG/3 ML NEB SOL NEB SCH ×4 (00:35→12:30)
[2019-09-13] MEDS: METHYLPREDNISOLONE 40 MG INJ IV SCH ×2 (01:47→08:20)
[2019-09-13] MEDS: LORazepam 2 MG/ML VIAL IV PRN (03:02)
[2019-09-13] MEDS ORDERED: FUROSEMIDE 20 MG/ 2ML VIAL IV ONE ×2 (03:28→05:19)
[2019-09-13] MEDS: propofoL 1,000 MG/100 ML VIAL IV PRN (04:06)
[2019-09-13 05:50] LABS: Arterial Blood Carboxyhemoglob 1.7 % (0-1.5); Blood Gas Oxyhemoglobin 95.6 % (94-97); Blood O2 Saturation 98.4 % (92-98.5)
[2019-09-13 06:14] VITALS: BMI 26.9
[2019-09-13 06:33] LABS: Hematocrit 30.6 % (36.0-45.0); MPV 8.4 fL (7.6-11.3); RBC Red Blood Cell Count 3.64 M/uL (3.86-4.86)
[2019-09-13 06:35] LABS: Potassium 4.5 mmol/L (3.5-5.1)
[2019-09-13] MEDS: Ringers Lactate 1,000 ML IV SCH (06:37)
[2019-09-13] MEDS: FAMOTIDINE 20 MG/2 ML VIAL IV SCH (08:16)
--- NOTE | 2019-09-13 08:30 | RAD REPORT ---
EXAM DESCRIPTION: Oli Single View09/13/2019 5:49 am CLINICAL HISTORY: Shortness of breath COMPARISON: September 12, 2019 FINDINGS: Endotracheal tube in good position Nasogastric tube within the stomach Mild worsening in the right basilar consolidation No other significant change noted IMPRESSION: Mild worsening in right basilar consolidation likely pneumonia
[2019-09-13] MEDS ORDERED: ZOLPIDEM TARTRATE 10 MG TABLET PO PRN (09:28)
[2019-09-13] MEDS ORDERED: HYDROCODONE/APAP 7.5/325 MG TAB PO PRN (09:28)
[2019-09-13] MEDS ORDERED: HYDRALAZINE HCL 25 MG TABLET PO PRN (09:28)
--- NOTE | 2019-09-13 09:32 | P.PN ---
Subjective Date of Service: 09/13/19 Primary Care Provider: Dr. Erickson; Pulm-Dr. Linda; Rheum-Dr. Mcmahon; Onc-Dr. Subramanian Chief Complaint: Acute respiratory failure post bronchoscopy Subjective: Improving Physical Examination - Vital Signs Temperature: 97.5 F Blood Pressure: 176/95 Pulse: 99 Respirations: 17 Pulse Ox (%): 96 - Physical Exam General: Alert, Other (Patient remains intubated and sedated) HEENT: Atraumatic Neck: Supple Respiratory: Clear to auscultation bilaterally, Normal air movement Cardiovascular: Normal pulses, Regular rate/rhythm Gastrointestinal: Normal bowel sounds, Soft and benign, Non-distended Neurological: Other (Patient intubated and sedated this morning.) - Studies Laboratory Data (last 24 hrs) 09/13/19 06:12: Sodium 142, Potassium 4.5, BUN 26 H, Creatinine 0.94, Glucose 137 H, Magnesium 2.0 09/13/19 06:12: WBC 15.6 H, Hgb 9.7 L D, Hct 30.6 L D, Plt Count 240 09/13/19 06:08: Hgb Cancelled, Hct Cancelled 09/12/19 15:44: WBC 17.0 H D, Hgb 6.9 L*, Hct 23.2 L, Plt Count 250 09/12/19 11:57: WBC 14.5 H D, Hgb 6.7 L*, Hct 22.5 L, Plt Count 234 09/12/19 09:33: Sodium 143, Potassium 4.8, BUN 30 H, Creatinine 0.98, Glucose 181 H, Total Bilirubin 0.2, AST 20, ALT 18, Alkaline Phosphatase 78 09/12/19 09:33: WBC 18.5 H D, Hgb 6.5 L*, Hct 22.2 L D, Plt Count 285 Medications List Reviewed: Yes Assessment & Plan Discharge Plan: Home Plan to discharge in: 24 Hours Physician Review Additional Text: Impression: Acute on chronic respiratory failure, status post bronchoscopy with bleeding after biopsy complicated with history of interstitial lung disease with CT finding of bilateral pulmonary nodule suspicious for metastatic disease Acute anemia on chronic anemia related to biopsies Hypothyroidism History of CVA History of breast cancer with prior bilateral mastectomy and vaginal cancer Hyperlipidemia Hypertension Chronic pain Plan: Acute on chronic respiratory failure, status post bronchoscopy with bleeding after biopsy complicated with history of interstitial lung disease with CT finding of bilateral pulmonary nodule suspicious for metastatic disease: Patient has done well Overnite. Patient received 2 units of packed red blood cells. Hemoglobin stable this time. Patient intubated and sedated. Will discuss with pulmonology. Patient will likely be extubated today. Continue to monitor closely. Will review home medications and restart. Will check to see with pulmonology on when to restart aspirin and her Plavix. Anticipate discharge in the next 24-48 hr pending clinical improvement. Acute anemia on chronic anemia related to biopsies: Patient received 2 units of packed red blood cells. Hemoglobin now stable. Continue with above recommendations. Hypothyroidism: Restart home medication. History of CVA: Overall stable. Will discuss with pulmonology on when to restart aspirin and Plavix. History of breast cancer with prior bilateral mastectomy and vaginal cancer: Overall stable. Patient seen by oncology as an outpatient. Continue home medication. Hypertension: Restart home medication. Will monitor and adjust appropriately.. Chronic pain: Will provide medication. Time Spent Managing Pts Care (In Minutes): 55
--- NOTE | 2019-09-13 10:07 | P.PN ---
Subjective Date of Service: 09/13/19 Primary Care Provider: Dr. Erickson; Pulm-Dr. Linda; Rheum-Dr. Mcmahon; Onc-Dr. Subramanian Chief Complaint: Acute respiratory failure post bronchoscopy Subjective: Improving (Patient doing well was extubated received 2 units of packed red blood cells) Review of Systems General: Weakness Respiratory: Cough, Shortness of Breath Physical Examination - Vital Signs Temperature: 97.5 F Blood Pressure: 178/90 Pulse: 108 Respirations: 17 Pulse Ox (%): 96 - Physical Exam General: Alert, Oriented x3 Respiratory: Clear to auscultation bilaterally Cardiovascular: No edema, Normal S1 S2 - Studies Laboratory Data (last 24 hrs) 09/13/19 06:12: Sodium 142, Potassium 4.5, BUN 26 H, Creatinine 0.94, Glucose 137 H, Magnesium 2.0 09/13/19 06:12: WBC 15.6 H, Hgb 9.7 L D, Hct 30.6 L D, Plt Count 240 09/13/19 06:08: Hgb Cancelled, Hct Cancelled 09/12/19 15:44: WBC 17.0 H D, Hgb 6.9 L*, Hct 23.2 L, Plt Count 250 09/12/19 11:57: WBC 14.5 H D, Hgb 6.7 L*, Hct 22.5 L, Plt Count 234 Medications List Reviewed: Yes Assessment & Plan - Problems (Diagnosis) (1) Pulmonary hemorrhage Current Visit: Yes Status: Acute Plan: Patient is doing much better little hoarse hemodynamically stable blood pressure elevated received 2 units of packed red blood cells hemoglobin is now 9.2 of discuss with the patient to ovoid Plavix as she has had chronic hemoptysis and significant bleed during the procedure continue with aspirin chest x-ray shows some haziness on the right side probably from the bleeding recommend some Augmentin no evidence of cancer on the bronchoscopy ABS side effect of the lupus medication white count is mildly elevated
[2019-09-13 11:53] VITALS: O2SAT 92
--- NOTE | 2019-09-13 13:38 | P.DS ---
Admission Date: 09/12/19 Discharge Date: 09/13/19 Primary Care Provider: Dr. Erickson; Pulm-Dr. Linda; Rheum-Dr. Mcmahon; Onc-Dr. Subramanian Disposition: ROUTINE DISCHARGE Discharge Condition: GOOD Reason for Admission: Acute respiratory failure post bronchoscopy Consultations: Pulmonary-Dr. Linda Procedures: CXR: FINDINGS: Endotracheal tube in good position Nasogastric tube within the stomach Mild worsening in the right basilar consolidation No other significant change noted IMPRESSION: Mild worsening in right basilar consolidation likely pneumonia Medical problem list: Acute on chronic respiratory failure, status post bronchoscopy with bleeding after biopsy complicated with history of interstitial lung disease with CT finding of bilateral pulmonary nodule suspicious for metastatic disease, now with aspiration right lower lobe pneumonia Acute anemia on chronic anemia related to biopsies Lupus Hypothyroidism History of CVA History of breast cancer with prior bilateral mastectomy and vaginal cancer Hyperlipidemia Hypertension Chronic pain Brief History of Present Illness: 59-year-old female recently admitted for acute on chronic respiratory failure related to interstitial lung disease with CT findings of bilateral pulmonary nodules suspicious for metastatic disease. Patient was discharged on 09/06. Patient held her Plavix in preparation for bronchoscopy today. Pulmonology took the patient to bronchoscopy as an outpatient today. Following biopsies patient began to have some bleeding. Patient further had acute respiratory failure. A code blue was called in the endoscopy area. Patient was stabilized. Patient was eventually intubated. Patient now is being transitioned and admitted to ICU. Case discussed with pulmonology who performed bronchoscopy. Patient apparently bled during the procedure. This was suctioned. Patient to get 2 units of packed red blood cells. Patient will be transition to ICU for further management. I have discussed the case with her . Await further recommendations from pulmonology. Patient also has underlying lupus on disease modifying medication and chronic steroids, hypothyroidism, anemia of chronic disease, history of CVA, history of breast cancer and vaginal cancer, history of bilateral mastectomy, hyperlipidemia, hypertension and chronic pain. Hospital Course: Patient presented with acute on chronic respiratory failure after bronchoscopy. Patient was getting bronchoscopy after recent hospitalization showed interstitial lung disease. Prior CT showed bilateral pulmonary nodule suspicious for metastatic disease. After getting multiple biopsies patient started to bleed. A code blue was called. The patient was eventually intubated and admitted. Patient had some bleeding from biopsy site. This stabilize. During the course of her stay pulmonology continued treatment. Patient was given 2 units of packed red blood cells due to anemia. Chest x-ray showed right lower lobe pneumonia. Patient given steroid treatment and antibiotic therapy. Patient was extubated. Since extubation patient has done well. Patient without significant shortness of breath. Pathology report from biopsies show no evidence of malignancy. Interstitial lung disease likely related to her lupus. At discharge she will continue with Augmentin 500 mg twice daily for 10 days. Patient will also continue with prednisone 30 mg daily. Patient will remain on Dulera 2 puffs twice daily and Pro air 2 puffs 3 times a day as needed for shortness of breath. Patient will continue with home oxygen to maintain sats above 93%. Recommend follow up with pulmonology to further address. Patient should also follow up with Rheumatology to consider further evaluation. Patient has stop 1 of her rheumatological medications. Patient will follow up with pulmonology in 1 week to follow up this hospitalization. Patient with acute anemia on chronic anemia. Blood loss was related to biopsies. Patient received 2 units of packed red blood cells. Hemoglobin now stable. At discharge Plavix has been discontinued. Recommend to recheck CBC in 1 week to monitor progress. Patient with lupus. Patient currently on medication. A prior medication she was taking has been discontinued by patient. 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 Other medical conditions include hypothyroidism, history of CVA, hypertension and chronic pain. Patient will continue her other home medications. The only medication that will be discontinued is Plavix. Vital Signs/Physical Exam: Temp Pulse Resp BP Pulse Ox 97.5 F 108 H 17 169/77 H 96 09/13/19 10:25 09/13/19 12:00 09/13/19 10:25 09/13/19 12:00 09/13/19 10:25 General: Alert, In no apparent distress, Oriented x3, Cooperative HEENT: Atraumatic Neck: Supple Respiratory: Clear to auscultation bilaterally, Normal air movement Cardiovascular: Normal pulses, Regular rate/rhythm Gastrointestinal: Normal bowel sounds, Soft and benign, Non-distended Neurological: Normal speech, Normal strength at 5/5 x4 extr, Normal tone, Normal affect Laboratory Data at Discharge: WBC 15.6 K/uL (4.3-10.9) H 09/13/19 06:12 Hgb 9.7 g/dL (12.0-15.0) L D 09/13/19 06:12 Hct 30.6 % (36.0-45.0) L D 09/13/19 06:12 Plt Count 240 K/uL (152-406) 09/13/19 06:12 Sodium 142 mmol/L (136-145) 09/13/19 06:12 Potassium 4.5 mmol/L (3.5-5.1) 09/13/19 06:12 BUN 26 mg/dL (7-18) H 09/13/19 06:12 Creatinine 0.94 mg/dL (0.55-1.3) 09/13/19 06:12 Glucose 137 mg/dL (74-106) H 09/13/19 06:12 Magnesium 2.0 mg/dL (1.8-2.4) 09/13/19 06:12 Total Bilirubin 0.2 mg/dL (0.2-1.0) 09/12/19 09:33 AST 20 U/L (15-37) 09/12/19 09:33 ALT 18 U/L (12-78) 09/12/19 09:33 Alkaline Phosphatase 78 U/L (45-117) 09/12/19 09:33 Home Medications: Anastrozole 1 mg PO DAILY 08/20/19 Atorvastatin Calcium [Lipitor] 40 mg PO BEDTIME 08/20/19 Duloxetine HCl [Cymbalta] 60 mg PO DAILY 08/20/19 Gabapentin 300 mg PO BEDTIME 08/20/19 Hydralazine [Apresoline*] 25 mg PO TIDP PRN 08/20/19 Levothyroxine [Synthroid*] 1 tab PO [id number] 08/20/19 Zolpidem Tartrate [Ambien*] 10 mg PO BEDTIME 08/20/19 carvediloL [Coreg*] 12.5 mg PO BID 08/20/19 hydroCHLOROthiazide [Hydrochlorothiazide] 25 mg PO SEECOM 08/20/19 lisinopriL [Lisinopril] 20 mg PO BID 08/20/19 Albuterol Sulfate [Proair Hfa] 2 puff IH TID PRN #1 [id number].[id number] 09/06/19 Aspirin [Aspirin EC 81 MG] 81 mg PO DAILY #90 tablet. 09/06/19 Multivitamin with Iron [Daily Vitamin + Iron] 1 each PO DAILY #90 tablet Hydrocodone Bit/Acetaminophen [Hydrocodon-Acetaminoph 7.5-325] 1 tab PO QID PRN 09/12/19 predniSONE [Prednisone*] 30 mg PO DAILY 09/12/19 Amoxicillin/Potassium Clav [Augmentin 500-125 Tablet] 1 each PO BID #10 tablet 09/13/19 New Medications: Amoxicillin/Potassium Clav [Augmentin 500-125 Tablet] 1 each PO BID #10 tablet Patient Discharge Instructions: 1. Recommend follow up with pulmonology in 1 week. 2. Patient presented with acute on chronic respiratory failure after bronchoscopy. Patient was getting bronchoscopy after recent hospitalization showed interstitial lung disease. Prior CT showed bilateral pulmonary nodule suspicious for metastatic disease. After getting multiple biopsies patient started to bleed. A code blue was called. The patient was eventually intubated and admitted. Patient had some bleeding from biopsy site. This stabilize. During the course of her stay pulmonology continued treatment. Patient was given 2 units of packed red blood cells due to anemia. Chest x-ray showed right lower lobe pneumonia. Patient given steroid treatment and antibiotic therapy. Patient was extubated. Since extubation patient has done well. Patient without significant shortness of breath. Pathology report from biopsies show no evidence of malignancy. Interstitial lung disease likely related to her lupus. At discharge she will continue with Augmentin 500 mg twice daily for 10 days. Patient will also continue with prednisone 30 mg daily. Patient will remain on Dulera 2 puffs twice daily and Pro air 2 puffs 3 times a day as needed for shortness of breath. Patient will continue with home oxygen to maintain sats above 93%. Recommend follow up with pulmonology to further address. Patient should also follow up with Rheumatology to consider further evaluation. Patient has stop 1 of her rheumatological medications. Patient will follow up with pulmonology in 1 week to follow up this hospitalization. 3. Patient with acute anemia on chronic anemia. Blood loss was related to biopsies. Patient received 2 units of packed red blood cells. Hemoglobin now stable. At discharge Plavix has been discontinued. Recommend to recheck CBC in 1 week to monitor progress. 4. Patient with lupus. Patient currently on medication. A prior medication she was taking has been discontinued by patient. 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 5. Other medical conditions include hypothyroidism, history of CVA, hypertension and chronic pain. Patient will continue her other home medications. The only medication that will be discontinued is Plavix. Diet: AHA Activity: Ad timbo Time spent managing pt's care (in minutes): 55
[2019-09-13 15:46] VITALS: BP 145/67
[2019-09-13 15:53] VITALS: TEMP 98.4
[2019-09-13] MEDS ORDERED: ATORVASTATIN 40 MG TAB PO SCH (21:00)
[2019-09-13] MEDS ORDERED: carvediloL 12.5 MG TAB PO SCH (21:00)
[2019-09-13] MEDS ORDERED: CLOPIDOGREL 75 MG TABLET PO SCH (21:00)
[2019-09-13] MEDS ORDERED: GABAPENTIN 300 MG CAP PO SCH (21:00)
[2019-09-13] MEDS ORDERED: lisinopriL 20 MG TAB PO SCH (21:00)
[2019-09-14] MEDS ORDERED: LEVOTHYROXINE SOD 0.1 MG TAB PO SCH (06:00)
[2019-09-14] MEDS ORDERED: ASPIRIN EC 81 MG TAB PO SCH (09:00)
[2019-09-14] MEDS ORDERED: hydroCHLOROthiazide 25 MG TAB PO SCH (09:00)
[2019-09-14] MEDS ORDERED: ANASTROZOLE 1 MG TAB PO SCH (09:00)
[2019-09-14] MEDS ORDERED: DULOXETINE 30 MG CAP PO SCH (09:00)
[2019-09-14] MEDS ORDERED: MULTIVITAMIN TAB PO SCH (09:00)
== END 2019-09-13 14:15 | disposition home or self-care (01) | DRG 166 ==
LOC: PRE 06:53 → 3RD-ICU 08:55
PROVIDERS: ADMIT Internal Medicine Sleep Medicine; ATTEND Family Medicine
PROC: 0B9F7ZX Drainage of Right Lower Lung Lobe, Via Natural or Artificial Opening, Diagnostic (ICD-10-PCS; 2019-09-12)
PROC: 0BH17EZ Insertion of Endotracheal Airway into Trachea, Via Natural or Artificial Opening (ICD-10-PCS; 2019-09-12)
PROC: 5A1945Z Respiratory Ventilation, 24-96 Consecutive Hours (ICD-10-PCS; 2019-09-12)
PROC: 0BBF8ZX Excision of Right Lower Lung Lobe, Via Natural or Artificial Opening Endoscopic, Diagnostic (ICD-10-PCS; principal; 2019-09-12 08:00)
PROC: 30233N1 Transfusion of Nonautologous Red Blood Cells into Peripheral Vein, Percutaneous Approach (ICD-10-PCS; 2019-09-13)
PROC: 30233N1 Transfusion of Nonautologous Red Blood Cells into Peripheral Vein, Percutaneous Approach (ICD-10-PCS; 2019-09-13)
DX: J95.822 Acute and chronic postprocedural respiratory failure (principal); J96.22 Acute and chronic respiratory failure with hypercapnia; J69.8 Pneumonitis due to inhalation of other solids and liquids; J95.61 Intraoperative hemorrhage and hematoma of a respiratory system organ or structure complicating a respiratory system procedure; D62 Acute posthemorrhagic anemia; J84.9 Interstitial pulmonary disease, unspecified; Y83.8 Other surgical procedures as the cause of abnormal reaction of the patient, or of later complication, without mention of misadventure at the time of the procedure; Y84.8 Other medical procedures as the cause of abnormal reaction of the patient, or of later complication, without mention of misadventure at the time of the procedure; Y92.234 Operating room of hospital as the place of occurrence of the external cause; R91.1 Solitary pulmonary nodule; M32.9 Systemic lupus erythematosus, unspecified; E03.9 Hypothyroidism, unspecified; E78.5 Hyperlipidemia, unspecified; I10 Essential (primary) hypertension; G89.29 Other chronic pain; Z85.3 Personal history of malignant neoplasm of breast; Z85.44 Personal history of malignant neoplasm of other female genital organs; Z90.13 Acquired absence of bilateral breasts and nipples; Z86.73 Personal history of transient ischemic attack (TIA), and cerebral infarction without residual deficits; Z79.52 Long term (current) use of systemic steroids
CPT/HCPCS: 36415; 36430; 71045; 76000; 80048; 80053; 82805; 83735; 85027; 86850; 86870; 86900; 86901; 86922; 87015; 87116; 87206; 88108; 88305; 94002; 94003; 94640; J0171; J0330; J1940; J2250; J2370; J2704; J2920; J3010; J7030; J7120; P9016

== ENCOUNTER 2019-09-13 23:40 | Inpatient (IN) | payer BC ==
--- OUTSIDE RECORDS SUMMARY | 2019-09-13 23:43 | XMS REPORT ---
:1960 [facility] Address [address] [place] [address] Dr. Michele [address] [place] [id number] Care Team Providers Name Role Phone Unavailable Unavailable Unavailable Problems This patient has no known problems. Allergies, Adverse Reactions, Alerts This patient has no known allergies or adverse reactions. Medications This patient has no known medications.
[2019-09-14 00:23] LABS: Blood Gas Oxyhemoglobin 91.4 % (94-97); Blood O2 Saturation 94.1 % (92-98.5)
[2019-09-14] MEDS ORDERED: IPRATROPIUM BROM 0.5MG/2.5ML ONE (00:37)
[2019-09-14] MEDS ORDERED: ALBUTEROL 2.5 MG/3 ML NEB SOL ONE (00:38)
[2019-09-14] MEDS ORDERED: NA CHLORIDE 0.9% 1,000 ML ONE (00:38)
[2019-09-14 00:49] LABS: Absolute Lymphocytes (CBC) 0.4 K/uL (0.7-4.9); Basophils % 0.2 % (0-1.3); Lymphocytes % 2.1 % (15.3-44.8); MPV 8.4 fL (7.6-11.3); RBC Red Blood Cell Count 3.47 M/uL (3.86-4.86)
[2019-09-14 01:04] LABS: Potassium 4.2 mmol/L (3.5-5.1)
[2019-09-14 01:31] LABS: Blood Morphology Comment NOTED (NOT SEEN); Elliptocytes 2+; Hypochromasia 1+; Platelet Estimate ADEQ; Stomatocytes 1+
[2019-09-14] MEDS ORDERED: ONDANSETRON 4 MG/2 ML VIAL IV PRN (03:01)
[2019-09-14] MEDS ORDERED: MORPHINE 2 MG/ML SYR IV PRN (03:01)
[2019-09-14] MEDS ORDERED: ALBUTEROL 2.5 MG/3 ML NEB SOL NEB PRN (03:01)
[2019-09-14] MEDS ORDERED: ACETAMINOPHEN 500 MG TAB PO PRN (03:01)
[2019-09-14] MEDS ORDERED: HYDRALAZINE HCL 20 MG/ML VIAL IV PRN (03:05)
--- NOTE | 2019-09-14 03:30 | ER ---
Nurse's Notes [facility] Name: Bri Alvarenga Age: 59 yrs Sex: Female : 1960 Arrival Date: 09/13/2019 Time: 23:43 Bed 7 Private MD: Diagnosis: Dyspnea. Hypoxia. Pneumonia Presentation: 09/12 23:56 Chief complaint: Spouse and/or significant other states: pt was released at approx 1400 aa1 this afternoon from the ICU after having a bronchoscopy and began having SOB again tonight after laying down. Coronavirus screen: The patient has NOT traveled to a country currently being monitored by the [facility] [place] 2] within the last 14 days. Proceed with normal triage procedures. Ebola Screen: No symptoms or risks identified at this time. Initial Sepsis Screen: Does the patient have a suspected source of infection? No. Patient's initial sepsis screen is negative. Risk Assessment: Do you want to hurt yourself or someone else? Patient reports no desire to harm self or others. Onset of symptoms was September 13, 2019. Care prior to arrival: None. Activity prior to arrival: None. Mechanism of Injury: No Mechanism of Injury. Transition of care: patient was not received from another setting of care. 23:56 Method Of Arrival: Wheelchair aa1 23:56 Acuity: HANNAH 2 aa1 09/13 00:41 Initial Sepsis Screen: Does the patient meet any 2 criteria? RR > 20 per min. HR > 90 jd3 bpm. Yes Does the patient have a suspected source of infection? Yes: Productive cough/pneumonia If YES to both, name of provider notified: Sanjiv Clifton MD Triage Assessment: 03:53 Respiratory: the patient has moderate shortness of breath. jd3 03:53 Respiratory: Onset: The symptoms/episode began/occurred just prior to arrival. jd3 Historical: - Allergies: 00:00 No Known Allergies; aa1 - Home Meds: 00:00 Acthar H.P. 80 unit/mL injection gel 2 times a week [Active]; Ambien 10 mg Oral tab 1 aa1 tab nightly [Active]; anastrozole 1 mg Oral tab 1 tab once daily [Active]; atorvastatin 40 mg Oral tab 1 tab nightly [Active]; Coreg 6.25 mg Oral tab 1 tab 2 times per day [Active]; duloxetine 60 mg Oral cpDR 1 cap once daily [Active]; gabapentin 600 mg Oral tab 0.5 tab nightly [Active]; hydralazine 25 mg Oral tab 1 tab TID prn [Active]; hydrochlorothiazide 25 mg Oral tab 1 tab once daily [Active]; levothyroxine 100 mcg tab 1 tab once daily [Active]; lisinopril 20 mg Oral tab 1 tab twice a day [Active]; Confluence 7.5-325 mg Oral tab 1 tab QID PRN [Active]; prednisone 20 mg Oral tab 1 tab once daily [Active]; aspirin 81 mg Oral TbEC 1 tab once daily [Active]; - PMHx: 00:00 Anemia; Cancer, Breast; chronic back pain; CVA; High Cholesterol; Hypertension; aa1 Hypothyroidism; Lupus; vaginal CA; - PSHx: 00:00 Mastectomy; aa1 - Immunization history:: Flu vaccine is not up to date. - Social history:: Smoking status: Patient/guardian denies using tobacco, the patient reports quitting approximately 6 years ago. Screenin:42 Abuse screen: Denies threats or abuse. Nutritional screening: No deficits noted. jd3 Tuberculosis screening: No symptoms or risk factors identified. Fall Risk IV access (20 points). Ambulatory Aid- None/Bed Rest/Nurse Assist (0 pts). Gait- Normal/Bed Rest/Wheelchair (0 pts) Mental Status- Oriented to own ability (0 pts). Total Izaguirre Fall Scale indicates No Risk (0-24 pts). Assessment: 00:04 General: Appears in no apparent distress. uncomfortable, well groomed, Behavior is jd3 calm, cooperative, anxious. Pain: Denies pain. Neuro: Level of Consciousness is awake, alert, obeys commands, Oriented to person, place, time, situation. Cardiovascular: Heart tones S1 S2 present Capillary refill < 3 seconds Patient's skin is warm and dry. Rhythm is sinus tachycardia. Respiratory: Reports shortness of breath at rest cough that is hacking, Airway is patent Trachea midline Respiratory effort is even, labored, shallow, weak, Respiratory pattern is symmetrical, hyperventilation Breath sounds with wheezes bilaterally. GI: Abdomen is flat, distended, Bowel sounds present X 4 quads. : No signs and/or symptoms were reported regarding the genitourinary system. EENT: No signs and/or symptoms were reported regarding the EENT system. Derm: Skin is intact, is healthy with good turgor, Skin is dry, Skin is normal, Skin temperature is warm. Musculoskeletal: Circulation, motion, and sensation intact. Capillary refill < 3 seconds, Range of motion: intact in all extremities. 01:11 Reassessment: Patient appears in no apparent distress at this time. Patient and/or jd3 family updated on plan of care and expected duration. Pain level reassessed. Patient is alert, oriented x 3, equal unlabored respirations, skin warm/dry/pink. Patient denies pain at this time. Respiratory: Airway is patent Respiratory effort is even, unlabored, weak, Respiratory pattern is regular, symmetrical, Breath sounds with crackles bilaterally. 02:22 Reassessment: Patient appears in no apparent distress at this time. No changes from [facility] previously documented assessment. Patient and/or family updated on plan of care and expected duration. Pain level reassessed. Patient is alert, oriented x 3, equal unlabored respirations, skin warm/dry/pink. Patient denies pain at this time. 03:53 Reassessment: Patient appears in no apparent distress at this time. Patient and/or jd3 family updated on plan of care and expected duration. Pain level reassessed. Patient is alert, oriented x 3, equal unlabored respirations, skin warm/dry/pink. Patient denies pain at this time. 03:59 Reassessment: report given to Montse SCALES. [facility] Vital Signs: 09/12 23:49 BP 190 / 84; Pulse 119; Resp 24; Temp 99.8; Pulse Ox 93% 2 lpm ; Weight 65.32 kg; rv Height 5 ft. 0 in. (152.40 cm); 09/13 00:01 BP 154 / 77; Pulse 113; Resp 25 S; Pulse Ox 93% on 4 lpm NC; jd3 01:13 BP 157 / 73; Pulse 105; Resp 24; Pulse Ox 94% on 4 lpm NC; Pain 0/10; jd3 02:23 BP 127 / 66; Pulse 107; Resp 27; Pulse Ox 93% on 4 lpm NC; Pain 0/10; jd3 03:54 BP 147 / 81; Pulse 105; Resp 20 S; Pulse Ox 93% on 4 lpm NC; jd3 09/12 23:49 Body Mass Index 28.12 (65.32 kg, 152.40 cm) rv ED Course: 03 23:43 Patient arrived in ED. cf2 23:44 Sanjiv Clifton MD is Attending Physician. pkl 23:50 Oxygen administration via nasal cannula \T\ 4L/min. aa1 23:58 Triage completed. aa1 23:59 Sohail Flanagan RN is Primary Nurse. jd3 03/07 00:35 Inserted saline lock: 22 gauge in right hand, using aseptic technique. Blood collected. jd3 placed by [employer] student. 00:42 Arm band placed on. EKG completed in triage. Results shown to MD. jd3 00:42 Patient has correct armband on for positive identification. Placed in gown. Bed in low jd3 position. Call light in reach. Side rails up X 1. Adult w/ patient. 01:43 XRAY CXR (1 view) In Process Unspecified. EDMS 03:27 Nathalie Alvarado MD is Hospitalizing Provider. pkl 04:01 No provider procedures requiring assistance completed. Patient admitted, IV remains in jd3 place. Administered Medications: 00:39 Drug: Albuterol - atroVENT (3:1) (2.5 mg - 0.5 mg) 3 ml Route: Nebulizer; jd3 01:38 Follow up: Response: No adverse reaction jd3 00:40 Drug: NS 0.9% 1000 ml Route: IV; Rate: 100 ml/hr; Site: right wrist; jd3 04:02 Follow up: Response: No adverse reaction; IV Status: Infusion continued upon admission jd3 Outcome: 03:29 Decision to Hospitalize by Provider. pkl 04:24 Admitted to Med/surg accompanied by tech, via stretcher, room 410, with oxygen, with jd3 chart, Report called to Montse SCALES 04:24 Condition: stable 04:24 Instructed on the need for admit, Demonstrated understanding of instructions. 04:25 Patient left the ED. jd3 Signatures: Dispatcher [employer] EDRI Cris Ramirez RN RN aa1 Sanjiv Clifton MD MD pkSohail Garces RN RN jd3 Dilip Bruno RN RN rv Jasmine Gaspar cf2 Corrections: (The following items were deleted from the chart) 00:54 00:45 General: Appears in no apparent distress. uncomfortable, well groomed, Behavior jd3 is calm, cooperative, anxious, jd3 00:45 Pain: Denies pain. jd3 jd3 00:45 Neuro: Level of Consciousness is awake, alert, obeys commands, Oriented to jd3 person, place, time, situation, jd3 00:45 Cardiovascular: Heart tones S1 S2 present Capillary refill < 3 seconds Patient's jd3 skin is warm and dry. Rhythm is sinus tachycardia jd3 00:45 Respiratory: Reports shortness of breath at rest cough that is hacking, Airway is jd3 patent Trachea midline Respiratory effort is even, labored, shallow, weak, Respiratory pattern is symmetrical, hyperventilation Breath sounds with wheezes bilaterally. jd3 00:45 GI: Abdomen is flat, distended, Bowel sounds present X 4 quads. jd3 jd3 00:45 : No signs and/or symptoms were reported regarding the genitourinary system. [id number] 00:45 EENT: No signs and/or symptoms were reported regarding the EENT system. jd3 jd3 00:45 Derm: Skin is intact, is healthy with good turgor, Skin is dry, Skin is normal, jd3 Skin temperature is warm jd3 00:45 Musculoskeletal: Circulation, motion, and sensation intact. Capillary refill < 3 jd3 seconds, Range of motion: intact in all extremities, jd3
--- NOTE | 2019-09-14 03:30 | EDPHYS ---
Physician Documentation [facility] Name: Bri Alvarenga Age: 59 yrs Sex: Female : 1960 Arrival Date: 09/13/2019 Time: 23:43 Bed 7 Private MD: ED Physician Sanjiv Clifton HPI: 09/13 00:11 This 59 yrs old Female presents to ER via Wheelchair with complaints of pkl Breathing Difficulty. 00:11 Onset: The symptoms/episode began/occurred just prior to arrival, 2 hour(s) ago. pkl Patient was discharged this afternoon from ICU. Patient had bronchoscopy on as outpatient. patient had bleeding after biopsy during bronchoscopy. Patient was intubated and admitted to ICU for further management.. Historical: - Allergies: 00:00 No Known Allergies; aa1 - Home Meds: 00:00 Acthar H.P. 80 unit/mL injection gel 2 times a week [Active]; Ambien 10 mg Oral tab 1 aa1 tab nightly [Active]; anastrozole 1 mg Oral tab 1 tab once daily [Active]; atorvastatin 40 mg Oral tab 1 tab nightly [Active]; Coreg 6.25 mg Oral tab 1 tab 2 times per day [Active]; duloxetine 60 mg Oral cpDR 1 cap once daily [Active]; gabapentin 600 mg Oral tab 0.5 tab nightly [Active]; hydralazine 25 mg Oral tab 1 tab TID prn [Active]; hydrochlorothiazide 25 mg Oral tab 1 tab once daily [Active]; levothyroxine 100 mcg tab 1 tab once daily [Active]; lisinopril 20 mg Oral tab 1 tab twice a day [Active]; Bloomery 7.5-325 mg Oral tab 1 tab QID PRN [Active]; prednisone 20 mg Oral tab 1 tab once daily [Active]; aspirin 81 mg Oral TbEC 1 tab once daily [Active]; - PMHx: 00:00 Anemia; Cancer, Breast; chronic back pain; CVA; High Cholesterol; Hypertension; aa1 Hypothyroidism; Lupus; vaginal CA; - PSHx: 00:00 Mastectomy; aa1 - Immunization history:: Flu vaccine is not up to date. - Social history:: Smoking status: Patient/guardian denies using tobacco, the patient reports quitting approximately 6 years ago. ROS: 00:11 Eyes: Negative for injury, pain, redness, and discharge, ENT: Negative for injury, pkl pain, and discharge, Neck: Negative for injury, pain, and swelling, Cardiovascular: Negative for chest pain, palpitations, and edema. 00:11 Respiratory: Positive for shortness of breath, at rest. 00:11 Abdomen/GI: Negative for abdominal pain, nausea, vomiting, and diarrhea. 00:11 Back: Negative for acute changes. 00:11 : Negative for urinary symptoms. 00:11 MS/extremity: Negative for acute changes. 00:11 Skin: Negative for rash. 00:11 Neuro: Negative for altered mental status, loss of consciousness. Exam: 00:11 Head/Face: Normocephalic, atraumatic. Eyes: Pupils equal round and reactive to light, pkl extra-ocular motions intact. Lids and lashes normal. Conjunctiva and sclera are non-icteric and not injected. Cornea within normal limits. Periorbital areas with no swelling, redness, or edema. ENT: Nares patent. No nasal discharge, no septal abnormalities noted. Tympanic membranes are normal and external auditory canals are clear. Oropharynx with no redness, swelling, or masses, exudates, or evidence of obstruction, uvula midline. Mucous membranes moist. Neck: Trachea midline, no thyromegaly or masses palpated, and no cervical lymphadenopathy. Supple, full range of motion without nuchal rigidity, or vertebral point tenderness. No Meningismus. Chest/axilla: Normal chest wall appearance and motion. Nontender with no deformity. No lesions are appreciated. Cardiovascular: Regular rate and rhythm with a normal S1 and S2. No gallops, murmurs, or rubs. Normal PMI, no JVD. No pulse deficits. 00:11 Respiratory: mild respiratory distress is noted, Respirations: labored breathing, that is mild, Breath sounds: rales, that are mild, are scattered. 00:11 Abdomen/GI: Bowel sounds: normal, Palpation: abdomen is soft and non-tender, in all quadrants. 00:11 Back: Exam negative for acute changes. 00:11 : Exam negative for acute changes. 00:11 Musculoskeletal/extremity: Exam is negative for acute changes. 00:11 Skin: Exam negative for rash. 00:11 Neuro: Orientation: appropriate for stated age, Mentation: is normal, Cranial nerves: grossly normal, Motor: is normal. Vital Signs: 09/12 23:49 BP 190 / 84; Pulse 119; Resp 24; Temp 99.8; Pulse Ox 93% 2 lpm ; Weight 65.32 kg; rv Height 5 ft. 0 in. (152.40 cm); 09/13 00:01 BP 154 / 77; Pulse 113; Resp 25 S; Pulse Ox 93% on 4 lpm NC; jd3 01:13 BP 157 / 73; Pulse 105; Resp 24; Pulse Ox 94% on 4 lpm NC; Pain 0/10; jd3 02:23 BP 127 / 66; Pulse 107; Resp 27; Pulse Ox 93% on 4 lpm NC; Pain 0/10; jd3 03:54 BP 147 / 81; Pulse 105; Resp 20 S; Pulse Ox 93% on 4 lpm NC; jd3 03 23:49 Body Mass Index 28.12 (65.32 kg, 152.40 cm) rv MDM: 09/12 23:44 Patient medically screened. pkl 09/13 02:53 Data reviewed: vital signs, nurses notes, lab test result(s), EKG, radiologic studies, pkl plain films. ED course: Talked to Dr. Alvarado, will see patient in ER. 09/12 23:59 Order name: CBC with Diff pkl 09/12 23:59 Order name: Chem 7 pkl 09/12 23:59 Order name: Type And Screen; Complete Time: 06:36 pkl 09/12 23:59 Order name: Blood Culture Adult (2) pkl 09/12 23:59 Order name: Lactate pkl 09/12 23:59 Order name: Procalcitonin; Complete Time: 06:36 pkl 09/12 23:59 Order name: ABG pkl 09/13 00:05 Order name: Troponin (emerg Dept Use Only) pkl 09/13 00:34 Order name: ABG Arterial Blood Gas; Complete Time: 00:58 EDMS 09/13 00:53 Order name: CBC with Automated Diff; Complete Time: 06:36 EDMS 09/13 01:05 Order name: Basic Metabolic Panel; Complete Time: 01:10 EDMS 09/13 01:07 Order name: Lactate; Complete Time: 01:10 EDMS 09/13 01:08 Order name: Troponin (Emerg Dept Use Only); Complete Time: 01:10 EDDE 09/13 01:33 Order name: Manual Differential; Complete Time: 06:36 EDDE 09/13 00:20 Order name: XRAY CXR (1 view) pkl 09/13 03:12 Order name: CONS Pharmacy Consult EDMS 09/13 03:13 Order name: Physical Therapy Consult EDDE 09/13 03:13 Order name: Heart Healthy EDDE 09/13 03:13 Order name: PTT, Activated Partial Thromb EDMS 09/13 03:13 Order name: Magnesium EDMS 09/13 03:14 Order name: Sputum Culture EDDE Administered Medications: 00:39 Drug: Albuterol - atroVENT (3:1) (2.5 mg - 0.5 mg) 3 ml Route: Nebulizer; jd3 01:38 Follow up: Response: No adverse reaction jd3 00:40 Drug: NS 0.9% 1000 ml Route: IV; Rate: 100 ml/hr; Site: right wrist; jd3 04:02 Follow up: Response: No adverse reaction; IV Status: Infusion continued upon admission jd3 Disposition: 09/14/19 03:29 Hospitalization ordered by Nathalie Alvarado for Inpatient Admission. Preliminary diagnosis is Dyspnea. Hypoxia. Pneumonia. - Bed requested for Telemetry/MedSurg (Inpatient). - Status is Inpatient Admission. jd3 - Condition is Stable. - Problem is new. - Symptoms are unchanged. Signatures: Dispatcher [employer] [facility] Cris Ramirez RN RN aa1 Sanjiv Clifton MD MD pkl Garcia, Cindy, RN RN Sohail Flanagan RN RN jd3 Corrections: (The following items were deleted from the chart) 03:41 03:29 Hospitalization Ordered by Nathalie Alvarado MD for Inpatient Admission. Preliminary diagnosis is Dyspnea. Hypoxia. Pneumonia. Bed requested for Telemetry/MedSurg (Inpatient). Status is Inpatient Admission. Condition is Stable. Problem is new. Symptoms are unchanged. pkl 04:25 03:41 09/14/2019 03:29 Hospitalization Ordered by Nathalie Alvarado MD for Inpatient jd3 Admission. Preliminary diagnosis is Dyspnea. Hypoxia. Pneumonia. Bed requested for Telemetry/MedSurg (Inpatient). Status is Inpatient Admission. Condition is Stable. Problem is new. Symptoms are unchanged. cg
[2019-09-14] MEDS ORDERED: FUROSEMIDE 40 MG/4 ML VIAL IV ONE (03:47)
[2019-09-14] MEDS ORDERED: NA CHLORIDE 0.9% 1,000 ML IV SCH (04:00)
[2019-09-14] MEDS ORDERED: CEFEPIME 2 GM VIAL IV SCH (04:00)
[2019-09-14] MEDS: ALBUTEROL 2.5 MG/3 ML NEB SOL NEB SCH ×6 (04:35→23:35)
[2019-09-14 04:41] VITALS: BMI 28.0
[2019-09-14] MEDS ORDERED: CEFEPIME 2 GM VIAL ONE (05:04)
[2019-09-14] MEDS ORDERED: METHYLPREDNISOLONE 125 MG INJ IV SCH (06:00)
[2019-09-14] MEDS: FAMOTIDINE 20 MG TAB PO SCH ×2 (08:38→20:32)
[2019-09-14] MEDS: GUAIFENESIN 600 MG SA TAB PO SCH ×2 (08:38→20:32)
--- NOTE | 2019-09-14 09:20 | EKG ---
Test Date: 2019-09-14 Test Time: 00:02:17 Senior Cob[employer] Developer: RICHY MEASUREMENT RESULTS: Intervals: Rate: 110 MA: 116 QRSD: 112 QT: 346 QTc: 468 [place]: P: 30 MA: 116 QRS: 11 T: 12 INTERPRETIVE STATEMENTS: Sinus tachycardia Possible Left atrial enlargement Right bundle branch block ST & T wave abnormality, non specific Abnormal ECG Compared to ECG 09/05/2019 06:33:12 no significant change from previous ECG Electronically Signed On 09-14-19 09:19:55 [employer] by Jamie Santiago
--- NOTE | 2019-09-14 09:40 | RAD REPORT ---
EXAM DESCRIPTION: [place] Single View09/14/2019 1:41 am CLINICAL HISTORY: Shortness of breath COMPARISON: September 12 FINDINGS: Mild improvement in right basilar opacities Bilateral pulmonary nodules and lymphadenopathy unchanged IMPRESSION: Mild improvement in right pneumonia
[2019-09-14] MEDS ORDERED: Pharmacy Consult 1 EA IVPB ONE (10:01)
--- NOTE | 2019-09-14 10:53 | P.PN ---
Subjective Date of Service: 09/14/19 (Hospitalist) Chief Complaint: Shortness of breath Patient is 59 years of age was j discharge from the ICU on September 12 she was admitted with complication of bronchoscopy pulmonary hemorrhage which resolves she was extubated anti she went home started having more shortness of breath coughing up some dark blood chest x-ray has improved Review of Systems General: Weakness Respiratory: Shortness of Breath Physical Examination - Vital Signs Temperature: 97 F Blood Pressure: 143/67 Pulse: 104 Respirations: 18 Pulse Ox (%): 91 - Physical Exam General: Alert, Oriented x3 Respiratory: Clear to auscultation bilaterally Cardiovascular: No edema, Regular rate/rhythm - Studies Laboratory Data (last 24 hrs) 09/14/19 00:30: Sodium 143, Potassium 4.2, BUN 36 H, Creatinine 0.95, Glucose 130 H 09/14/19 00:30: WBC 19.7 H D, Hgb 9.1 L, Hct 29.0 L, Plt Count 224 Microbiology Data (last 24 hrs): 09/14/19 00:30 Blood - Blood Anaerobic Blood Culture - Final Assessment & Plan - Problems (Diagnosis) (1) Pulmonary fibrosis Current Visit: No Status: Acute Plan: Patient is 59 years of age with interstitial lung disease the be a combination of lupus and side effect of the biological agent that she was just recently started on bronchoscopy did not show any malignancy chest x-ray has improved vital signs all stable however patient's pro calcitonin level is elevated white count is also elevated possible infection start patient on Zosyn vancomycin weight blood cultures patient was on high doses of steroids before continue with Solu-Medrol is quite possible that she has lupus pneumonitis continue with IV Solu-Medrol for now will pulse with Solu-Medrol 1 g IV for 3 days the she did have a history of hemoptysis prior to the bronchoscopy
[2019-09-14] MEDS ORDERED: METHYLPRED NA SUC 1,000 MG in NA CHLORIDE 0.9% 100 ML IV ONE (12:00)
[2019-09-14] MEDS ORDERED: NA CHLORIDE 0.9% IV ONE (14:00)
[2019-09-14] MEDS ORDERED: METHYLPRED NA SUC IV ONE (14:00)
[2019-09-14] MEDS: PIPER/TAZO/NS 3.375gm 3.375 GM/100 ML BAG IVPB SCH (16:59)
[2019-09-14] MEDS ORDERED: METHYLPREDNISOLONE 40 MG INJ IV SCH (17:00)
[2019-09-14] MEDS ORDERED: INFLUENZA VACCINE (for 3y+) 0.5 ML DOSE IMVAC ONE (19:00)
[2019-09-14] MEDS ORDERED: VANCOMYCIN 2 GM in NA CHLORIDE 0.9% 500 ML IVPB SCH (20:00)
[2019-09-14] MEDS: GUAIFENESIN/DM 5 ML UCUP PO PRN (20:32)
[2019-09-15] MEDS: carvediloL 12.5 MG TAB PO SCH ×3 (00:44→17:23)
[2019-09-15] MEDS: lisinopriL 20 MG TAB PO SCH ×3 (00:45→21:09)
[2019-09-15] MEDS: ZOLPIDEM TARTRATE 10 MG TABLET PO PRN ×2 (00:45→21:10)
[2019-09-15] MEDS: HYDRALAZINE HCL 25 MG TABLET PO SCH ×4 (00:45→21:10)
[2019-09-15] MEDS: PIPER/TAZO/NS 3.375gm 3.375 GM/100 ML BAG IVPB SCH ×3 (00:46→17:23)
[2019-09-15] MEDS ORDERED: VANCOMYCIN 2 GM in NA CHLORIDE 0.9% 500 ML IVPB SCH (02:00)
[2019-09-15] MEDS ORDERED: VANCOMYCIN 1 GM/VIAL ONE (03:04)
[2019-09-15] MEDS ORDERED: NA CHLORIDE 0.9% 500 ML ONE (03:04)
[2019-09-15] MEDS: ALBUTEROL 2.5 MG/3 ML NEB SOL NEB SCH ×2 (04:35→07:40)
[2019-09-15] MEDS ORDERED: CEFEPIME/SWI 2gm 2 GM/20 ML SYR IVP SCH (05:00)
[2019-09-15 05:58] LABS: Absolute Lymphocytes (CBC) 0.3 K/uL (0.7-4.9); Basophils % 0.1 % (0-1.3); Hematocrit 26.1 % (36.0-45.0); Lymphocytes % 1.7 % (15.3-44.8); MPV 8.3 fL (7.6-11.3); RBC Red Blood Cell Count 3.07 M/uL (3.86-4.86)
[2019-09-15 06:18] LABS: Albumin 1.7 g/dL (3.4-5.0); Bilirubin Total 0.5 mg/dL (0.2-1.0); Potassium 3.9 mmol/L (3.5-5.1); Protein, Total 5.3 g/dL (6.4-8.2); Troponin I 0.16 ng/mL (0.0-0.045)
[2019-09-15] MEDS ORDERED: levoFLOXacin 500 MG TAB PO SCH (09:00)
[2019-09-15] MEDS: NA CHLORIDE 0.9% 250 ML IV SCH (09:00)
[2019-09-15] MEDS ORDERED: ENOXAPARIN 40 MG/0.4 ML SQ SCH (09:00)
--- NOTE | 2019-09-15 10:06 | P.PN ---
Subjective Date of Service: 09/15/19 (Hospitalist) Chief Complaint: Shortness of breath Patient's feels weak he eating and drinking thing up dark red blood very limited quantities denies any chest pain fever chills Review of Systems General: Weakness Respiratory: Cough, Shortness of Breath Physical Examination - Vital Signs Temperature: 97.2 F Blood Pressure: 152/70 Pulse: 84 Respirations: 20 Pulse Ox (%): 91 - Physical Exam General: Alert, In no apparent distress, Oriented x3 Neck: Supple Respiratory: Crackles/rales (Crackles bilaterally) Cardiovascular: No edema, Regular rate/rhythm, Normal S1 S2 - Studies Microbiology Data (last 24 hrs): 09/14/19 00:30 Blood - Blood Anaerobic Blood Culture - Final Assessment & Plan - Problems (Diagnosis) (1) Pulmonary fibrosis Current Visit: No Status: Acute Plan: Admitted with pulmonary fibrosis possible lupus pneumonitis she has been pulse tube with high doses of Solu-Medrol 1 g daily for at least 3 days she has already had 2 doses/Beto to contact her block piler to coordinate care bronchoscopy so far is nondiagnostic she was having some hemoptysis before maybe from lupus pneumonitis arm or due to the Plavix that she was on white count is declining patient is an antibiotics pro calcitonin level is also declining cultures are negative so far is no evidence of sepsis Dc antibiotics tomorrow ambulate patient/physical therapy at the time of discharge patient 8 to her resume her previous dose of prednisone Plan to discharge in: 24 Hours
[2019-09-15] MEDS: GUAIFENESIN 600 MG SA TAB PO SCH ×2 (10:10→21:10)
[2019-09-15] MEDS: FAMOTIDINE 20 MG TAB PO SCH ×2 (10:10→21:11)
[2019-09-15] MEDS ORDERED: METHYLPRED NA SUC IV ONE (11:00)
[2019-09-15] MEDS ORDERED: NA CHLORIDE 0.9% IV ONE (11:00)
[2019-09-15] MEDS: ARFORMOTEROL TARTRATE 15 MCG/2 ML VIAL.NEB NEB SCH ×2 (11:05→20:15)
--- NOTE | 2019-09-15 12:59 | RAD REPORT ---
EXAM DESCRIPTION: RAD - Chest Pa And Lat (2 Views) - 09/15/2019 7:03 am CLINICAL HISTORY: Pneumonia? Chest pain. COMPARISON: Chest Single View dated 09/14/2019; Chest Single View dated 09/13/2019; Chest Single View da keron 09/12/2019; Chest Single View dated 09/12/2019 FINDINGS: Very prominent emphysematous pattern is noted throughout the lung jean. Mild improvement bilateral pulmonary opacities greatest in the lung bases compatible with pneumonia. The heart is mod erately enlarged. No displaced fractures. IMPRESSION: Mild improvement is seen in bilateral pneumonia pattern since comparative study.
[2019-09-15] MEDS ORDERED: VANCOMYCIN 1.25 GM in NA CHLORIDE 0.9% 250 ML IVPB SCH (20:00)
[2019-09-15] MEDS: GUAIFENESIN/DM 5 ML UCUP PO PRN (21:09)
[2019-09-16] MEDS: PIPER/TAZO/NS 3.375gm 3.375 GM/100 ML BAG IVPB SCH (00:50)
[2019-09-16] MEDS ORDERED: VANCOMYCIN 1.25 GM in NA CHLORIDE 0.9% 250 ML IVPB SCH (02:00)
[2019-09-16 05:50] LABS: Hematocrit 26.6 % (36.0-45.0); MPV 8.5 fL (7.6-11.3); RBC Red Blood Cell Count 3.12 M/uL (3.86-4.86)
[2019-09-16 06:03] LABS: Magnesium 2.1 mg/dL (1.8-2.4); Troponin I 0.12 ng/mL (0.0-0.045)
[2019-09-16 07:09] LABS: Anisocytosis 1+; Blood Morphology Comment NOTED (NOT SEEN); Platelet Estimate ADEQ; Urine White Blood Cell Casts OK
[2019-09-16 07:10] LABS: Ovalocytes 1+
[2019-09-16] MEDS: carvediloL 12.5 MG TAB PO SCH ×2 (07:15→17:10)
[2019-09-16] MEDS: ARFORMOTEROL TARTRATE 15 MCG/2 ML VIAL.NEB NEB SCH ×2 (08:01→19:55)
--- NOTE | 2019-09-16 08:32 | P.PN ---
Subjective Date of Service: 09/16/19 Chief Complaint: Patient complaining of weakness productive cough No change feeling very weak still has some hemoptysis Review of Systems General: Weakness Respiratory: Shortness of Breath Physical Examination - Vital Signs Temperature: 96.9 F Blood Pressure: 136/76 Pulse: 91 Respirations: 16 Pulse Ox (%): 96 - Physical Exam General: Alert, Oriented x3 Respiratory: Crackles/rales Cardiovascular: No edema, Normal S1 S2 Assessment & Plan - Problems (Diagnosis) (1) Pulmonary fibrosis Current Visit: No Status: Acute Plan: No change in patient's condition she was pulsed with 1 g of Solu-Medrol x2 days repeat chest x-ray ordered repeat sputum culture change to p.o. Augmentin and p.o. prednisone white count is mildly elevated hemoglobin stable doubt significant pulmonary hemorrhage chest x-ray shows significant interstitial changes improvement hypertension I have added spironolactone reduce dose of lisinopril to once a day I am not sure if she has lupus pneumonitis cover hemoglobin is stable patient is hypoxic has home oxygen discuss with the hospitalist will need to contact the local company hazmat driver as to what else we can do for her
--- NOTE | 2019-09-16 08:48 | HP ---
Date of Admission: 09/14/2019 Presenting Complaint: Worsening shortness of breath. History Of Present Illness: Ms. Alvarenga is a pleasant 59-year-old female with past [facility] history of hypertension, hyperlipidemia, lupus, SLE, who has been having progressive worsening SL E symptoms with intermittent shortness of breath, status post since last 3 months, but sym ptoms continued to worsen. She was seen here and admitted for presumed pneumonia 2 weeks ago and dis charged 1 week ago. She returned 2 days ago for bronchoscopy, which was complicated with persistent bleeding with aspiration, requiring ICU stay and 2 units PRBC, and noted new right lobe aspiration pn eumonia. She was discharged yesterday on antibiotics with Augmentin as well as low dose of steroids. Biopsy report, which was initially presumed to be metastatic, turned out to be related to lupus. P atient states she has been on 3 L nasal cannula O2 since the last 1 week. On returning home yesterda y, patient initially felt drowsy, but as she became more awoken, she started developing worsening navya rtness of breath and presented in the ED 6 hours after discharge from the hospital because of worseni ng symptoms. She has received breathing treatments and feeling slightly better. She is v hillary drowsy and a poor historian. Spouse at bedside reports that patient has been a bit incoherent an d has been sluggish. Past Medical History: Hypertension, hyperlipidemia, history of chronic anemia, history of hypothyroi dism, history of SLE, history of breast and vaginal cancer. Past Surgical History: Mastectomy. Home Medications: Acthar 80 units twice weekly, Ambien, anastrozole, Lipitor 40 nightly, Coreg 6.25 b.i.d., Cymbalta 60 daily, Neurontin 300 nightly, hydralazine 25 t.i.d., hydrochlorothiazide 25 daily , Synthroid 100 mcg daily, lisinopril 20 b.i.d., Pegram 7.5/325 q.i.d. p.r.n., prednisone 20 mg daily currently, aspirin 81 daily. Social History: Patient is a former smoker, quit smoking 6 years ago. No history of alcohol or illi cit drug use. Resides with spouse in the community. Family History: Noncontributory. Allergies: NO KNOWN DRUG ALLERGIES. Review of Systems: Poor given patient is a bit slow, sluggish, and a poor historian, but she denies every other systems x10. Physical Examination: Vitals Signs: Blood pressure of , respiratory rate of 24, temp 99.8, O2 of 93 on 2 L nasal cannula. Weight 65 kg. Current vitals show blood pressure of 127/66, pulse of 107, respiratory rat e 27, O2 saturation 93% on 4 L. General: Average built, middle-aged female, slightly drowsy but easily arousable. On nasal cannula O2. Head: Atraumatic, normocephalic. Eyes: Pupils equal and reactive to light. Neck: No JVD. No carotid bruit. Respiratory: Coarse crepitations with mild expiratory wheeze at the mid lung zones. Area of crepita tion is more prominent over the left base. Cardiovascular: S1, S2. Mildly tachycardic. GI: Abdomen full, soft, nontender. Bowel sounds positive. Extremities: No pedal edema. No calf tenderness. Neurologic: Patient is alert and oriented. Cranial nerves 2 through 12 grossly intact. Laboratory Data: Reviewed shows WBC of 19.7, up from 15.6 yesterday morning; hemoglobin 9.1, down fr om 9.7 posttransfusion yesterday morning; platelet of 224; neutrophils 88%; 4% bands. PTT pending. ABG; pO2 of 72, pCO2 of 40, on 3 L nasal cannula, pH 7.45. Sodium 143, creatinine 0.9, glucose 130, procalcitonin 2.1, troponin of 0.29. Chest x-ray shows increased haziness over the right base. Impression: 1.Right lower lobe aspiration pneumonia-due to post bronchoscopy bleeding. 2.Interstitial lung disease due to lupus pneumonitis. 3.Elevated troponin due to non-ST elevation myocardial infarction. 4.Leukocytosis. 5.Anemia due to anemia of chronic disease and recent bleed. Plan: We will admit patient to inpatient status. We will start patient on empirical antibiotics wit h cefepime. We will obtain sputum for culture and sensitivity if feasible. We will consult Pulmonar y, Dr. Linda, who previously followed patient and did patient's bronchoscopy. Given the patient's chest x-ray findings of mild increased haziness as well as clinical findings of bilateral coarse cre pitations, we will start patient on IV Lasix and we will give 1 dose possible lupus pneumo nitis, we will do IV Solu-Medrol 125 mg q.6 for now in addition to antibiotics. Monitor H and H give n recent PRBC yesterday. If H and H are trending down, might need repeat PRBC. We will mucolytics. DVT prophylaxis. We will do SCDs, avoid heparin since recent bronchoscopy bleed. We will resume ho me medications but hold prednisone. Advance directives, patient is full code. Total time spent in review of record, discussion with patient and evaluation, greater than 65 minutes . EO/MODL Voice ID: [id number]
[2019-09-16] MEDS ORDERED: lisinopriL 20 MG TAB PO SCH (09:00)
[2019-09-16] MEDS: NA CHLORIDE 0.9% 250 ML IV SCH (09:00)
[2019-09-16] MEDS ORDERED: predniSONE 20 MG TAB PO SCH (09:00)
--- NOTE | 2019-09-16 09:07 | RAD REPORT ---
EXAM DESCRIPTION: RAD - Chest Single View - 09/16/2019 8:51 am CLINICAL HISTORY: pneumonia Chest pain. COMPARISON: Chest Pa And Lat (2 Views) dated 09/15/2019; Chest Single View dated 09/14/2019; Chest Singl e View dated 09/13/2019; Chest Single View dated 09/12/2019 FINDINGS: Portable technique limits examination quality. Right lung base infiltrate demonstrates mild to moderate worsening since the comparative study. Inter stitial prominence throughout both lungs is unchanged. The heart is mildly enlarged in size. No displ aced fractures. IMPRESSION: Moderate worsening in right lung base pneumonia since comparative study.
[2019-09-16] MEDS: GUAIFENESIN 600 MG SA TAB PO SCH ×2 (09:34→21:43)
[2019-09-16] MEDS: AMOX/K CLAV 875 MG TAB PO SCH ×2 (09:35→21:43)
[2019-09-16] MEDS: SPIRONOLACTONE 25 MG TABLET PO SCH ×2 (09:35→21:43)
[2019-09-16] MEDS: GUAIFENESIN/DM 5 ML UCUP PO PRN (09:36)
[2019-09-16] MEDS: HYDRALAZINE HCL 25 MG TABLET PO SCH ×3 (09:36→21:44)
[2019-09-16] MEDS: FAMOTIDINE 20 MG TAB PO SCH ×2 (09:36→21:43)
[2019-09-16] MEDS ORDERED: SOD FERRIC GLUC COMPLX/SUCROSE 250 MG in NA CHLORIDE 0.9% 250 ML IV SCH (11:42)
--- NOTE | 2019-09-16 13:07 | ECHO ---
HEIGHT: 5 ft 0 in WEIGHT: 143 lb 9.6 oz DATE OF STUDY: 09/16/[address]: Jamie Santiago MD 2-DIMENSIONAL: YES M.MODE: YES DOPPLER: YES COLOR FLOW: YES TDS: NO PORTABLE: NO DEFINITY: NO BUBBLE STUDY: NO DIAGNOSIS: ABNORMAL TROPONIN I CARDIAC HISTORY: CATHERIZATION: NO SURGERY: NO PROSTHETIC VALVE: NO PACEMAKER: NO MEASUREMENTS (cm) DIASTOLIC (NORMALS) SYSTOLIC (NORMALS) IVSd 0.9 (0.6-1.2) LA Diam 3.9 (1.9-4.0) LVEF 79% LVIDd 5.1 (3.5-5.7) LVIDs 2.7 (2.0-3.5) %FS 48% LVPWd 1.0 (0.6-1.2) Ao Diam 3.0 (2.0-3.7) 2 DIMENSIONAL ASSESSMENT: RIGHT ATRIUM: NORMAL LEFT ATRIUM: NORMAL RIGHT VENTRICLE: NOMRAL LEFT VENTRICLE: NORMAL TRICUSPID VALVE: NORMAL MITRAL VALVE: NORMAL PULMONIC VALVE: NORMAL AORTIC VALVE: NORMAL PERICARDIAL EFFUSION: NONE AORTIC ROOT: NORMAL LEFT VENTRICULAR WALL MOTION: NORMAL. DOPPLER/COLOR FLOW: MILD-MODERATE MITRAL REGURGITATION. COMMENTS: NORMAL 2D ECHO. MILD-MODERATE MITRAL REGURGITATION. TECHNOLOGIST: LEI FRANCES
--- NOTE | 2019-09-16 14:12 | CON ---
Reason For Consult: Abnormal troponin values. History Of Present Illness: Ms. Alvarenga has had several hospitalizations recently. She underwent a bronchoscopy for a mass. Apparently, it is not a malignant mass, it was in the lungs. Since then , she has had aspiration pneumonia and bounced back and forth between outpatient and inpatient care. She came to the hospital because of worsening bleeding, hemoptysis, and worsening shortness of breat h. Some troponins were drawn, even though the patient denies having chest pain and the troponins are elevated. The troponins are 0.16, 0.12 and 0.29. The procalcitonin is 2.11. Her creatinine is 0.9 5. Ms. Alvarenga has never had myocardial infarction or stroke. Does not use tobacco or illegal dr kinney. She has longstanding systemic lupus erythematosus. Home Medications: Duloxetine, gabapentin, lisinopril, Coreg, atorvastatin, levothyroxine, anastrozol e, hydrochlorothiazide, hydralazine, zolpidem, aspirin, multivitamin, albuterol, hydrocodone, prednis one, amoxicillin with clavulanic acid. Social History: No tobacco use. Physical Examination: Vital Signs: She is 5 feet tall, 143 pounds. HEENT: Unremarkable. Lungs: Reveals some abnormal breath sounds on the left, probably consistent with a pneumonia. No wh eezing. Air movement seems good. The heart exam is within normal limits. There is no friction rub. Extremities: Palpable pulses. Her electrocardiogram is not indicated of previous infarction or ischemia. She has a right bundle-br anch block and nonspecific repolarization abnormality. It is similar to all of her previous EKGs. Impression: The patient's troponins probably do not represent myocardial necrosis in this case. I jasmyn machuca recommend we do an echocardiogram, so we have no wall motion abnormalities. Normal EKG. No mitchell st pain and all we have is abnormal troponins. We will attribute the normal troponin test to her und erlying pneumonia and lupus. SH/MODL Voice ID: [id number] Report ID: [id number]
--- NOTE | 2019-09-16 15:10 | RAD REPORT ---
EXAM DESCRIPTION: RAD - Pelvis - 09/16/2019 3:02 pm CLINICAL HISTORY: Pelvic pain status post injury FINDINGS: No fracture or dislocation is seen. Osteoporosis If the patient continues to have symptoms to suggest an occult fracture then MRI would be recommended
--- NOTE | 2019-09-16 16:24 | PN ---
Date of Progress Note: 09/16/2019 Subjective: Patient seen and examined. Chart reviewed and case discussed with RN and the patient's safety counselor, Dr. Crump. She recommends starting the patient on daily dosing of 1 mg/kg oral pred nisone and Hematology/Oncology consultation and possibly iron infusions. Patient still having hemopt ysis. Case discussed with Dr. Linda. Medications: List reviewed. Physical Examination: Vital Signs: Temperature 96.9, heart rate 87, blood pressure 133/63, respirations 20, O2 of 93% on 2 .5 L via nasal cannula. General: Awake, alert, oriented x3. Appears older than her stated age, ill-appearing female. CV: S1, S2. Regular rate and rhythm. Peripheral pulses present. Respiratory: Diminished breath sounds. No wheezing or stridor. Gastrointestinal: Abdomen is soft, nontender, nondistended. Positive bowel sounds. Extremities: No clubbing, cyanosis, or edema. Neurologic: Nonfocal. Laboratory Data: Magnesium 2.1. Troponin 0.12. WBC 17.7, H and H 8.3 and 26.6, platelets 217. [address] st x-ray shows worsening of the right lung base pneumonia since comparative study. Hip x-ray is pend ing. Assessment And Plan: 59-year-old female with: 1.Pulmonary fibrosis and lupus. Patient received 1 g Solu-Medrol x2 days. Repeat chest x-ray shows worsening. Patient will be switched over to oral prednisone at 1 mg/kg, approximately 60 mg of pred nisone per her safety counselor's recommendations. Patient is still having some mild hemoptysis. She had a bronchoscopy done by Dr. Linda. Biopsy showed lupus. This may be lupus pneumonitis. 2.Right lower lobe aspiration pneumonia due to bronchoscopy, bleeding. We will switch over to oral Augmentin. 3.Elevated troponin level, possible [id number] myocardial infarction. We will consult Cardiol ogy. 4.Leukocytosis, likely steroid induced and secondary to pneumonia. 5.Anemia of chronic disease and acute blood loss. Iron studies from August do show iron deficienc y. Patient may benefit from IV iron infusion. We will consult Hematology. 6.Fall. Patient had a fall in her room, did not ask for help immediately. Did report it to the res piratory therapist. This was on Monday due to her chronic steroid use. She is at risk for a fractur e due to steroid induced osteopenia. We will check pelvis x-ray. The patient denies any pain at thi s time. 7.Deep venous thrombosis prophylaxis, SCDs. No chemical anticoagulation due to hemoptysis. /FELISHA Voice ID: [id number] Report ID: [id number]
[2019-09-16] MEDS: ALBUTEROL 2.5 MG/3 ML NEB SOL NEB PRN (22:12)
[2019-09-16] MEDS ORDERED: METHYLPREDNISOLONE 125 MG INJ IV ONE (22:27)
[2019-09-16] MEDS: FUROSEMIDE 20 MG/ 2ML VIAL IV ONE ×2 (22:37→23:00)
[2019-09-16] MEDS ORDERED: SPIRONOLACTONE 25 MG TABLET PO ONE (23:00)
[2019-09-16] MEDS ORDERED: FUROSEMIDE 20 MG TABLET PO ONE (23:04)
[2019-09-16 23:43] LABS: Arterial Blood Carboxyhemoglob 1.9 % (0-1.5); Blood Gas Oxyhemoglobin 91.4 % (94-97)
[2019-09-17] MEDS: ZOLPIDEM TARTRATE 10 MG TABLET PO PRN ×2 (00:12→21:17)
[2019-09-17] MEDS ORDERED: cloNIDine HCL 0.1 MG TAB PO ONE (01:55)
[2019-09-17 05:22] LABS: Hematocrit 27.2 % (36.0-45.0); MPV 8.2 fL (7.6-11.3); RBC Red Blood Cell Count 3.15 M/uL (3.86-4.86)
[2019-09-17] MEDS: SMZ./TMP. 800/160 MG TABLET PO SCH ×4 (05:58→21:10)
[2019-09-17] MEDS: carvediloL 12.5 MG TAB PO SCH ×2 (05:58→16:48)
[2019-09-17] MEDS ORDERED: METHYLPREDNISOLONE 125 MG INJ IV SCH (06:00)
[2019-09-17] MEDS: ALBUTEROL 2.5 MG/3 ML NEB SOL NEB PRN ×2 (08:00→13:05)
[2019-09-17] MEDS: ARFORMOTEROL TARTRATE 15 MCG/2 ML VIAL.NEB NEB SCH ×2 (08:00→19:51)
--- NOTE | 2019-09-17 08:17 | P.PN ---
Subjective Date of Service: 09/17/19 Chief Complaint: Weakness cough and hemoptysis No change from yesterday worsening shortness of breath last night patient was given some diuretics with some improvement started on BiPAP chest x-ray shows consolidation on the right lower lobe with interstitial changes patient at risk for Pneumocystis due to persistent exposure to high-dose steroids discuss with Rheumatology possible transfer to [facility] Review of Systems General: Weakness Respiratory: Cough, Shortness of Breath Physical Examination - Vital Signs Temperature: 97.5 F Blood Pressure: 140/64 Pulse: 77 Respirations: 22 Pulse Ox (%): 92 - Physical Exam General: Alert, In no apparent distress, Mild distress Respiratory: Crackles/rales (Crackles bilateral) Cardiovascular: No edema, Regular rate/rhythm Assessment & Plan - Problems (Diagnosis) (1) Pulmonary fibrosis Current Visit: No Status: Acute Plan: Patient is not feeling any better still complaining of weakness was diuresed yesterday with some improvement currently on 4 L of nasal cannula oxygen with 95 % sats blood pressure control is satisfactory chest x-ray shows some worsening changes patient is at risk for Pneumocystis organism started her on empiric Bactrim therapy contacted pathology to do a PCP stain labs have been ordered for today including an LDH blood pressure control satisfactory
[2019-09-17] MEDS: AMLODIPINE 5 MG TAB PO SCH (08:57)
[2019-09-17] MEDS: AMOX/K CLAV 875 MG TAB PO SCH ×2 (08:57→21:10)
[2019-09-17] MEDS: GUAIFENESIN 600 MG SA TAB PO SCH ×2 (08:57→21:10)
[2019-09-17] MEDS: predniSONE 20 MG TAB PO SCH (08:57)
[2019-09-17] MEDS: FAMOTIDINE 20 MG TAB PO SCH ×2 (08:58→21:10)
[2019-09-17] MEDS ORDERED: lisinopriL 20 MG TAB PO SCH (09:00)
[2019-09-17] MEDS ORDERED: predniSONE 20 MG TAB PO SCH (09:00)
[2019-09-17] MEDS: FUROSEMIDE 20 MG TABLET PO SCH ×2 (09:00→16:48)
[2019-09-17 09:44] LABS: Absolute Lymphocytes (CBC) 0.3 K/uL (0.7-4.9); Basophils % 0.4 % (0-1.3); Hematocrit 25.6 % (36.0-45.0); Lymphocytes % 2.8 % (15.3-44.8); MPV 8.3 fL (7.6-11.3); RBC Red Blood Cell Count 2.95 M/uL (3.86-4.86)
[2019-09-17 09:52] LABS: Albumin 1.8 g/dL (3.4-5.0); Bilirubin Total 0.6 mg/dL (0.2-1.0); Potassium 3.6 mmol/L (3.5-5.1); Protein, Total 5.4 g/dL (6.4-8.2)
[2019-09-17] MEDS: SOD FERRIC GLUC COMPLX/SUCROSE 250 MG in NA CHLORIDE 0.9% 250 ML IV SCH (10:19)
--- NOTE | 2019-09-17 14:01 | RAD REPORT ---
EXAM DESCRIPTION: RAD - Chest Single View - 09/17/2019 4:25 am CLINICAL HISTORY: 59 years Female, PICC placement COMPARISON: None. FINDINGS: A right upper extremity PICC line present with tip at the cavoatrial junction. There are patchy ill-defined opacities in both lungs. Generalized pulmonary interstitial thickening n oted. There is blunting of the right costophrenic angle which may represent a small right pleural eff usion. No pneumothorax. Heart appears mildly enlarged. Aortic atherosclerosis is present. Stent in the left superior mediasti num noted. There is irregularly increased density in the right humeral head/neck. IMPRESSION: 1. Right upper extremity PICC line in place as above. 2. Bilateral pulmonary opacities suggesting atelectasis or infiltrates. 3. Pulmonary interstitial septal thickening which can be seen with pulmonary edema. 4. Possible small right pleural effusion. 5. Increased density in the right humeral head/neck which can be seen with underlying sclerotic lesio n versus artifact. Electronically signed by: Roger Rodrigues MD 09/17/2019 3:40 AM CDT Due to temporary technical issues with the PACS/Fluency reporting system, reports are being signed by the in house radiologist as a courtesy to ensure prompt reporting. The interpreting radiologist is f ully responsible for the content of the report.
--- NOTE | 2019-09-17 14:30 | PN ---
Date of Progress Note: 09/17/2019 Ms. Alvarenga is 59-year-old, who was admitted with aspiration pneumonia, elevated troponin, lupus e xacerbation. An echocardiogram that was done to rule out any wall motion abnormalities yesterday navya wed normal ejection fraction. No wall motion abnormalities. Mild to moderate mitral regurgitation. The patient remains hypertensive. She remains in sinus rhythm. No cardiac complaint. 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 No further cardiac workup is planned. RUBY/FELISHA Voice ID: [id number] Report ID: [id number]
--- NOTE | 2019-09-17 15:45 | PN ---
Date of Progress Note: 09/17/2019 Subjective: Patient is seen and examined. Chart reviewed and case discussed with RN and Dr. Angelia leahy. Patient is still having some mild hemoptysis, has been doing better on BiPAP currently on 4 L via nasal cannula. Physical Examination: Vital Signs: Temperature 97.5, heart rate 77, blood pressure 140/64, respirations 22, O2 92% on 4 L via nasal cannula. General: Awake, alert, oriented x3, in some mild respiratory distress, ill-appearing elder than stat ed age female. CVS: S1, S2. Regular rate and rhythm. Peripheral pulses present. Respiratory: Patient is tachypneic without any use of accessory muscles. Some diminished breath luigi nds. Gastrointestinal: Abdomen is soft, nontender, nondistended. Positive bowel sounds. Extremities: No clubbing, cyanosis, or edema. Neurologic: Nonfocal. Laboratory Data: Sodium 142, potassium 3.6, chloride 110, CO2 of 28, BUN 44, creatinine 1.02, glucos e 93, calcium 8.5, troponin 0.2, LDH is 297. Albumin 1.8. Procalcitonin 3.15. WBC 11.2, H and H of 8 and 25.6, platelets 167, neutrophils 89%. Blood cultures, no growth to date. Sputum cultures, no rmal respiratory clovis. Repeat chest x-ray, there is no official report. [employer] read shows right upper extremity PICC line in place, bilateral pulmonary opacities suggesting atelectasis or infiltrate, pulmonary interstitial septal thickening which can be seen as pulmonary e chuck, possible small right pleural effusion, increased density in the right humeral head and neck whi ch can be seen with underlying sclerotic lesion versus artifact. Echocardiogram shows EF of 79%, mild to moderate mitral regurgitation. Assessment: A 59-year-old female with: 1.Pulmonary fibrosis and lupus pneumonitis, currently on 1 mg/kg of steroids per rheumatology recomm endations. Still having hemoptysis. Appreciate Dr. Linda's input. 2.Acute respiratory failure with hypoxia, currently on BiPAP and now currently on 4 L during the day time of oxygen secondary to above. 3.Right lower lobe aspiration pneumonia due to bronchial bleeding. May also have PCP pneumonia due to her immunocompromise status, started on Bactrim. 4.Elevated troponin level. Appreciate Cardiology input. Echocardiogram shows normal ejection fract ion. Cardiology did not feel that this is related to N-STEMI. No current chest pain. 5.Leukocytosis likely steroid induced, improving. However, procalcitonin is elevated. 6.Anemia of chronic disease and secondary to acute blood loss. We will continue with IV iron infusi on. Spoke with Dr. Bowman. She recommended IV iron infusion and to follow up as an outpatient. 7.Status post fall. X-ray of the pelvis shows no fracture or dislocation. Does show osteoporosis. 8.Deep venous thrombosis prophylaxis, SCDs. No chemical anticoagulation due to hemoptysis and virgil nue to ambulate. Plan: The patient was attempted to be transferred to [facility] for continuity of ca re and patient preference. However, we are still awaiting callback from Transfer Center at [facility]. /FELISHA Voice ID: [id number] Report ID: [id number]
--- NOTE | 2019-09-17 16:55 | P.PN ---
Date of Service: 09/17/19 Spoke w transfer center. Patient declined by hospitalist as no rheumatology available. 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 Transfer to [facility]
[2019-09-17] MEDS ORDERED: SPIRONOLACTONE 25 MG TABLET PO ONE (22:38)
[2019-09-18] MEDS: carvediloL 12.5 MG TAB PO SCH ×2 (05:48→17:05)
[2019-09-18 06:28] LABS: Hematocrit 25.8 % (36.0-45.0); MPV 8.6 fL (7.6-11.3); RBC Red Blood Cell Count 3.02 M/uL (3.86-4.86)
[2019-09-18 06:45] LABS: Potassium 3.8 mmol/L (3.5-5.1)
[2019-09-18] MEDS: ALBUTEROL 2.5 MG/3 ML NEB SOL NEB PRN (07:46)
[2019-09-18] MEDS: ARFORMOTEROL TARTRATE 15 MCG/2 ML VIAL.NEB NEB SCH ×2 (07:46→20:20)
--- NOTE | 2019-09-18 08:34 | RAD REPORT ---
EXAM DESCRIPTION: RAD - Chest Single View - 09/18/2019 7:05 am CLINICAL HISTORY: pneumonia Chest pain. COMPARISON: Chest Single View dated 09/17/2019; Chest Single View dated 09/16/2019; Chest Pa And Lat (2 Views) dated 09/15/2019; Chest Single View dated 09/14/2019 FINDINGS: Portable technique limits examination quality. Bilateral pulmonary opacities are again noted nodular density in the left apex. Mild improvement in r ight lower lobe lung infiltrate is seen since prior study. The heart is moderately enlarged. Right-si ded PICC line has tip in the SVC. IMPRESSION: Mild improvement in lung aeration seen since yesterday's study.
[2019-09-18] MEDS: AMLODIPINE 5 MG TAB PO SCH (09:00)
[2019-09-18 09:09] LABS: Blood Morphology Comment NOT SEEN (NOT SEEN); Platelet Estimate ADEQ; Urine White Blood Cell Casts OK
[2019-09-18] MEDS: SMZ./TMP. 800/160 MG TABLET PO SCH ×2 (09:38→20:40)
[2019-09-18] MEDS: predniSONE 20 MG TAB PO SCH (09:38)
[2019-09-18] MEDS: GUAIFENESIN 600 MG SA TAB PO SCH ×2 (09:38→20:40)
[2019-09-18] MEDS: FAMOTIDINE 20 MG TAB PO SCH ×2 (09:38→20:40)
[2019-09-18] MEDS: AMOX/K CLAV 875 MG TAB PO SCH ×2 (09:39→20:39)
[2019-09-18] MEDS: FUROSEMIDE 20 MG TABLET PO SCH ×2 (09:39→17:06)
[2019-09-18] MEDS: SOD FERRIC GLUC COMPLX/SUCROSE 250 MG in NA CHLORIDE 0.9% 250 ML IV SCH (10:21)
--- NOTE | 2019-09-18 12:09 | P.PN ---
Subjective Date of Service: 09/18/19 Chief Complaint: Weakness cough and hemoptysis Patient is feeling weak although she has improved and BAL his negative for Pneumocystis ease chest x-rays also improve her oxygenation has improved Review of Systems General: Weakness Respiratory: Shortness of Breath Physical Examination - Vital Signs Temperature: 98.0 F Blood Pressure: 136/60 Pulse: 82 Respirations: 17 Pulse Ox (%): 93 - Physical Exam General: Alert, Oriented x3 HEENT: Atraumatic Neck: Supple Respiratory: Crackles/rales Cardiovascular: No edema, Normal S1 S2 Assessment & Plan - Problems (Diagnosis) (1) Pulmonary fibrosis Current Visit: No Status: Acute Plan: Patient has interstitial lung disease bronchoscopy did not show any evidence of Pneumocystis reduce dose of Bactrim for now continue with prednisone chest x- ray has improved LDH is only mildly elevated will need prophylactic dose of Bactrim to prevent Pneumocystis prior knowledge a.m. on low-dose 1 tablet twice a day usually is 1 tablet 3 times a week
--- NOTE | 2019-09-18 13:02 | P.PN ---
Subjective Date of Service: 09/18/19 Chief Complaint: Weakness cough and hemoptysis No hemoptysis today. Patient states her breathing is better. She is maintained on 3 L of oxygen by nasal cannula. She has been afebrile. Had been accepted for transfer to [facility] for rheumatology evaluation and management. Physical Examination - Vital Signs Temperature: 98.0 F Blood Pressure: 136/60 Pulse: 82 Respirations: 17 Pulse Ox (%): 93 - Physical Exam General: Alert, In no apparent distress, Oriented x3 HEENT: Mucous membr. moist/pink, Sclerae nonicteric Neck: JVD not distended Respiratory: Diminished, Crackles/rales (Bilateral) Cardiovascular: No edema, Regular rate/rhythm, Normal S1 S2 Gastrointestinal: Normal bowel sounds, Soft and benign, Non-distended, No tenderness Musculoskeletal: No erythema Integumentary: No rashes, No tenderness/swelling Neurological: Normal speech, Normal strength at 5/5 x4 extr Assessment And Plan - Current Problems (Diagnosis) (1) Pneumonitis Current Visit: Yes Status: Acute (2) Acute respiratory failure with hypoxia Current Visit: Yes Status: Acute (3) Pneumonia Current Visit: Yes Status: Acute (4) Leukocytosis Current Visit: Yes Status: Acute (5) Anemia Current Visit: Yes Status: Acute (6) Pulmonary fibrosis Current Visit: No Status: Acute (7) Pulmonary hemorrhage Current Visit: No Status: Acute - Plan Patient has been accepted for transfer to [facility]. Continue current antibiotics. No evidence of Pneumocystis. Bactrim dose reduced by pulmonary. Continue oral steroids. Continue Augmentin and Bactrim. Titrate oxygen Chest physiotherapy Patient is awaiting bed availability for transfer to be seen by a insurance policy clerk..
[2019-09-18] MEDS: ZOLPIDEM TARTRATE 10 MG TABLET PO PRN (20:40)
[2019-09-19] MEDS: carvediloL 12.5 MG TAB PO SCH ×2 (06:02→18:38)
[2019-09-19 06:38] LABS: Absolute Lymphocytes (CBC) 0.9 K/uL (0.7-4.9); Basophils % 0.5 % (0-1.3); Hematocrit 25.5 % (36.0-45.0); Lymphocytes % 4.5 % (15.3-44.8); MPV 8.7 fL (7.6-11.3); RBC Red Blood Cell Count 2.96 M/uL (3.86-4.86)
[2019-09-19 06:50] LABS: Potassium 4.3 mmol/L (3.5-5.1)
[2019-09-19] MEDS: ARFORMOTEROL TARTRATE 15 MCG/2 ML VIAL.NEB NEB SCH ×2 (08:15→20:00)
[2019-09-19] MEDS: predniSONE 20 MG TAB PO SCH (09:04)
[2019-09-19] MEDS: SMZ./TMP. 800/160 MG TABLET PO SCH ×2 (09:04→20:49)
[2019-09-19] MEDS: AMOX/K CLAV 875 MG TAB PO SCH ×2 (09:05→20:49)
[2019-09-19] MEDS: AMLODIPINE 5 MG TAB PO SCH (09:05)
[2019-09-19] MEDS: GUAIFENESIN 600 MG SA TAB PO SCH ×2 (09:05→20:49)
[2019-09-19] MEDS: FUROSEMIDE 20 MG TABLET PO SCH ×2 (09:06→18:38)
[2019-09-19] MEDS: FAMOTIDINE 20 MG TAB PO SCH ×2 (09:06→20:49)
[2019-09-19] MEDS: SOD FERRIC GLUC COMPLX/SUCROSE 250 MG in NA CHLORIDE 0.9% 250 ML IV SCH (09:07)
[2019-09-19 10:06] LABS: Anisocytosis 1+; Blood Morphology Comment NOTED (NOT SEEN); Platelet Estimate ADEQ
[2019-09-19 10:07] LABS: Poikilocytosis 1+
--- NOTE | 2019-09-19 14:34 | P.PN ---
Subjective Date of Service: 09/19/19 Chief Complaint: Weakness cough and hemoptysis Patient states she is feeling better and breathing better. She is maintained on 3 L of oxygen by nasal cannula. She has been afebrile. She is reluctant to be transferred to [facility] for rheumatology evaluation and management. Physical Examination - Vital Signs Temperature: 97.9 F Blood Pressure: 135/65 Pulse: 79 Respirations: 16 Pulse Ox (%): 95 - Physical Exam General: Alert, In no apparent distress, Oriented x3 HEENT: Mucous membr. moist/pink, Sclerae nonicteric Neck: Supple, JVD not distended Respiratory: Diminished, Expiratory wheezes (Mild scattered rhonchi, no crackles.) Cardiovascular: No edema, Regular rate/rhythm, Normal S1 S2 Gastrointestinal: Normal bowel sounds, Soft and benign, Non-distended, No tenderness Musculoskeletal: No erythema - Studies Microbiology Data (last 24 hrs): 09/14/19 01:42 Blood - Blood Aerobic Blood Culture - Final No growth in 5 days. 09/14/19 01:42 Blood - Blood Anaerobic Blood Culture - Final No growth in 5 days. 09/14/19 00:30 Blood - Blood Aerobic Blood Culture - Final No growth in 5 days. 09/14/19 00:30 Blood - Blood Anaerobic Blood Culture - Final Assessment And Plan - Current Problems (Diagnosis) (1) Pneumonitis Current Visit: Yes Status: Acute (2) Acute respiratory failure with hypoxia Current Visit: Yes Status: Acute (3) Pneumonia Current Visit: Yes Status: Acute (4) Leukocytosis Current Visit: Yes Status: Acute (5) Anemia Current Visit: Yes Status: Acute (6) Pulmonary fibrosis Current Visit: No Status: Acute (7) Pulmonary hemorrhage Current Visit: No Status: Acute - Plan Patient is clinically improving Continue current antibiotics and oral prednisone. Continue Bactrim. Titrate oxygen Chest physiotherapy Increase activity as tolerated.
[2019-09-19] MEDS: ZOLPIDEM TARTRATE 10 MG TABLET PO PRN (20:49)
[2019-09-20 04:47] LABS: Absolute Lymphocytes (CBC) 0.8 K/uL (0.7-4.9); Basophils % 0.6 % (0-1.3); Hematocrit 25.2 % (36.0-45.0); Lymphocytes % 4.9 % (15.3-44.8); MPV 8.4 fL (7.6-11.3); RBC Red Blood Cell Count 2.92 M/uL (3.86-4.86)
[2019-09-20 05:02] LABS: Potassium 4.2 mmol/L (3.5-5.1)
[2019-09-20] MEDS: carvediloL 12.5 MG TAB PO SCH ×2 (05:04→17:02)
[2019-09-20] MEDS: AMOX/K CLAV 875 MG TAB PO SCH (08:18)
[2019-09-20] MEDS: GUAIFENESIN 600 MG SA TAB PO SCH (08:18)
[2019-09-20] MEDS: predniSONE 20 MG TAB PO SCH (08:19)
[2019-09-20] MEDS: FAMOTIDINE 20 MG TAB PO SCH (08:19)
[2019-09-20] MEDS: AMLODIPINE 5 MG TAB PO SCH (08:19)
[2019-09-20] MEDS: FUROSEMIDE 20 MG TABLET PO SCH ×2 (08:20→16:59)
[2019-09-20] MEDS: SMZ./TMP. 800/160 MG TABLET PO SCH (08:21)
[2019-09-20] MEDS: SOD FERRIC GLUC COMPLX/SUCROSE 250 MG in NA CHLORIDE 0.9% 250 ML IV SCH (09:55)
[2019-09-20] MEDS: ARFORMOTEROL TARTRATE 15 MCG/2 ML VIAL.NEB NEB SCH (11:22)
[2019-09-20 11:48] LABS: Hematocrit 25.1 % (36.0-45.0)
--- NOTE | 2019-09-20 12:57 | RAD REPORT ---
EXAM DESCRIPTION: RAD - Chest Single View - 09/20/2019 12:45 pm CLINICAL HISTORY: pneumonia COMPARISON: September 17, September 16 TECHNIQUE: AP portable chest image was obtained 09/20/2019 12:45 pm . FINDINGS: Lateral right base opacification has not improved. Interstitial pattern remains diffusely prominent throughout both lung jean. PICC line is stable. Cardiomegaly has not changed. Vasculature is similar. No measurable pleural effusion and no pneumothorax. No acute bony abnormality seen. No a cute aortic findings suspected. IMPRESSION: Diffuse interstitial lung disease with focal opacification in the lateral right base not substantially different from prior day imaging.
--- NOTE | 2019-09-20 13:03 | P.PN ---
Subjective Date of Service: 09/20/19 Chief Complaint: Weakness cough and hemoptysis Patient states she continues to feel better. Her hemoglobin is 7.8 today. She has leukocytosis. She denies any fever. No event overnight. She is maintained on 3 L of oxygen by nasal cannula. She has been afebrile. Physical Examination - Vital Signs Temperature: 97.7 F Blood Pressure: 135/69 Pulse: 73 Respirations: 16 Pulse Ox (%): 99 - Physical Exam General: Alert, In no apparent distress, Oriented x3 HEENT: Mucous membr. moist/pink, Sclerae nonicteric Neck: Supple, JVD not distended Respiratory: Diminished, Crackles/rales (Mild scattered crackles.) Cardiovascular: No edema, Regular rate/rhythm, Normal S1 S2, No murmurs Gastrointestinal: Normal bowel sounds, Soft and benign, Non-distended, No tenderness Musculoskeletal: No swelling, No erythema Integumentary: No erythema Neurological: Normal speech, Normal strength at 5/5 x4 extr Assessment And Plan - Current Problems (Diagnosis) (1) Pneumonitis Current Visit: Yes Status: Acute (2) Acute respiratory failure with hypoxia Current Visit: Yes Status: Acute (3) Pneumonia Current Visit: Yes Status: Acute (4) Leukocytosis Current Visit: Yes Status: Acute (5) Anemia Current Visit: Yes Status: Acute (6) Pulmonary fibrosis Current Visit: No Status: Acute (7) Pulmonary hemorrhage Current Visit: No Status: Acute - Plan Patient is clinically improving. Hemoglobin remained low. Continue current antibiotics and oral prednisone. Continue Bactrim. Titrate oxygen Patient is already on home oxygen. Bronchodilators. Chest physiotherapy Increase activity as tolerated. Monitor H&H daily and transfuse p.r.n. Patient may need transfusion. Her aspirin is on hold.
--- NOTE | 2019-09-20 13:17 | P.PN ---
Subjective Date of Service: 09/20/19 Chief Complaint: Weakness cough and hemoptysis Patient is doing much better has improved significantly since I started her on some Bactrim minimal hemoptysis Review of Systems General: Weakness Respiratory: Cough, Shortness of Breath Physical Examination - Vital Signs Temperature: 97.7 F Blood Pressure: 135/69 Pulse: 73 Respirations: 16 Pulse Ox (%): 99 - Physical Exam General: Alert, Oriented x3 HEENT: Atraumatic Neck: Supple Respiratory: Clear to auscultation bilaterally Cardiovascular: No edema, Normal S1 S2 Assessment & Plan - Problems (Diagnosis) (1) Pulmonary fibrosis Current Visit: No Status: Acute Plan: Patient is doing much better high risk for Pneumocystis D treat with Bactrim double strength 1 tablet twice a day for 14 days although her BAL is negative I would that may be false negative due to severe bleeding that occurred during the procedure biopsies was also negative patient is high risk for PCP will need to be treated for at least 21 days and then prophylactic therapy 1 DS 3 times a week and use dose of prednisone to 20 mg chest x-ray still shows some interstitial changes and right basilar consolidation Dc Augmentin follow up with me in 2 next week in Dc lisinopril change to amlodipine for hypertension
[2019-09-20 15:50] VITALS: O2SAT 94
--- NOTE | 2019-09-20 16:02 | P.DS ---
Admission Date: 09/14/19 Discharge Date: 09/20/19 Disposition: DC HOME/HOME HEALTH CARE Discharge Condition: FAIR Reason for Admission: Weakness cough and hemoptysis Consultations: Pulmonary-Dr. Linda - Problems (1) Pneumonitis Current Visit: Yes Status: Acute (2) Acute respiratory failure with hypoxia Current Visit: Yes Status: Acute (3) Pneumonia Current Visit: Yes Status: Acute (4) Leukocytosis Current Visit: Yes Status: Acute (5) Anemia Current Visit: Yes Status: Acute (6) Pulmonary fibrosis Current Visit: No Status: Acute (7) Pulmonary hemorrhage Current Visit: No Status: Acute Brief History of Present Illness: Ms. Alvarenga is a pleasant 59-year-old female with past medical history of hypertension, hyperlipidemia, lupus, SLE, who has been having progressive worsening SLE symptoms with intermittent shortness of breath, since last 3 months, was seen here and admitted for presumed pneumonia, treated and discharged. She returned later for bronchoscopy, which was complicated with persistent bleeding with aspiration, requiring ICU stay and 2 units PRBC, and noted new right lobe aspiration pneumonia. She was discharged with Augmentin and oral prednisone. Biopsy report turned out to be related to lupus. She returned again to the ED at night after discharge due worsening shortness of breath and drowsiness and the patient readmitted for further management. Hospital Course: Patient admitted to the medical floor and treated with aggressive antibiotic therapy, scheduled bronchodilators, and steroid. Based on her lung biopsy results, initial plan was to transfer the patient to the medical centers to be seen by rheumatology to assist with her management. The patient declined transfer. Pulmonology was consulted, patient was seen by Dr. Linda. Dr. Linda had high suspicion for Pneumocystis carinii and therefore started the patient on Bactrim. Antibiotics was also later scaled down to oral Augmentin. Her clinical condition improved with these measures. Noted her troponin was elevated. Cardiology was consulted, echocardiogram was performed which was read as normal with no wall motion abnormality. Elevated troponin was deemed secondary to the pneumonia and lupus. Her hemoglobin hovered around 8.0. She did not require blood transfusion but she was on aspirin which was not continued during the hospital stay. Patient has clinically improved, was seen by pulmonology today and deemed clinically stable for discharge. She is discharged to continue Bactrim and oral prednisone. She will follow with Dr. Linda as outpatient. Also recommended her to follow up with a Commissioning Specialist. Vital Signs/Physical Exam: Temp Pulse Resp BP Pulse Ox 97.7 F 73 16 135/69 99 09/20/19 13:17 09/20/19 13:17 09/20/19 13:17 09/20/19 13:17 09/20/19 13:17 General: Alert, In no apparent distress, Oriented x3 HEENT: Mucous membr. moist/pink, Sclerae nonicteric Neck: Supple, JVD not distended Respiratory: Diminished Cardiovascular: No edema, Regular rate/rhythm, Normal S1 S2 Gastrointestinal: Normal bowel sounds, Soft and benign, No tenderness Musculoskeletal: No erythema Integumentary: No rashes, No erythema Neurological: Normal speech, Normal strength at 5/5 x4 extr Laboratory Data at Discharge: WBC 16.9 K/uL (4.3-10.9) H D 09/20/19 04:40 Hgb 7.9 g/dL (12.0-15.0) L* 09/20/19 11:19 Hct 25.1 % (36.0-45.0) L 09/20/19 11:19 Plt Count 151 K/uL (152-406) L 09/20/19 04:40 APTT 24.3 SECONDS (24.3-36.9) 09/14/19 07:31 Sodium 142 mmol/L (136-145) 09/20/19 04:40 Potassium 4.2 mmol/L (3.5-5.1) 09/20/19 04:40 BUN 35 mg/dL (7-18) H 09/20/19 04:40 Creatinine 1.05 mg/dL (0.55-1.3) 09/20/19 04:40 Glucose 99 mg/dL (74-106) 09/20/19 04:40 Magnesium 2.1 mg/dL (1.8-2.4) 09/16/19 05:13 Total Bilirubin 0.6 mg/dL (0.2-1.0) 09/17/19 09:09 AST 18 U/L (15-37) 09/17/19 09:09 ALT 21 U/L (12-78) 09/17/19 09:09 Alkaline Phosphatase 109 U/L (45-117) 09/17/19 09:09 Troponin I 0.20 ng/mL (0.0-0.045) H 09/17/19 05:05 Home Medications: Anastrozole 1 mg PO DAILY 08/20/19 Atorvastatin Calcium [Lipitor] 40 mg PO BEDTIME 08/20/19 Duloxetine HCl [Cymbalta] 60 mg PO DAILY 08/20/19 Gabapentin 300 mg PO BEDTIME 08/20/19 Levothyroxine [Synthroid*] 1 tab PO [id number] 08/20/19 Zolpidem Tartrate [Ambien*] 10 mg PO BEDTIME 08/20/19 Albuterol Sulfate [Proair Hfa] 2 puff IH TID PRN #1 [id number] 09/06/19 Multivitamin with Iron [Daily Vitamin + Iron] 1 each PO DAILY #90 tablet Hydrocodone Bit/Acetaminophen [Hydrocodon-Acetaminoph 7.5-325] 1 tab PO QIDP PRN 09/12/19 predniSONE [Prednisone*] 20 mg PO DAILY 09/12/19 Albuterol Neb [Proventil 0.083% Neb Soln] 2.5 mg NEB [id number] PRN #90 amp Amlodipine [Norvasc*] 5 mg PO DAILY #30 tab 09/20/19 Famotidine [Pepcid*] 20 mg PO BID #60 tab 09/20/19 Furosemide [Lasix*] 20 mg PO BIDL #60 tab 09/20/19 Guaif/Dm [Robitussin Dm*] 10 ml PO Q6H PRN #1 bottle 09/20/19 Iron Ag,Ps/C/Fa6/B12/Zn/SA/Sto [Niferex Tablet] 1 each PO DAILY #30 tablet 09/19 Nebulizer [Aeroneb Go Nebulizer] 1 each MC TID #1 each 09/20/19 Smz./Tmp. [Bactrim Ds 800 MG/160 MG] 2 tab PO TID 21 Days tab 09/20/19 carvediloL [Coreg*] 25 mg PO BID 6AM 6PM #60 tab 09/20/19 New Medications: Albuterol Neb [Proventil 0.083% Neb Soln] 2.5 mg NEB [id number] PRN #90 amp PRN Reason: Shortness Of Breath Amlodipine [Norvasc*] 5 mg PO DAILY #30 tab carvediloL [Coreg*] 25 mg PO BID 6AM 6PM #60 tab Famotidine [Pepcid*] 20 mg PO BID #60 tab Furosemide [Lasix*] 20 mg PO BIDL #60 tab Guaif/Dm [Robitussin Dm*] 10 ml PO Q6H PRN #1 bottle PRN Reason: Cough Iron Ag,Ps/C/Fa6/B12/Zn/SA/Sto [Niferex Tablet] 1 each PO DAILY #30 tablet Nebulizer [Aeroneb Go Nebulizer] 1 each MC TID #1 each Smz./Tmp. [Bactrim Ds 800 MG/160 MG] 2 tab PO TID 21 Days tab Patient Discharge Instructions: Patient to reduce her prednisone to 20 mg once a day follow up with me next week/patient to stop taking lisinopril Diet: Regular Activity: Ad timbo Followup: Matt Linda MD [ACTIVE - CAN ADMIT] - 1 Week (php developer- call to schedule an appointment ) Rickie Erickson MD [Primary Care Provider] - 1-2 Weeks (call to schedule an appointment ) Time spent managing pt's care (in minutes): 45
[2019-09-20 17:51] VITALS: BP 156/68; TEMP 97.8
== END 2019-09-20 17:25 | disposition home health service (06) | DRG 177 ==
LOC: ER 23:40 → ERHOLD 09-14 03:02 → 4TH 09-14 04:07
PROVIDERS: ADMIT Internal Medicine Sleep Medicine; ATTEND Internal Medicine
DX: J69.0 Pneumonitis due to inhalation of food and vomit (principal); J96.01 Acute respiratory failure with hypoxia; R04.2 Hemoptysis; D72.829 Elevated white blood cell count, unspecified; D64.9 Anemia, unspecified; J84.10 Pulmonary fibrosis, unspecified; I10 Essential (primary) hypertension; M32.9 Systemic lupus erythematosus, unspecified
CPT/HCPCS: 36415; 36569; 71045; 71046; 72170; 80048; 80053; 82805; 83605; 83615; 83735; 84145; 84484; 85014; 85018; 85025; 85027; 85730; 86850; 86900; 86901; 87040; 87070; 87205; 93005; 93306; 94640; 94660; 94760; 96360; 96361; 97116; 97161; 97530; 99285; J0360; J0692; J1650; J1940; J2543; J2916; J2930; J7030; J7040; J7512; J7605

== ENCOUNTER 2019-09-24 09:54 | Inpatient (IN) | payer BC ==
--- NOTE | 2019-09-24 11:49 | RAD REPORT ---
EXAM DESCRIPTION: RAD - Chest Single View - 09/24/2019 11:41 am CLINICAL HISTORY: COUGH, shortness of breath, recent hospitalization COMPARISON: September 19 portable TECHNIQUE: AP portable chest image was obtained 09/24/2019 11:41 am . FINDINGS: PICC line has been removed since the prior examination. Patient has extensive interstitial lung disease and scattered alveolar opacities. Lateral right base has improved from prior imaging. W hen adjusting for and under penetrated technique, lung parenchyma is otherwise stable. Cardiac silhou ette is prominent. Upper lobe vasculature within normal limits. Left hilar region accentuated by slig ht rotation. No measurable pleural effusion and no pneumothorax. No acute bony abnormality seen. No a cute aortic findings suspected. IMPRESSION: Extensive lung parenchymal disease is present similar to slightly improved from September 19 imaging. No progressive process identifiable.
[2019-09-24 12:03] LABS: Absolute Lymphocytes (CBC) 0.5 K/uL (0.7-4.9); Basophils % 0.5 % (0-1.3); Hematocrit 25.5 % (36.0-45.0); Lymphocytes % 4.3 % (15.3-44.8); MPV 8.8 fL (7.6-11.3); RBC Red Blood Cell Count 2.93 M/uL (3.86-4.86)
[2019-09-24 12:08] LABS: Protime INR 1.19
[2019-09-24 12:21] LABS: Albumin 2.3 g/dL (3.4-5.0); Bilirubin Direct 0.1 mg/dL (0-0.2); Bilirubin Total 0.3 mg/dL (0.2-1.0); Magnesium 2.2 mg/dL (1.8-2.4); Potassium 5.1 mmol/L (3.5-5.1); Protein, Total 6.5 g/dL (6.4-8.2); Troponin (Emerg Dept Use Only) 0.02 ng/mL (0.0-0.045)
[2019-09-24 12:54] LABS: Anisocytosis 1+; Blood Morphology Comment NOTED (NOT SEEN); Platelet Estimate ADEQ
[2019-09-24 12:55] LABS: Macrocytosis 1+
--- NOTE | 2019-09-24 13:03 | EKG ---
Test Date: 2019-09-24 Test Time: 11:29:03 Clinical Systems Analyst: [place] MEASUREMENT RESULTS: Intervals: Rate: 76 NE: 122 QRSD: 120 QT: 414 QTc: 465 [place]: P: 57 NE: 122 QRS: 40 T: 25 INTERPRETIVE STATEMENTS: Normal sinus rhythm Left atrial enlargement Right bundle branch block Abnormal ECG Compared to ECG 09/14/2019 00:02:17 Sinus tachycardia no longer present ST (T wave) deviation no longer present Electronically Signed On 09-24-19 13:03:08 CDT by Kamran Chung
--- NOTE | 2019-09-24 13:41 | EDPHYS ---
Physician Documentation [facility] Name: Bri Alvarenga Age: 59 yrs Sex: Female : 1960 Arrival Date: 09/24/2019 Time: 09:55 Bed 7 Private MD: LISA Physician Renny Baker HPI: 09/23 11:16 This 59 yrs old Female presents to ER via Wheelchair with complaints of gladys Weakness. 11:16 The patient presents to the emergency department with weakness of the. gladys 11:19 The patient has shortness of breath at rest, with light activity. Onset: The gladys symptoms/episode began/occurred 3 day(s) ago. Duration: The symptoms are continuous, and are steadily getting worse. The patient's shortness of breath is aggravated by light activity, walking, is alleviated by rest, application of supplemental oxygen. weak, sob, multiple recent hospitalizations. Associated signs and symptoms: Pertinent positives: non-productive cough. Severity of symptoms: At their worst the symptoms were mild in the emergency department the symptoms are unchanged. The patient has experienced similar episodes in the past, multiple times. Historical: - Allergies: 10:41 No Known Allergies; ca1 - PMHx: 10:41 Anemia; Cancer, Breast; chronic back pain; CVA; High Cholesterol; Hypertension; ca1 Hypothyroidism; Lupus; vaginal CA; - PSHx: 10:41 Mastectomy, Left; Mastectomy, Right; ca1 - Immunization history:: Adult Immunizations up to date, Pneumococcal vaccine is not up to date, Flu vaccine is not up to date. - Social history:: Smoking status: Patient/guardian denies using tobacco, the patient reports quitting approximately 6 years ago. - Family history:: not pertinent. ROS: 11:19 Constitutional: Negative for fever, chills, and weight loss, Eyes: Negative for injury, gladys pain, redness, and discharge, ENT: Negative for injury, pain, and discharge, Neck: Negative for injury, pain, and swelling, Cardiovascular: Negative for chest pain, palpitations, and edema, Abdomen/GI: Negative for abdominal pain, nausea, vomiting, diarrhea, and constipation, Back: Negative for injury and pain, : Negative for injury, bleeding, discharge, and swelling, MS/Extremity: Negative for injury and deformity, Skin: Negative for injury, rash, and discoloration, Psych: Negative for depression, anxiety, suicide ideation, homicidal ideation, and hallucinations, Allergy/Immunology: Negative for hives, rash, and allergies, Endocrine: Negative for neck swelling, polydipsia, polyuria, polyphagia, and marked weight changes, Hematologic/Lymphatic: Negative for swollen nodes, abnormal bleeding, and unusual bruising. 11:19 Respiratory: Positive for cough, shortness of breath. 11:19 Neuro: Positive for weakness. Exam: 11:19 Constitutional: This is a well developed, well nourished patient who is awake, alert, gladys and in no acute distress. Head/Face: Normocephalic, atraumatic. Eyes: Pupils equal round and reactive to light, extra-ocular motions intact. Lids and lashes normal. Conjunctiva and sclera are non-icteric and not injected. Cornea within normal limits. Periorbital areas with no swelling, redness, or edema. ENT: Nares patent. No nasal discharge, no septal abnormalities noted. Tympanic membranes are normal and external auditory canals are clear. Oropharynx with no redness, swelling, or masses, exudates, or evidence of obstruction, uvula midline. Mucous membranes moist. Neck: Trachea midline, no thyromegaly or masses palpated, and no cervical lymphadenopathy. Supple, full range of motion without nuchal rigidity, or vertebral point tenderness. No Meningismus. Chest/axilla: Normal chest wall appearance and motion. Nontender with no deformity. No lesions are appreciated. Cardiovascular: Regular rate and rhythm with a normal S1 and S2. No gallops, murmurs, or rubs. Normal PMI, no JVD. No pulse deficits. Respiratory: Lungs have equal breath sounds bilaterally, clear to auscultation and percussion. No rales, rhonchi or wheezes noted. No increased work of breathing, no retractions or nasal flaring. Abdomen/GI: Soft, non-tender, with normal bowel sounds. No distension or tympany. No guarding or rebound. No evidence of tenderness throughout. Back: No spinal tenderness. No costovertebral tenderness. Full range of motion. Female : Normal external genitalia. Skin: Warm, dry with normal turgor. Normal color with no rashes, no lesions, and no evidence of cellulitis. MS/ Extremity: Pulses equal, no cyanosis. Neurovascular intact. Full, normal range of motion. Neuro: Awake and alert, GCS 15, oriented to person, place, time, and situation. Cranial nerves II-XII grossly intact. Motor strength 5/5 in all extremities. Sensory grossly intact. Cerebellar exam normal. Normal gait. Psych: Awake, alert, with orientation to person, place and time. Behavior, mood, and affect are within normal limits. Vital Signs: 10:32 BP 115 / 60; Pulse 71; Resp 16 S; Temp 98.7(TE); Pulse Ox 92% on 4 lpm NC; Weight 67.13 ca1 kg (R); Height 5 ft. 0 in. (152.40 cm) (R); Pain 0/10; 11:56 BP 127 / 71; Pulse 71; Resp 21 S; Pulse Ox 94% on 2 lpm NC; Pain 0/10; jl7 13:40 BP 151 / 88; Pulse 77; Resp 21 S; Pulse Ox 98% on 2 lpm NC; jl7 15:44 BP 158 / 86; Pulse 74; Resp 19; Pulse Ox 94% ; jl7 15:45 BP 119 / 71; Pulse 71; Resp 19; Pulse Ox 96% on 2 lpm NC; jl7 10:32 Body Mass Index 28.90 (67.13 kg, 152.40 cm) ca1 MDM: 10:53 Patient medically screened. [facility] 11:22 Data reviewed: vital signs, nurses notes, lab test result(s), EKG, radiologic studies, gladys plain films. 09/23 11:16 Order name: Basic Metabolic Panel; Complete Time: 13:29 [facility] 09/23 11:16 Order name: CBC with Diff; Complete Time: 13:29 [facility] 09/23 11:16 Order name: LFT's; Complete Time: 13:29 [facility] 09/23 11:16 Order name: Magnesium; Complete Time: 13:29 [facility] 09/23 11:16 Order name: NT PRO-BNP; Complete Time: 13:29 [facility] 09/23 11:16 Order name: PT-INR; Complete Time: 12:09 [facility] 09/23 11:16 Order name: Troponin (emerg Dept Use Only); Complete Time: 13:29 [facility] 09/23 11:16 Order name: XRAY Chest (1 view); Complete Time: 12:09 [facility] 09/23 11:16 Order name: Lipase; Complete Time: 13:29 [facility] 09/23 11:16 Order name: Type And Screen [facility] 09/23 11:16 Order name: Blood Culture Adult (2) [facility] 09/23 11:16 Order name: Urine Culture [facility] 09/23 12:55 Order name: Manual Differential EDIA 09/23 14:04 Order name: Urine Dipstick--Ancillary (enter results) 09/23 11:16 Order name: EKG; Complete Time: 11:19 [facility] 09/23 11:16 Order name: Cardiac monitoring; Complete Time: 11:29 [facility] 09/23 11:16 Order name: EKG - Nurse/Tech; Complete Time: 11:29 [facility] 09/23 11:16 Order name: IV Saline Lock; Complete Time: 11:53 [facility] 09/23 11:16 Order name: Labs collected and sent; Complete Time: 11:53 [facility] 09/23 11:16 Order name: O2 Per Protocol; Complete Time: 11:29 [facility] 09/23 11:16 Order name: O2 Sat Monitoring; Complete Time: 11:29 [facility] 09/23 11:16 Order name: Urine Dipstick-Ancillary (obtain specimen); Complete Time: 14:04 [facility] 09/23 14:54 Order name: Social Service Consult EDIA Administered Medications: 13:50 Drug: Lasix 20 mg Route: IVP; Site: right hand; jl7 14:30 Follow up: Response: No adverse reaction jl7 13:50 Drug: Xopenex 1.25 mg Route: Inhalation; jl7 14:30 Follow up: Response: No adverse reaction jl7 13:50 Drug: AtroVENT Aerosol 0.5 mg Route: Inhalation; jl7 14:30 Follow up: Response: No adverse reaction jl7 Disposition: 09/24/19 13:40 Hospitalization ordered by Job Duarte for Inpatient Admission. Preliminary diagnosis are Pulmonary fibrosis, unspecified, Dyspnea, Weakness, Anemia, unspecified, Unspecified kidney failure. - Bed requested for Telemetry/MedSurg (Inpatient). - Status is Inpatient Admission. jl7 - Condition is Fair. - Problem is new. - Symptoms have improved. Signatures: Dispatcher [employer] EDMS Grace Florez RN RN dw Anderson, Corey, MD MD cha Leal, Jahala, RN RN jl7 Radha Pappas RN YORDY ca1 Corrections: (The following items were deleted from the chart) 15:54 13:40 Hospitalization Ordered by Job Duarte DO for Inpatient Admission. Preliminary dw diagnosis is Pulmonary fibrosis, unspecified; Dyspnea; Weakness; Anemia, unspecified; Unspecified kidney failure. Bed requested for Telemetry/MedSurg (Inpatient). Status is Inpatient Admission. Condition is Fair. Problem is new. Symptoms have improved. gladys 16:59 15:54 09/24/2019 13:40 Hospitalization Ordered by Job Duarte DO for Inpatient jl7 Admission. Preliminary diagnosis is Pulmonary fibrosis, unspecified; Dyspnea; Weakness; Anemia, unspecified; Unspecified kidney failure. Bed requested for Telemetry/MedSurg (Inpatient). Status is Inpatient Admission. Condition is Fair. Problem is new. Symptoms have improved. dw
--- NOTE | 2019-09-24 13:41 | ER ---
Nurse's Notes [facility] Name: Bri Alvarenga Age: 59 yrs Sex: Female : 1960 Arrival Date: 09/24/2019 Time: 09:55 Bed 7 Private MD: Diagnosis: Pulmonary fibrosis, unspecified;Dyspnea;Weakness;Anemia, unspecified;Unspecified kidney failure Presentation: 09/23 10:32 Chief complaint: Spouse and/or significant other states: Was admitted here for 7 days, ca1 discharged and back the same night at the ER for pneumonia. Admitted again and was discharged last Monday. Since then, she's been weaker everyday. I have to help her get out of the chair, to the toilet. She is on continuous O2 at home, but this morning her 02 sats was at 88-89% at 3LPM so I bumped it up to 4LPM to get to the low 90s. She has history of anemia and she had several iron infusions before they discharged her. Reports persistent cough since . Denies fever. Coronavirus screen: The patient has NOT traveled to a country currently being monitored by the CDC within the last 14 days. The patient has NOT had contact with any known and/or suspected case of coronavirus. Ebola Screen: Patient negative for fever greater than or equal to 101.5 degrees Fahrenheit, and additional compatible Ebola Virus Disease symptoms Patient denies exposure to infectious person. Patient denies travel to an Ebola-affected area in the 21 days before illness onset. No symptoms or risks identified at this time. Initial Sepsis Screen: Does the patient meet any 2 criteria? No. Patient's initial sepsis screen is negative. Does the patient have a suspected source of infection? No. Patient's initial sepsis screen is negative. Risk Assessment: Do you want to hurt yourself or someone else? Patient reports no desire to harm self or others. Onset of symptoms was September 24, 2019. 10:32 Method Of Arrival: Wheelchair ca1 10:32 Acuity: HANNAH 2 ca1 Historical: - Allergies: 10:41 No Known Allergies; ca1 - PMHx: 10:41 Anemia; Cancer, Breast; chronic back pain; CVA; High Cholesterol; Hypertension; ca1 Hypothyroidism; Lupus; vaginal CA; - PSHx: 10:41 Mastectomy, Left; Mastectomy, Right; ca1 - Immunization history:: Adult Immunizations up to date, Pneumococcal vaccine is not up to date, Flu vaccine is not up to date. - Social history:: Smoking status: Patient/guardian denies using tobacco, the patient reports quitting approximately 6 years ago. - Family history:: not pertinent. Screenin:55 Abuse screen: Denies threats or abuse. Denies injuries from another. Nutritional jl7 screening: No deficits noted. Tuberculosis screening: No symptoms or risk factors identified. Fall Risk IV access (20 points). Total Izaguirre Fall Scale indicates No Risk (0-24 pts). Assessment: 10:45 General: Appears in no apparent distress. uncomfortable, Behavior is calm, cooperative, jl7 appropriate for age. Pain: Denies pain. Neuro: Level of Consciousness is awake, alert, obeys commands, Oriented to person, place, time, situation. Cardiovascular: Patient's skin is warm and dry. Respiratory: Airway is patent Respiratory effort is even, unlabored, Respiratory pattern is regular, agonal. Derm: Skin is dry, Skin is pale, Skin temperature is warm. 11:45 Reassessment: Patient appears in no apparent distress at this time. No changes from jl7 previously documented assessment. Patient and/or family updated on plan of care and expected duration. Pain level reassessed. Patient is alert, oriented x 3, equal unlabored respirations, skin warm/dry/pink. 12:45 Reassessment: Patient appears in no apparent distress at this time. No changes from jl7 previously documented assessment. Patient and/or family updated on plan of care and expected duration. Pain level reassessed. Patient is alert, oriented x 3, equal unlabored respirations, skin warm/dry/pink. 13:45 Reassessment: Patient appears in no apparent distress at this time. No changes from jl7 previously documented assessment. Patient and/or family updated on plan of care and expected duration. Pain level reassessed. Patient is alert, oriented x 3, equal unlabored respirations, skin warm/dry/pink. 14:45 Reassessment: Patient appears in no apparent distress at this time. No changes from jl7 previously documented assessment. Patient and/or family updated on plan of care and expected duration. Pain level reassessed. Patient is alert, oriented x 3, equal unlabored respirations, skin warm/dry/pink. 15:45 Reassessment: Patient appears in no apparent distress at this time. No changes from jl7 previously documented assessment. Patient and/or family updated on plan of care and expected duration. Pain level reassessed. Patient is alert, oriented x 3, equal unlabored respirations, skin warm/dry/pink. 16:45 Reassessment: Patient appears in no apparent distress at this time. No changes from jl7 previously documented assessment. Patient and/or family updated on plan of care and expected duration. Pain level reassessed. Patient is alert, oriented x 3, equal unlabored respirations, skin warm/dry/pink. Vital Signs: 10:32 BP 115 / 60; Pulse 71; Resp 16 S; Temp 98.7(TE); Pulse Ox 92% on 4 lpm NC; Weight 67.13 ca1 kg (R); Height 5 ft. 0 in. (152.40 cm) (R); Pain 0/10; 11:56 BP 127 / 71; Pulse 71; Resp 21 S; Pulse Ox 94% on 2 lpm NC; Pain 0/10; jl7 13:40 BP 151 / 88; Pulse 77; Resp 21 S; Pulse Ox 98% on 2 lpm NC; jl7 15:44 BP 158 / 86; Pulse 74; Resp 19; Pulse Ox 94% ; jl7 15:45 BP 119 / 71; Pulse 71; Resp 19; Pulse Ox 96% on 2 lpm NC; jl7 10:32 Body Mass Index 28.90 (67.13 kg, 152.40 cm) ca1 ED Course: 09:55 Patient arrived in ED. rg4 10:39 Triage completed. ca1 10:41 Arm band placed on right wrist. ca1 10:53 Renny Baker MD is Attending Physician. gladys 11:11 Jey Vaughn, YORDY is Primary Nurse. jl7 11:47 XRAY Chest (1 view) In Process Unspecified. EDMS 11:50 Inserted saline lock: 22 gauge in right hand, using aseptic technique. Blood collected. jl7 11:50 Initial lab(s) drawn, by vt, sent to lab. First set of blood cultures drawn by me, T\T\S jl7 collected, blood band applied to patient. 11:55 Patient has correct armband on for positive identification. Bed in low position. Call jl7 light in reach. Side rails up X2. monitoring manager on. Pulse ox on. NIBP on. Warm blanket given. 11:55 Second set of blood cultures drawn Pt refused, lab notified to cancel 2nd set of blood jl7 cultures. 13:38 Job Duarte DO is Hospitalizing Provider. [facility] 16:58 No provider procedures requiring assistance completed. Patient admitted, IV remains in jl7 place. intact, No redness/swelling at site. Administered Medications: 13:50 Drug: Lasix 20 mg Route: IVP; Site: right hand; jl7 14:30 Follow up: Response: No adverse reaction jl7 13:50 Drug: Xopenex 1.25 mg Route: Inhalation; jl7 14:30 Follow up: Response: No adverse reaction jl7 13:50 Drug: AtroVENT Aerosol 0.5 mg Route: Inhalation; jl7 14:30 Follow up: Response: No adverse reaction jl7 Outcome: 13:40 Decision to Hospitalize by Provider. [facility] 16:58 Admitted to Tele accompanied by tech, family with patient, via wheelchair, room 211, jl7 with oxygen, with chart, Report called to YORDY Francois 16:58 Condition: stable 16:58 Discharge instructions given to patient, family, Instructed on the need for admit, Demonstrated understanding of instructions. 16:59 Patient left the ED. jl7 Signatures: Dispatcher [employer] EDRenny Reyes MD MD cha Garcia, Rubi rg4 Jey Vaughn RN RN jl7 Radha Pappas RN RN ca1 Corrections: (The following items were deleted from the chart) 14:06 13:35 Lasix 20 mg IVP in right hand jl7 jl7
[2019-09-24] MEDS ORDERED: IPRATROPIUM BROM 0.5MG/2.5ML ONE (13:55)
[2019-09-24] MEDS ORDERED: FUROSEMIDE 20 MG/ 2ML VIAL ONE (13:55)
[2019-09-24] MEDS ORDERED: LEVALBUTEROL 1.25 MG/3 ML NEB ONE (13:56)
--- NOTE | 2019-09-24 14:51 | P.HP ---
Certification for Inpatient Patient admitted to: Observation With expected LOS: <2 Midnights Patient will require the following post-hospital care: Home Health Services Practitioner: I am a practitioner with admitting privileges, knowledge of patient current condition, hospital course, and medical plan of care. Services: Services provided to patient in accordance with Admission requirements found in Title 42 Section 412.3 of the Code of Federal Regulations Patient History Date of Service: 09/24/19 Primary Care Provider: Dr. Erickson; Pulmonary-Dr. Linda Reason for admission: Fatigue History of Present Illness: 59-year-old female with history of COPD, pulmonary fibrosis, lupus, hypothyroidism, hypertension and GERD. Patient recently hospitalized for acute respiratory failure after bronchoscopy. Since being discharge patient has seen pulmonology. Patient was placed on Bactrim DS 2 pills 3 times a day for suspected PCP. Since that time patient has reported increased fatigue and some shortness of breath. She is on chronic steroids and chronic oxygen. She does report a dry cough. She denies any fever , chills, nausea, vomiting, diarrhea or constipation. No changes in her stool. She has been working at home. has noted lack of energy. In the ER patient was evaluated. Vital signs stable. White count 12.1, hemoglobin 8.2. Sodium 132. Potassium 5.1. BUN of 46, creatinine 1.77 with a GFR 29. Glucose 85. BNP 4000. Chest x-ray shows improvement since last chest x- ray. Patient admitted for further evaluation and observation. When I saw the patient ER, she did not appear in any respiratory distress reviewed. Patient not on a fluid restriction at home. Allergies No Known Allergies Allergy (Verified 09/14/19 04:41) Home medications list reviewed: Yes Home Medications: Anastrozole 1 mg PO DAILY 08/20/19 Atorvastatin Calcium [Lipitor] 40 mg PO BEDTIME 08/20/19 Duloxetine HCl [Cymbalta] 60 mg PO DAILY 08/20/19 Gabapentin 300 mg PO BEDTIME 08/20/19 Levothyroxine [Synthroid*] 1 tab PO [id number] 08/20/19 Zolpidem Tartrate [Ambien*] 10 mg PO BEDTIME 08/20/19 Albuterol Sulfate [Proair Hfa] 2 puff IH TID PRN #1 [id number] 09/06/19 Multivitamin with Iron [Daily Vitamin + Iron] 1 each PO DAILY #90 tablet Hydrocodone Bit/Acetaminophen [Hydrocodon-Acetaminoph 7.5-325] 1 tab PO QIDP PRN 09/12/19 predniSONE [Prednisone*] 20 mg PO DAILY 09/12/19 Albuterol Neb [Proventil 0.083% Neb Soln] 2.5 mg NEB [id number] PRN #90 amp Amlodipine [Norvasc*] 5 mg PO DAILY #30 tab 09/20/19 Famotidine [Pepcid*] 20 mg PO BID #60 tab 09/20/19 Furosemide [Lasix*] 20 mg PO BIDL #60 tab 09/20/19 Guaif/Dm [Robitussin Dm*] 10 ml PO Q6H PRN #1 bottle 09/20/19 Iron Ag,Ps/C/Fa6/B12/Zn/SA/Sto [Niferex Tablet] 1 each PO DAILY #30 tablet 09/19 Nebulizer [Aeroneb Go Nebulizer] 1 each MC TID #1 each 09/20/19 Smz./Tmp. [Bactrim Ds 800 MG/160 MG] 2 tab PO TID 21 Days tab 09/20/19 carvediloL [Coreg*] 25 mg PO BID 6AM 6PM #60 tab 09/20/19 - Past Medical/Surgical History Diabetic: No -: Lupus, on disease modifying medication, chronic steroid -: History of CVA -: History of breast cancer with bilateral mastectomy -: Hyperlipidemia -: Hypothyroidism -: Chronic pain -: History of vaginal cancer -: Anemia likely of chronic disease -: Interstitial lung disease -: home o2 3L nc -: Bilateral breast mastectomy with lymph node removal -: Vaginal surgery due to cancer Psychosocial/ Personal History: Patient is - Family History Family History: Reviewed- Non-Contributory - Family History Father -: Cancer Notes: liver ca Brother -: Cancer Notes: throat ca Mother -: Stroke, Cancer Notes: pancreatic ca - Social History Smoking Status: Unknown if ever smoked Alcohol use: No CD- Drugs: No Caffeine use: Yes Place of Residence: Home Review of Systems General: Weakness, As per HPI Eyes: Unremarkable ENT: Unremarkable Respiratory: Shortness of Breath, SOB with Excertion, As per HPI Cardiovascular: Unremarkable Gastrointestinal: Unremarkable Genitourinary: Unremarkable Musculoskeletal: Unremarkable Integumentary: Unremarkable Neurological: Unremarkable Lymphatics: Unremarkable Physical Examination - Physical Exam General: Alert, In no apparent distress, Oriented x3, Cooperative HEENT: Atraumatic, Normocephalic, EOMI Neck: Supple Respiratory: Clear to auscultation bilaterally, Normal air movement Cardiovascular: Normal pulses, Regular rate/rhythm Gastrointestinal: Normal bowel sounds, Soft and benign, Non-distended, No masses , No rebound, No guarding Musculoskeletal: No tenderness, No warmth Integumentary: No tenderness/swelling Neurological: Normal speech, Normal strength at 5/5 x4 extr, Normal tone, Normal affect - Studies Laboratory Data (last 24 hrs) 09/24/19 11:50: PT 13.9 H, INR 1.19 09/24/19 11:50: WBC 12.1 H D, Hgb 8.2 L, Hct 25.5 L, Plt Count 135 L 09/24/19 11:50: Sodium 132 L, Potassium 5.1, BUN 46 H, Creatinine 1.77 H, Glucose 85, Magnesium 2.2, Total Bilirubin 0.3, AST 25, ALT 25, Alkaline Phosphatase 133 H, Lipase 183 Assessment and Plan - Plan Impression: Acute renal failure likely related to medication Interstitial lung disease on chronic oxygen recently evaluated for possible PCP Anemia of chronic disease Chronic diastolic CHF Hypertension Hypothyroidism GERD Seasonal allergies Chronic pain Hyperlipidemia Lupus Plan: Acute renal failure likely related to medication: Patient will be admitted for further evaluation and treatment. Renal function has been call per my since the last visit. Patient recently on high-dose Bactrim for PCP. Patient also takes Lasix for diastolic CHF. Case reviewed with pulmonology. Will hold Bactrim and Lasix at this time. Will continue with IV fluids. Will monitor and reassess. Obtain renal ultrasound to further evaluate. Will also consult nephrology for further recommendation. Anticipate improvement over the next 24- 48 hr. Patient will require home health and continue home oxygen at discharge. Interstitial lung disease on chronic oxygen recently evaluated for possible PCP : Patient remains on chronic steroids. Will continue with prednisone 20 mg daily. Will continue with her steroid inhalers. Will provide medication for shortness of breath. Patient recently evaluated by pulmonology with bronchoscopy. No evidence of cancer noted. Pulmonology had suspected PCP. Pulmonology had adjusted Bactrim to cover for PCP. As mentioned above will hold Bactrim at this time due to acute renal failure. Anemia of chronic disease: Will monitor closely. Patient has received transfusion in the past. Will maintain hemoglobin above 7.5. Chronic diastolic CHF: Will hold Lasix at this time due to acute renal failure. Continue 1500 cc per day fluid restriction. Will monitor closely. Hypertension: Continue home medications of Norvasc and carvedilol. Hypothyroidism: Continue levothyroxine. GERD: Continue Pepcid. Seasonal allergies: Will consider additional medication Zyrtec and Flonase. Chronic pain: Continue gabapentin. Hyperlipidemia: Continue Lipitor. 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 Patient on chronic steroids. Interstitial lung disease may be related to lupus. Continue as above. Discharge Plan: Home Plan to discharge in: 48 Hours - Advance Directives Does patient have a Living Will: Yes Does patient have a Durable POA for Healthcare: No - Code Status/Comfort Care Code Status Assessed: Yes (Patient is full code) Time Spent Managing Pts Care (In Minutes): 55
[2019-09-24] MEDS ORDERED: ACETAMINOPHEN 500 MG TAB PO PRN (16:56)
[2019-09-24] MEDS ORDERED: ONDANSETRON 4 MG/2 ML VIAL IV PRN (16:56)
[2019-09-24 17:14] VITALS: BMI 28.9
[2019-09-24] MEDS: carvediloL 25 MG TAB PO SCH (17:23)
[2019-09-24] MEDS: FAMOTIDINE 20 MG TAB PO SCH (17:47)
[2019-09-24] MEDS: NA CHLORIDE 0.9% 1,000 ML IV SCH (17:48)
[2019-09-24 20:07] LABS: Urine Blood TRACE (NEG); Urine Glucose NEGATIVE (NEG); Urine Protein 1+ (NEG); Urine Specific Gravity 1.025 (1.005-1.030); Urine pH 6.5 (5.0-7.0)
--- NOTE | 2019-09-24 20:24 | RAD REPORT ---
EXAM DESCRIPTION: US - Renal Ultrasound-Complete - 09/24/2019 8:11 pm CLINICAL HISTORY: Acute renal failure Flank pain COMPARISON: <Comparisons> FINDINGS: Both kidneys appear mildly echogenic. The right kidney measures 9.8 x 4.6 x 4.1 cm. No hydronephrosis, focal mass or perinephric fluid. The left kidney measures 9.7 x 5.4 x 3.9 cm. No hydronephrosis, focal mass or perinephric fluid. The urinary bladder is incompletely distended without gross abnormality seen. IMPRESSION: Mildly echogenic kidneys bilaterally compatible with medical renal disease.
[2019-09-24] MEDS: ATORVASTATIN 40 MG TAB PO SCH (20:49)
[2019-09-24] MEDS: DULERA 100/5 (MOMETASONE/FORMOTEROL) INHALER IH SCH (20:49)
[2019-09-24] MEDS ORDERED: ZOLPIDEM TARTRATE 10 MG TABLET PO ONE (22:17)
[2019-09-25] MEDS ORDERED: ZIPRASIDONE MESYLA 20 MG/VIAL IM ONE (03:50)
[2019-09-25] MEDS ORDERED: WATER FOR INJ,STERILE 10 ML IM SCH (03:50)
[2019-09-25 05:41] LABS: Absolute Lymphocytes (CBC) 0.4 K/uL (0.7-4.9); Basophils % 0.4 % (0-1.3); Hematocrit 24.5 % (36.0-45.0); Lymphocytes % 4.5 % (15.3-44.8); MPV 8.8 fL (7.6-11.3)
[2019-09-25 05:55] LABS: Magnesium 2.3 mg/dL (1.8-2.4); Potassium 4.2 mmol/L (3.5-5.1)
[2019-09-25] MEDS: carvediloL 25 MG TAB PO SCH ×2 (06:00→18:00)
[2019-09-25] MEDS: NA CHLORIDE 0.9% 1,000 ML IV SCH ×2 (06:16→16:30)
[2019-09-25] MEDS: LEVOTHYROXINE SOD 0.1 MG TAB PO SCH (06:21)
[2019-09-25] MEDS: AMLODIPINE 5 MG TAB PO SCH (09:30)
[2019-09-25] MEDS: GABAPENTIN 300 MG CAP PO SCH (09:30)
[2019-09-25] MEDS: predniSONE 20 MG TAB PO SCH (09:30)
[2019-09-25] MEDS: FAMOTIDINE 20 MG TAB PO SCH (09:31)
--- NOTE | 2019-09-25 09:31 | P.PN ---
Subjective Date of Service: 09/25/19 Primary Care Provider: Dr. Erickson; Pulmonary-Dr. Linda Chief Complaint: Fatigue Subjective: Improving Physical Examination - Vital Signs Temperature: 97.7 F Blood Pressure: 148/70 Pulse: 76 Respirations: 18 Pulse Ox (%): 93 - Physical Exam General: Alert, In no apparent distress, Oriented x3, Cooperative HEENT: Atraumatic Neck: Supple Respiratory: Clear to auscultation bilaterally, Normal air movement Cardiovascular: Normal pulses, Regular rate/rhythm Gastrointestinal: Normal bowel sounds, Soft and benign, Non-distended, No masses , No rebound, No guarding Musculoskeletal: No tenderness, No warmth Neurological: Normal speech, Normal strength at 5/5 x4 extr, Normal tone, Normal affect - Studies Laboratory Data (last 24 hrs) 09/24/19 11:50: PT 13.9 H, INR 1.19 09/24/19 11:50: WBC 12.1 H D, Hgb 8.2 L, Hct 25.5 L, Plt Count 135 L 09/24/19 11:50: Sodium 132 L, Potassium 5.1, BUN 46 H, Creatinine 1.77 H, Glucose 85, Magnesium 2.2, Total Bilirubin 0.3, AST 25, ALT 25, Alkaline Phosphatase 133 H, Lipase 183 Medications List Reviewed: Yes Assessment & Plan Discharge Plan: Home Plan to discharge in: 48 Hours Physician Review Additional Text: Impression: Acute on chronic renal failure likely related to medication Interstitial lung disease on chronic oxygen recently evaluated for possible PCP Anemia of chronic disease Chronic diastolic CHF Hypertension Hypothyroidism GERD Seasonal allergies Chronic pain Hyperlipidemia Lupus Plan: Acute on chronic renal failure likely related to medication: Renal ultrasound shows chronic renal changes. Case discussed with pulmonology. Patient currently off high-dose Bactrim and Lasix. Continue IV fluids. Will monitor closely. Will discuss with nephrology. Anticipate improvement over the next 24 -48 hr. Will have physical therapy assess ambulation. Patient may require skilled placement at discharge. Will consult social organization professor to help with this. If significantly improved patient may not require skilled but home health at discharge. Interstitial lung disease on chronic oxygen recently evaluated for possible PCP : Patient remains on chronic steroids. Will continue with prednisone 20 mg daily. Will continue with her steroid inhalers. Will provide medication for shortness of breath. Continue off high-dose Bactrim Anemia of chronic disease: Will monitor closely. Patient has received transfusion in the past. Will maintain hemoglobin above 7.5. Chronic diastolic CHF: Continue to hold Lasix at this time due to acute renal failure. Continue 1500 cc per day fluid restriction. Will monitor closely. Hypertension: Continue home medications of Norvasc and carvedilol. Hypothyroidism: Continue levothyroxine. GERD: Continue Pepcid. Seasonal allergies: Will consider additional medication Zyrtec and Flonase. Chronic pain: Continue gabapentin. Hyperlipidemia: Continue Lipitor. 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 Patient on chronic steroids. Interstitial lung disease may be related to lupus. Continue as above. Time Spent Managing Pts Care (In Minutes): 55
[2019-09-25] MEDS: DULERA 100/5 (MOMETASONE/FORMOTEROL) INHALER IH SCH ×2 (09:32→20:22)
--- NOTE | 2019-09-25 09:33 | RAD REPORT ---
EXAM DESCRIPTION: RAD - Chest Pa And Lat (2 Views) - 09/25/2019 9:06 am CLINICAL HISTORY: Follow up pulmonary fibrosis possible PCP Chest pain. COMPARISON: Chest Single View dated 09/24/2019; Chest Single View dated 09/20/2019; Chest Single View dated 09/18/2019; Chest Single View dated 09/17/2019; Thorax Wo Con dated 09/05/2019 FINDINGS: Bilateral pulmonary opacities are noted, unchanged since comparative examinations. Most li rafa this represents interstitial pneumonia or underlying chronic fibrosis. Right lung base infiltrat e mildly progressive since comparative study. The heart is normal in size. No displaced fractures. 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 IMPRESSION: Slight progression in right lung base infiltrate pattern since comparative study.
--- NOTE | 2019-09-25 12:23 | P.PN ---
Subjective Date of Service: 09/25/19 Primary Care Provider: Dr. Erickson; Pulmonary-Dr. Linda Chief Complaint: Fatigue hallucination Patient is 59 years of age was recently discharged according to she has been feeling weak having some hallucinations chest x-ray shows some interstitial changes appear to have improved patient states that her breathing has improved a renal function is worse the be side effect of Bactrim patient is at risk for Pneumocystis discuss with Nephrology IV fluids in the kidney function does not improve will need a biopsy to rule out lupus nephritis Physical Examination - Vital Signs Temperature: 97.7 F Blood Pressure: 148/70 Pulse: 76 Respirations: 18 Pulse Ox (%): 93 - Studies Laboratory Data (last 24 hrs) 09/24/19 11:50: WBC 12.1 H D, Hgb 8.2 L, Hct 25.5 L, Plt Count 135 L 09/24/19 11:50: Sodium 132 L, Potassium 5.1, BUN 46 H, Creatinine 1.77 H, Glucose 85, Magnesium 2.2, Total Bilirubin 0.3, AST 25, ALT 25, Alkaline Phosphatase 133 H, Lipase 183 Medications List Reviewed: Yes Assessment & Plan - Problems (Diagnosis) (1) Pneumonitis Current Visit: No Status: Acute Plan: Patient is 59 years of age admitted with a weakness hallucinations acute renal failure patient did improve with the use of Bactrim is possible that she has interstitial nephritis from the Bactrim are from the lupus in addition patient was also on Lasix this may be all be prerenal as a renal function has been normal so far prior to this admission agree with IV fluids if there is no response patient will need a biopsy chemistries all reviewed may need to change to dapsone an unwitnessed for Pneumocystis
--- NOTE | 2019-09-25 14:21 | CON ---
Date of Consultation: 09/25/2019 Reason For Consultation: Elevated BUN and creatinine. History Of Present Illness: This is a pleasant, unfortunate 59-year-old female, known to have SLE wi th proteinuria, interstitial lung disease, CVA, breast cancer/vaginal cancer status post radiation th erapy, patient recently was diagnosed with pneumonitis at that time. Patient underwent bronchoscopy and started on full treatment of possible PCP on Bactrim. Patient started feeling fatigued, weak, an d shortness of breath, for that reason, she reported to the emergency room, found to have elevation i n BUN and creatinine with marginal hyperkalemia. For that reason, patient was admitted. Patient kno wn to have anemia, but her hemoglobin has been a drop further, also has decrease in her platelets. Patient denied taking any nonsteroidal, no IV contrast. No other change in her medication except pat ient was placed on the prednisone and placed on Bactrim, recently Bactrim has been discontinued. Pat ient was started on IV hydration. Kidney function continued to decline. For that reason, we have be en consulted. The patient mentioned that she was treated for proteinuria with cosyntropin product. Past Medical History: Include: 1.CVA. 2.Interstitial lung disease. 3.SLE. 4.GERD. 5.Breast cancer. 6.Vaginal cancer. 7.Hypertension. Allergies: NO KNOWN DRUGS ALLERGY. Home Medications: 1.Anastrozole. 2.Atorvastatin. 3.Gabapentin. 4.Levothyroxine. 5.Ambien. 6.Albuterol. 7.Multivitamin. 8.Prednisone 20 daily. 9.Amlodipine. 10.Pepcid. 11.Lasix 20 b.i.d. 12.Iron. 13.Nebulizer. 14.Bactrim Double Strength t.i.d. 15.Carvedilol. Family History: Positive for hypertension and cancer. Social History: Denies smoking. Denies drinking. Denies drugs abuse. Review of Systems: Head and Neck: No red eye. No ear pain. GI: Has epigastric pain. : No polyuria. No dysuria. 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 Respiratory: Has shortness of breath. Cardiovascular: No orthopnea. Endocrine: No polydipsia. Skin: No rash. Neuro: Has fatigue. Musculoskeletal: Low back pain. Physical Examination: Vital Signs: When I saw the patient, the patient lying in bed on nasal cannula. Blood pressure of 1 48/70, pulse of 75, afebrile. Patient still has good urine output. Chest: Crackles bilateral. Heart: S1, S2. Systolic murmur. Abdomen: Soft, nontender. Extremity: No edema. Laboratory Data: WBC 9.6, H and H 7.9/24.5, platelets 111. Sodium 134, potassium 4.2, bicarb 24, BU N 52, creatinine 2, GFR of 24, calcium 8.1, magnesium 2.3. LDH 427. Urinalysis: +1 protein. Revie wing the record for the patient from previous admission, her hemoglobin was 8.2, platelets was up to 150. Her creatinine was 1 on the 13th of this month with GFR of 54. At that time, patient has +3 pr otein in the urine. No quantification of the proteinuria. No serology was done. Current Medications: The patient on include: 1.Albuterol. 2.Norvasc 5 mg. 3.Carvedilol 25. 4.Breathing treatment. 5.Zofran. 6.Levothyroxine. 7.Prednisone. 8.Normal saline at 75. Assessment And Plan: Acute kidney injury. Our differential diagnosis on the presence of the anemia and history of lupus, exposure to Lasix and Bactrim. 1.Pulmonary renal. 2.Bactrim induced. 3.Prerenal secondary to the Lasix. With elevation in LDH and we have worsening on the thrombocytope dawson and lymphopenia, lupus nephritis also should be on the diagnosis. I am going to go ahead and sen d for full serology. We will send for haptoglobin to evaluate of intravascular hemolysis and I had l sabrina discussion with the patient regarding the need to proceed with kidney biopsy. I discussed the ca se also with Dr. Roth, agreed on the plan. We will start the patient on IV hydration and we will follow up the lab tomorrow. If kidney function did not improve that ruled out Lasix-induced prerenal and we will proceed with the biopsy, I going to go ahead and send for protein-creatinine and urine-e osinophil. 4.We will monitor the patient. 5.Hypertension, controlled. Continue current medication. Hold Lasix. 6.Pneumonitis, questionable PCP, improve on the Bactrim, but we have the worsening kidney function. Discussed with Dr. Linda regarding using dapsone agreed. We will follow up. 7.SLE with possible pulmonary renal as above. We will proceed with the kidney biopsy. We will foll ow up with Pulmonary. Continue prednisone. After the biopsy we will consider starting the patient o n Solu-Medrol and the dapsone. 8.Anemia with the presence of acute kidney injury, possible secondary to hemolysis/light chain disea se. We will send for urine protein electrophoresis, protein electrophoresis, and anemia workup and we will follow up. BERNADETTE Voice ID: [id number] Report ID: [id number]
[2019-09-25] MEDS: ATORVASTATIN 40 MG TAB PO SCH (20:22)
[2019-09-26] MEDS: LORazepam 2 MG/ML VIAL IV PRN ×2 (00:56→16:52)
[2019-09-26] MEDS: NA CHLORIDE 0.9% 1,000 ML IV SCH (00:57)
[2019-09-26 04:59] LABS: Urine Appearance CLEAR; Urine Bilirubin NEGATIVE (NEG); Urine Blood TRACE (NEG); Urine Color YELLOW; Urine Glucose NEGATIVE (NEG); Urine Protein 1+ (NEG); Urine Specific Gravity 1.015 (1.005-1.030); Urine Urobilinogen 0.2 mg/dL (0.2-1.0)
[2019-09-26 05:07] LABS: Urine Microscopic Reflex ORDER UMIC
[2019-09-26 05:13] LABS: Urine Protein/Creatinine Ratio 0.75 ratio (<0.15)
[2019-09-26 05:52] LABS: Urine RBC <5 /HPF (NONE SEEN); Urine Urothelial Cells <5 /HPF (NONE SEEN)
[2019-09-26 05:53] LABS: Urine Bacteria <20 /HPF (<20); Urine Culture Reflex Order NOT NEEDED
[2019-09-26 06:06] LABS: RBC Red Blood Cell Count 2.61 M/uL (3.86-4.86)
[2019-09-26] MEDS: carvediloL 25 MG TAB PO SCH ×2 (06:20→16:11)
[2019-09-26] MEDS: LEVOTHYROXINE SOD 0.1 MG TAB PO SCH (06:30)
[2019-09-26 07:09] LABS: Absolute Lymphocytes (CBC) 0.9 K/uL (0.7-4.9); Basophils % 0.2 % (0-1.3); Hematocrit 22.8 % (36.0-45.0); Lymphocytes % 7.7 % (15.3-44.8)
[2019-09-26 08:21] LABS: Phosphorus 2.3 mg/dL (2.5-4.9); Potassium 4.4 mmol/L (3.5-5.1); Thyroid Stimulating Hormone 1.37 uIU/mL (0.360-3.740)
[2019-09-26 08:22] LABS: Ferritin 2110.8 ng/mL (8-388); Folic Acid, (Folate) 11.9 ng/mL (3.1-17.5)
[2019-09-26] MEDS: ALBUTEROL 2.5 MG/3 ML NEB SOL NEB PRN ×2 (08:40→16:30)
[2019-09-26] MEDS: IPRATROPIUM BROM 0.5MG/2.5ML NEB PRN ×2 (08:40→16:30)
[2019-09-26] MEDS: DULERA 100/5 (MOMETASONE/FORMOTEROL) INHALER IH SCH ×2 (09:19→20:31)
[2019-09-26] MEDS: AMLODIPINE 5 MG TAB PO SCH (09:20)
[2019-09-26] MEDS: GABAPENTIN 300 MG CAP PO SCH (09:24)
[2019-09-26] MEDS: predniSONE 20 MG TAB PO SCH (09:24)
[2019-09-26] MEDS: FAMOTIDINE 20 MG TAB PO SCH (09:24)
[2019-09-26] MEDS ORDERED: NA CHLORIDE 0.9% 250 ML ONE (12:35)
--- NOTE | 2019-09-26 13:09 | PN ---
Date of Progress Note: 09/26/2019 Subjective: The patient had lupus history, has chronic kidney disease, has pneumonitis. Patient was admitted with acute kidney injury secondary to Bactrim/prerenal. After hydration, kidney function s tarted being improving. Patient still has shortness of breath. Physical Examination: Vital Signs: Blood pressure 122/60, pulse of 76, afebrile. The patient had good urine output of 750 . Chest: Crackles bilaterally, mild wheezing. Heart: S1, S2. Tachycardic. Abdomen: Soft, nontender. Extremities: No edema. Laboratory Data: WBC 11.5, H and H 7/22.8, platelets 120, lymphocyte is 7.7, absolute count is 800. Sodium 140, potassium 4.4, bicarb 23, BUN 38, creatinine down to 1.3, GFR of 40, uric acid of 5, winter cium 8.4, phosphorus 2.3, T-sat of 17, ferritin 2000. LDH 427, haptoglobin still pending. CK of 22, albumin of 2, corrected calcium is 10. Serum protein electrophoresis is still pending. B12 of 1159 , TSH 1.3, folate of 11, P/C ratio 0.7. Again, urinalysis, no hematuria. Serology is still pending. Current Medications: The patient is on, include, 1.Albuterol. 2.Amlodipine. 3.Carvedilol. 4.Atorvastatin. 5.Gabapentin 300 daily. 6.Geodon. 7.Breathing treatment. 8.Levothyroxine. 9.Prednisone. 10.IV fluid at 100 per hour. Assessment And Plan: 1.Acute kidney injury, mostly secondary to prerenal, superimposed with Bactrim use, on recovery phas e, complicated with marginal hyperkalemia. The patient is getting closer to her baseline, looked to me normal volume. I am going to go ahead and discontinue IV fluid given the improvement and no activ ity in the urine. I doubt to be in the presentation of lupus nephritis for the time being or pulmona ry renal. For that reason, I am going to cancel kidney biopsy for the time being and we will continu e to monitor the patient. Yet, the patient have pneumonitis and the presence of lupus. We will foll ow up with Pulmonary. Keep holding Bactrim for the time being. If needed for treatment for PCP, you will consider dapsone that was discussed yesterday with Dr. Linda. 2.Hypertension, controlled optimal. We will continue to monitor the patient. Keep holding MAGALIE inhi bitor or ARB for the time being given the recent recovery of kidney function. 3.Proteinuria in the presence of lupus. We will follow up serology. Again, we do not see the need for kidney biopsy for the time being, going to need follow up the serology as outpatient. 4.Pneumonitis/pneumocystis carinii pneumonia, as above. We will follow up with Pulmonary. Follow u p serology. 5.Anemia, possible secondary to hemolysis secondary to lupus activity. Follow up serology. I agree with the transfusion today. Discontinue IV fluid. We will follow up haptoglobin. 6.Systemic lupus erythematosus. Has lymphopenia and thrombocytopenia with hemolysis anemia. We jax l consider pulse steroid if okay with Pulmonary. Case discussed with the patient, verbalized understanding in the presence of the , discussed w ith the staff and hospitalist, agreed. BERNADETTE Voice ID: [id number] Report ID: [id number]
--- NOTE | 2019-09-26 14:22 | P.PN ---
Subjective Date of Service: 09/26/19 Primary Care Provider: Dr. Erickson; Pulmonary-Dr. Linda Chief Complaint: Short of breath Subjective: Improving Physical Examination - Vital Signs Temperature: 98.0 F Blood Pressure: 145/70 Pulse: 78 Respirations: 20 Pulse Ox (%): 91 - Physical Exam General: Alert HEENT: Atraumatic Neck: Supple Respiratory: Expiratory wheezes (Mild wheezing) Cardiovascular: Normal pulses, Regular rate/rhythm Gastrointestinal: Normal bowel sounds, No masses, No rebound, No guarding Musculoskeletal: No tenderness, No warmth Integumentary: No tenderness/swelling, No erythema, No warmth, No cyanosis Neurological: Normal speech, Normal strength at 5/5 x4 extr, Normal tone, Normal affect - Studies Microbiology Data (last 24 hrs): 09/24/19 13:24 Clean Catch Urine [place] Count - Final BETWEEN 10,000 & 100,000 CFU/ML 09/24/19 13:24 Clean Catch Urine - Final MIXED ARVNID. Medications List Reviewed: Yes Assessment & Plan Discharge Plan: Home Plan to discharge in: 24 Hours Physician Review Additional Text: Impression: Acute on chronic renal failure likely related to medication Interstitial lung disease on chronic oxygen likely related to pneumonitis related to lupus versus PCP Anemia of chronic disease Chronic diastolic CHF Hypertension Hypothyroidism GERD Seasonal allergies Chronic pain Hyperlipidemia Lupus Plan: Acute on chronic renal failure likely related to medication: Renal function has improved with IV fluid hydration. This was held as the patient is anemic in require blood. Case discussed with nephrology. No need for renal biopsy. Recommend to discontinue Bactrim and Lasix. Case also discuss with pulmonology concerning her interstitial lung disease likely underlying pneumonitis related to lupus versus possible PCP. Pulmonology plans to continue current dose of prednisone. Since Bactrim will be discontinued. Patient now will proceed with dapsone. If able the tolerate an hemoglobin stable after transfusion will consider discharge within the next 24 hr. Interstitial lung disease on chronic oxygen likely related to pneumonitis related to lupus versus PCP: Patient remains on chronic steroids. Will continue with prednisone 20 mg daily. Will continue with her steroid inhalers. Will provide medication for shortness of breath. Continue off high-dose Bactrim Anemia of chronic disease: Hemoglobin has dropped. Likely from IV fluid hydration. And likely hemolysis. Case discussed with nephrology. Will transfuse to maintain hemoglobin above 7.5. Chronic diastolic CHF: Continue to hold Lasix at this time due to acute renal failure. Continue 1500 cc per day fluid restriction. Patient will likely no longer need Lasix at discharge. Hypertension: Continue home medications of Norvasc and carvedilol. Hypothyroidism: Continue levothyroxine. GERD: Continue Pepcid. Seasonal allergies: Will consider additional medication Zyrtec and Flonase. Chronic pain: Continue gabapentin. Hyperlipidemia: Continue Lipitor. Lupus: Patient needs follow up with her radio intelligence operator in the future. Patient on chronic steroids. Interstitial lung disease/pneumonitis may be related to lupus. Continue as above. Time Spent Managing Pts Care (In Minutes): 55
[2019-09-26] MEDS ORDERED: HYDRALAZINE HCL 20 MG/ML VIAL IV PRN (14:46)
[2019-09-26] MEDS: ANASTROZOLE 1 MG TAB PO SCH (15:09)
[2019-09-26] MEDS: MULTIVIT W/ MINERAL TAB PO SCH (15:09)
[2019-09-26] MEDS: DAPSONE 100 MG TAB PO SCH (15:09)
[2019-09-26] MEDS ORDERED: FUROSEMIDE 20 MG/ 2ML VIAL IV ONE (17:00)
[2019-09-26 17:35] LABS: Hematocrit 26.1 % (36.0-45.0)
[2019-09-26] MEDS: ATORVASTATIN 40 MG TAB PO SCH (20:30)
[2019-09-26 20:41] LABS: Rheumatoid Factor NEG (NEG)
[2019-09-26] MEDS ORDERED: HOME MED 1 EA UNK (Duloxetine Hcl [Cymbalta] 60 MG) PO SCH (21:00)
[2019-09-26] MEDS ORDERED: HOME MED 1 EA UNK (Gabapentin [Gabapentin] 300 MG) PO SCH (21:00)
[2019-09-26] MEDS ORDERED: DULOXETINE 30 MG CAP PO SCH (21:00)
[2019-09-27] MEDS: IPRATROPIUM BROM 0.5MG/2.5ML NEB PRN (00:01)
[2019-09-27] MEDS: ALBUTEROL 2.5 MG/3 ML NEB SOL NEB PRN (00:01)
[2019-09-27] MEDS: LEVOTHYROXINE SOD 0.1 MG TAB PO SCH (05:47)
[2019-09-27] MEDS: carvediloL 25 MG TAB PO SCH (05:47)
[2019-09-27 06:06] LABS: Potassium 4.5 mmol/L (3.5-5.1)
[2019-09-27 06:56] LABS: Phosphorus 2.1 mg/dL (2.5-4.9)
[2019-09-27] MEDS ORDERED: FE SULF/FA/VIT B COMP & C TAB PO SCH (08:00)
[2019-09-27 08:33] LABS: Hematocrit 25.9 % (36.0-45.0)
[2019-09-27 08:52] VITALS: O2SAT 92
[2019-09-27] MEDS: MULTIVIT W/ MINERAL TAB PO SCH (09:00)
[2019-09-27] MEDS ORDERED: MULTIVITAMIN WITH IRON PO SCH (09:00)
[2019-09-27] MEDS ORDERED: DAPSONE 100 MG TAB PO SCH (09:00)
--- NOTE | 2019-09-27 09:23 | P.DS ---
Admission Date: 09/25/19 Discharge Date: 09/27/19 Primary Care Provider: Dr. Erickson; Pulmonary-Dr. Linda Disposition: DC HOME/HOME HEALTH CARE Discharge Condition: GOOD Reason for Admission: Short of breath Consultations: Nephrology-Dr. Kinsey Pulmonary-Dr. Linda Procedures: Renal: FINDINGS: Both kidneys appear mildly echogenic. The right kidney measures 9.8 x 4.6 x 4.1 cm. No hydronephrosis, focal mass or perinephric fluid. The left kidney measures 9.7 x 5.4 x 3.9 cm. No hydronephrosis, focal mass or perinephric fluid. The urinary bladder is incompletely distended without gross abnormality seen. IMPRESSION: Mildly echogenic kidneys bilaterally compatible with medical renal disease. Medical problem list: Acute on chronic renal failure likely related to medication Interstitial lung disease on chronic oxygen likely related to pneumonitis related to lupus versus PCP Anemia of chronic disease Chronic diastolic CHF Hypertension Hypothyroidism GERD Seasonal allergies Chronic pain Hyperlipidemia Lupus Brief History of Present Illness: 59-year-old female with history of COPD, pulmonary fibrosis, lupus, hypothyroidism, hypertension and GERD. Patient recently hospitalized for acute respiratory failure after bronchoscopy. Since being discharge patient has seen pulmonology. Patient was placed on Bactrim DS 2 pills 3 times a day for suspected PCP. Since that time patient has reported increased fatigue and some shortness of breath. She is on chronic steroids and chronic oxygen. She does report a dry cough. She denies any fever , chills, nausea, vomiting, diarrhea or constipation. No changes in her stool. She has been working at home. has noted lack of energy. In the ER patient was evaluated. Vital signs stable. White count 12.1, hemoglobin 8.2. Sodium 132. Potassium 5.1. BUN of 46, creatinine 1.77 with a GFR 29. Glucose 85. BNP 4000. Chest x-ray shows improvement since last chest x- ray. Patient admitted for further evaluation and observation. When I saw the patient ER, she did not appear in any respiratory distress reviewed. Patient not on a fluid restriction at home. Hospital Course: Patient presented with acute on chronic renal disease likely related to medication. Patient had been on high dose Bactrim for suspected PCP. Patient also was taking Lasix. Patient was admitted for further evaluation and treatment. Patient seen by nephrology and pulmonology. Bactrim and Lasix were discontinued during her stay. Patient was given IV fluids. Renal function has improved. No need for renal biopsy at this time. Nephrology has sent out lab to evaluate for nephritis. Pulmonology and nephrology recommend to discontinue Bactrim and will replace with dapsone. This is to cover for suspected PCP. At discharge patient will continue with dapsone 100 mg daily for 21 days. Patient will need a follow up with pulmonology in 1 week to follow up this hospitalization and further address her condition. Home health will be arranged prior to discharge. Patient will continue with home oxygen to maintain sats above 93%. Home health will need to monitor her lab-CBC and CMP weekly as dapsone can cause other side effects. This will need to be monitored closely by pulmonology and nephrology. For interstitial lung disease patient will continue with home oxygen. Patient will continue with above recommendations. At discharge she will continue with prednisone 20 mg daily. Patient will also continue with albuterol and inhalers as directed. Further adjustment in medication can be done by pulmonology as an outpatient. Patient with anemia of chronic disease. Patient has required transfusion the past. Patient required 1 unit of blood. Hemoglobin now stable. At discharge will recommend to monitor CBC once a week with home health. This can be further addressed and monitored by her PCP and nephrology. If the patient requires blood in the future then this can be arranged as an outpatient with the help of her PCP. Patient has antibodies. This would require at least 12- 24 hr in preparation to obtain blood from the blood bank. Patient with chronic diastolic CHF. As mentioned above patient will continue with oxygen to maintain sats above 90%. Patient will continue with a 1500 cc per day fluid restriction and low-salt diet. Recommend to monitor her weight daily. If her weight increases by more than 5 lb she is to contact nephrology for further recommendation. Case discussed with nephrology. Patient will continue with Lasix 20 mg daily. If her weight decreases and edema increases she may hold her Lasix. This can be further monitored by nephrology as an outpatient. Patient with hypertension. At discharge she will continue with Norvasc 5 mg daily and carvedilol 25 mg 1 pill twice daily. Blood pressure has remained stable. Patient with hypothyroidism. At discharge she will continue with her levothyroxine daily. Patient with GERD. Patient will continue with Pepcid. Patient with chronic pain. She may continue with gabapentin 300 mg at bedtime. Patient with hyperlipidemia. At discharge she will continue with Lipitor. Patient with lupus. Patient will need a follow up with her lining marker. Patient on chronic steroids. Further workup may be required. Current lab has been sent for pneumonitis and nephritis. She will follow up with nephrology and pulmonology to further address. At this time. She has been off her immunosuppressive medications due to her current condition and risk factors. Vital Signs/Physical Exam: Temp Pulse Resp BP Pulse Ox 98.9 F 99 H 16 175/80 H 92 09/27/19 04:00 09/27/19 05:47 09/27/19 04:00 09/27/19 05:47 09/27/19 04:00 General: Alert, In no apparent distress, Oriented x3, Cooperative HEENT: Atraumatic Neck: Supple Respiratory: Crackles/rales (Mild crackles to the bases), Other (Clear anteriorly) Cardiovascular: Normal pulses, Regular rate/rhythm Gastrointestinal: Normal bowel sounds, Soft and benign, Non-distended, No masses , No rebound, No guarding Musculoskeletal: No erythema, No tenderness, No warmth Integumentary: No tenderness/swelling, No erythema, No warmth, No cyanosis Neurological: Normal speech, Normal strength at 5/5 x4 extr, Normal tone, Normal affect Laboratory Data at Discharge: WBC 11.5 K/uL (4.3-10.9) H D 09/26/19 05:34 Hgb 8.1 g/dL (12.0-15.0) L 09/27/19 07:49 Hct 25.9 % (36.0-45.0) L 09/27/19 07:49 Plt Count 120 K/uL (152-406) L 09/26/19 05:34 PT 13.9 SECONDS (9.5-12.5) H 09/24/19 11:50 INR 1.19 09/24/19 11:50 Sodium 138 mmol/L (136-145) 09/27/19 04:41 Potassium 4.5 mmol/L (3.5-5.1) 09/27/19 04:41 BUN 35 mg/dL (7-18) H 09/27/19 04:41 Creatinine 1.13 mg/dL (0.55-1.3) 09/27/19 04:41 Glucose 83 mg/dL (74-106) 09/27/19 04:41 Uric Acid 5.0 mg/dL (2.6-6.0) 09/26/19 05:34 Phosphorus 2.1 mg/dL (2.5-4.9) L 09/27/19 04:41 Magnesium 2.3 mg/dL (1.8-2.4) 09/25/19 05:04 Total Bilirubin 0.3 mg/dL (0.2-1.0) 09/24/19 11:50 AST 25 U/L (15-37) 09/24/19 11:50 ALT 25 U/L (12-78) 09/24/19 11:50 Alkaline Phosphatase 133 U/L (45-117) H 09/24/19 11:50 Lipase 183 U/L (73-393) 09/24/19 11:50 Home Medications: Anastrozole 1 mg PO DAILY 08/20/19 Atorvastatin Calcium [Lipitor] 40 mg PO BEDTIME 08/20/19 Duloxetine HCl [Cymbalta] 60 mg PO BEDTIME 08/20/19 Gabapentin 300 mg PO BEDTIME 08/20/19 Levothyroxine [Synthroid*] 1 tab PO [id number] 08/20/19 Zolpidem Tartrate [Ambien*] 10 mg PO BEDTIME 08/20/19 Albuterol Sulfate [Proair Hfa] 2 puff IH TID PRN #1 hfa.aer.ad 09/06/19 Multivitamin with Iron [Daily Vitamin + Iron] 1 each PO DAILY #90 tablet Hydrocodone Bit/Acetaminophen [Hydrocodon-Acetaminoph 7.5-325] 1 tab PO QIDP PRN 09/12/19 predniSONE [Prednisone*] 20 mg PO DAILY 09/12/19 Albuterol Neb [Proventil 0.083% Neb Soln] 2.5 mg NEB [id number] PRN #90 amp Amlodipine [Norvasc*] 5 mg PO DAILY #30 tab 09/20/19 Famotidine [Pepcid*] 20 mg PO BID #60 tab 09/20/19 Guaif/Dm [Robitussin Dm*] 10 ml PO Q6H PRN #1 bottle 09/20/19 Iron Ag,Ps/C/Fa6/B12/Zn/SA/Sto [Niferex Tablet] 1 each PO DAILY #30 tablet 09/19 Nebulizer [Aeroneb Go Nebulizer] 1 each MC TID #1 each 09/20/19 carvediloL [Coreg*] 25 mg PO BID 6AM 6PM #60 tab 09/20/19 Dapsone [Dapsone*] 100 mg PO DAILY #21 tab 09/27/19 Furosemide [Lasix*] 20 mg PO DAILY #30 tab 09/27/19 New Medications: Dapsone [Dapsone*] 100 mg PO DAILY #21 tab Furosemide [Lasix*] 20 mg PO DAILY #30 tab Patient Discharge Instructions: 1. Follow up with her PCP within 1 week to follow up this hospitalization. 2. Patient presented with acute on chronic renal disease likely related to medication. Patient had been on high dose Bactrim for suspected PCP. Patient also was taking Lasix. Patient was admitted for further evaluation and treatment. Patient seen by nephrology and pulmonology. Bactrim and Lasix were discontinued during her stay. Patient was given IV fluids. Renal function has improved. No need for renal biopsy at this time. Nephrology has sent out lab to evaluate for nephritis. Pulmonology and nephrology recommend to discontinue Bactrim and will replace with dapsone. This is to cover for suspected PCP. At discharge patient will continue with dapsone 100 mg daily for 21 days. Patient will need a follow up with pulmonology in 1 week to follow up this hospitalization and further address her condition. Home health will be arranged prior to discharge. Patient will continue with home oxygen to maintain sats above 93%. Home health will need to monitor her lab-CBC and CMP weekly as dapsone can cause other side effects. This will need to be monitored closely by pulmonology and nephrology. 3. For interstitial lung disease patient will continue with home oxygen. Patient will continue with above recommendations. At discharge she will continue with prednisone 20 mg daily. Patient will also continue with albuterol and inhalers as directed. Further adjustment in medication can be done by pulmonology as an outpatient. 4. Patient with anemia of chronic disease. Patient has required transfusion the past. Patient required 1 unit of blood. Hemoglobin now stable. At discharge will recommend to monitor CBC once a week with home health. This can be further addressed and monitored by her PCP and nephrology. If the patient requires blood in the future then this can be arranged as an outpatient with the help of her PCP. Patient has antibodies. This would require at least 12-24 hr in preparation to obtain blood from the blood bank. 5. Patient with chronic diastolic CHF. As mentioned above patient will continue with oxygen to maintain sats above 90%. Patient will continue with a 1500 cc per day fluid restriction and low-salt diet. Recommend to monitor her weight daily. If her weight increases by more than 5 lb she is to contact nephrology for further recommendation. Case discussed with nephrology. Patient will continue with Lasix 20 mg daily. If her weight decreases and edema increases she may hold her Lasix. This can be further monitored by nephrology as an outpatient. Patient with hypertension. At discharge she will continue with Norvasc 5 mg daily and carvedilol 25 mg 1 pill twice daily. Blood pressure has remained stable. 6. Patient with hypothyroidism. At discharge she will continue with her levothyroxine daily. 7. Patient with GERD. Patient will continue with Pepcid. 8. Patient with chronic pain. She may continue with gabapentin 300 mg at bedtime. 9. Patient with hyperlipidemia. At discharge she will continue with Lipitor. 10. Patient with lupus. Patient will need a follow up with her lining marker. Patient on chronic steroids. Further workup may be required. Current lab has been sent for pneumonitis and nephritis. She will follow up with nephrology and pulmonology to further address. At this time. She has been off her immunosuppressive medications due to her current condition and risk factors. Diet: AHA Activity: Fall precautions Time spent managing pt's care (in minutes): 55
[2019-09-27] MEDS: ANASTROZOLE 1 MG TAB PO SCH (09:26)
[2019-09-27] MEDS: predniSONE 20 MG TAB PO SCH (09:26)
[2019-09-27] MEDS: AMLODIPINE 5 MG TAB PO SCH (09:26)
[2019-09-27] MEDS: DAPSONE 100 MG TAB PO SCH (09:26)
[2019-09-27] MEDS: DULERA 100/5 (MOMETASONE/FORMOTEROL) INHALER IH SCH (09:27)
[2019-09-27] MEDS: FAMOTIDINE 20 MG TAB PO SCH (09:27)
[2019-09-27 09:31] VITALS: BP 127/59
[2019-09-27 09:53] VITALS: TEMP 97.3
--- NOTE | 2019-09-27 11:55 | P.PN ---
Subjective Date of Service: 09/27/19 Primary Care Provider: Dr. Erickson; Pulmonary-Dr. Linda Chief Complaint: Short of breath Pt with HX of lupus , was treated with Bactrim for PCP Today Cr improving to 1.3 on dapsone pt is cleared for discharge from nephrology point of view Physical exam general: AAOX3, in mild distress Neck; Supple, No elevated JVD hear: RRR, normal S1,2 no murmur or rub Chest: bsal rales Abdomen: , mildly distended Soft , Nt Extremities No edema or ulcer Assessment And Plan: Acute kidney injury, due to to prerenal, + Bactrim use, avoid NSAID and contrast can be discharged on lasix 20mg po daily monitor wt at home PCP pneumonia now on Dapsone Acute on chronic anemia S/P 1 PRBC on steroids Hb now 8.1 Physical Examination - Vital Signs Temperature: 97.3 F Blood Pressure: 127/59 Pulse: 78 Respirations: 23 Pulse Ox (%): 92 - Studies Microbiology Data (last 24 hrs): 09/24/19 13:24 Clean Catch Urine [place] Count - Final BETWEEN 10,000 & 100,000 CFU/ML 09/24/19 13:24 Clean Catch Urine - Final MIXED ARVIND. Medications List Reviewed: Yes
--- NOTE | 2019-09-27 13:14 | P.PN ---
Subjective Date of Service: 09/27/19 Primary Care Provider: Dr. Erickson; Pulmonary-Dr. Linda Chief Complaint: Interstitial lung disease shortness of breath Patient is improving very apprehensive still has some dyspnea on mild exertion no fever chills renal function is back to normal Review of Systems General: Weakness Respiratory: Cough, Shortness of Breath Physical Examination - Vital Signs Temperature: 97.3 F Blood Pressure: 127/59 Pulse: 78 Respirations: 23 Pulse Ox (%): 92 - Physical Exam General: Alert, Oriented x3 Respiratory: Crackles/rales Cardiovascular: Edema Gastrointestinal: Normal bowel sounds - Studies Medications List Reviewed: Yes Assessment & Plan - Problems (Diagnosis) (1) Pneumonitis Current Visit: No Status: Acute Plan: Patient is doing better still has some dyspnea on exertion tolerating dapsone the possibility off Pneumocystis infection renal function is now normal vital signs stable patient can be discharged home follow up with me next week continue with prednisone 20 mg and dapsone for 21 days ovoid diuretics
[2019-09-27] MEDS ORDERED: GABAPENTIN 300 MG CAP PO SCH (21:00)
[2019-09-28 05:16] LABS: Albumin, (SPE) 2.5 g/dL (3.8-4.8); Alpha-1-Globulins 0.7 g/dL (0.2-0.3); Gamma Globulins 0.6 g/dL (0.8-1.7); INTERPRETATION REPORT
[2019-09-28 12:45] LABS: HIV AG/AB 4TH GEN Non-reactive (Non-reactive)
[2019-09-28 20:01] LABS: Anti-Cardiolipin IgA Antibody <11 APL (<=11)
[2019-09-28 21:59] LABS: HBsAG Nonreactive (Nonreactive)
[2019-09-29 13:43] LABS: Scleroderma Antibody (Scl-70) <1.0
[2019-09-29 21:47] LABS: Albumin, (SPE) 2.2 g/dL (3.8-4.8); Alpha-1-Globulins 0.7 g/dL (0.2-0.3); Alpha-2-Globulins 0.9 g/dL (0.5-0.9); Gamma Globulins 0.6 g/dL (0.8-1.7); INTERPRETATION REPORT
[2019-09-30 23:06] LABS: Vitamin D 1,25-Dihydroxy Total 19 pg/mL (18-72); Vitamin D,1,25-OH2, D2 <8 pg/mL
[2019-10-03 19:33] LABS: Hepatitis C Virus RNA (PCR)log <1.18 log IU/mL
== END 2019-09-27 13:55 | disposition home health service (06) | DRG 682 ==
LOC: ER 09:54 → INTOOBSV 14:33 → ERHOLD 14:33 → OBSVTOIN 14:33 → 2ND 16:54 → OBSVTOIN 09-25 08:25 → 2ND 09-26 18:52
PROVIDERS: ADMIT Family Medicine; ATTEND Family Medicine
PROC: 30233N1 Transfusion of Nonautologous Red Blood Cells into Peripheral Vein, Percutaneous Approach (ICD-10-PCS; principal; 2019-09-26)
DX: N17.9 Acute kidney failure, unspecified (principal); B59 Pneumocystosis; I50.32 Chronic diastolic (congestive) heart failure; N14.1 Nephropathy induced by other drugs, medicaments and biological substances; T36.8X5A Adverse effect of other systemic antibiotics, initial encounter; J84.10 Pulmonary fibrosis, unspecified; J44.9 Chronic obstructive pulmonary disease, unspecified; I11.0 Hypertensive heart disease with heart failure; M32.9 Systemic lupus erythematosus, unspecified; E87.5 Hyperkalemia; E03.9 Hypothyroidism, unspecified; K21.9 Gastro-esophageal reflux disease without esophagitis; D63.8 Anemia in other chronic diseases classified elsewhere; E78.5 Hyperlipidemia, unspecified; J30.2 Other seasonal allergic rhinitis; Z79.52 Long term (current) use of systemic steroids; Y92.9 Unspecified place or not applicable; Z99.81 Dependence on supplemental oxygen; Z86.73 Personal history of transient ischemic attack (TIA), and cerebral infarction without residual deficits; Z85.3 Personal history of malignant neoplasm of breast; Z90.13 Acquired absence of bilateral breasts and nipples
CPT/HCPCS: 36415; 36430; 71045; 71046; 76770; 80048; 80069; 80076; 81003; 81015; 82550; 82570; 82607; 82652; 82728; 82746; 83010; 83520; 83540; 83615; 83690; 83735; 83880; 84156; 84165; 84443; 84466; 84484; 84550; 85014; 85018; 85025; 85044; 85610; 86021; 86038; 86147; 86160; 86225; 86235; 86317; 86430; 86704; 86706; 86850; 86900; 86901; 86922; 87040; 87086; 87088; 87340; 87389; 87522; 88108; 93005; 94640; 96374; 97116; 97161; 99285; G0378; J0360; J1940; J3486; J7030; J7512; J7606; P9016

== ENCOUNTER 2019-09-28 00:15 | Emergency (ER) | payer BC ==
--- OUTSIDE RECORDS SUMMARY | 2019-09-28 00:18 | XMS REPORT ---
:1960 [facility] Address [address] [place] [address] Dr. Michele [address] [place] [id number] Care Team Providers Name Role Phone Unavailable Unavailable Unavailable Problems This patient has no known problems. Allergies, Adverse Reactions, Alerts This patient has no known allergies or adverse reactions. Medications This patient has no known medications.
[2019-09-28] MEDS ORDERED: METHYLPREDNISOLONE 125 MG INJ ONE (00:49)
[2019-09-28] MEDS ORDERED: FUROSEMIDE 20 MG/ 2ML VIAL ONE ×2 (00:49→02:36)
[2019-09-28] MEDS ORDERED: LEVALBUTEROL 1.25 MG/3 ML NEB ONE (00:50)
[2019-09-28] MEDS ORDERED: PANTOPRAZOLE 40 MG INJ ONE (00:50)
[2019-09-28] MEDS ORDERED: IPRATROPIUM BROM 0.5MG/2.5ML ONE (00:50)
[2019-09-28] MEDS ORDERED: PIPER/TAZO/NS 3.375gm 3.375 GM/100 ML BAG ONE (00:50)
[2019-09-28] MEDS ORDERED: NA CHLORIDE 0.9% 1,000 ML ONE (00:51)
[2019-09-28 00:53] LABS: Arterial Blood Carboxyhemoglob 1.5 % (0-1.5); Blood Gas Oxyhemoglobin 93.1 % (94-97); Blood O2 Saturation 96.8 % (92-98.5)
[2019-09-28 01:41] LABS: Protime INR 1.09
[2019-09-28 01:42] LABS: Absolute Lymphocytes (CBC) 0.8 K/uL (0.7-4.9); Basophils % 0.2 % (0-1.3); Hematocrit 24.8 % (36.0-45.0); Lymphocytes % 6.9 % (15.3-44.8); MPV 8.7 fL (7.6-11.3); RBC Red Blood Cell Count 2.81 M/uL (3.86-4.86)
[2019-09-28 01:54] LABS: ALT/SGPT 19 U/L (12-78); AST/SGOT 21 U/L (15-37); Alkaline Phosphatase 105 U/L (45-117); BUN Blood Urea Nitrogen 39 mg/dL (7-18); Bicarbonate 24 mmol/L (21-32); Bilirubin Direct 0.2 mg/dL (0-0.2); Bilirubin Total 0.5 mg/dL (0.2-1.0); Glucose Level 108 mg/dL (74-106); NT PRO-BNP 9571 pg/mL (<125); Potassium 4.8 mmol/L (3.5-5.1); Protein, Total 5.7 g/dL (6.4-8.2); Sodium Level 141 mmol/L (136-145); Troponin (Emerg Dept Use Only) < 0.02 ng/mL (0.0-0.045)
--- NOTE | 2019-09-28 02:11 | EDPHYS ---
Physician Documentation [facility] Name: Bri Alvarenga Age: 59 yrs Sex: Female : 1960 Arrival Date: 09/28/2019 Time: 00:22 Bed 7 Private MD: LISA Physician Renny Baker HPI: 09/27 00:32 This 59 yrs old Female presents to ER via Wheelchair with complaints of gladys dyspnea and hypoxia. 00:32 The patient has shortness of breath at rest, with light activity. Onset: The gladys symptoms/episode began/occurred 1 day(s) ago. Duration: The symptoms are continuous, and are steadily getting worse. The patient's shortness of breath is aggravated by coughing, light activity, supine position, talking, walking, is alleviated by pursed lip breathing, sitting up, application of supplemental oxygen. The patient or guardian reports cough, difficulty breathing, flu symptoms, arthralgias, myalgias. Modifying factors: The symptoms are alleviated by remaining still, the symptoms are aggravated by activity, lying flat, talking. Associated signs and symptoms: Pertinent positives: non-productive cough. Severity of symptoms: At their worst the symptoms were moderate in the emergency department the symptoms are unchanged. Associated signs and symptoms:. Severity of symptoms: At their worst the symptoms were. Historical: - Allergies: 00:35 No Known Allergies; ea - PMHx: 00:35 vaginal CA; Lupus; Hypothyroidism; Hypertension; High Cholesterol; CVA; chronic back ea pain; Cancer, Breast; Anemia; - PSHx: 00:35 Mastectomy, Right; Mastectomy, Left; ea - Immunization history:: Adult Immunizations up to date. - Social history:: Smoking status: unknown. - Family history:: not pertinent. ROS: 00:32 Eyes: Negative for injury, pain, redness, and discharge, ENT: Negative for injury, gladys pain, and discharge, Neck: Negative for injury, pain, and swelling, Cardiovascular: Negative for chest pain, palpitations, and edema, Abdomen/GI: Negative for abdominal pain, nausea, vomiting, diarrhea, and constipation, Back: Negative for injury and pain, : Negative for injury, bleeding, discharge, and swelling, MS/Extremity: Negative for injury and deformity, Skin: Negative for injury, rash, and discoloration, Neuro: Negative for headache, weakness, numbness, tingling, and seizure, Psych: Negative for depression, anxiety, suicide ideation, homicidal ideation, and hallucinations, Allergy/Immunology: Negative for hives, rash, and allergies, Endocrine: Negative for neck swelling, polydipsia, polyuria, polyphagia, and marked weight changes. 00:32 Constitutional: Positive for fatigue. 00:32 Respiratory: Positive for cough, shortness of breath, at rest. wheezing. Exam: 00:32 Constitutional: This is a well developed, well nourished patient who is awake, alert, gladys and in no acute distress. Head/Face: Normocephalic, atraumatic. Eyes: Pupils equal round and reactive to light, extra-ocular motions intact. Lids and lashes normal. Conjunctiva and sclera are non-icteric and not injected. Cornea within normal limits. Periorbital areas with no swelling, redness, or edema. ENT: Nares patent. No nasal discharge, no septal abnormalities noted. Tympanic membranes are normal and external auditory canals are clear. Oropharynx with no redness, swelling, or masses, exudates, or evidence of obstruction, uvula midline. Mucous membranes moist. Neck: Trachea midline, no thyromegaly or masses palpated, and no cervical lymphadenopathy. Supple, full range of motion without nuchal rigidity, or vertebral point tenderness. No Meningismus. Chest/axilla: Normal chest wall appearance and motion. Nontender with no deformity. No lesions are appreciated. Abdomen/GI: Soft, non-tender, with normal bowel sounds. No distension or tympany. No guarding or rebound. No evidence of tenderness throughout. Back: No spinal tenderness. No costovertebral tenderness. Full range of motion. Female : Normal external genitalia. Skin: Warm, dry with normal turgor. Normal color with no rashes, no lesions, and no evidence of cellulitis. MS/ Extremity: Pulses equal, no cyanosis. Neurovascular intact. Full, normal range of motion. Neuro: Awake and alert, GCS 15, oriented to person, place, time, and situation. Cranial nerves II-XII grossly intact. Motor strength 5/5 in all extremities. Sensory grossly intact. Cerebellar exam normal. Normal gait. Psych: Awake, alert, with orientation to person, place and time. Behavior, mood, and affect are within normal limits. 00:32 Cardiovascular: Rate: normal, Rhythm: regular, Pulses: Pulses are 3+ in bilateral radial, brachial, femoral, popliteal, posterior tibial and and dorsalis pedis arteries.. Heart sounds: normal, Edema: is not appreciated, JVD: is not appreciated. 02:03 Abdomen/GI: Inspection: abdomen appears normal, Bowel sounds: normal, Palpation: gladys nontender, Rectal exam: rectal tone normal, Stool: guaiac positive, no melena, trace positive, mass, is not appreciated, swelling, is not appreciated, tenderness, is not appreciated. Vital Signs: 00:25 BP 131 / 100; Pulse 100; Resp 30; Temp 98.3; Pulse Ox 88% on 3 lpm NC; Weight 66.22 kg; ea Height 5 ft. (152.40 cm); 01:43 BP 136 / 71; Pulse 92; Resp 24; Pulse Ox 98% ; ah 02:30 BP 117 / 51; Pulse 88; Resp 18; Pulse Ox 98% ; 03:55 BP 131 / 69; Pulse 88; Resp 24; Pulse Ox 98% ; 00:25 Body Mass Index 28.51 (66.22 kg, 152.40 cm) ea Procedures: 01:22 Peripheral line: by aseptic technique a peripheral line was placed in the right [facility] external jugular vein. MDM: 00:22 Patient medically screened. [facility] 00:38 Data reviewed: vital signs, nurses notes, lab test result(s), EKG, radiologic studies, [facility] plain films. 09/27 00:24 Order name: Basic Metabolic Panel [facility] 09/27 00:24 Order name: CBC with Diff [facility] 09/27 00:24 Order name: LFT's [facility] 09/27 00:24 Order name: Magnesium [facility] 09/27 00:24 Order name: NT PRO-BNP; Complete Time: 01:58 [facility] 09/27 00:24 Order name: PT-INR; Complete Time: 01:58 [facility] 09/27 00:24 Order name: Troponin (emerg Dept Use Only); Complete Time: 01:58 [facility] 09/27 00:24 Order name: Blood Culture Adult (2) [facility] 09/27 00:24 Order name: Lactate; Complete Time: 01:58 [facility] 09/27 00:24 Order name: Urine Culture [facility] 09/27 00:25 Order name: ABG; Complete Time: 01:58 [facility] 09/27 00:25 Order name: Basic Metabolic Panel; Complete Time: 01:58 [facility] 09/27 00:25 Order name: CBC with Automated Diff; Complete Time: 02:43 [facility] 09/27 00:25 Order name: Liver (Hepatic) Function; Complete Time: 01:58 [facility] 09/27 00:24 Order name: XRAY Chest (1 view) [facility] 09/27 00:25 Order name: Magnesium; Complete Time: 01:58 [facility] 09/27 00:29 Order name: Type And Screen [facility] 09/27 00:30 Order name: BIPAP [facility] 09/27 02:17 Order name: Packed RBC Leukored [facility] 09/27 02:28 Order name: Manual Differential; Complete Time: 02:43 [facility] 09/27 02:33 Order name: Urine Dipstick--Ancillary (enter results) [facility] 09/27 00:24 Order name: EKG; Complete Time: 00:26 [facility] 09/27 00:24 Order name: Cardiac monitoring; Complete Time: 01:10 [facility] 09/27 00:24 Order name: EKG - Nurse/Tech; Complete Time: 01:10 [facility] 09/27 00:24 Order name: IV Saline Lock; Complete Time: 01:28 [facility] 09/27 00:24 Order name: Labs collected and sent; Complete Time: 01:28 [facility] 09/27 00:24 Order name: O2 Per Protocol; Complete Time: 01:30 [facility] 09/27 00:24 Order name: O2 Sat Monitoring; Complete Time: 01:30 [facility] 09/27 00:24 Order name: Urine Dipstick-Ancillary (obtain specimen); Complete Time: 02:32 [facility] 09/27 00:30 Order name: IV Saline Lock - Large Bore; Complete Time: 01:30 [facility] 09/27 02:00 Order name: Transfuse; Complete Time: 04:21 [facility] Administered Medications: Discontinued: NS 0.9% 1000 ml IV at 75 ml/hr continuous 00:45 Drug: Xopenex 3.75 mg Route: Inhalation; 00:45 Drug: AtroVENT Aerosol 0.5 mg Route: Inhalation; 01:20 Drug: NS 0.9% 1000 ml Route: IV; Rate: 75 ml/hr; Site: right jugular; 01:25 Drug: SOLU-Medrol 125 mg Route: IVP; Site: right jugular; 04:20 Follow up: Response: No adverse reaction ea 01:28 Drug: Lasix 20 mg Route: IVP; Site: right jugular; 02:00 Follow up: Response: No adverse reaction ea 01:35 Drug: ProTONIX 40 mg Route: IVP; Site: right jugular; 02:00 Follow up: Response: No adverse reaction ea 01:40 Drug: Zosyn 3.375 grams Route: IVPB; Infused Over: 60 mins; Site: right jugular; 02:40 Follow up: Response: No adverse reaction; IV Status: Completed infusion ea 03:31 Drug: Tylenol 650 mg Route: PO; ea 04:21 Follow up: Response: No adverse reaction ea 03:32 Drug: Benadryl 12.5 mg Route: IVP; Site: Other; ea 04:21 Follow up: Response: No adverse reaction ea 04:14 Drug: vancoMYCIN 1 grams Route: IVPB; Infused Over: 2 hrs; Site: right hand; ea 04:21 Follow up: Response: No adverse reaction; IV Status: Infusion continued upon transfer ea Disposition: 09/28/19 02:10 Transfer ordered to [facility]. Diagnosis are Dyspnea, Hypoxemia, Pulmonary fibrosis, unspecified, Lupus erythematosus, Pneumonia due to other specified bacteria, Gastrointestinal hemorrhage, unspecified. - Reason for transfer: Higher level of care. - Accepting physician is to [facility]. - Condition is Fair. - Problem is new. - Symptoms have improved. Signatures: Dispatcher [employer] Renny Simeon MD MD cha Antunez, Elena, RN RN ea [place], MyKena 2 Candace Santiago RN RN Corrections: (The following items were deleted from the chart) 02:12 02:10 09/28/2019 02:10 Transfer ordered to [facility]. gladys Diagnosis is Dyspnea; Hypoxemia; Pulmonary fibrosis, unspecified; Lupus erythematosus; Pneumonia due to other specified bacteria. Reason for transfer: Higher level of care. Accepting physician is to [facility]. Condition is Fair. Problem is new. Symptoms have improved. gladys 04:26 02:12 09/28/2019 02:10 Transfer ordered to [facility]. [email or web address] Diagnosis is Dyspnea; Hypoxemia; Pulmonary fibrosis, unspecified; Lupus erythematosus; Pneumonia due to other specified bacteria; Gastrointestinal hemorrhage, unspecified. Reason for transfer: Higher level of care. Accepting physician is to [facility]. Condition is Fair. Problem is new. Symptoms have improved. gladys
--- NOTE | 2019-09-28 02:11 | ER ---
Nurse's Notes [facility] Name: Bri Alvarenga Age: 59 yrs Sex: Female : 1960 Arrival Date: 09/28/2019 Time: 00:22 Bed 7 Private MD: Diagnosis: Dyspnea;Hypoxemia;Pulmonary fibrosis, unspecified;Lupus erythematosus;Pneumonia due to other specified bacteria;Gastrointestinal hemorrhage, unspecified Presentation: 09/27 00:25 Chief complaint: Spouse and/or significant other states: Reports she was discharged ea around 2 PM, went home took a nap and woke up short of breath. reports O2 sats were in the 80s at home. Coronavirus screen: The patient has NOT traveled to a country currently being monitored by the CDC within the last 14 days. Ebola Screen: No symptoms or risks identified at this time. Initial Sepsis Screen: Does the patient meet any 2 criteria? RR > 20 per min. HR > 90 bpm. Does the patient have a suspected source of infection? No. Patient's initial sepsis screen is negative. Risk Assessment: Do you want to hurt yourself or someone else? Patient reports no desire to harm self or others. 00:25 Method Of Arrival: Wheelchair ea 00:25 Acuity: HANNAH 3 ea Triage Assessment: 00:35 General: Appears distressed, Behavior is cooperative. Pain: Denies pain. Respiratory: ea Airway is patent Respiratory effort is labored, Respiratory pattern is tachypnea Respiratory at bedside pt place don BiPAP. Historical: - Allergies: 00:35 No Known Allergies; ea - PMHx: 00:35 vaginal CA; Lupus; Hypothyroidism; Hypertension; High Cholesterol; CVA; chronic back ea pain; Cancer, Breast; Anemia; - PSHx: 00:35 Mastectomy, Right; Mastectomy, Left; ea - Immunization history:: Adult Immunizations up to date. - Social history:: Smoking status: unknown. - Family history:: not pertinent. Screenin:33 Abuse screen: Denies threats or abuse. Nutritional screening: No deficits noted. ea Tuberculosis screening: No symptoms or risk factors identified. Fall Risk None identified. Assessment: 00:30 General: Appears distressed, Behavior is anxious. Pain: Denies pain. Neuro: Level of ah Consciousness is awake, alert, Oriented to person, place, time. Cardiovascular: Heart tones S1 S2 present Respiratory: Airway is patent is compromised Respiratory effort is labored, with retractions, Respiratory pattern is tachypnea Respiratory: Parent/caregiver reports the patient having shortness of breath at rest states that he could not get her O2 sat out of the 80s at home on her home oxygen. GI: No signs and/or symptoms were reported involving the gastrointestinal system. : No signs and/or symptoms were reported regarding the genitourinary system. EENT: No signs and/or symptoms were reported regarding the EENT system. Derm: No signs and/or symptoms reported regarding the dermatologic system. 01:15 Reassessment: Dr Baker at bedside starting IV to right EJ. Labs collected and sent. 01:30 Reassessment: Medications given at this time. Delayed due to unable to obtain an IV. 01:50 Reassessment: Received call from Charleen in the lab with critical Hgb of 7.7 , Dr louise Baker notified. 02:46 Reassessment: Assisted Pt to [facility] to obtain urine specimen. Pt refused to use bedpan at this time. Assisted x2 staff. Pt tolerated fair. 04:23 Reassessment: Patient and/or family updated on plan of care and expected duration. Pain ea level reassessed. Pt alert and oriented x 3, respirations improved, pt remains on BiPAP tolerating well. Pt being transferred to [facility] ED via stretcher per [facility]. Vital Signs: 00:25 BP 131 / 100; Pulse 100; Resp 30; Temp 98.3; Pulse Ox 88% on 3 lpm NC; Weight 66.22 kg; Height 5 ft. (152.40 cm); 01:43 BP 136 / 71; Pulse 92; Resp 24; Pulse Ox 98% ; 02:30 BP 117 / 51; Pulse 88; Resp 18; Pulse Ox 98% ; 03:55 BP 131 / 69; Pulse 88; Resp 24; Pulse Ox 98% ; 00:25 Body Mass Index 28.51 (66.22 kg, 152.40 cm) ED Course: 00:22 Patient arrived in ED. 00:22 Renny Baker MD is Attending Physician. [facility] 00:28 Candace Santiago, RN is Primary Nurse. 00:30 Triage completed. ea 00:33 Arm band placed on right wrist. Patient placed in an exam room, on a stretcher, on ea oxygen, on surveillance monitor, on pulse oximetry. 00:34 Patient has correct armband on for positive identification. Placed in gown. Bed in low ea position. Call light in reach. Side rails up X2. athletic monitor on. Pulse ox on. NIBP on. 00:40 Missed attempt(s): 22 gauge in right antecubital area. ea 00:41 Missed attempt(s): 22 gauge in right forearm. ea 01:51 XRAY Chest (1 view) In Process Unspecified. EDMS 04:22 No provider procedures requiring assistance completed. Patient transferred, IV remains ea in place. Administered Medications: Discontinued: NS 0.9% 1000 ml IV at 75 ml/hr continuous 00:45 Drug: Xopenex 3.75 mg Route: Inhalation; ah 00:45 Drug: AtroVENT Aerosol 0.5 mg Route: Inhalation; ah 01:20 Drug: NS 0.9% 1000 ml Route: IV; Rate: 75 ml/hr; Site: right jugular; 01:25 Drug: SOLU-Medrol 125 mg Route: IVP; Site: right jugular; 04:20 Follow up: Response: No adverse reaction ea 01:28 Drug: Lasix 20 mg Route: IVP; Site: right jugular; ah 02:00 Follow up: Response: No adverse reaction ea 01:35 Drug: ProTONIX 40 mg Route: IVP; Site: right jugular; ah 02:00 Follow up: Response: No adverse reaction ea 01:40 Drug: Zosyn 3.375 grams Route: IVPB; Infused Over: 60 mins; Site: right jugular; 02:40 Follow up: Response: No adverse reaction; IV Status: Completed infusion ea 03:31 Drug: Tylenol 650 mg Route: PO; ea 04:21 Follow up: Response: No adverse reaction ea 03:32 Drug: Benadryl 12.5 mg Route: IVP; Site: Other; ea 04:21 Follow up: Response: No adverse reaction ea 04:14 Drug: vancoMYCIN 1 grams Route: IVPB; Infused Over: 2 hrs; Site: right hand; ea 04:21 Follow up: Response: No adverse reaction; IV Status: Infusion continued upon transfer ea Outcome: 02:10 ER care complete, transfer ordered by [facility] 04:22 [facility], Transfer form completed. ea 04:22 Condition: stable 04:22 Instructed on the need for transfer, Demonstrated understanding of instructions. 04:26 Patient left the ED. [email or web address] Signatures: Dispatcher [employer] Renny Simeon MD MD cha Antunez, Elena, RN RN Joana Mcgraw [email or web address] Candace Santiago RN YORDY Corrections: (The following items were deleted from the chart) 00:33 00:25 BP 131 / ???; Pulse 100bpm; Resp 30bpm; Pulse Ox 88% 3 lpm Nasal Cannula; Temp ea 98.3F; 66.22 kg; Height 5 ft.; BMI: 28.5; ea
[2019-09-28 02:28] LABS: Platelet Estimate DECR; Platelets, Giant PRESENT
[2019-09-28 02:29] LABS: Anisocytosis 1+; Basophilic Stippling 2+; Blood Morphology Comment NOTED (NOT SEEN); Elliptocytes 1+; Hypochromasia 1+; Macrocytosis 1+
[2019-09-28 02:56] LABS: Urine Blood 1+ (NEG); Urine Glucose NEGATIVE (NEG); Urine Protein 1+ (NEG); Urine Specific Gravity 1.015 (1.005-1.030); Urine pH 5.5 (5.0-7.0)
[2019-09-28] MEDS ORDERED: NA CHLORIDE 0.9% 500 ML ONE (03:08)
[2019-09-28] MEDS ORDERED: ACETAMINOPHEN 325 MG TABLET ONE (03:25)
[2019-09-28] MEDS ORDERED: DIPHENHYDRAMINE 50 MG/ML VIAL ONE (03:26)
[2019-09-28] MEDS ORDERED: VANCOMYCIN 1 GM/VIAL ONE (03:39)
[2019-09-28] MEDS ORDERED: NA CHLORIDE 0.9% 250 ML ONE (03:42)
--- NOTE | 2019-09-28 10:20 | RAD REPORT ---
[facility]50 [facility] CLINICAL HISTORY: Cough COMPARISON: September 25, 2019 FINDINGS: Diffuse bilateral pulmonary opacities without significant change. Heart remains enlarged. Mediastinal lymphadenopathy present Sclerosis within the right humeral head unchanged consistent with metastasis IMPRESSION: No significant change in diffuse bilateral pulmonary opacities
--- NOTE | 2019-09-29 09:00 | EKG ---
Test Date: 2019-09-28 Test Time: 00:29:33 Radiology Rn: SABINA MEASUREMENT RESULTS: Intervals: Rate: 98 NV: 120 QRSD: 118 QT: 348 QTc: 444 [place]: P: 49 NV: 120 QRS: 62 T: 30 INTERPRETIVE STATEMENTS: Normal sinus rhythm Possible Left atrial enlargement Right bundle branch block T wave abnormality, consider lateral ischemia Abnormal ECG Compared to ECG 09/24/2019 11:29:03 T-wave abnormality now present Possible ischemia now present Electronically Signed On 09-29-19 08:58:00 CDT by Kamran Chung
== END 2019-09-28 04:26 | disposition short-term general hospital (02) ==
LOC: ER 00:15
PROC: 05HP33Z Insertion of Infusion Device into Right External Jugular Vein, Percutaneous Approach (ICD-10-PCS; principal; 2019-09-28)
PROC: 30233N1 Transfusion of Nonautologous Red Blood Cells into Peripheral Vein, Percutaneous Approach (ICD-10-PCS; 2019-09-28)
DX: J15.8 Pneumonia due to other specified bacteria (principal); J84.10 Pulmonary fibrosis, unspecified; L93.0 Discoid lupus erythematosus; R09.02 Hypoxemia; K92.2 Gastrointestinal hemorrhage, unspecified; I10 Essential (primary) hypertension; Z85.3 Personal history of malignant neoplasm of breast; Z85.89 Personal history of malignant neoplasm of other organs and systems; Z90.13 Acquired absence of bilateral breasts and nipples
CPT/HCPCS: 96365; 93005; 87040 ×2; 87088; 85025; 87086; 80048; 36415; 86900; 83735; 86850; 85610; 86901; 80076; 83605; 81003; 84484; 86922; 83880; 71045; 82805; 94660; 96375; 99285; 36569; 36430; J1940 ×2; J1200; C9113; J2543; P9016; J7030 ×2; J7040; J2930

== ENCOUNTER 2019-10-30 07:16 | Emergency (ER) | payer BC, OTHER ==
--- OUTSIDE RECORDS SUMMARY | 2019-10-30 07:22 | XMS REPORT ---
:1960 Author Organization [facility] t Address [address] Michele [address] [place] [address] Care Team Providers Name Role Phone MITCHELL DAVIS Unavailable Unavailable Problems This patient has no known problems. Allergies, Adverse Reactions, Alerts This patient has no known allergies or adverse reactions. Medications This patient has no known medications. Results Test Description Test Time Test Comments Text Results Atomic Results Result Comments VIRUS CULTURE 2019-10-28 08:50:00 Test Item Value Reference Range Comments CULTURE (BEAKER) (test code = 1095) No virus isolated MISCELLANEOUS LAB [id number] 15:24:00 Test Item Value Reference Range Comments SCAN RESULT (test code = 4531674) POCT-GLUCOSE [id number] 12:32:00 Test Item Value Reference Range Comments POC-GLUCOSE METER (BEAKER) 129 mg/dL 70-110 : ELIZABETH JOSE L AT [facility] [address] [place] [address] (test code = 1538) [facility], 7 30: [employer]Technic lien ID = [id number] for MILO, JORGE DAKOTA POCT-GLUCOSE [id number] 08:52:00 Test Item Value Reference Range Comments POC-GLUCOSE METER (BEAKER) 77 mg/dL 70-110 : ELIZABETH JOSE L AT [facility] [address] [facility] (test code = 1538) [facility], 7 [address]30: [employer]Technic lien ID = [id number] for MILO, TIF DAKOTA CBC (HEMOGRAM ONLY)2019-10-14 06:41:00 Test Item Value Reference Range Comments WHITE BLOOD CELL COUNT (BEAKER) (test code = 8.6 K/ L 3.5 -10.5 775) RED BLOOD CELL COUNT (BEAKER) (test code = 761) 2.99 M/ L 3.93-5.22 HEMOGLOBIN (BEAKER) (test code = 410) 8.4 GM/DL 11.2-15.7 HEMATOCRIT (BEAKER) (test code = 411) 27.4 % 34.1-44.9 MEAN CORPUSCULAR VOLUME (BEAKER) (test code = 91.6 fL 79 .4-94.8 753) MEAN CORPUSCULAR HEMOGLOBIN (BEAKER) (test code 28.1 pg 25.6-32.2 = 751) MEAN CORPUSCULAR HEMOGLOBIN CONC (BEAKER) (test 30.7 GM/DL 32.2-35.5 code = 752) RED CELL DISTRIBUTION WIDTH (BEAKER) (test code 17.8 % 11.7-14.4 = 412) PLATELET COUNT (BEAKER) (test code = 756) 154 K/CU MM 150-45 0 MEAN PLATELET VOLUME (BEAKER) (test code = 754) 11.4 fL 9.4-12.3 NUCLEATED RED BLOOD CELLS (BEAKER) (test code = 0 /100 WBC 0-0 413) [id number] 06:18:00 Test Item Value Reference Range Comments MAGNESIUM (BEAKER) (test code = 627) 1.9 mg/dL 1.6-2.6 [employer] ID - ISMAEL WBASIC METABOLIC [id number] 06:18:00 Test Item Value Reference Range Comments SODIUM (BEAKER) (test 140 meq/L 136-145 code = 381) POTASSIUM (BEAKER) (test 3.5 meq/L 3.5-5.1 code = 379) CHLORIDE (BEAKER) (test 108 meq/L 98-107 code = 382) CO2 (BEAKER) (test code = 27 meq/L 22-29 355) BLOOD UREA NITROGEN 30 mg/dL 7-21 (BEAKER) (test code = 354) CREATININE (BEAKER) (test 0.77 mg/dL 0.57-1.25 code = 358) GLUCOSE RANDOM (BEAKER) 85 mg/dL 70-105 (test code = 652) CALCIUM (BEAKER) (test 9.0 mg/dL 8.4-10.2 code = 697) EGFR (BEAKER) (test code 77 mL/min/1.73 sq m EST IMATED GFR IS NOT = 1092) ACCURATE CREA TININE CLEARANCE IN PRE DICTING GLOMERULAR FILTR ATION RATE. ESTIMATED GFR IS NOT APPLICABLE F OR DIALYSIS PATIENT S. [employer] ID - ISMAEL BERRIOS, CHEST, 1 VIEW, NON [id number] 05:18:00Reason for exam:->s/p cv surgeryFINAL REPORT CLINICAL INDICATION: Postop Comparison: 10/13/2019 The cardiomediastinal contours are stable. Extensive bilateral parenchymal and bilateral pleural opacities are unchanged. There is no pneumothorax. A right PICC line remains in place. Signed: Nomi Downs MDReport Verified Date/Time: 10/14/2019 05:18:09 POCT- GLUCOSE [id number] 21:36:00 Test Item Value Reference Range Comments POC-GLUCOSE METER (BEAKER) 90 mg/dL 70-110 : ELIZABETH DOMINGO AT [address] (test code = 1538) [facility], [address]: [employer] lien ID = [id number] for Amie Navarro POCT-GLUCOSE [id number] 17:24:00 Test Item Value Reference Range Comments POC-GLUCOSE METER (BEAKER) 156 mg/dL 70-110 : ELIZABETH DOMINGO AT [address] (test code = 1538) [facility], [address]: [employer]Technic lien ID = [id number] for SHAREE RAYA POCT-GLUCOSE [id number] 11:53:00 Test Item Value Reference Range Comments POC-GLUCOSE METER (BEAKER) 154 mg/dL 70-110 : Not ified RN/MD: TESTED AT (test code = 1538) [address] [facility] [id number]: [employer]/ Area Supervisor ID = [id number] for CLARKE ALDA GARNETT [id number] 06:48:00 Test Item Value Reference Range Comments PHOSPHORUS (BEAKER) (test code = 604) 2.9 mg/dL 2.3-4.7 [employer] ID - JAIDA [id number] 06:48:00 Test Item Value Reference Range Comments MAGNESIUM (BEAKER) (test code = 627) 2.3 mg/dL 1.6-2.6 [employer] ID - JAIDA LBASIC METABOLIC [id number] 06:48:00 Test Item Value Reference Range Comments SODIUM (BEAKER) (test 139 meq/L 136-145 code = 381) POTASSIUM (BEAKER) (test 3.4 meq/L 3.5-5.1 code = 379) CHLORIDE (BEAKER) (test 106 meq/L 98-107 code = 382) CO2 (BEAKER) (test code = 26 meq/L 22-29 355) BLOOD UREA NITROGEN 28 mg/dL 7-21 (BEAKER) (test code = 354) CREATININE (BEAKER) (test 0.73 mg/dL 0.57-1.25 code = 358) GLUCOSE RANDOM (BEAKER) 105 mg/dL 70-105 (test code = 652) CALCIUM (BEAKER) (test 8.8 mg/dL 8.4-10.2 code = 697) EGFR (BEAKER) (test code 82 mL/min/1.73 sq m EST IMATED GFR IS NOT = 1092) ACCURATE CREA TININE CLEARANCE IN PRE DICTING GLOMERULAR FILTR ATION RATE. ESTIMATED GFR IS NOT APPLICABLE F OR DIALYSIS PATIENT S. [employer] ID - PIAYA LCBC (HEMOGRAM ONLY)2019-10-13 06:10:00 Test Item Value Reference Range Comments WHITE BLOOD CELL COUNT (BEAKER) (test code = 8.9 K/ L 3.5 -10.5 775) RED BLOOD CELL COUNT (BEAKER) (test code = 761) 3.23 M/ L 3.93-5.22 HEMOGLOBIN (BEAKER) (test code = 410) 9.1 GM/DL 11.2-15.7 HEMATOCRIT (BEAKER) (test code = 411) 29.3 % 34.1-44.9 MEAN CORPUSCULAR VOLUME (BEAKER) (test code = 90.7 fL 79 .4-94.8 753) MEAN CORPUSCULAR HEMOGLOBIN (BEAKER) (test code 28.2 pg 25.6-32.2 = 751) MEAN CORPUSCULAR HEMOGLOBIN CONC (BEAKER) (test 31.1 GM/DL 32.2-35.5 code = 752) RED CELL DISTRIBUTION WIDTH (BEAKER) (test code 18.0 % 11.7-14.4 = 412) PLATELET COUNT (BEAKER) (test code = 756) 130 K/CU MM 150-45 0 MEAN PLATELET VOLUME (BEAKER) (test code = 754) 11.6 fL 9.4-12.3 NUCLEATED RED BLOOD CELLS (BEAKER) (test code = 0 /100 WBC 0-0 413) RAD, CHEST, 1 VIEW, NON [id number] 04:14:00Reason for exam:->s/p cv surgeryFINAL REPORT CLINICAL INDICATION: Postop Comparison: 10/12/2019 The cardiomediastinal contours are stable. Central pulmonary vascular congestion and bilateral parenchymal and pleural opacities are unchanged. There is no pneumothorax. A right-sided chest tube has been removed. A right-sided PICC line remains in place. Signed: Nomi Downs MDReport Verified Date/Time: 10/13/201904:14:22 [id number] 16:58:00 Test Item Value Reference Range Comments MAGNESIUM (BEAKER) (test code = 1.9 mg/dL 1.6-2.6 Specimen slightly hemolyzed 627) [employer] ID - [facility]YS[facility] Serum Potassium level 2 hours after oral potassium replacement completedor 30 min after intravenous potassium replacement.POTASSIUM 2019-10-12 16:58:00 Test Item Value Reference Range Comments POTASSIUM (BEAKER) (test code = 4.3 meq/L 3.5-5.1 Specimen slightly hemolyzed 379) [employer] ID - [facility] Serum Potassium level 2 hours after oral potassium replacement completedor 30 min after intravenous potassium replacement. SURGICALLY OBTAINED CULTURE + GRAM [id number] 09:19:00 Test Item Value Reference Range Comments CULTURE (BEAKER) (test code = 1095) No growth GRAM STAIN RESULT (BEAKER) (test code = No WBCs 1123) GRAM STAIN RESULT (BEAKER) (test code = No organisms seen 21136) [id number] 04:35:00 Test Item Value Reference Range Comments PHOSPHORUS (BEAKER) (test code = 604) 3.2 mg/dL 2.3-4.7 [employer] ID - ISMAEL [id number] 04:35:00 Test Item Value Reference Range Comments MAGNESIUM (BEAKER) (test code = 627) 2.1 mg/dL 1.6-2.6 [employer] CHERI GUEVARA WBASIC METABOLIC [id number] 04:35:00 Test Item Value Reference Range Comments SODIUM (BEAKER) (test 138 meq/L 136-145 code = 381) POTASSIUM (BEAKER) (test 4.0 meq/L 3.5-5.1 code = 379) CHLORIDE (BEAKER) (test 108 meq/L 98-107 code = 382) CO2 (BEAKER) (test code = 22 meq/L 22-29 355) BLOOD UREA NITROGEN 24 mg/dL 7-21 (BEAKER) (test code = 354) CREATININE (BEAKER) (test 0.71 mg/dL 0.57-1.25 code = 358) GLUCOSE RANDOM (BEAKER) 110 mg/dL 70-105 (test code = 652) CALCIUM (BEAKER) (test 9.0 mg/dL 8.4-10.2 code = 697) EGFR (BEAKER) (test code 84 mL/min/1.73 sq m EST IMATED GFR IS NOT = 1092) ACCURATE CREA TININE CLEARANCE IN PRE DICTING GLOMERULAR FILTR ATION RATE. ESTIMATED GFR IS NOT APPLICABLE F OR DIALYSIS PATIENT S. [employer] CHERI GUEVARA WCBC (HEMOGRAM ONLY)2019-10-12 04:19:00 Test Item Value Reference Range Comments WHITE BLOOD CELL COUNT (BEAKER) (test code = 9.5 K/ L 3.5 -10.5 775) RED BLOOD CELL COUNT (BEAKER) (test code = 761) 3.17 M/ L 3.93-5.22 HEMOGLOBIN (BEAKER) (test code = 410) 9.0 GM/DL 11.2-15.7 HEMATOCRIT (BEAKER) (test code = 411) 28.6 % 34.1-44.9 MEAN CORPUSCULAR VOLUME (BEAKER) (test code = 90.2 fL 79 .4-94.8 753) MEAN CORPUSCULAR HEMOGLOBIN (BEAKER) (test code 28.4 pg 25.6-32.2 = 751) MEAN CORPUSCULAR HEMOGLOBIN CONC (BEAKER) (test 31.5 GM/DL 32.2-35.5 code = 752) RED CELL DISTRIBUTION WIDTH (BEAKER) (test code 18.4 % 11.7-14.4 = 412) PLATELET COUNT (BEAKER) (test code = 756) 102 K/CU MM 150-45 0 MEAN PLATELET VOLUME (BEAKER) (test code = 754) 12.2 fL 9.4-12.3 NUCLEATED RED BLOOD CELLS (BEAKER) (test code = 0 /100 WBC 0-0 413) RAD, CHEST, 1 VIEW, NON [id number] 01:11:00while patient is intubated or has chest tubes.Reason for exam:->CT in placeIs the patient ?- >NoShould this be performed at the bedside?->YesFINAL REPORT CLINICAL INDICATION: Support lines. Comparison: 10/11/2019 The car diomediastinal contours are stable. Central pulmonary vascular prominence and bilateral parenchymal and pleural opacities are similar to previous. No pneumothorax is identified. Support lines, including a right chest tube, are stable. Signed: Nomi Downs MDReport Verified Date/Time: 10/12/2019 01:11:21 B-TYPE NATRIURETIC FACTOR (BNP)2019-10-11 08:04:00 Test Item Value Reference Range Comments B-TYPE NATRIURETIC PEPTIDE (BEAKER) (test code = 3064 pg/mL 0-100 700) [employer] ID - JOBY [facility]BC (HEMOGRAM ONLY)2019-10-11 07:31:00 Test Item Value Reference Range Comments WHITE BLOOD CELL COUNT (BEAKER) (test code = 775) 9.3 K/ L 3.5-10.5 RED BLOOD CELL COUNT (BEAKER) (test code = 761) 3.18 M/ L 3.93-5.22 HEMOGLOBIN (BEAKER) (test code = 410) 9.0 GM/DL 11.2-15.7 HEMATOCRIT (BEAKER) (test code = 411) 28.6 % 34.1-44.9 MEAN CORPUSCULAR VOLUME (BEAKER) (test code = 89.9 fL 79 .4-94.8 753) MEAN CORPUSCULAR HEMOGLOBIN (BEAKER) (test code = 28.3 pg 25.6-32.2 751) MEAN CORPUSCULAR HEMOGLOBIN CONC (BEAKER) (test 31.5 GM/DL 32.2-35.5 code = 752) RED CELL DISTRIBUTION WIDTH (BEAKER) (test code = 18.8 % 11.7-14.4 412) PLATELET COUNT (BEAKER) (test code = 756) 94 K/CU MM 150-45 0 MEAN PLATELET VOLUME (BEAKER) (test code = 754) 11.8 fL 9.4-12.3 NUCLEATED RED BLOOD CELLS (BEAKER) (test code = 0 /100 WBC 0-0 413) [id number] 04:04:00 Test Item Value Reference Range Comments PHOSPHORUS (BEAKER) (test code = 604) 2.7 mg/dL 2.3-4.7 [employer] ID - JOBY [id number] 04:04:00 Test Item Value Reference Range Comments MAGNESIUM (BEAKER) (test code = 627) 1.8 mg/dL 1.6-2.6 [employer] ID - JOBY MBASIC METABOLIC [id number] 04:04:00 Test Item Value Reference Range Comments SODIUM (BEAKER) (test 137 meq/L 136-145 code = 381) POTASSIUM (BEAKER) (test 3.9 meq/L 3.5-5.1 code = 379) CHLORIDE (BEAKER) (test 110 meq/L 98-107 code = 382) CO2 (BEAKER) (test code = 23 meq/L 22-29 355) BLOOD UREA NITROGEN 26 mg/dL 7-21 (BEAKER) (test code = 354) CREATININE (BEAKER) (test 0.74 mg/dL 0.57-1.25 code = 358) GLUCOSE RANDOM (BEAKER) 100 mg/dL 70-105 (test code = 652) CALCIUM (BEAKER) (test 8.6 mg/dL 8.4-10.2 code = 697) EGFR (BEAKER) (test code 80 mL/min/1.73 sq m EST IMATED GFR IS NOT = 1092) ACCURATE CREA TININE CLEARANCE IN PRE DICTING GLOMERULAR FILTR ATION RATE. ESTIMATED GFR IS NOT APPLICABLE F OR DIALYSIS PATIENT S. [employer] ID - JOBY [facility]BC (HEMOGRAM ONLY)2019-10-11 03:35:00 Test Item Value Reference Range Comments WHITE BLOOD CELL COUNT (BEAKER) (test code = 775) 9.2 K/ L 3.5-10.5 RED BLOOD CELL COUNT (BEAKER) (test code = 761) 3.06 M/ L 3.93-5.22 HEMOGLOBIN (BEAKER) (test code = 410) 8.6 GM/DL 11.2-15.7 HEMATOCRIT (BEAKER) (test code = 411) 27.2 % 34.1-44.9 MEAN CORPUSCULAR VOLUME (BEAKER) (test code = 88.9 fL 79 .4-94.8 753) MEAN CORPUSCULAR HEMOGLOBIN (BEAKER) (test code = 28.1 pg 25.6-32.2 751) MEAN CORPUSCULAR HEMOGLOBIN CONC (BEAKER) (test 31.6 GM/DL 32.2-35.5 code = 752) RED CELL DISTRIBUTION WIDTH (BEAKER) (test code = 18.4 % 11.7-14.4 412) PLATELET COUNT (BEAKER) (test code = 756) 76 K/CU MM 150-45 0 MEAN PLATELET VOLUME (BEAKER) (test code = 754) 11.4 fL 9.4-12.3 NUCLEATED RED BLOOD CELLS (BEAKER) (test code = 0 /100 WBC 0-0 413) RAD, CHEST, 1 VIEW, NON [id number] 03:13:00while patient is intubated or has chest tubes.Reason for exam:->CT in placeIs the patient ?- >NoShould this be performed at the bedside?->YesFINAL REPORT CLINICAL INDICATION: Support lines. Comparison: 10/10/2019 The car diomediastinal contours are stable. The lung volumes remain low. Central pulmonary vascular congestion and bilateral parenchymal and pleural opacities are unchanged. There is no pneumothorax. A right IJ transvenous pacer has been removed. Remaining support lines are stable. Signed: Nomi Downs MDReport Verified Date/Time: 10/11/2019 03:13:26 BLOOD GAS, [id number] 17:26:00 Test Item Value Reference Range Comments PH ARTERIAL (BEAKER) (test code = 383) 7.47 7.35-7.45 PCO2 ARTERIAL (BEAKER) (test code = 384) 30 mmHg 35-45 PO2 ARTERIAL (BEAKER) (test code = 385) 83 mmHg 80-90 O2 SATURATION ARTERIAL (BEAKER) (test code = 97.1 % 96. 0-97.0 386) HCO3 ARTERIAL (BEAKER) (test code = 388) 21 mmol/L 21-29 BASE EXCESS ARTERIAL (BEAKER) (test code = 387) -1.8 mmol/L -2.0-3.0 PATIENT TEMPERATURE (BEAKER) (test code = 1818) 36.4 C FIO2 (BEAKER) (test code = 1819) 40.0 % SODIUM NA-STAT [id number] 17:26:00 Test Item Value Reference Range Comments SODIUM (BEAKER) (test code = 381) 134 meq/L 135-148 GLUCOSE-STAT [id number] 17:26:00 Test Item Value Reference Range Comments GLUCOSE RANDOM (BEAKER) (test code = 652) 144 mg/dL 70-110 HGB/HCT (H&H) - STAT [id number] 17:26:00 Test Item Value Reference Range Comments HEMOGLOBIN (BEAKER) (test code = 410) 10.6 g/dL 12.0-15.0 HEMATOCRIT (BEAKER) (test code = 411) 31.0 % 36.0-45.0 POTASSIUM-STAT [id number] 17:25:00 Test Item Value Reference Range Comments POTASSIUM (BEAKER) (test code = 379) 4.2 meq/L 3.6-5.5 TISSUE [id number] 14:27:00Surgical Pathology Report Case: [id number] Authorizing Provider: Humza Bright, Collected: 10/09/2019 10:31 AM Ordering Location: [facility] Received: 10/09/2019 10:47 AM PERIOPERATIVE SERVICES Pathologist: Isaac Rivera MD Specimen: Mitral Valve, MITRAL VALVE LEAFLETS HEART, MITRAL VALVE,VALVULECTOMY:LEAFLETS WITH FIBROMYXOID THICKENING ATTACHED FIBRINOUS VEGETATION WITHOUT ACUTE INFLAMM ATION Signing Pathologist Direct Phone Line: [phone] signed by Isaac Rivera MD on 10/10/2019 at 2:27 [id number] diagnosis: Mitral valve insufficiency, unspecified etiologyMitral valveReceived in formalin labeled with the patient's name, accession number and "mitral valve leaflets" are two portions of lizama-white leaflet tissue that range from 1.5 to 2.5 cm in greatest dimension. The surface is lizama-white and displays a 1.8 x 0.3 cm area of adhesed marx granular soft tissue. Sectioning reveals a lizama-white fibrous cut surface. Flanger sections are submitted in A1. PA/pl PerformedPHOSPHORUS 2019-10-10 04:11:00 Test Item Value Reference Range Comments PHOSPHORUS (BEAKER) (test code = 604) 3.7 mg/dL 2.3-4.7 [employer] ID - [id number] 04:11:00 Test Item Value Reference Range Comments MAGNESIUM (BEAKER) (test code = 627) 2.0 mg/dL 1.6-2.6 [employer] ID - LMBASIC METABOLIC [id number] 04:11:00 Test Item Value Reference Range Comments SODIUM (BEAKER) (test 142 meq/L 136-145 code = 381) POTASSIUM (BEAKER) (test 4.6 meq/L 3.5-5.1 code = 379) CHLORIDE (BEAKER) (test 114 meq/L 98-107 code = 382) CO2 (BEAKER) (test code = 20 meq/L 22-29 355) BLOOD UREA NITROGEN 23 mg/dL 7-21 (BEAKER) (test code = 354) CREATININE (BEAKER) (test 0.75 mg/dL 0.57-1.25 code = 358) GLUCOSE RANDOM (BEAKER) 113 mg/dL 70-105 (test code = 652) CALCIUM (BEAKER) (test 8.8 mg/dL 8.4-10.2 code = 697) EGFR (BEAKER) (test code 79 mL/min/1.73 sq m EST IMATED GFR IS NOT = 1092) ACCURATE CREA TININE CLEARANCE IN PRE DICTING GLOMERULAR FILTR ATION RATE. ESTIMATED GFR IS NOT APPLICABLE F OR DIALYSIS PATIENT S. [employer] ID - L[facility]BC (HEMOGRAM ONLY)2019-10-10 03:29:00 Test Item Value Reference Range Comments WHITE BLOOD CELL COUNT (BEAKER) (test code = 12.5 K/ L 3.5 -10.5 775) RED BLOOD CELL COUNT (BEAKER) (test code = 761) 3.63 M/ L 3.93-5.22 HEMOGLOBIN (BEAKER) (test code = 410) 10.3 GM/DL 11.2-15.7 HEMATOCRIT (BEAKER) (test code = 411) 32.9 % 34.1-44.9 MEAN CORPUSCULAR VOLUME (BEAKER) (test code = 90.6 fL 79 .4-94.8 753) MEAN CORPUSCULAR HEMOGLOBIN (BEAKER) (test code 28.4 pg 25.6-32.2 = 751) MEAN CORPUSCULAR HEMOGLOBIN CONC (BEAKER) (test 31.3 GM/DL 32.2-35.5 code = 752) RED CELL DISTRIBUTION WIDTH (BEAKER) (test code 19.7 % 11.7-14.4 = 412) PLATELET COUNT (BEAKER) (test code = 756) 100 K/CU MM 150-45 0 MEAN PLATELET VOLUME (BEAKER) (test code = 754) 11.6 fL 9.4-12.3 NUCLEATED RED BLOOD CELLS (BEAKER) (test code = 0 /100 WBC 0-0 413) BLOOD GAS, [id number] 03:26:00 Test Item Value Reference Range Comments PH ARTERIAL (BEAKER) (test code = 383) 7.35 7.35-7.45 PCO2 ARTERIAL (BEAKER) (test code = 384) 39 mmHg 35-45 PO2 ARTERIAL (BEAKER) (test code = 385) 81 mmHg 80-90 O2 SATURATION ARTERIAL (BEAKER) (test code = 95.8 % 96. 0-97.0 386) HCO3 ARTERIAL (BEAKER) (test code = 388) 22 mmol/L 21-29 BASE EXCESS ARTERIAL (BEAKER) (test code = 387) -3.8 mmol/L -2.0-3.0 PATIENT TEMPERATURE (BEAKER) (test code = 1818) 36.6 C FIO2 (BEAKER) (test code = 1819) 40.0 % RAD, CHEST, 1 VIEW, NON [id number] 00:38:00while patient is intubated or has chest tubes.Reason for exam:->CT in placeIs the patient ?- >NoShould this be performed at the bedside?->YesFINAL REPORT CLINICAL INDICATION: Support lines. Comparison: 10/09/2019 The car diomediastinal contours are stable. The lung volumes have decreased slightly after extubation. Central pulmonary vascular congestion and bilateral parenchymal and pleural opacities are similar to previous. There is no pneumothorax. Remaining support lines are stable. Signed: Nomi Downs MDReport Verified Date/Time: 10/10/2019 00:38:10 BLOOD GAS, [id number] 16:33:00 Test Item Value Reference Range Comments PH ARTERIAL (BEAKER) (test code = 383) 7.40 7.35-7.45 PCO2 ARTERIAL (BEAKER) (test code = 384) 38 mmHg 35-45 PO2 ARTERIAL (BEAKER) (test code = 385) 104 mmHg 80-90 O2 SATURATION ARTERIAL (BEAKER) (test code = 97.9 % 96. 0-97.0 386) HCO3 ARTERIAL (BEAKER) (test code = 388) 23 mmol/L 21-29 BASE EXCESS ARTERIAL (BEAKER) (test code = 387) -1.8 mmol/L -2.0-3.0 PATIENT TEMPERATURE (BEAKER) (test code = 1818) 36.4 C FIO2 (BEAKER) (test code = 1819) 40.0 % GLUCOSE-STAT [id number] 16:33:00 Test Item Value Reference Range Comments GLUCOSE RANDOM (BEAKER) (test code = 652) 156 mg/dL 70-110 HGB/HCT (H&H) - STAT [id number] 16:33:00 Test Item Value Reference Range Comments HEMOGLOBIN (BEAKER) (test code = 410) 11.4 g/dL 12.0-15.0 HEMATOCRIT (BEAKER) (test code = 411) 34.0 % 36.0-45.0 SODIUM NA-STAT [id number] 16:32:00 Test Item Value Reference Range Comments SODIUM (BEAKER) (test code = 381) 139 meq/L 135-148 POTASSIUM-STAT [id number] 16:32:00 Test Item Value Reference Range Comments POTASSIUM (BEAKER) (test code = 379) 4.8 meq/L 3.6-5.5 CBC W/PLT COUNT & AUTO [id number] 14:21:00 Test Item Value Reference Range Comments WHITE BLOOD CELL COUNT (BEAKER) (test code = 12.1 K/ L 3.5 -10.5 775) RED BLOOD CELL COUNT (BEAKER) (test code = 761) 3.43 M/ L 3.93-5.22 HEMOGLOBIN (BEAKER) (test code = 410) 9.9 GM/DL 11.2-15.7 HEMATOCRIT (BEAKER) (test code = 411) 31.6 % 34.1-44.9 MEAN CORPUSCULAR VOLUME (BEAKER) (test code = 92.1 fL 79 .4-94.8 753) MEAN CORPUSCULAR HEMOGLOBIN (BEAKER) (test code 28.9 pg 25.6-32.2 = 751) MEAN CORPUSCULAR HEMOGLOBIN CONC (BEAKER) (test 31.3 GM/DL 32.2-35.5 code = 752) RED CELL DISTRIBUTION WIDTH (BEAKER) (test code 19.2 % 11.7-14.4 = 412) PLATELET COUNT (BEAKER) (test code = 756) 127 K/CU MM 150-45 0 MEAN PLATELET VOLUME (BEAKER) (test code = 754) 10.6 fL 9.4-12.3 NUCLEATED RED BLOOD CELLS (BEAKER) (test code = 0 /100 WBC 0-0 413) (CELLAVISION MANUAL DIFF)2019-10-09 14:21:00 Test Item Value Reference Range Comments NEUTROPHILS - REL (CELLAVISION)(BEAKER) (test 83 % code = 2816) LYMPHOCYTES - REL (CELLAVISION)(BEAKER) (test 4 % code = 2817) MONOCYTES - REL (CELLAVISION)(BEAKER) (test code 3 % = 2818) EOSINOPHILS - REL (CELLAVISION)(BEAKER) (test 1 % code = 2819) MYELOCYTES - REL (CELLAVISION)(BEAKER) (test 2 % 0-0 code = 2822) BANDS - REL (CELLAVISION)(BEAKER) (test code = 7 % 0 -10 2826) NEUTROPHILS - ABS (CELLAVISION)(BEAKER) (test 10.04 K/ul 1. 56-6.13 code = 2830) LYMPHOCYTES - ABS (CELLAVISION)(BEAKER) (test 0.48 K/ul 1. 18-3.74 code = 2831) MONOCYTES - ABS (CELLAVISION)(BEAKER) (test code 0.36 K/uL 0.24-0.36 = 2832) EOSINOPHILS - ABS (CELLAVISION)(BEAKER) (test 0.12 K/uL 0. 04-0.36 code = 2834) MYELOCYTES-ABS (CELLAVISION)(BEAKER) (test code 0.24 K/uL 0.00-0.00 = 2837) BANDS - ABS (CELLAVISION)(BEAKER) (test code = 0.85 K/uL 0 .00-0.80 2840) TOTAL COUNTED (BEAKER) (test code = 1351) 100 WBC MORPHOLOGY (BEAKER) (test code = 487) Normal LARGE PLT(BEAKER) (test code = 2156) Present POLYCHROMATOPHILLIC RBCS(BEAKER) (test code = 1+ few 478) HYPOCHROMIA (BEAKER) (test code = 963) 1+ few ANISOCYTOSIS (BEAKER) (test code = 961) 2+ moderate MACROCYTES (BEAKER) (test code = 964) 1+ few POIKILOCYTES (BEAKER) (test code = 966) 1+ few LIVAN CELLS (BEAKER) (test code = 474) 1+ few ARTIFACT (CELLAVISION)(BEAKER) (test code = Present 3432) PLATELET CONCENTRATION (CELLAVISION)(BEAKER) Decreased (test code = 3438) [employer] ID - [id number] ID - Michael EscobarUser comments: Slide comments: [id number] 14:01:00 Test Item Value Reference Range Comments MAGNESIUM (BEAKER) (test code = 2.5 mg/dL 1.6-2.6 Specimen slightly hemolyzed 627) [employer] ID - JOBY [id number] 14:01:00 Test Item Value Reference Range Comments PHOSPHORUS (BEAKER) (test code 3.7 mg/dL 2.3-4.7 S pecimen slightly hemolyzed = 604) [employer] ID - JOBY MBASIC METAB[employer]IC [id number] 14:01:00 Test Item Value Reference Range Comments SODIUM (BEAKER) (test 140 meq/L 136-145 code = 381) POTASSIUM (BEAKER) (test 4.9 meq/L 3.5-5.1 Specime n slightly code = 379) hemolyzed CHLORIDE (BEAKER) (test 111 meq/L 98-107 code = 382) CO2 (BEAKER) (test code = 21 meq/L 22-29 355) BLOOD UREA NITROGEN 21 mg/dL 7-21 (BEAKER) (test code = 354) CREATININE (BEAKER) (test 0.71 mg/dL 0.57-1.25 Specim en slightly code = 358) hemolyzed GLUCOSE RANDOM (BEAKER) 190 mg/dL 70-105 (test code = 652) CALCIUM (BEAKER) (test 8.8 mg/dL 8.4-10.2 code = 697) EGFR (BEAKER) (test code 84 mL/min/1.73 sq m EST IMATED GFR IS NOT = 1092) ACCURATE CREA TININE CLEARANCE IN PRE DICTING GLOMERULAR FILTR ATION RATE. ESTIMATED GFR IS NOT APPLICABLE F OR DIALYSIS PATIENT S. [employer] ID - JOBY MBLOOD [id number] 14:00:00 Test Item Value Reference Range Comments CULTURE (BEAKER) (test code = 1095) No growth in 5 days LACTIC ACID, [id number] 13:55:00 Test Item Value Reference Range Comments LACTATE BLOOD ARTERIAL (2) 0.9 mmol/L 0.5-2.2 Speci men slightly hemolyzed (BEAKER) (test code = 2874) [employer] ID - LINDSAY WARE, CHEST, 1 VIEW, NON [id number] 13:55:00Reason for exam:->ett placementFINAL REPORT TECHNIQUE: Frontal chest radiograph dated 10/09/2019. CLINICAL HISTORY: ETT placement COMPARISON STUDY: Chest radiograph dated 10/01/2019 IMPRESSION:Endotracheal tube is 1.8 cm above the naa. Right sided internal jugular vascular pacing wire projects over the rightheart border. Enteric tube is seen with the tip in the region of the gastric fundus. Right-sided chest tube is in place. There are new, diffuse airspace opacities bilaterally and likely a small left pleural effusion.. No pneumothorax. Cardiomediastinal silhouette is stable in appearance. No fracture. Signed: Rosette Oliver MDReport Verified Date/Time: 10/09/2019 13:55:43 Reading Location: [facility] [id number] CT Body Reading Room [id number] 13:54:00 Test Item Value Reference Range Comments FIBRINOGEN LEVEL (BEAKER) (test code = 658) 562 mg/dl 225- 434 [id number] 13:54:00 Test Item Value Reference Range Comments PARTIAL THROMBOPLASTIN TIME (BEAKER) (test code 33.2 seconds 22.5-36.0 = 760) PROTHROMBIN [id number] 13:53:00 Test Item Value Reference Range Comments PROTIME (BEAKER) (test code = 759) 17.5 seconds 11.9-14.2 INR (BEAKER) (test code = 370) 1.5 <=5.9 Effective 12/05/2018: PT Reference Range ChangeNew: 11.9-14.2 Previous: 11.7- 14.7RECOMMENDED COUMADIN/WARFARIN INR THERAPY RANGESSTANDARD DOSE: 2.0-3.0 Includes: PROPHYLAXIS for venous thrombosis, systemic embolization; TREATMENT for venous thrombosis and/or pulmonary embolus.HIGH RISK: Target INR is2.5-3.5 for patients wiht mechanical heart valves.BLOOD GAS, [id number] 13:29:00 Test Item Value Reference Range Comments PH ARTERIAL (BEAKER) (test code = 383) 7.30 7.35-7.45 PCO2 ARTERIAL (BEAKER) (test code = 384) 49 mmHg 35-45 PO2 ARTERIAL (BEAKER) (test code = 385) 99 mmHg 80-90 O2 SATURATION ARTERIAL (BEAKER) (test code = 97.0 % 96. 0-97.0 386) HCO3 ARTERIAL (BEAKER) (test code = 388) 24 mmol/L 21-29 BASE EXCESS ARTERIAL (BEAKER) (test code = 387) -3.2 mmol/L -2.0-3.0 PATIENT TEMPERATURE (BEAKER) (test code = 1818) 36.6 C FIO2 (BEAKER) (test code = 1819) 60.0 % OXYGEN SATURATION, [id number] 13:29:00 Test Item Value Reference Range Comments O2 SATURATION (MEASURED) (BEAKER) (test code = 1455) 73.5 % [id number] 12:35:00 Test Item Value Reference Range Comments ACTIVATED CLOTTING TIME 593 sec : 74-137 seconds, Baseline: (BEAKER) (test code = 441) TESTE D AT [place] [address] 0: [employer] lien ID = [id number] for NGUYE N, CHARLIE [id number] 12:34:00 Test Item Value Reference Range Comments ACTIVATED CLOTTING TIME 125 sec : 74-137 seconds, Baseline: (BEAKER) (test code = 441) TESTE D AT [place] [address] 0: [employer] lien ID = [id number] for NGUYE N, CHARLIE [id number] 12:34:00 Test Item Value Reference Range Comments ACTIVATED CLOTTING TIME 477 sec : 74-137 seconds, Baseline: (BEAKER) (test code = 441) TESTE D AT [place] [address] 0: [employer] lien ID = [id number] for NGUYE N, CHARLIE [id number] 12:34:00 Test Item Value Reference Range Comments ACTIVATED CLOTTING TIME 483 sec : 74-137 seconds, Baseline: (BEAKER) (test code = 441) TESTE D AT [place] [address] 0: [employer] lien ID = [id number] for NGUYE N, CHARLIE [id number] 12:34:00 Test Item Value Reference Range Comments ACTIVATED CLOTTING TIME 340 sec : 74-137 seconds, Baseline: (BEAKER) (test code = 441) TESTE D AT [place] [address] 0: [employer] lien ID = [id number] for NGUYE N, CHARLIE [id number] 12:34:00 Test Item Value Reference Range Comments ACTIVATED CLOTTING TIME 136 sec : 74-137 seconds, Baseline: (BEAKER) (test code = 441) TESTE D AT [facility] [address] [facility], [address]: [employer] lien ID = [id number] for CHARLIE ALDRIDGE BLOOD GAS, [id number] 12:17:00 Test Item Value Reference Range Comments PH ARTERIAL (BEAKER) (test code = 383) 7.34 7.35-7.45 PCO2 ARTERIAL (BEAKER) (test code = 384) 47 mmHg 35-45 PO2 ARTERIAL (BEAKER) (test code = 385) 289 mmHg 80-90 O2 SATURATION ARTERIAL (BEAKER) (test code = 99.6 % 96. 0-97.0 386) HCO3 ARTERIAL (BEAKER) (test code = 388) 24 mmol/L 21-29 BASE EXCESS ARTERIAL (BEAKER) (test code = 387) -1.6 mmol/L -2.0-3.0 PATIENT TEMPERATURE (BEAKER) (test code = 1818) 36.4 C FIO2 (BEAKER) (test code = 1819) 100.0 % GLUCOSE-STAT [id number] 12:17:00 Test Item Value Reference Range Comments GLUCOSE RANDOM (BEAKER) (test code = 652) 213 mg/dL 70-110 HGB/HCT (H&H) - STAT [id number] 12:17:00 Test Item Value Reference Range Comments HEMOGLOBIN (BEAKER) (test code = 410) 8.9 g/dL 12.0-15.0 HEMATOCRIT (BEAKER) (test code = 411) 26.0 % 36.0-45.0 SODIUM NA-STAT [id number] 12:15:00 Test Item Value Reference Range Comments SODIUM (BEAKER) (test code = 381) 136 meq/L 135-148 POTASSIUM-STAT [id number] 12:15:00 Test Item Value Reference Range Comments POTASSIUM (BEAKER) (test code = 379) 5.0 meq/L 3.6-5.5 POTASSIUM-STAT [id number] 12:02:00 Test Item Value Reference Range Comments POTASSIUM (BEAKER) (test code = 379) 4.7 meq/L 3.6-5.5 BLOOD GAS, [id number] 12:02:00 Test Item Value Reference Range Comments PH ARTERIAL (BEAKER) (test code = 383) 7.46 7.35-7.45 PCO2 ARTERIAL (BEAKER) (test code = 384) 29 mmHg 35-45 PO2 ARTERIAL (BEAKER) (test code = 385) 168 mmHg 80-90 O2 SATURATION ARTERIAL (BEAKER) (test code = 99.2 % 96. 0-97.0 386) HCO3 ARTERIAL (BEAKER) (test code = 388) 20 mmol/L 21-29 BASE EXCESS ARTERIAL (BEAKER) (test code = 387) -2.6 mmol/L -2.0-3.0 PATIENT TEMPERATURE (BEAKER) (test code = 1818) 36.6 C FIO2 (BEAKER) (test code = 1819) 100.0 % GLUCOSE-STAT [id number] 12:02:00 Test Item Value Reference Range Comments GLUCOSE RANDOM (BEAKER) (test code = 652) 180 mg/dL 70-110 SODIUM NA-STAT [id number] 12:02:00 Test Item Value Reference Range Comments SODIUM (BEAKER) (test code = 381) 133 meq/L 135-148 CALCIUM, [id number] 12:01:00 Test Item Value Reference Range Comments CALCIUM IONIZED (BEAKER) (test code = 698) 1.01 mmol/L 1.12- 1.27 PH, BLOOD (BEAKER) (test code = 1810) 7.45 LACTIC ACID, [id number] 11:31:00 Test Item Value Reference Range Comments LACTATE BLOOD ARTERIAL (2) 1.3 mmol/L 0.5-2.2 Speci men slightly hemolyzed (BEAKER) (test code = 2874) [employer] CHERI Amberly MONTOYA FSODIUM NA-STAT [id number] 11:25:00 Test Item Value Reference Range Comments SODIUM (BEAKER) (test code = 381) 135 meq/L 135-148 POTASSIUM-STAT [id number] 11:25:00 Test Item Value Reference Range Comments POTASSIUM (BEAKER) (test code = 379) 5.3 meq/L 3.6-5.5 BLOOD GAS, [id number] 11:25:00 Test Item Value Reference Range Comments PH ARTERIAL (BEAKER) (test code = 383) 7.38 7.35-7.45 PCO2 ARTERIAL (BEAKER) (test code = 384) 39 mmHg 35-45 PO2 ARTERIAL (BEAKER) (test code = 385) 301 mmHg 80-90 O2 SATURATION ARTERIAL (BEAKER) (test code = 99.7 % 96. 0-97.0 386) HCO3 ARTERIAL (BEAKER) (test code = 388) 23 mmol/L 21-29 BASE EXCESS ARTERIAL (BEAKER) (test code = 387) -2.0 mmol/L -2.0-3.0 PATIENT TEMPERATURE (BEAKER) (test code = 1818) 35.8 C FIO2 (BEAKER) (test code = 1819) 70.0 % GLUCOSE-STAT [id number] 11:25:00 Test Item Value Reference Range Comments GLUCOSE RANDOM (BEAKER) (test code = 652) 148 mg/dL 70-110 HGB/HCT (H&H) - STAT [id number] 11:25:00 Test Item Value Reference Range Comments HEMOGLOBIN (BEAKER) (test code = 410) 7.9 g/dL 12.0-15.0 HEMATOCRIT (BEAKER) (test code = 411) 23.0 % 36.0-45.0 BLOOD GAS, [id number] 10:49:00 Test Item Value Reference Range Comments PH ARTERIAL (BEAKER) (test code = 383) 7.44 7.35-7.45 PCO2 ARTERIAL (BEAKER) (test code = 384) 38 mmHg 35-45 PO2 ARTERIAL (BEAKER) (test code = 385) 250 mmHg 80-90 O2 SATURATION ARTERIAL (BEAKER) (test code = 386) 99.6 % 96.0-97.0 HCO3 ARTERIAL (BEAKER) (test code = 388) 27 mmol/L 21-29 BASE EXCESS ARTERIAL (BEAKER) (test code = 387) 1.3 mmol/L -2.0-3.0 PATIENT TEMPERATURE (BEAKER) (test code = 1818) 30.8 C FIO2 (BEAKER) (test code = 1819) 60.0 % SODIUM NA-STAT [id number] 10:49:00 Test Item Value Reference Range Comments SODIUM (BEAKER) (test code = 381) 133 meq/L 135-148 GLUCOSE-STAT [id number] 10:49:00 Test Item Value Reference Range Comments GLUCOSE RANDOM (BEAKER) (test code = 652) 134 mg/dL 70-110 HGB/HCT (H&H) - STAT [id number] 10:49:00 Test Item Value Reference Range Comments HEMOGLOBIN (BEAKER) (test code = 410) 6.3 g/dL 12.0-15.0 HEMATOCRIT (BEAKER) (test code = 411) 19.0 % 36.0-45.0 LACTIC ACID, [id number] 10:49:00 Test Item Value Reference Range Comments LACTATE BLOOD ARTERIAL (2) (BEAKER) (test code = 1.5 mmol/L 0.5-2.2 2874) [employer] ID - LINDSAY FPOTASSIUM-STAT [id number] 10:48:00 Test Item Value Reference Range Comments POTASSIUM (BEAKER) (test code = 379) 4.7 meq/L 3.6-5.5 BLOOD GAS, [id number] 10:25:00 Test Item Value Reference Range Comments PH ARTERIAL (BEAKER) (test code = 383) 7.51 7.35-7.45 PCO2 ARTERIAL (BEAKER) (test code = 384) 32 mmHg 35-45 PO2 ARTERIAL (BEAKER) (test code = 385) 365 mmHg 80-90 O2 SATURATION ARTERIAL (BEAKER) (test code = 386) 99.8 % 96.0-97.0 HCO3 ARTERIAL (BEAKER) (test code = 388) 26 mmol/L 21-29 BASE EXCESS ARTERIAL (BEAKER) (test code = 387) 1.9 mmol/L -2.0-3.0 PATIENT TEMPERATURE (BEAKER) (test code = 1818) 34.6 C FIO2 (BEAKER) (test code = 1819) 75.0 % SODIUM NA-STAT [id number] 10:25:00 Test Item Value Reference Range Comments SODIUM (BEAKER) (test code = 381) 131 meq/L 135-148 GLUCOSE-STAT [id number] 10:25:00 Test Item Value Reference Range Comments GLUCOSE RANDOM (BEAKER) (test code = 652) 158 mg/dL 70-110 HGB/HCT (H&H) - STAT [id number] 10:25:00 Test Item Value Reference Range Comments HEMOGLOBIN (BEAKER) (test code = 410) 7.0 g/dL 12.0-15.0 HEMATOCRIT (BEAKER) (test code = 411) 21.0 % 36.0-45.0 POTASSIUM-STAT [id number] 10:18:00 Test Item Value Reference Range Comments POTASSIUM (BEAKER) (test code = 379) 3.5 meq/L 3.6-5.5 BLOOD GAS, [id number] 09:12:00 Test Item Value Reference Range Comments PH ARTERIAL (BEAKER) (test code = 383) 7.43 7.35-7.45 PCO2 ARTERIAL (BEAKER) (test code = 384) 41 mmHg 35-45 PO2 ARTERIAL (BEAKER) (test code = 385) 321 mmHg 80-90 O2 SATURATION ARTERIAL (BEAKER) (test code = 386) 99.7 % 96.0-97.0 HCO3 ARTERIAL (BEAKER) (test code = 388) 26 mmol/L 21-29 BASE EXCESS ARTERIAL (BEAKER) (test code = 387) 1.8 mmol/L -2.0-3.0 PATIENT TEMPERATURE (BEAKER) (test code = 1818) 37.0 C FIO2 (BEAKER) (test code = 1819) 100.0 % GLUCOSE-STAT [id number] 09:12:00 Test Item Value Reference Range Comments GLUCOSE RANDOM (BEAKER) (test code = 652) 112 mg/dL 70-110 HGB/HCT (H&H) - STAT [id number] 09:12:00 Test Item Value Reference Range Comments HEMOGLOBIN (BEAKER) (test code = 410) 7.4 g/dL 12.0-15.0 HEMATOCRIT (BEAKER) (test code = 411) 22.0 % 36.0-45.0 SODIUM NA-STAT [id number] 09:11:00 Test Item Value Reference Range Comments SODIUM (BEAKER) (test code = 381) 135 meq/L 135-148 POTASSIUM-STAT [id number] 09:11:00 Test Item Value Reference Range Comments POTASSIUM (BEAKER) (test code = 379) 3.9 meq/L 3.6-5.5 FL, FLUORO, NON-SPECIFIC, UP TO 1 [id number] 09:04:00Reason for exam:- >Pacer line placement by anesthesiaFINAL REPORT A fluoroscopic unit was utilized for a procedure performed in the operating room. No interpretation was requested. Please refer to the operative report regarding findings. Please refer to PACS for patient radiation dose information. Signed: JR Talbot Robert MDReport Verified Date/Time: 10/09/2019 09:04:53 [facility] HEMOGLOBIN [id number] 21:01:00 Test Item Value Reference Range Comments HEMOGLOBIN A1C (BEAKER) (test code = 368) 5.2 % 4.3-6. 1 LIPID [id number] 19:25:00 Test Item Value Reference Range Comments TRIGLYCERIDES (BEAKER) (test code = 540) 115 mg/dL CHOLESTEROL (BEAKER) (test code = 631) 165 mg/dL HDL CHOLESTEROL (BEAKER) (test code = 976) 41 mg/dL LDL CHOLESTEROL CALCULATED (BEAKER) (test code = 101 mg/dL 633) Triglyceride Reference Range: Low Risk <150 Borderline 150-199 High Risk 200-499 Very High Risk >=500Cholesterol Reference Range: Low Risk <200 Borderline 200-239 High Risk >240HDL Cholesterol Reference Range: Low Risk >=60 High Risk <40LDL Cholesterol Reference Range: Optimal <100 Near Optimal 100-129 Borderline 130-159 High 160-189 Very High >=190 [employer] ID - DBCOMPREHENSIVE METABOLIC [id number] 19:25:00 Test Item Value Reference Range Comments TOTAL PROTEIN (BEAKER) 5.9 gm/dL 6.0-8.3 (test code = 770) ALBUMIN (BEAKER) (test 2.7 g/dL 3.5-5.0 code = 1145) ALKALINE PHOSPHATASE 135 U/L 40-150 (BEAKER) (test code = 346) BILIRUBIN TOTAL (BEAKER) 0.3 mg/dL 0.2-1.2 (test code = 377) SODIUM (BEAKER) (test code 140 meq/L 136-145 = 381) POTASSIUM (BEAKER) (test 4.8 meq/L 3.5-5.1 code = 379) CHLORIDE (BEAKER) (test 107 meq/L 98-107 code = 382) CO2 (BEAKER) (test code = 26 meq/L 22-29 355) BLOOD UREA NITROGEN 27 mg/dL 7-21 (BEAKER) (test code = 354) CREATININE (BEAKER) (test 0.82 mg/dL 0.57-1.25 code = 358) GLUCOSE RANDOM (BEAKER) 105 mg/dL 70-105 (test code = 652) CALCIUM (BEAKER) (test 8.6 mg/dL 8.4-10.2 code = 697) AST (SGOT) (BEAKER) (test 18 U/L 5-34 code = 353) ALT (SGPT) (BEAKER) (test 10 U/L 6-55 code = 347) EGFR (BEAKER) (test code = 71 mL/min/1.73 sq m E STIMATED GFR IS NOT 1092) ACCURATE CREA TININE CLEARANCE IN PRE DICTING GLOMERULAR FILTR ATION RATE. ESTIMATED GFR IS NOT APPLICABLE F OR DIALYSIS PATIENT S. [employer] ID - DBCBC W/PLT COUNT & AUTO [id number] 18:57:00 Test Item Value Reference Range Comments WHITE BLOOD CELL COUNT (BEAKER) (test code = 6.2 K/ L 3.5 -10.5 775) RED BLOOD CELL COUNT (BEAKER) (test code = 761) 2.53 M/ L 3.93-5.22 HEMOGLOBIN (BEAKER) (test code = 410) 7.2 GM/DL 11.2-15.7 HEMATOCRIT (BEAKER) (test code = 411) 24.1 % 34.1-44.9 MEAN CORPUSCULAR VOLUME (BEAKER) (test code = 95.3 fL 79 .4-94.8 753) MEAN CORPUSCULAR HEMOGLOBIN (BEAKER) (test code 28.5 pg 25.6-32.2 = 751) MEAN CORPUSCULAR HEMOGLOBIN CONC (BEAKER) (test 29.9 GM/DL 32.2-35.5 code = 752) RED CELL DISTRIBUTION WIDTH (BEAKER) (test code 18.5 % 11.7-14.4 = 412) PLATELET COUNT (BEAKER) (test code = 756) 144 K/CU MM 150-45 0 MEAN PLATELET VOLUME (BEAKER) (test code = 754) 11.0 fL 9.4-12.3 NUCLEATED RED BLOOD CELLS (BEAKER) (test code = 0 /100 WBC 0-0 413) NEUTROPHILS RELATIVE PERCENT (BEAKER) (test code 75 % = 429) LYMPHOCYTES RELATIVE PERCENT (BEAKER) (test code 13 % = 430) MONOCYTES RELATIVE PERCENT (BEAKER) (test code = 8 % 431) EOSINOPHILS RELATIVE PERCENT (BEAKER) (test code 0 % = 432) BASOPHILS RELATIVE PERCENT (BEAKER) (test code = 0 % 437) NEUTROPHILS ABSOLUTE COUNT (BEAKER) (test code = 4.69 K/ L 1.56-6.13 670) LYMPHOCYTES ABSOLUTE COUNT (BEAKER) (test code = 0.80 K/ L 1.18-3.74 414) MONOCYTES ABSOLUTE COUNT (BEAKER) (test code = 0.52 K/ L 0 .24-0.36 415) EOSINOPHILS ABSOLUTE COUNT (BEAKER) (test code = 0.00 K/ L 0.04-0.36 416) BASOPHILS ABSOLUTE COUNT (BEAKER) (test code = 0.01 K/ L 0 .01-0.08 417) IMMATURE GRANULOCYTES-RELATIVE PERCENT (BEAKER) 3 % 0-1 (test code = 2801) [id number] 16:55:00 Test Item Value Reference Range Comments THYROID STIMULATING HORMONE (BEAKER) (test code 0.80 uIU/mL 0.35-4.94 = 772) [employer] ID - [id number] 16:33:00 Test Item Value Reference Range Comments MAGNESIUM (BEAKER) (test code = 627) 1.8 mg/dL 1.6-2.6 [employer] ID - DBPROTHROMBIN TIME/[id number] 16:25:00 Test Item Value Reference Range Comments PROTIME (BEAKER) (test code = 759) 15.1 seconds 11.9-14.2 INR (BEAKER) (test code = 370) 1.2 <=5.9 Effective 12/05/2018: PT Reference Range ChangeNew: 11.9-14.2 Previous: 11.7- 14.7RECOMMENDED COUMADIN/WARFARIN INR THERAPY RANGESSTANDARD DOSE: 2.0-3.0 Includes: PROPHYLAXIS for venous thrombosis, systemic embolization; TREATMENT for venous thrombosis and/or pulmonary embolus.HIGH RISK: Target INR is2.5-3.5 for patients wiht mechanical heart valves.[id number] 16:25:00 Test Item Value Reference Range Comments PARTIAL THROMBOPLASTIN TIME (BEAKER) (test code 43.2 seconds 22.5-36.0 = 760) CMV PCR, [id number] 13:22:00 Test Item Value Reference Range Comments CMV VIRAL LOAD - NEGATIVE Negative or below the <375- >375,000 c opies/mL (BEAKER) (test code = linear range of the assay 2278) (<375 copies/mL) Cytomegalovirus (CMV) infection can cause significant disease in immunosuppressed patients. However,it is common for CMV to manifest as a limited infection which is of no clinical significance in immunosuppressed patients or in healthy individuals.Viral load measurements are helpful to identify clinical CMV infection and to guide the pre-emptive management of antiviral therapy. For treatment of CMVinfection due to reactivation in transplant recipients, a threshold between 4,000 and 5,000 copies/mL is suggested. For treatment of primary CMV infection, a lower threshold can be used.CMV infection may also be monitored using weekly serial measurements. Serial measurements of CMV DNA viral load canbe evaluated by identifying a 10-fold change, as well as assessing the CMV DNA viral load and the clinical context for each patient.The plasma CMV DNA viral load was detected using quantitative polymerase chain reaction and fluorescent monitoring of a specific hybridized probe. Genetic variation and ot her factors can affect the accuracy of nucleic acid testing. Therefore, the results should be interpreted in light of clinical data. A negative result may not exclude the presence of CMV disease.This test was developed and its performance characteristics determined by the [facility], Section of Molecular Pathology. It has not been cleared or approved by the U.S. Food and Drug Administration (FDA), since FDA approval is not required for clinical use of the test. Validation was done as required by The Clinical Laboratory Improvement Amendments of 1988.[id number] 06:21:00 Test Item Value Reference Range Comments MAGNESIUM (BEAKER) (test code = 627) 1.9 mg/dL 1.6-2.6 [employer] ID - JOBY MBASIC METABOLIC [id number] 06:21:00 Test Item Value Reference Range Comments SODIUM (BEAKER) (test 137 meq/L 136-145 code = 381) POTASSIUM (BEAKER) (test 4.0 meq/L 3.5-5.1 code = 379) CHLORIDE (BEAKER) (test 107 meq/L 98-107 code = 382) CO2 (BEAKER) (test code = 23 meq/L 22-29 355) BLOOD UREA NITROGEN 25 mg/dL 7-21 (BEAKER) (test code = 354) CREATININE (BEAKER) (test 0.73 mg/dL 0.57-1.25 code = 358) GLUCOSE RANDOM (BEAKER) 85 mg/dL 70-105 (test code = 652) CALCIUM (BEAKER) (test 8.7 mg/dL 8.4-10.2 code = 697) EGFR (BEAKER) (test code 82 mL/min/1.73 sq m EST IMATED GFR IS NOT = 1092) ACCURATE CREA TININE CLEARANCE IN PRE DICTING GLOMERULAR FILTR ATION RATE. ESTIMATED GFR IS NOT APPLICABLE F OR DIALYSIS PATIENT S. [employer] ID - JOBY MB-TYPE NATRIURETIC FACTOR (BNP)2019-10-08 05:53:00 Test Item Value Reference Range Comments B-TYPE NATRIURETIC PEPTIDE (BEAKER) (test code = 428 pg/mL 0-100 700) [employer] ID - JOBY MCBC (HEMOGRAM ONLY)2019-10-08 05:38:00 Test Item Value Reference Range Comments WHITE BLOOD CELL COUNT (BEAKER) (test code = 7.3 K/ L 3.5 -10.5 775) RED BLOOD CELL COUNT (BEAKER) (test code = 761) 2.58 M/ L 3.93-5.22 HEMOGLOBIN (BEAKER) (test code = 410) 7.5 GM/DL 11.2-15.7 HEMATOCRIT (BEAKER) (test code = 411) 25.0 % 34.1-44.9 MEAN CORPUSCULAR VOLUME (BEAKER) (test code = 96.9 fL 79 .4-94.8 753) MEAN CORPUSCULAR HEMOGLOBIN (BEAKER) (test code 29.1 pg 25.6-32.2 = 751) MEAN CORPUSCULAR HEMOGLOBIN CONC (BEAKER) (test 30.0 GM/DL 32.2-35.5 code = 752) RED CELL DISTRIBUTION WIDTH (BEAKER) (test code 18.4 % 11.7-14.4 = 412) PLATELET COUNT (BEAKER) (test code = 756) 137 K/CU MM 150-45 0 MEAN PLATELET VOLUME (BEAKER) (test code = 754) 10.5 fL 9.4-12.3 NUCLEATED RED BLOOD CELLS (BEAKER) (test code = 0 /100 WBC 0-0 413) BLOOD [id number] 10:00:00 Test Item Value Reference Range Comments CULTURE (BEAKER) (test code = 1095) No growth in 5 days [id number] 06:06:00 Test Item Value Reference Range Comments MAGNESIUM (BEAKER) (test code = 627) 1.8 mg/dL 1.6-2.6 [employer] ID - JOBY MBASIC METABOLIC [id number] 06:06:00 Test Item Value Reference Range Comments SODIUM (BEAKER) (test 137 meq/L 136-145 code = 381) POTASSIUM (BEAKER) (test 3.9 meq/L 3.5-5.1 code = 379) CHLORIDE (BEAKER) (test 106 meq/L 98-107 code = 382) CO2 (BEAKER) (test code = 23 meq/L 22-29 355) BLOOD UREA NITROGEN 24 mg/dL 7-21 (BEAKER) (test code = 354) CREATININE (BEAKER) (test 0.77 mg/dL 0.57-1.25 code = 358) GLUCOSE RANDOM (BEAKER) 89 mg/dL 70-105 (test code = 652) CALCIUM (BEAKER) (test 8.9 mg/dL 8.4-10.2 code = 697) EGFR (BEAKER) (test code 77 mL/min/1.73 sq m EST IMATED GFR IS NOT = 1092) ACCURATE CREA TININE CLEARANCE IN PRE DICTING GLOMERULAR FILTR ATION RATE. ESTIMATED GFR IS NOT APPLICABLE F OR DIALYSIS PATIENT S. [employer] ID - JOBY MCBC (HEMOGRAM ONLY)2019-10-06 05:37:00 Test Item Value Reference Range Comments WHITE BLOOD CELL COUNT (BEAKER) (test code = 7.9 K/ L 3.5 -10.5 775) RED BLOOD CELL COUNT (BEAKER) (test code = 761) 2.87 M/ L 3.93-5.22 HEMOGLOBIN (BEAKER) (test code = 410) 8.0 GM/DL 11.2-15.7 HEMATOCRIT (BEAKER) (test code = 411) 27.3 % 34.1-44.9 MEAN CORPUSCULAR VOLUME (BEAKER) (test code = 95.1 fL 79 .4-94.8 753) MEAN CORPUSCULAR HEMOGLOBIN (BEAKER) (test code 27.9 pg 25.6-32.2 = 751) MEAN CORPUSCULAR HEMOGLOBIN CONC (BEAKER) (test 29.3 GM/DL 32.2-35.5 code = 752) RED CELL DISTRIBUTION WIDTH (BEAKER) (test code 18.3 % 11.7-14.4 = 412) PLATELET COUNT (BEAKER) (test code = 756) 124 K/CU MM 150-45 0 MEAN PLATELET VOLUME (BEAKER) (test code = 754) 11.4 fL 9.4-12.3 NUCLEATED RED BLOOD CELLS (BEAKER) (test code = 0 /100 WBC 0-0 413) CT, MAXILLOFACIAL AREA, [id number] 10:49:00FINAL REPORT CT, MAXILLOFACIAL AREA, CONTRAST CLINICAL INDICATION: pending mitral valve repair, mandible XR with possible dental abscess COMPARISON: None TECHNIQUE: Noncontrast CT of the maxillofacial area. Coronal and sagittal reconstructions were performed. DOSE REDUCTION: Dose modulation, iterative reconstruction, and/or weight-based adjustment of the mA/kV was utilized to re duce the radiation dose to as low as reasonably achievable. FINDINGS: No periapical lucencies to suggest presence of odontogenic abscess. Remainder of the facial bones and soft tissues are unremarkablewithout acute findings. There is 7 mm leftward nasal septal deviation with spurring. Right mastoid effusion. There is evidence of mastoiditis. Finding is nonspecific and may represent eustachian tube dysfunction. IMPRESSION: No periapical lucencies to suggest presence of odontogenic abscess. Signed: Eliz Calles MDReport Verified Date/Time: 10/05/2019 10:49:07 Reading Location: [address] Neuro Reading Room CT, CHEST, WITHOUT [id number] 09:34:00FINAL REPORT TECHNIQUE: CT of the chest, abdomen, and pelvis WITHOUT intravenous contrast and WITHOUT oral contrast. Dose modulation, iterative reconstruction, and/or weight-based adjustment of the mA/kV was utilized to reduce the radiation dose to as low as reasonably achievable. INDICATION: 59-year-old woman for preoperative evaluation for mitral valve surgery and recent pneumonia. COMPARISON: Chest radiograph 10/03/2019. FINDINGS: ABSENCE OF INTRAVENOUS CONTRAST DECREASES SENSITIVITY FOR DETECTION OF FOCAL LESIONS AND VASCULAR PATHOLOGY. LINES/TUBES: Right upper extremity PICC tip projects terminates in the low superior vena cava. LUNGS AND AIRWAYS: Central airways are patent. Multiple subcentimeter nodules throughout both lungs. Focal nodular consolidative opacity in the lateral right lower lobe. Mild patchy groundglass opacities scattered in both lungs. Linear atelectasis in the left lung base as well as in the anterior right upper/right middle lobes.PLEURA: The pleural spaces are clear.HEART AND MEDIASTINUM: The visualized thyroid gland is normal. Multiple prominent bilateral mediastinal lymph nodes measure up to 1.8 cm. Cardiomegaly. No pericardial effusion. Mildatherosclerotic calcifications in the thoracic aorta and coronary arteries. HEPATOBILIARY: 2.6 x 2.2cm hypodense lesion in segment VII of the liver. Small stones in an otherwise unremarkable gallbladder. No biliary ductal dilatation.SPLEEN: No splenomegaly.PANCREAS: No focal masses or ductal dilatation. ADRENALS: No adrenal nodules.KIDNEYS/URETERS: No hydronephrosis. Nonobstructive 0.2 cm calculi inthe left kidney.PELVIC ORGANS/BLADDER: Unremarkable. PERITONEUM/RETROPERITONEUM: No free air or fluid .LYMPH NODES: Mildly prominent right axillary lymph nodes measure up to 1.2 cm, some of which are peripherally calcified and some of which are completely calcified. Nonspecific subcentimeter left axillary lymph nodes with similar calcification patterns as on the right.VESSELS: Atherosclerotic vascular calcifications in the abdominal aorta and bilateral iliac arteries without aneurysm. GI TRACT: No distention or wall thickening. Few diverticula in the right colon. Normal appendix. BONES AND SOFT TISSUES: Age-indeterminate moderate-severe compression deformity of the T4 vertebral body with approximate ly 65% height loss and no significant retropulsion; underlying sclerosis of the T4 vertebral body issuspicious for pathologic fracture. Age-indeterminate moderate compression deformity of the T7 vertebral body with approximately 40% height loss and no retropulsion. Partially visualized sclerotic fociin the right humeral head measure up to 2.4 x 1.7 cm. Aggressive appearing sclerotic lesion in the left iliac bone is associated with an adjacent 4.9 x 3 x 7.2 cm soft tissue mass. Additional scleroticlesions in the right iliac bone, left femur, sacrum, and lumbar spine. Intraosseous hemangioma in the L4 vertebral body. Prior bilateral mastectomies. 0.8 x 1.6 cm hyperdense nodule in the subcutaneous tissues of the left anterior abdominal wall (axial series image 91). IMPRESSION: Chest CT:*Pulmonary and osseous metastases.*Mediastinal and mild right axillary lymphadenopathy, also suspicious for metastases.*Consolidative opacity in the lateral right lower lobe; pneumonia cannot be excluded. Mild gr oundglass opacities in both lungs may represent pulmonary edema or infection/inflammatory process. Abdomen and pelvis CT:*Hypodense lesion in the right hepatic lobe, suspicious for metastasis.*Osseous metastases. Age- indeterminate moderate-severe pathologic compression formerly of T4 without significant retropulsion. Age-indeterminate moderate compression deformity of T7 without retropulsion or evidence of underlying metastasis.*Hyperdense nodule in the subcutaneous tissues of the left anterior abdominal wall is indeterminate and may represent a superficial hematoma. Soft tissue metastasis cannot be excluded.*Tiny nonobstructive calculi in the left kidney. Signed: Bao Chacon MDReport VerifiedDate/Time: 10/05/2019 09:34:27 Reading Location: [place] [address]Y CT Body Reading Room CT, [id number] 09:34:00Pre op studyFINAL REPORT TECHNIQUE: CT of the chest, abdomen, and pelvis WITHOUT intravenous contrast and WITHOUT oral contrast. Dose modulation, iterative reconstruction, and/or weight-based adjustment of the mA/kV was utilized to reduce the radiation dose to as low as reasonably achievable. INDICATION: 59-year-old woman for preoperative evaluation for mitral valve surgery and recent pneumonia. COMPARISON: Chest radiograph 10/03/2019. FINDINGS: ABSENCE OF INTRAVENOUS CONTRAST DECREASES SENSITIVITY FOR DETECTION OF FOCAL LESIONS AND VASCULAR PATHOLOGY. LINES/TUBES: Right upper extremity PICC tip projects terminates in the low superior vena cava. LUNGS AND AIRWAYS: Central airways are patent. Multiple subcentimeter nodules throughout both lungs. Focal nodular consolidative opacity in the lateral right lower lobe. Mild patchy groundglass opacities scattered in both lungs. Linear atelectasis in the left lung base as well as in the anterior right upper/right middle lobes.PLEURA: The pleural spaces are clear.HEART AND MEDIASTINUM: The visualized thyroid gland is normal. Multiple prominent bilateral mediastinal lymph nodes measure up to 1.8 cm. Cardiomegaly. No pericardial effusion. Mildatherosclerotic calcifications in the thoracic aorta and coronary arteries. HEPATOBILIARY: 2.6 x 2.2cm hypodense lesion in segment VII of the liver. Small stones in an otherwise unremarkable gallbladder. No biliary ductal dilatation.SPLEEN: No splenomegaly.PANCREAS: No focal masses or ductal dilatation. ADRENALS: No adrenal nodules.KIDNEYS/URETERS: No hydronephrosis. Nonobstructive 0.2 cm calculi inthe left kidney.PELVIC ORGANS/BLADDER: Unremarkable. PERITONEUM/RETROPERITONEUM: No free air or fluid .LYMPH NODES: Mildly prominent right axillary lymph nodes measure up to 1.2 cm, some of which are peripherally calcified and some of which are completely calcified. Nonspecific subcentimeter left axillary lymph nodes with similar calcification patterns as on the right.VESSELS: Atherosclerotic vascular calcifications in the abdominal aorta and bilateral iliac arteries without aneurysm. GI TRACT: No distention or wall thickening. Few diverticula in the right colon. Normal appendix. BONES AND SOFT TISSUES: Age-indeterminate moderate-severe compression deformity of the T4 vertebral body with approximate ly 65% height loss and no significant retropulsion; underlying sclerosis of the T4 vertebral body issuspicious for pathologic fracture. Age-indeterminate moderate compression deformity of the T7 vertebral body with approximately 40% height loss and no retropulsion. Partially visualized sclerotic fociin the right humeral head measure up to 2.4 x 1.7 cm. Aggressive appearing sclerotic lesion in the left iliac bone is associated with an adjacent 4.9 x 3 x 7.2 cm soft tissue mass. Additional scleroticlesions in the right iliac bone, left femur, sacrum, and lumbar spine. Intraosseous hemangioma in the L4 vertebral body. Prior bilateral mastectomies. 0.8 x 1.6 cm hyperdense nodule in the subcutaneous tissues of the left anterior abdominal wall (axial series image 91). IMPRESSION: Chest CT:*Pulmonary and osseous metastases.*Mediastinal and mild right axillary lymphadenopathy, also suspicious for metastases.*Consolidative opacity in the lateral right lower lobe; pneumonia cannot be excluded. Mild gr oundglass opacities in both lungs may represent pulmonary edema or infection/inflammatory process. Abdomen and pelvis CT:*Hypodense lesion in the right hepatic lobe, suspicious for metastasis.*Osseous metastases. Age- indeterminate moderate-severe pathologic compression formerly of T4 without significant retropulsion. Age-indeterminate moderate compression deformity of T7 without retropulsion or evidence of underlying metastasis.*Hyperdense nodule in the subcutaneous tissues of the left anterior abdominal wall is indeterminate and may represent a superficial hematoma. Soft tissue metastasis cannot be excluded.*Tiny nonobstructive calculi in the left kidney. Signed: Bao Chacon MDReport VerifiedDate/Time: 10/05/2019 09:34:27 Reading Location: [facility] C013Y CT Body Reading Room [id number] 05:59:00 Test Item Value Reference Range Comments MAGNESIUM (BEAKER) (test code = 627) 2.2 mg/dL 1.6-2.6 [employer] ID - PIAYA LBASIC METABOLIC [id number] 05:59:00 Test Item Value Reference Range Comments SODIUM (BEAKER) (test 137 meq/L 136-145 code = 381) POTASSIUM (BEAKER) (test 4.4 meq/L 3.5-5.1 code = 379) CHLORIDE (BEAKER) (test 110 meq/L 98-107 code = 382) CO2 (BEAKER) (test code = 22 meq/L 22-29 355) BLOOD UREA NITROGEN 25 mg/dL 7-21 (BEAKER) (test code = 354) CREATININE (BEAKER) (test 0.73 mg/dL 0.57-1.25 code = 358) GLUCOSE RANDOM (BEAKER) 146 mg/dL 70-105 (test code = 652) CALCIUM (BEAKER) (test 8.7 mg/dL 8.4-10.2 code = 697) EGFR (BEAKER) (test code 82 mL/min/1.73 sq m EST IMATED GFR IS NOT = 1092) ACCURATE CREA TININE CLEARANCE IN PRE DICTING GLOMERULAR FILTR ATION RATE. ESTIMATED GFR IS NOT APPLICABLE F OR DIALYSIS PATIENT S. [employer] ID - PIAYA LRAD, MANDIBLE, MIN 4 [id number] 17:10:00Reason for exam:->endocarditis with plan for MV repair, eval for dental infectionFINAL REPORT Technique: Five views of the mandible dated 10/04/2019 HISTORY: Endocarditis, evaluate for dental infection. COMPARISON: None IMPRESSION:There is an ill-defined lucency seen in the midportion of the mandible, does not appear to reach the craniovertebral however a CT would best be able to evaluate for dental abscess. No displaced fracture. Temporomandibular joints are grossly unremarkable. No radiodense foreign body. Visualized paranasal sinuses and mastoid air cells are clear. Signed: Rosette Oliver MDReport Verified Date/Time: 10/04/2019 17:10:20 Reading Location: [address] Radiology Reading Room ANG, NON-TUNNELED CATH/PICC >5 Y.O. WITH IMAGING 2019-10-04 15:42:00Discussed and approved by Dr. 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 History: Need for long-term IV access. Grape Pruner: Loco Castañeda MD. Glass Block Installer: None Modality: Sonography and fluoroscopy. DOSE REDUCTION: The examination was performed according to departmental dose-optimization program.Fluoro time: 0.2 minutes. Radiation dose for this procedure was 1.0 mGy. Number of images: Four Sedation: No conscious sedation was administered. Anesthesia: 1% lidocaine with bicarbonate local infiltration. Estimated blood loss: < 5 cc. Technique: Informed written consent was obtained. Discussion of risks, benefits, and alternatives were made with the patient. The patient expressed understanding and agreed toproceed. A universal timeout was performed prior to starting the procedure. All personnel used personal protective equipment. The operators additionally used sterile gown and gloves. A preliminary ultrasonogram of the Right upper extremity was performed. It revealed a patent and compressible right mid upper arm basilic vein. Pertinent ultrasound images were stored for documentation in the PACS. Sterile prep and drape of the mid upper arm surgical site was performed. A tourniquet was placed in the proximal upper arm. Using real-time ultrasonographic guidance after local anesthesia and dermatotomy, a micropuncture needle was advanced into the target vein followed by placement of an 018 wire. Thewire was advanced under fluoroscopic guidance into the central venous system. Over the wire a peel-away sheath was placed. A PICC line was trimmed to an appropriate length and introduced through the peel-away sheath. The catheter tip was positioned at the distal SVC/RA. The catheter aspirated and flushed well. The catheter was terminally packed with normal saline. The catheter was secured to skin using nonabsorbable suture and/or an adhesive device. An aseptic dressing was applied. The patient was discharged from the department in stable condition. Complications: None immediate. Impression: Successful ultrasound and fluoroscopic guided placement of a five Tongan dual lumen PICC line via a right mid upper arm basilic vein approach with the catheter tip in distal SVC/RA, a satisfactory position for use. Thank you for the opportunity to assist in the care of your patient. Signed: Loco Castañeda MDReport Verified Date/Time: 10/04/2019 15:42:21 Reading Location: [place] [address] Angio Body Reading Room PT/APTT 2019-10-04 13:37:00 Test Item Value Reference Range Comments PROTIME (BEAKER) (test code = 759) 14.3 seconds 11.9-14.2 INR (BEAKER) (test code = 370) 1.1 <=5.9 PARTIAL THROMBOPLASTIN TIME (BEAKER) (test code 36.2 seconds 22.5-36.0 = 760) Effective 12/05/2018: PT Reference Range ChangeNew: 11.9-14.2 Previous: 11.7- 14.7RECOMMENDED COUMADIN/WARFARIN INR THERAPY RANGESSTANDARD DOSE: 2.0-3.0 Includes: PROPHYLAXIS for venous thrombosis, systemic embolization; TREATMENT for venous thrombosis and/or pulmonary embolus.HIGH RISK: Target INR is2.5-3.5 for patients wiht mechanical heart valves.[id number] 13:19:00 Test Item Value Reference Range Comments MAGNESIUM (BEAKER) (test code = 627) 1.9 mg/dL 1.6-2.6 [employer] ID - ROSIANGBASIC METABOLIC [id number] 13:19:00 Test Item Value Reference Range Comments SODIUM (BEAKER) (test 137 meq/L 136-145 code = 381) POTASSIUM (BEAKER) (test 3.6 meq/L 3.5-5.1 code = 379) CHLORIDE (BEAKER) (test 105 meq/L 98-107 code = 382) CO2 (BEAKER) (test code = 26 meq/L 22-29 355) BLOOD UREA NITROGEN 23 mg/dL 7-21 (BEAKER) (test code = 354) CREATININE (BEAKER) (test 0.75 mg/dL 0.57-1.25 code = 358) GLUCOSE RANDOM (BEAKER) 99 mg/dL 70-105 (test code = 652) CALCIUM (BEAKER) (test 9.1 mg/dL 8.4-10.2 code = 697) EGFR (BEAKER) (test code 79 mL/min/1.73 sq m EST IMATED GFR IS NOT = 1092) ACCURATE CREA TININE CLEARANCE IN PRE DICTING GLOMERULAR FILTR ATION RATE. ESTIMATED GFR IS NOT APPLICABLE F OR DIALYSIS PATIENT S. [employer] ID - ROSIANGCBC (HEMOGRAM ONLY)2019-10-04 13:06:00 Test Item Value Reference Range Comments WHITE BLOOD CELL COUNT (BEAKER) (test code = 5.8 K/ L 3.5 -10.5 775) RED BLOOD CELL COUNT (BEAKER) (test code = 761) 2.95 M/ L 3.93-5.22 HEMOGLOBIN (BEAKER) (test code = 410) 8.5 GM/DL 11.2-15.7 HEMATOCRIT (BEAKER) (test code = 411) 27.8 % 34.1-44.9 MEAN CORPUSCULAR VOLUME (BEAKER) (test code = 94.2 fL 79 .4-94.8 753) MEAN CORPUSCULAR HEMOGLOBIN (BEAKER) (test code 28.8 pg 25.6-32.2 = 751) MEAN CORPUSCULAR HEMOGLOBIN CONC (BEAKER) (test 30.6 GM/DL 32.2-35.5 code = 752) RED CELL DISTRIBUTION WIDTH (BEAKER) (test code 18.0 % 11.7-14.4 = 412) PLATELET COUNT (BEAKER) (test code = 756) 117 K/CU MM 150-45 0 MEAN PLATELET VOLUME (BEAKER) (test code = 754) 11.5 fL 9.4-12.3 NUCLEATED RED BLOOD CELLS (BEAKER) (test code = 0 /100 WBC 0-0 413) [id number] 18:39:00 Test Item Value Reference Range Comments ACTIVATED CLOTTING TIME 125 sec : 74-137 seconds, Baseline: (BEAKER) (test code = 441) TESTE D AT [address], [facility] 0: [employer]ic lien ID = [id number] for ZAYAS-BECO AT, [place] [id number] 17:04:00 Test Item Value Reference Range Comments ACTIVATED CLOTTING TIME 186 sec : 74-137 seconds, Baseline: (BEAKER) (test code = 441) TESTE D AT [address], [facility] 0: [employer]Technic lien ID = [id number] for ZAYAS-BECO AT, [place] [id number] 15:29:00 Test Item Value Reference Range Comments ACTIVATED CLOTTING TIME 252 sec : 74-137 seconds, Baseline: (BEAKER) (test code = 441) TESTE D AT [address], [facility] 0: [employer] lien ID = [id number] for JAQUELIN COCHRAN BLOOD [id number] 10:00:00 Test Item Value Reference Range Comments CULTURE (BEAKER) (test code = 1095) No growth in 5 days RAD, CHEST, 1 VIEW, NON [id number] 09:43:00Reason for exam:->eval pulmonary edemaShould this be performed at the bedside?->YesFINAL REPORT RAD, CHEST, 1 VIEW, NON DEPT INDICATION: eval pulmonary edema COMPARISON: September 28, 2019 FINDINGS: Portable frontal view of the chest. IMPRESSION: Support Lines: None. Lungs and pleura: Improving but persistent interstitial edema. No new consolidation. No pneumothorax.Heart and mediastinum: Stable contours. Additional findings: None. Signed: JR Dahiana, [place] GOMEZeport Verified Date/Time: 10/03/2019 09:43:39 Reading Location: [facility] Radiology Reading Room DOUBLE-STRANDED DNA (DSDNA) [id number] 09:25:00 Test Item Value Reference Range Comments ANTI-DNA DS (BEAKER) (test code = 1055) Positive Negative ANTI-DNA [id number] 09:25:00 Test Item Value Reference Range Comments ANTI-DNA TITER (BEAKER) (test code = 1553) :80 BLOOD [id number] 08:00:00 Test Item Value Reference Range Comments CULTURE (BEAKER) (test code = 1095) No growth in 5 days LACTIC ACID, [id number] 06:20:00 Test Item Value Reference Range Comments LACTATE BLOOD VENOUS (2) 1.26 mmol/L 0.50-2.20 Specime n slightly hemolyzed (BEAKER) (test code = 2872) [employer] ID - JOBY MPOCT-GLUCOSE [id number] 20:23:00 Test Item Value Reference Range Comments POC-GLUCOSE METER (BEAKER) 119 mg/dL 70-110 : [facility] [address] [facility] (test code = 1538) [facility], [address]: [employer]Technic lien ID = [id number] for DAISY ROMERO [id number] 05:16:00 Test Item Value Reference Range Comments MAGNESIUM (BEAKER) (test code = 627) 2.1 mg/dL 1.6-2.6 [employer] ID - JOBY MBASIC METABOLIC [id number] 05:16:00 Test Item Value Reference Range Comments SODIUM (BEAKER) (test 138 meq/L 136-145 code = 381) POTASSIUM (BEAKER) (test 4.2 meq/L 3.5-5.1 code = 379) CHLORIDE (BEAKER) (test 104 meq/L 98-107 code = 382) CO2 (BEAKER) (test code = 26 meq/L 22-29 355) BLOOD UREA NITROGEN 28 mg/dL 7-21 (BEAKER) (test code = 354) CREATININE (BEAKER) (test 0.81 mg/dL 0.57-1.25 code = 358) GLUCOSE RANDOM (BEAKER) 80 mg/dL 70-105 (test code = 652) CALCIUM (BEAKER) (test 9.4 mg/dL 8.4-10.2 code = 697) EGFR (BEAKER) (test code 72 mL/min/1.73 sq m EST IMATED GFR IS NOT = 1092) ACCURATE CREA TININE CLEARANCE IN PRE DICTING GLOMERULAR FILTR ATION RATE. ESTIMATED GFR IS NOT APPLICABLE F OR DIALYSIS PATIENT S. [employer] ID - JOBY [facility] [place] (HEMOGRAM ONLY)2019-10-02 04:35:00 Test Item Value Reference Range Comments WHITE BLOOD CELL COUNT (BEAKER) (test code = 7.9 K/ L 3.5 -10.5 775) RED BLOOD CELL COUNT (BEAKER) (test code = 761) 3.68 M/ L 3.93-5.22 HEMOGLOBIN (BEAKER) (test code = 410) 10.4 GM/DL 11.2-15.7 HEMATOCRIT (BEAKER) (test code = 411) 34.8 % 34.1-44.9 MEAN CORPUSCULAR VOLUME (BEAKER) (test code = 94.6 fL 79 .4-94.8 753) MEAN CORPUSCULAR HEMOGLOBIN (BEAKER) (test code 28.3 pg 25.6-32.2 = 751) MEAN CORPUSCULAR HEMOGLOBIN CONC (BEAKER) (test 29.9 GM/DL 32.2-35.5 code = 752) RED CELL DISTRIBUTION WIDTH (BEAKER) (test code 18.7 % 11.7-14.4 = 412) PLATELET COUNT (BEAKER) (test code = 756) 105 K/CU MM 150-45 0 MEAN PLATELET VOLUME (BEAKER) (test code = 754) 11.2 fL 9.4-12.3 NUCLEATED RED BLOOD CELLS (BEAKER) (test code = 0 /100 WBC 0-0 413) POCT-GLUCOSE [id number] 01:05:00 Test Item Value Reference Range Comments POC-GLUCOSE METER (BEAKER) 121 mg/dL 70-110 : [facility] [address] (test code = 1538) [place], [address]: [employer] lien ID = [id number] for MILENA CONTE RHEUMATOID FACTOR AB, REFLEX TO [id number] 10:48:00 Test Item Value Reference Range Comments RHEUMATOID FACTOR (BEAKER) (test code = 573) Negative Neg ative MRSA [id number] 10:45:00 Test Item Value Reference Range Comments CULTURE (BEAKER) (test code = 1095) No MRSA isolated ANTI-NUCLEAR ANTIBODY (BETTY)2019-09-30 10:09:00 Test Item Value Reference Range Comments ANTI-NUCLEAR ANTIBODY (BETTY) (BEAKER) (test code = Positive Negative 418) Test performed by IFA method.BETTY TITER AND [id number] 10:09:00 Test Item Value Reference Range Comments BETTY TITER (BEAKER) (test code = 1541) :640 BETTY PATTERN (BEAKER) (test code = 1781) Nucleolar POCT-GLUCOSE [id number] 12:04:00 Test Item Value Reference Range Comments POC-GLUCOSE METER (BEAKER) 125 mg/dL 70-110 : [facility] [address] [facility] (test code = 1538) [facility], [address]: [employer] lien ID = [id number] for AARON GARCIA [id number] 07:10:00 Test Item Value Reference Range Comments MAGNESIUM (BEAKER) (test code = 1.8 mg/dL 1.6-2.6 Specimen slightly hemolyzed 627) [employer] ID - PIAYA LBASIC METABOLIC [id number] 07:10:00 Test Item Value Reference Range Comments SODIUM (BEAKER) (test 137 meq/L 136-145 code = 381) POTASSIUM (BEAKER) (test 4.4 meq/L 3.5-5.1 Specime n slightly code = 379) hemolyzed CHLORIDE (BEAKER) (test 105 meq/L 98-107 code = 382) CO2 (BEAKER) (test code = 24 meq/L 22-29 355) BLOOD UREA NITROGEN 42 mg/dL 7-21 (BEAKER) (test code = 354) CREATININE (BEAKER) (test 1.31 mg/dL 0.57-1.25 Specim en slightly code = 358) hemolyzed GLUCOSE RANDOM (BEAKER) 108 mg/dL 70-105 (test code = 652) CALCIUM (BEAKER) (test 8.4 mg/dL 8.4-10.2 code = 697) EGFR (BEAKER) (test code 42 mL/min/1.73 sq m EST IMATED GFR IS NOT = 1092) ACCURATE CREA TININE CLEARANCE IN PRE DICTING GLOMERULAR FILTR ATION RATE. ESTIMATED GFR IS NOT APPLICABLE F OR DIALYSIS PATIENT S. [employer] ID - PIAYA LPOCT-GLUCOSE [id number] 05:39:00 Test Item Value Reference Range Comments POC-GLUCOSE METER (BEAKER) 113 mg/dL 70-110 : [facility] [address] (test code = 1538) [place], [address]: [employer] lien ID = [id number] for ELA PERRY LINE CBC (HEMOGRAM ONLY)2019-09-29 04:51:00 Test Item Value Reference Range Comments WHITE BLOOD CELL COUNT (BEAKER) (test code = 775) 13.0 K/ L 3.5-10.5 RED BLOOD CELL COUNT (BEAKER) (test code = 761) 3.08 M/ L 3.93-5.22 HEMOGLOBIN (BEAKER) (test code = 410) 8.8 GM/DL 11.2-15.7 HEMATOCRIT (BEAKER) (test code = 411) 28.5 % 34.1-44.9 MEAN CORPUSCULAR VOLUME (BEAKER) (test code = 92.5 fL 79 .4-94.8 753) MEAN CORPUSCULAR HEMOGLOBIN (BEAKER) (test code = 28.6 pg 25.6-32.2 751) MEAN CORPUSCULAR HEMOGLOBIN CONC (BEAKER) (test 30.9 GM/DL 32.2-35.5 code = 752) RED CELL DISTRIBUTION WIDTH (BEAKER) (test code = 19.0 % 11.7-14.4 412) PLATELET COUNT (BEAKER) (test code = 756) 79 K/CU MM 150-45 0 MEAN PLATELET VOLUME (BEAKER) (test code = 754) 13.5 fL 9.4-12.3 NUCLEATED RED BLOOD CELLS (BEAKER) (test code = 0 /100 WBC 0-0 413) POCT-GLUCOSE [id number] 01:35:00 Test Item Value Reference Range Comments POC-GLUCOSE METER (BEAKER) 107 mg/dL 70-110 : [facility] [address] [facility] (test code = 1538) [facility], [address]: [employer] lien ID = [id number] for ELA PERRY LINE STREP PNEUMONIAE [id number] 18:45:00 Test Item Value Reference Range Comments STREP PNEUMONIAE ANTIGEN Presumptive negative for Presumptive ne gative for ([facility]) (test code = pneumococcal pneumonia - pneumococcal pneu monia - 1615) see comment see commen Presumptive negative for pneumococcal pneumonia, suggesting no current or recent pneumococcal infection. Infection due to S. pneumoniae cannot be ruled out since the antigen present in the sample may be below the detection limit of the test. LEGIONELLA ANTIGEN, [id number] 18:45:00 Test Item Value Reference Range Comments L. PNEUMOPHILA SEROGP 1 Negative - see Negative for L. UR AG ([facility]) (test comment pneumophila serogroup 1 code = 1156) antigen, suggest ing no recent or curren t infection with t his serogroup. Legio nellosis cannot be ruled out since other serogroups and species may caus e disease. POCT-GLUCOSE [id number] 17:33:00 Test Item Value Reference Range Comments POC-GLUCOSE METER ([facility]) 118 mg/dL 70-110 : [facility] [address] [facility] (test code = 1538) [facility], [address]: [employer] lien ID = [id number] for AARON GARCIA CBC (HEMOGRAM ONLY)2019-09-28 16:15:00 Test Item Value Reference Range Comments WHITE BLOOD CELL COUNT (BEAKER) (test code = 775) 8.4 K/ L 3.5-10.5 RED BLOOD CELL COUNT (BEAKER) (test code = 761) 2.95 M/ L 3.93-5.22 HEMOGLOBIN (BEAKER) (test code = 410) 8.5 GM/DL 11.2-15.7 HEMATOCRIT (BEAKER) (test code = 411) 27.3 % 34.1-44.9 MEAN CORPUSCULAR VOLUME (BEAKER) (test code = 92.5 fL 79 .4-94.8 753) MEAN CORPUSCULAR HEMOGLOBIN (BEAKER) (test code = 28.8 pg 25.6-32.2 751) MEAN CORPUSCULAR HEMOGLOBIN CONC (BEAKER) (test 31.1 GM/DL 32.2-35.5 code = 752) RED CELL DISTRIBUTION WIDTH (BEAKER) (test code = 18.4 % 11.7-14.4 412) PLATELET COUNT (BEAKER) (test code = 756) 90 K/CU MM 150-45 0 MEAN PLATELET VOLUME (BEAKER) (test code = 754) 10.5 fL 9.4-12.3 NUCLEATED RED BLOOD CELLS (BEAKER) (test code = 0 /100 WBC 0-0 413) VANCOMYCIN LEVEL, [id number] 13:04:00 Test Item Value Reference Range Comments VANCOMYCIN RANDOM (BEAKER) (test code = 523) 14.4 ug/mL Reference Range: No NormalsOperator ID - ALYSON WPOCT-GLUCOSE [id number] 12:14:00 Test Item Value Reference Range Comments POC-GLUCOSE METER (BEAKER) 134 mg/dL 70-110 : ELIZABETH JOSE L AT [facility] [address] [facility] (test code = 1538) [facility], [address]: [employer]/Technic lien ID = [id number] for Asia Oconnor URINALYSIS W/ REFLEX URINE [id number] 11:49:00 Test Item Value Reference Range Comments COLOR (BEAKER) (test code = 470) Light Yellow CLARITY (BEAKER) (test code = 469) Clear SPECIFIC GRAVITY UA (BEAKER) (test code = 468) 1.011 1 .001-1.035 PH UA (BEAKER) (test code = 467) 5.0 5.0-8.0 PROTEIN UA (BEAKER) (test code = 464) 10 mg/dL Negative GLUCOSE UA (BEAKER) (test code = 365) Negative Negative KETONES UA (BEAKER) (test code = 371) Negative Negative BILIRUBIN UA (BEAKER) (test code = 462) Negative Negative BLOOD UA (BEAKER) (test code = 461) Negative Negative NITRITE UA (BEAKER) (test code = 465) Negative Negative LEUKOCYTE ESTERASE UA (BEAKER) (test code = Negative Nega tive 466) UROBILINOGEN UA (BEAKER) (test code = 463) 0.2 mg/dL 0.2-1 .0 RBC UA (BEAKER) (test code = 519) 0 /HPF WBC UA (BEAKER) (test code = 520) 1 /HPF BACTERIA (BEAKER) (test code = 517) Occasional SQUAMOUS EPITHELIAL (BEAKER) (test code = 516) < /HPF HYALINE CASTS (BEAKER) (test code = 514) 1 /LPF SOURCE(BEAKER) (test code = 2795) [employer] ID - [auto][employer] ID - techLACTIC ACID, [id number] 11:44:00 Test Item Value Reference Range Comments LACTATE BLOOD VENOUS (2) 0.93 mmol/L 0.50-2.20 Specime n slightly hemolyzed (BEAKER) (test code = 2872) [employer] ID - ALYSON WRESPIRATORY PANEL [id number] 11:03:00 Test Item Value Reference Range Comments HUMAN METAPNEUMOVIRUS (BEAKER) (test Not detected Not detecte d, Equivocal code = 2683) RHINOVIRUS (BEAKER) (test code = 2684) Not detected Not detec jose l, Equivocal INFLUENZA A (BEAKER) (test code = 2685) Not detected Not dete cted, Equivocal INFLUENZA A (NO SUBTYPE) (test code = 3606) INFLUENZA A SUBTYPE H1 (BEAKER) (test code = 2686) INFLUENZA A SUBTYPE H3 (BEAKER) (test code = 2687) INFLUENZA A SUBTYPE H1-2009 (BEAKER) (test code = 3198) INFLUENZA B (BEAKER) (test code = 2688) Not detected Not dete cted, Equivocal RESPIRATORY SYNCYTIAL VIRUS (BEAKER) Not detected Not detecte d, Equivocal (test code = 3199) PARAINFLUENZA VIRUS 1 (BEAKER) (test Not detected Not detecte d, Equivocal code = 2691) PARAINFLUENZA VIRUS 2 (BEAKER) (test Not detected Not detecte d, Equivocal code = 2692) PARAINFLUENZA VIRUS 3 (BEAKER) (test Not detected Not detecte d, Equivocal code = 2693) PARAINFLUENZA VIRUS 4 (BEAKER) (test Not detected Not detecte d, Equivocal code = 3200) ADENOVIRUS (BEAKER) (test code = 2694) Not detected Not detec jose l, Equivocal CORONAVIRUS 229E (BEAKER) (test code = Not detected Not detec jose l, Equivocal 3201) CORONAVIRUS HKU1 (BEAKER) (test code = Not detected Not detec jose l, Equivocal 3202) CORONAVIRUS NL63 (BEAKER) (test code = Not detected Not detec jose l, Equivocal 3203) CORONAVIRUS OC43 (BEAKER) (test code = Not detected Not detec jose l, Equivocal 3204) BORDETELLA PERTUSSIS (BEAKER) (test Not detected Not detected , Equivocal code = 3205) CHLAMYDOPHILA PNEUMONIAE (BEAKER) (test Not detected Not dete cted, Equivocal code = 3206) MYCOPLASMA PNEUMONIAE (BEAKER) (test Not detected Not detecte d, Equivocal code = 3207) Other viruses and bacteria not targeted by this PCR panel cannot be excluded; therefore clinical correlation and follow up of serology, culture results, and other molecular studies is required. The results are not intended to be used as the sole means for clinical diagnosis or patient management decisions. This sample was tested at the [facility] using the DemystDataArray Respiratory Panel. It is FDA cleared and has been verified and approved by the [facility] for clinical use on nasopharyngeal swab specimens.The performance of the FilmArrayRP has not been established in individuals who received influenza vaccine. Recent administration ofa nasal influenza vaccine may cause false positive results for Influenza A and/orInfluenza B.[id number] 10:11:00 Test Item Value Reference Range Comments FERRITIN (BEAKER) (test code = 361) 2594 ng/mL 5-275 [employer] ID Amberly SHIELDS WVITAMIN B12 AND [id number] 09:41:00 Test Item Value Reference Range Comments VITAMIN B12 (BEAKER) (test code = 774) 1467 pg/mL 213-816 FOLATE (BEAKER) (test code = 362) 14.5 ng/mL >=7.0 [employer] ID Amberly SHIELDS [id number] 09:34:00 Test Item Value Reference Range Comments PROCALCITONIN (BEAKER) (test code = 3036) 3.51 ng/mL <0.05 SEPSIS RISK (ng/mL)Low: 0.05-0.50Intermediate: 0.51-2.00High: >=2.01TROPONIN [id number] 09:11:00 Test Item Value Reference Range Comments TROPONIN I (BEAKER) (test code = 397) 0.02 ng/mL 0.00-0.03 Troponin I (TnI) levels must be interpreted in the context of the presenting symptoms and the clinical findings. Elevated TnI levels indicate myocardial damage, but are not specific for ischemic heart disease. Elevated TnI levels are seen in patients with other cardiac conditions (including myocarditis and congestive heart failure), and slight TnI elevations occur in patients with other conditions, including sepsis, renal failure, acidosis, acute neurological disease, and persistent tachyarrhythmia.[employer] CHERI SHIELDS WBASIC METABOLIC [id number] 09:05:00 Test Item Value Reference Range Comments SODIUM (BEAKER) (test 137 meq/L 136-145 code = 381) POTASSIUM (BEAKER) (test 4.5 meq/L 3.5-5.1 code = 379) CHLORIDE (BEAKER) (test 108 meq/L 98-107 code = 382) CO2 (BEAKER) (test code = 21 meq/L 22-29 355) BLOOD UREA NITROGEN 36 mg/dL 7-21 (BEAKER) (test code = 354) CREATININE (BEAKER) (test 1.16 mg/dL 0.57-1.25 code = 358) GLUCOSE RANDOM (BEAKER) 130 mg/dL 70-105 (test code = 652) CALCIUM (BEAKER) (test 8.6 mg/dL 8.4-10.2 code = 697) EGFR (BEAKER) (test code 48 mL/min/1.73 sq m EST IMATED GFR IS NOT = 1092) ACCURATE CREA TININE CLEARANCE IN PRE DICTING GLOMERULAR FILTR ATION RATE. ESTIMATED GFR IS NOT APPLICABLE F OR DIALYSIS PATIENT S. [employer] ID Amberly SHIELDS [id number] 09:05:00 Test Item Value Reference Range Comments MAGNESIUM (BEAKER) (test code = 627) 1.8 mg/dL 1.6-2.6 [employer] ID Amberly SHIELDS [id number] 09:05:00 Test Item Value Reference Range Comments PHOSPHORUS (BEAKER) (test code = 604) 3.8 mg/dL 2.3-4.7 [employer] ID Amberly SHIELDS WHEPATIC FUNCTION [id number] 09:05:00 Test Item Value Reference Range Comments TOTAL PROTEIN (BEAKER) (test code = 770) 5.5 gm/dL 6.0-8.3 ALBUMIN (BEAKER) (test code = 1145) 2.8 g/dL 3.5-5.0 BILIRUBIN TOTAL (BEAKER) (test code = 377) 0.8 mg/dL 0.2-1 .2 BILIRUBIN DIRECT (BEAKER) (test code = 706) 0.4 mg/dL 0.1- 0.5 ALKALINE PHOSPHATASE (BEAKER) (test code = 346) 103 U/L 40-150 AST (SGOT) (BEAKER) (test code = 353) 21 U/L 5-34 ALT (SGPT) (BEAKER) (test code = 347) 16 U/L 6-55 [employer] ID - ALYSON WLACTATE DEHYDROGENASE (LDH)2019-09-28 09:05:00 Test Item Value Reference Range Comments LACTATE DEHYDROGENASE (BEAKER) (test code = 635) 317 U/L 125-220 [employer] ID - ALYSON WCOMPLEMENT COMPONENT [id number] 08:40:00 Test Item Value Reference Range Comments C4 COMPLEMENT (BEAKER) (test code = 394) 31 mg/dL 15-57 [employer] ID - ALYSON WCOMPLEMENT COMPONENT [id number] 08:40:00 Test Item Value Reference Range Comments C3 COMPLEMENT (BEAKER) (test code = 393) 134 mg/dL 82-193 [employer] ID - ALYSON [id number] 08:40:00 Test Item Value Reference Range Comments HAPTOGLOBIN (BEAKER) (test code = 366) 234 mg/dL 14-258 [employer] ID - ALYSON WIHUSSEIN, TIBC, % SAT. (WITHOUT FERRITIN)2019-09-28 08:40:00 Test Item Value Reference Range Comments IRON (BEAKER) (test code = 547) 29.0 ug/dL 40.0-160.0 TOTAL IRON BINDING CAPACITY (BEAKER) (test code = 165 ug/dL 250-450 769) IRON % SATURATION (2) (BEAKER) (test code = 2590) 18 % 20-55 [employer] ID - ALYSON WB-TYPE NATRIURETIC FACTOR (BNP)2019-09-28 08:35:00 Test Item Value Reference Range Comments B-TYPE NATRIURETIC PEPTIDE (BEAKER) (test code = 1055 pg/mL 0-100 700) [employer] ID - ALYSON [id number] 07:22:00 Test Item Value Reference Range Comments PARTIAL THROMBOPLASTIN TIME (BEAKER) (test code 28.7 seconds 22.5-36.0 = 760) PROTHROMBIN TIME/[id number] 07:21:00 Test Item Value Reference Range Comments PROTIME (BEAKER) (test code = 759) 14.3 seconds 11.9-14.2 INR (BEAKER) (test code = 370) 1.1 <=5.9 Effective 12/05/2018: PT Reference Range ChangeNew: 11.9-14.2 Previous: 11.7- 14.7RECOMMENDED COUMADIN/WARFARIN INR THERAPY RANGESSTANDARD DOSE: 2.0-3.0 Includes: PROPHYLAXIS for venous thrombosis, systemic embolization; TREATMENT for venous thrombosis and/or pulmonary embolus.HIGH RISK: Target INR is2.5-3.5 for patients wiht mechanical heart valves.CBC W/PLT COUNT & AUTO [id number] 07:14:00 Test Item Value Reference Range Comments WHITE BLOOD CELL COUNT (BEAKER) (test code = 775) 8.7 K/ L 3.5-10.5 RED BLOOD CELL COUNT (BEAKER) (test code = 761) 2.96 M/ L 3.93-5.22 HEMOGLOBIN (BEAKER) (test code = 410) 8.5 GM/DL 11.2-15.7 HEMATOCRIT (BEAKER) (test code = 411) 27.3 % 34.1-44.9 MEAN CORPUSCULAR VOLUME (BEAKER) (test code = 92.2 fL 79 .4-94.8 753) MEAN CORPUSCULAR HEMOGLOBIN (BEAKER) (test code = 28.7 pg 25.6-32.2 751) MEAN CORPUSCULAR HEMOGLOBIN CONC (BEAKER) (test 31.1 GM/DL 32.2-35.5 code = 752) RED CELL DISTRIBUTION WIDTH (BEAKER) (test code = 18.4 % 11.7-14.4 412) PLATELET COUNT (BEAKER) (test code = 756) 83 K/CU MM 150-45 0 MEAN PLATELET VOLUME (BEAKER) (test code = 754) 10.1 fL 9.4-12.3 NUCLEATED RED BLOOD CELLS (BEAKER) (test code = 0 /100 WBC 0-0 413) NEUTROPHILS RELATIVE PERCENT (BEAKER) (test code 94 % = 429) LYMPHOCYTES RELATIVE PERCENT (BEAKER) (test code 4 % = 430) MONOCYTES RELATIVE PERCENT (BEAKER) (test code = 1 % 431) EOSINOPHILS RELATIVE PERCENT (BEAKER) (test code 0 % = 432) BASOPHILS RELATIVE PERCENT (BEAKER) (test code = 0 % 437) NEUTROPHILS ABSOLUTE COUNT (BEAKER) (test code = 8.17 K/ L 1.56-6.13 670) LYMPHOCYTES ABSOLUTE COUNT (BEAKER) (test code = 0.34 K/ L 1.18-3.74 414) MONOCYTES ABSOLUTE COUNT (BEAKER) (test code = 0.11 K/ L 0 .24-0.36 415) EOSINOPHILS ABSOLUTE COUNT (BEAKER) (test code = 0.00 K/ L 0.04-0.36 416) BASOPHILS ABSOLUTE COUNT (BEAKER) (test code = 0.01 K/ L 0 .01-0.08 417) IMMATURE GRANULOCYTES-RELATIVE PERCENT (BEAKER) 1 % 0-1 (test code = 2801) BLOOD GAS, [id number] 07:11:00 Test Item Value Reference Range Comments PH ARTERIAL (BEAKER) (test code = 383) 7.44 7.35-7.45 PCO2 ARTERIAL (BEAKER) (test code = 384) 33 mmHg 35-45 PO2 ARTERIAL (BEAKER) (test code = 385) 136 mmHg 80-90 O2 SATURATION ARTERIAL (BEAKER) (test code = 98.8 % 96. 0-97.0 386) HCO3 ARTERIAL (BEAKER) (test code = 388) 22 mmol/L 21-29 BASE EXCESS ARTERIAL (BEAKER) (test code = 387) -2.2 mmol/L -2.0-3.0 PATIENT TEMPERATURE (BEAKER) (test code = 1818) 36.8 C FIO2 (BEAKER) (test code = 1819) 60.0 % RAD, CHEST, 1 VIEW, NON [id number] 06:58:00Reason for exam:->pneumonia, ILD, SLEShould this be performed at the bedside?->YesFINAL REPORT History: Shortness of breath, history of ILD and SLE. Comparison: None. Findings: A single view of the chest is submitted. The cardiac silhouette is enlarged. A vascular stent overlies the left superior mediastinum. There is central vascular engorgement. Diffuse interstitial coarsening and patchy airspace opacities in both lungs are nonspecific and may reflect a combination of interstitial scarring, pulmonary edema and atelectasis. Pneumonitis should be excludedclinically. There is a small right pleural effusion. There is no pneumothorax or acute bony abnormality. Comparison with previous imaging would be helpful if available elsewhere. Signed: Nomi Downs [facility] Institute[facility] Verified Date/Time: 09/28/2019 06:58:18
[2019-10-30 07:52] LABS: Blood Gas Oxyhemoglobin 93.1 % (94-97); Blood O2 Saturation 95.5 % (92-98.5)
[2019-10-30 08:15] LABS: Absolute Lymphocytes (CBC) 1.7 K/uL (0.7-4.9); Basophils % 0.5 % (0-1.3); Hematocrit 21.3 % (36.0-45.0); MPV 8.5 fL (7.6-11.3); RBC Red Blood Cell Count 2.36 M/uL (3.86-4.86)
[2019-10-30 08:20] LABS: Albumin 1.9 g/dL (3.4-5.0); Bilirubin Direct 0.1 mg/dL (0-0.2); Bilirubin Total 0.3 mg/dL (0.2-1.0); CKMB Creatine Kinase MB 1.6 ng/mL (0.3-3.6); Potassium 4.4 mmol/L (3.5-5.1); Protein, Total 6.7 g/dL (6.4-8.2); Protime INR 1.17; Troponin (Emerg Dept Use Only) 0.03 ng/mL (0.0-0.045)
[2019-10-30] MEDS ORDERED: ONDANSETRON 4 MG/2 ML VIAL ONE (08:23)
[2019-10-30] MEDS ORDERED: MORPHINE 2 MG/ML SYR ONE ×2 (08:23→11:20)
--- NOTE | 2019-10-30 08:39 | RAD REPORT ---
EXAM DESCRIPTION: RAD - Chest Single View - 10/30/2019 8:05 am CLINICAL HISTORY: DYSPNEA Chest pain. COMPARISON: Chest Single View dated 09/28/2019; Chest Pa And Lat (2 Views) dated 09/25/2019; Chest Sin gle View dated 09/24/2019; Chest Single View dated 09/20/2019 FINDINGS: Portable technique limits examination quality. Bilateral pulmonary opacities are noted, appearing unchanged since the comparative study. Right-sided PICC line has tip in the SVC. The heart is mildly enlarged in size with upper mediastinal fullness n oted likely adenopathy. Blastic bone metastasis proximal right humerus. IMPRESSION: Stable appearance of the chest since 09/28/2019.
--- NOTE | 2019-10-30 08:54 | ER ---
Nurse's Notes [facility] Name: Bri Alvarenga Age: 59 yrs Sex: Female : 1960 Arrival Date: 10/30/2019 Time: 07:20 Bed 30 Private MD: Rickie Erickson T Diagnosis: Anemia, unspecified;Shortness of breath;Dyspnea Presentation: 10/29 07:15 Acuity: HANNAH 1 sv 07:15 Chief complaint: Spouse and/or significant other states: SOB since yesterday, was due to have a blood transfusion tomorrow but stated he knew she wouldn't be able to wait until tomorrow. Pt reports cough and recent heart surgery on 10/09/19. Coronavirus screen: Surgical mask placed on patient. Patient moved to private room, placed in contact and droplet isolation with eye protection until further assessment. Patient reports a cough. Patient reports shortness of breath or difficulty breathing. Patient denies measured and/or subjective temperature greater than 100.4F prior to today's visit. Patient denies travel on a cruise ship or to a country the [facility] currently lists as an affected area. Patient denies contact with known and/or suspected case of COVID-19. Ebola Screen: No symptoms or risks identified at this time. Initial Sepsis Screen: Does the patient meet any 2 criteria? RR > 20 per min. HR > 90 bpm. Yes Does the patient have a suspected source of infection? No. Patient's initial sepsis screen is negative. Risk Assessment: Do you want to hurt yourself or someone else? Patient reports no desire to harm self or others. Onset of symptoms was October 29, 2019. 07:15 Method Of Arrival: Wheelchair sv Triage Assessment: 07:15 General: Appears distressed, uncomfortable, Behavior is cooperative, appropriate for sv age, anxious. Pain: Complains of pain in back and left hip pain. Neuro: Level of Consciousness is awake, alert, obeys commands, Oriented to person, place, time, situation, Weakness in bilateral leg(s). Cardiovascular: Patient's skin is warm and dry. Rhythm is sinus tachycardia. Respiratory: Reports shortness of breath at rest on exertion cough that is non-productive, labored breathing Airway is patent Respiratory effort is labored, shallow, Respiratory pattern is symmetrical, tachypnea Breath sounds are clear bilaterally. Onset: The symptoms/episode began/occurred yesterday. Derm: Skin is pale. Historical: - Allergies: 08:03 No Known Allergies; sv - Home Meds: 08:58 cefepime intravenous 2gm BID at 0800 until November 07 intravenous [Active]; potassium sv chloride 20 mEq Oral TbTQ 1 tab 2 times per day [Active]; Coreg 25 mg oral tab 2 times per day [Active]; prednisone 20 mg Oral tab 1 tab once daily [Active]; levothyroxine 100 mcg tab 1 tab once daily [Active]; aspirin 81 mg Oral TbEC 1 tab once daily [Active]; anastrozole 1 mg Oral tab 1 tab once daily [Active]; Ambien 10 mg Oral tab 1 tab nightly [Active]; atorvastatin 40 mg Oral tab 1 tab nightly [Active]; gabapentin 600 mg Oral tab 0.5 tab nightly [Active]; duloxetine 60 mg Oral cpDR 1 cap nightly [Active]; dapsom 100 mg daily [Active]; magnesium oxide 400 mg Oral tab daily [Active]; ferrous sulfate 325 mg (65 mg iron) Oral tab daily [Active]; [place] 7.5-325 mg Oral tab 1 tab QID PRN [Active]; torsemide 20 mg oral tab 1 tab once daily [Active]; calcium 1200 mg daily [Active]; multivitamin oral tab daily [Active]; 09:03 Norvasc 5 mg Oral tab nightly [Active]; sv - PMHx: 08:03 Anemia; Cancer, Breast; chronic back pain; CVA; High Cholesterol; Hypertension; sv Hypothyroidism; Lupus; vaginal CA; 08:58 Insterstitial lung disease; Unable to use LEFT arm d/t lymph nodes removed; sv - PSHx: 08:03 Mastectomy, Right; Mastectomy, Left; sv 08:58 Mitral valve regurgitation; sv - Immunization history:: Adult Immunizations. Screenin:25 Abuse screen: Denies threats or abuse. Denies injuries from another. Nutritional sv screening: No deficits noted. Tuberculosis screening: No symptoms or risk factors identified. Fall Risk None identified. Assessment: 07:25 Reassessment: Christine DIRECTOR OF [employer] at bedside to place pt on BIPAP. sv 07:50 Reassessment: Patient appears in no apparent distress at this time. Patient and/or sv family updated on plan of care and expected duration. Pain level reassessed. Patient states symptoms have improved. Respiratory: Airway is patent Respiratory effort is even, unlabored, Respiratory pattern is symmetrical, tachypnea. 08:51 Reassessment: Kenyatta in lab notified that pt will be transferred to [facility] and iw KAMRON swab needs to be sent to [facility]. 08:58 Reassessment: Spouse stated on Monday her weight was 134 pounds. sv 09:35 Reassessment: 1st unit of PRBCs started, see blood transfusion sheet. sv 10:00 Reassessment: Patient appears in no apparent distress at this time. Patient and/or sv family updated on plan of care and expected duration. Pain level reassessed. Patient is alert, oriented x 3, equal unlabored respirations, skin warm/dry/pink. Waiting for an ICU bed from [facility] [place]. BIPAP remains in place. Patient states symptoms have improved. 11:05 Reassessment: 1st unit of PRBCs complete. See blood transfusion sheet. sv 11:05 Reassessment: Patient appears in no apparent distress at this time. Patient and/or sv family updated on plan of care and expected duration. Pain level reassessed. Patient is alert, oriented x 3, equal unlabored respirations, skin warm/dry/pink. 11:52 Reassessment: Bedside report given to EMS. sv Vital Signs: 07:15 Temp 100(O); sv 07:29 BP 187 / 83; Pulse 101; Resp 31; Pulse Ox 98% on 4 lpm NC; iw 08:30 BP 167 / 73; Pulse 99; Resp 23; Pulse Ox 94% on BiPAP; sv 08:58 Weight 62.14 kg (R); Height 5 ft. 0 in. (152.40 cm); sv 09:30 BP 168 / 83; Pulse 98; Resp 21; Pulse Ox 94% on 40% BiPAP; sv 08:58 Body Mass Index 26.75 (62.14 kg, 152.40 cm) sv 08:30 BIPAP settings: 12/6, rate-12 FiO2 40%. sv ED Course: 07:15 Accessed PICC line. Blood collected. Clean \T\ dry. Dressing intact. Good blood return. sv Flushes easily. 07:15 inpatient care manager rn on. Pulse ox on. NIBP on. Door closed. Head of bed elevated. sv 07:20 Patient arrived in ED. as 07:20 Rickie Erickson MD is Private Physician. as 07:25 Arm band placed on. sv 07:25 Patient has correct armband on for positive identification. Bed in low position. Call sv light in reach. Side rails up X2. 07:26 Henrique Garza MD is Attending Physician. kdr 07:30 First set of blood cultures drawn by me, Flu and/or RSV swab sent to lab. Strep swab sv sent to lab. ABG drawn. by RT staff, on oxygen. 07:56 Audrey Brown, YORDY is Primary Nurse. sv 07:57 Triage completed. sv 08:00 One-on-one care X 45 minutes. sv 08:01 Chest Single View XRAY Sent. sv 08:06 Chest Single View XRAY In Process Unspecified. EDMS 10:05 One-on-one care X 30 minutes. sv 10:17 Throat Culture Sent. sv 10:18 Bb Add On Sent. sv 10:18 Packed RBC Leukored Sent. sv 11:52 No provider procedures requiring assistance completed. Patient transferred, IV remains sv in place. intact. Administered Medications: 08:25 Drug: Zofran (Ondansetron) 4 mg Route: IVP; Site: PICC; sv 09:30 Follow up: Response: No adverse reaction sv 08:27 Drug: morphine 2 mg Route: IVP; Site: PICC; sv 09:30 Follow up: Response: No adverse reaction; Marked relief of symptoms; RASS: Drowsy (-1) sv 10:47 Drug: Cefepime 2 grams {Note: given as IVP per pharmacy.} Route: IVPB; Rate: 200 ml/hr; sv Infused Over: 30 mins; Site: PICC; 10:51 Follow up: Response: No adverse reaction; IV Status: Completed infusion; IV Intake: 20mlsv 11:10 Drug: morphine 2 mg Route: IVP; Site: PICC; sv 11:50 Follow up: Response: No adverse reaction; Medication administered at discharge.; RASS: sv Restless (+1) Intake: 10:51 IV: 20ml; Total: 20ml. sv Outcome: 08:53 ER care complete, transfer ordered by . kdr 10:40 Transferred by ground EMS to [facility], Transfer form completed. sv X-rays sent w/ patient. Note: Report given to Grace SCALES 10:40 Condition: stable 10:40 Condition: improved 10:40 Instructed on the need for transfer. 11:53 Patient left the ED. sv Signatures: Dispatcher [employer] Audrey Domingo RN RN sv Henrique Garza MD MD kdr Martinez, Amelia as Williams, Irene, RN RN iw Corrections: (The following items were deleted from the chart) 09:04 08:30 BP 167 / 73; Pulse 99bpm; Resp 23bpm; Pulse Ox 94% BiPAP; sv sv 10:17 08:58 62.14 kg Reported; sv sv
--- NOTE | 2019-10-30 08:54 | EDPHYS ---
Physician Documentation [facility] Name: Bri Alvarenga Age: 59 yrs Sex: Female : 1960 Arrival Date: 10/30/2019 Time: 07:20 Bed 30 Private MD: Rickie Erickson T ED Physician Henrique Garza HPI: 10/29 07:27 This 59 yrs old Female presents to ER via Unassigned with complaints of kdr progressively worsening SOB worse in the last three days. 07:27 The patient has shortness of breath at rest. Onset: The symptoms/episode began/occurred kdr gradually, 3 day(s) ago. Duration: The symptoms are continuous, and are steadily getting worse. The patient's shortness of breath is aggravated by coughing, exertion, light activity. Associated signs and symptoms: Pertinent positives: Pertinent negatives: non-productive cough, productive cough, diaphoresis, dizziness, fever, hemoptysis, loss of consciousness, nausea, numbness in extremities, visual changes, vomiting. Severity of symptoms: At their worst the symptoms were moderate just prior to arrival, in the emergency department the symptoms are unchanged. The patient has not experienced similar symptoms in the past. The patient had valve replacement at [facility] on October 08 and then was discharged on the following Monday. She has become increasingly SOB since. The last three days has been the worst. She denies fever. Historical: - Allergies: 08:03 No Known Allergies; sv - Home Meds: 08:58 cefepime intravenous 2gm BID at 0800 until November 07 intravenous [Active]; potassium sv chloride 20 mEq Oral TbTQ 1 tab 2 times per day [Active]; Coreg 25 mg oral tab 2 times per day [Active]; prednisone 20 mg Oral tab 1 tab once daily [Active]; levothyroxine 100 mcg tab 1 tab once daily [Active]; aspirin 81 mg Oral TbEC 1 tab once daily [Active]; anastrozole 1 mg Oral tab 1 tab once daily [Active]; Ambien 10 mg Oral tab 1 tab nightly [Active]; atorvastatin 40 mg Oral tab 1 tab nightly [Active]; gabapentin 600 mg Oral tab 0.5 tab nightly [Active]; duloxetine 60 mg Oral cpDR 1 cap nightly [Active]; dapsom 100 mg daily [Active]; magnesium oxide 400 mg Oral tab daily [Active]; ferrous sulfate 325 mg (65 mg iron) Oral tab daily [Active]; Runge 7.5-325 mg Oral tab 1 tab QID PRN [Active]; torsemide 20 mg oral tab 1 tab once daily [Active]; calcium 1200 mg daily [Active]; multivitamin oral tab daily [Active]; 09:03 Norvasc 5 mg Oral tab nightly [Active]; sv - PMHx: 08:03 Anemia; Cancer, Breast; chronic back pain; CVA; High Cholesterol; Hypertension; sv Hypothyroidism; Lupus; vaginal CA; 08:58 Insterstitial lung disease; Unable to use LEFT arm d/t lymph nodes removed; sv - PSHx: 08:03 Mastectomy, Right; Mastectomy, Left; sv 08:58 Mitral valve regurgitation; sv - Immunization history:: Adult Immunizations. ROS: 07:52 Constitutional: Negative for fever, chills, and weight loss, Eyes: Negative for injury, kdr pain, redness, and discharge, ENT: Negative for injury, pain, and discharge, Neck: Negative for injury, pain, and swelling, Cardiovascular: Negative for chest pain, palpitations, and edema, Abdomen/GI: Negative for abdominal pain, nausea, vomiting, diarrhea, and constipation, Back: Negative for injury and pain, : Negative for injury, bleeding, discharge, and swelling, MS/Extremity: Negative for injury and deformity, Skin: Negative for injury, rash, and discoloration, Neuro: Negative for headache, weakness, numbness, tingling, and seizure activity. Psych: Negative for depression, anxiety, suicide ideation, homicidal ideation, and hallucinations, Allergy/Immunology: Negative for hives, rash, and allergies, Endocrine: Negative for neck swelling, polydipsia, polyuria, polyphagia, and marked weight changes, Hematologic/Lymphatic: Negative for swollen nodes, abnormal bleeding, and unusual bruising. 07:52 Respiratory: Positive for dyspnea on exertion, shortness of breath, at rest. Negative for hemoptysis, orthopnea, pleurisy, wheezing. Exam: 07:52 Constitutional: This is a well developed, well nourished patient who is awake, alert, kdr and in mild to moderate distress. Head/Face: Normocephalic, atraumatic. Eyes: Pupils equal round and reactive to light, extra-ocular motions intact. Lids and lashes normal. Conjunctiva and sclera are non-icteric and not injected. Cornea within normal limits. Periorbital areas with no swelling, redness, or edema. Neck: Trachea midline, no thyromegaly or masses palpated, and no cervical lymphadenopathy. Supple, full range of motion without nuchal rigidity, or vertebral point tenderness. No Meningismus. Chest/axilla: Normal chest wall appearance and motion. Nontender with no deformity. No lesions are appreciated. Cardiovascular: Regular rate and rhythm with a normal S1 and S2. No gallops, murmurs, or rubs. Normal PMI, no JVD. No pulse deficits. Back: No spinal tenderness. No costovertebral tenderness. Full range of motion. Skin: Warm, dry with normal turgor. Normal color with no rashes, no lesions, and no evidence of cellulitis. MS/ Extremity: Pulses equal, no cyanosis. Neurovascular intact. Full, normal range of motion. Neuro: Awake and alert, GCS 15, oriented to person, place, time, and situation. Cranial nerves II-XII grossly intact. Motor strength 5/5 in all extremities. Sensory grossly intact. Cerebellar exam normal. Normal gait. Psych: Awake, alert, with orientation to person, place and time. Behavior, mood, and affect are within normal limits. 07:52 Respiratory: mild respiratory distress is noted, Respirations: labored breathing, that is mild, Breath sounds: are clear throughout, Respiratory rate: 31 07:52 Abdomen/GI: Inspection: bruising, all quadrants, distension, that is moderate, obese Bowel sounds: diminished, in all quadrants, Palpation: mass, is not appreciated, rebound tenderness, is not appreciated, voluntary guarding, is not appreciated, Abdomen firm but non-tender. Patient states that her abdomen is not distended or otherwise abnormal. 16:29 ECG was reviewed by the Attending Physician. kdr Vital Signs: 07:15 Temp 100(O); sv 07:29 BP 187 / 83; Pulse 101; Resp 31; Pulse Ox 98% on 4 lpm NC; iw 08:30 BP 167 / 73; Pulse 99; Resp 23; Pulse Ox 94% on BiPAP; sv 08:58 Weight 62.14 kg (R); Height 5 ft. 0 in. (152.40 cm); sv 09:30 BP 168 / 83; Pulse 98; Resp 21; Pulse Ox 94% on 40% BiPAP; sv 08:58 Body Mass Index 26.75 (62.14 kg, 152.40 cm) sv 08:30 BIPAP settings: 12/6, rate-12 FiO2 40%. sv MDM: 07:52 Data reviewed: vital signs, nurses notes, lab test result(s), EKG, radiologic studies. kdr 08:53 Patient medically screened. kdr 10/29 07:26 Order name: Amylase, Serum; Complete Time: 08:35 kdr 10/29 07:26 Order name: Basic Metabolic Panel; Complete Time: 08:35 kdr 10/29 07:26 Order name: Blood Culture Adult (2) kdr 10/29 07:26 Order name: CBC with Diff kdr 10/29 07:26 Order name: Ckmb; Complete Time: 08:35 kdr 10/29 07:26 Order name: CPK; Complete Time: 08:35 kdr 10/29 07:26 Order name: Lactate; Complete Time: 08:35 kdr 10/29 07:26 Order name: LFT's; Complete Time: 08:35 kdr 10/29 07:26 Order name: Lipase; Complete Time: 08:35 kdr 10/29 07:26 Order name: Procalcitonin; Complete Time: 09:25 kdr 10/29 07:26 Order name: Protime (+inr); Complete Time: 08:50 kdr 10/29 07:27 Order name: Ptt, Activated; Complete Time: 08:50 kdr 10/29 07:27 Order name: Troponin (emerg Dept Use Only); Complete Time: 08:35 kdr 10/29 07:27 Order name: Chest Single View XRAY; Complete Time: 08:50 kdr 10/29 07:42 Order name: Flu; Complete Time: 09:25 kdr 10/29 07:42 Order name: Strep; Complete Time: 09:25 kdr 10/29 07:45 Order name: ABG; Complete Time: 08:35 kdr 10/29 07:51 Order name: COVID-19; Complete Time: 09:25 kdr 10/29 08:25 Order name: Manual Differential EDMS 10/29 08:31 Order name: Bb Add On bd 10/29 08:37 Order name: Type and Screen EDMS 10/29 08:38 Order name: Type and Screen EDMS 10/29 08:38 Order name: Packed RBC Leukored EDVT 10/29 09:13 Order name: Throat Culture EDVT 10/29 07:27 Order name: Cardiac monitoring; Complete Time: 08:01 kdr 10/29 07:27 Order name: EKG - Nurse/Tech; Complete Time: 09:01 kdr 10/29 07:27 Order name: IV Saline Lock - Large Bore; Complete Time: 08:02 kdr 10/29 07:27 Order name: Labs collected and sent; Complete Time: 08:02 kdr 10/29 07:27 Order name: O2 Per Protocol; Complete Time: 08:02 kdr 10/29 07:27 Order name: O2 Sat Monitoring; Complete Time: 08:02 kdr 10/29 07:56 Order name: Labs - recollect needed: recollect flu and strep, specimen not labled; bd Complete Time: 08:36 10/29 11:25 Order name: EKG Electrocardiogram EDVT EC:29 Rate is 98 beats/min. Rhythm is regular. Left axis deviation noted. CA interval is kdr normal. No Q waves. Clinical impression: NSR w/ Non-specific ST/T Changes. Administered Medications: 08:25 Drug: Zofran (Ondansetron) 4 mg Route: IVP; Site: PICC; sv 09:30 Follow up: Response: No adverse reaction sv 08:27 Drug: morphine 2 mg Route: IVP; Site: PICC; sv 09:30 Follow up: Response: No adverse reaction; Marked relief of symptoms; RASS: Drowsy (-1) sv 10:47 Drug: Cefepime 2 grams {Note: given as IVP per pharmacy.} Route: IVPB; Rate: 200 ml/hr; sv Infused Over: 30 mins; Site: PICC; 10:51 Follow up: Response: No adverse reaction; IV Status: Completed infusion; IV Intake: 20mlsv 11:10 Drug: morphine 2 mg Route: IVP; Site: PICC; sv 11:50 Follow up: Response: No adverse reaction; Medication administered at discharge.; RASS: sv Restless (+1) Disposition: 10/30/19 08:53 Transfer ordered to [facility]. Diagnosis are Anemia, unspecified, Shortness of breath, Dyspnea. - Reason for transfer: Higher level of care. - Accepting physician is Card. - Condition is Fair. - Problem is an acute exacerbation. - Symptoms have improved. Signatures: Dispatcher [employer] EDVT Vesta Oneil Stephanie, RN RN sv Henrique Garza MD MD kdr Corrections: (The following items were deleted from the chart) 08:01 07:26 Accucheck ordered. kdr sv 08:40 08:25 TYPE AND SCREEN+BB.LAB.BRZ ordered. EDVT EDVT 08:40 08:25 PACKED RBC LEUKORED -1+BB.LAB.BRZ ordered. EDVT EDMS 08:40 08:27 ABO/RH typing ordered. EDVT EDVT 08:40 08:27 Antibody Screen ordered. [facility] EDVT 11:53 08:53 10/30/2019 08:53 Transfer ordered to [facility]. sv Diagnosis is Anemia, unspecified; Shortness of breath; Dyspnea. Reason for transfer: Higher level of care. Accepting physician is Card. Condition is Fair. Problem is an acute exacerbation. Symptoms have improved. kdr
[2019-10-30] MEDS ORDERED: NA CHLORIDE 0.9% 250 ML ONE (09:18)
[2019-10-30 10:15] LABS: Anisocytosis 1+; Blood Morphology Comment NOTED (NOT SEEN); Hypochromasia 1+; Platelet Estimate ADEQ; Polychromasia 1+
[2019-10-30] MEDS ORDERED: CEFEPIME/SWI 2gm 2 GM/20 ML SYR IV ONE (10:30)
[2019-10-30 12:04] VITALS: O2SAT 94
[2019-10-30 12:05] VITALS: BP 168/83
--- NOTE | 2019-10-30 18:31 | EKG ---
Test Date: 2019-10-30 Test Time: 08:31:08 Lead Sprinkler: KENZIE MEASUREMENT RESULTS: Intervals: Rate: 98 DC: 124 QRSD: 110 QT: 354 QTc: 451 [place]: P: 33 DC: 124 QRS: 43 T: -31 INTERPRETIVE STATEMENTS: Normal sinus rhythm Left atrial enlargement Incomplete right bundle branch block ST & T wave abnormality, consider inferior ischemia ST & T wave abnormality, consider anterior ischemia Abnormal ECG Compared to ECG 09/28/2019 00:29:33 Incomplete right bundle-branch block now present ST (T wave) deviation now present Right bundle-branch block no longer present T-wave abnormality no longer present Possible ischemia still present Electronically Signed On 10-30-19 18:30:35 CDT by Kamran Chung
== END 2019-10-30 11:53 | disposition short-term general hospital (02) ==
LOC: ER 07:16
PROC: 30233N1 Transfusion of Nonautologous Red Blood Cells into Peripheral Vein, Percutaneous Approach (ICD-10-PCS; principal; 2019-10-30)
DX: D64.9 Anemia, unspecified (principal); R06.00 Dyspnea, unspecified; I10 Essential (primary) hypertension; E03.9 Hypothyroidism, unspecified; E78.00 Pure hypercholesterolemia, unspecified; Z03.818 Encounter for observation for suspected exposure to other biological agents ruled out; Z79.82 Long term (current) use of aspirin; Z85.3 Personal history of malignant neoplasm of breast; Z85.89 Personal history of malignant neoplasm of other organs and systems; Z90.13 Acquired absence of bilateral breasts and nipples; Z95.4 Presence of other heart-valve replacement
CPT/HCPCS: 93005; 87040; 87070; 85025; 80048; 36415; 82150; 86900; 86850; 82550; 85610; 86901; 80076; 87081; 83605; 85730; 84484; 82553; 83690; 84145; 86922 ×2; 87804 ×2; 71045; 82805; 94660; 96375; 96374; 99291; 99292; 36430; U0002; J2270 ×2; J0692; P9016; J7030; J2405